=== PATIENT | male | born 1945 | race Caucasian/White ===

== ENCOUNTER → 2020-08-19 08:53 | Outpatient (BNVA) | payer MEDICARE, SELFPAY | PROVIDERS: PCP Internal Medicine; Referring Provider Internal Medicine; Visit Provider Orthopaedic Surgery | DX: M17.11 Unilateral primary osteoarthritis, right knee (principal) | CPT/HCPCS: 20610; 99212; J1100 ==

== ENCOUNTER → 2021-01-10 11:00 | Outpatient (BNVA) | payer MEDICARE, SELFPAY | PROVIDERS: Visit Provider Orthopaedic Surgery | DX: M17.11 Unilateral primary osteoarthritis, right knee (principal) | CPT/HCPCS: 20610; 99212; J1100 ==

== ENCOUNTER 2021-02-08 06:04 | Outpatient (REF) | payer MEDICARE, SELFPAY ==
--- NOTE | ~2021-02-08 | FL_ITS ---
EXAMINATION: XR FLUOROSCOPY WITH IMAGES CLINICAL INFORMATION: Pain, osteoarthritis right hip COMPARISON: Pelvic radiograph 10/10/2018 TECHNIQUE: Fluoroscopy performed by Judy Rahman NP. Fluoroscopy time: 0.1 minutes DAP: 1.67 Gycm2 Images: 1 FINDINGS: There is a spinal needle seen at the superolateral aspect right hip joint. There is intracapsular contrast demonstrated. Degenerative changes again noted right hip joint. FL/FL guidance in treatment room IMPRESSION: Fluoroscopy for pain management procedure.
== END 2021-02-08 06:05 | disposition home or self-care (01) ==
LOC: HO.RADIR 06:04
PROVIDERS: Visit Provider Anesthesiology
DX: M16.11 Unilateral primary osteoarthritis, right hip (principal)
CPT/HCPCS: 20610; J3300; Q9967

== ENCOUNTER → 2021-07-08 10:23 | Outpatient (BNVA) | payer MEDICARE, SELFPAY | PROVIDERS: PCP Internal Medicine; Visit Provider Orthopaedic Surgery | DX: M17.11 Unilateral primary osteoarthritis, right knee (principal) | CPT/HCPCS: 20610; 99212; J1100 ==

== ENCOUNTER → 2022-01-30 10:57 | Outpatient (BNVA) | payer MEDICARE, SELFPAY | PROVIDERS: PCP Internal Medicine; Visit Provider Orthopaedic Surgery | DX: M17.11 Unilateral primary osteoarthritis, right knee (principal) | CPT/HCPCS: 20610; 99212; J1100 ==

== ENCOUNTER → 2022-06-19 10:26 | Outpatient (BNVA) | payer MEDICARE, SELFPAY | PROVIDERS: PCP Internal Medicine; Visit Provider Orthopaedic Surgery | DX: M17.11 Unilateral primary osteoarthritis, right knee (principal) | CPT/HCPCS: 20610; 99212; J1100 ==

== ENCOUNTER → 2022-09-25 10:03 | Outpatient (BNVA) | payer MEDICARE, SELFPAY | PROVIDERS: PCP Internal Medicine; Visit Provider Orthopaedic Surgery | DX: M17.11 Unilateral primary osteoarthritis, right knee (principal) | CPT/HCPCS: 20610; 99212; J1100 ==

== ENCOUNTER → 2022-12-04 09:18 | Outpatient (BNVA) | payer MEDICARE, SELFPAY | PROVIDERS: PCP Internal Medicine; Visit Provider Orthopaedic Surgery | DX: M17.11 Unilateral primary osteoarthritis, right knee (principal) | CPT/HCPCS: 20610; 99212; J7318 ==

== ENCOUNTER → 2023-03-02 09:54 | Outpatient (BNVA) | payer MEDICARE, SELFPAY | PROVIDERS: PCP Internal Medicine; Visit Provider Orthopaedic Surgery | DX: M17.11 Unilateral primary osteoarthritis, right knee (principal) | CPT/HCPCS: 20610; 99212; J1100 ==

== ENCOUNTER 2023-03-28 02:02 | Inpatient (IN) | payer MEDICARE, SELFPAY ==
[2023-03-28] VITALS (10 sets, daily range): BP systolic 109–158; BP diastolic 54–84; PULSE 82–96; RESP 16–36; TEMP 36.4–38; O2SAT 74–97; BMI 26.3; BMI 26.9
--- NOTE | 2023-03-28 | ECG_ITS ---
Test Reason : SOB Blood Pressure : / mmHG Vent. Rate : 092 BPM Atrial Rate : 093 BPM P-R Int : 000 ms QRS Dur : 102 ms QT Int : 334 ms P-R-T Axes : 059 -24 046 degrees QTc Int : 413 ms Poor data quality Normal sinus rhythm Borderline ECG No previous ECGs available Referred By: Generic ED Physician Electronically Signed By:Korey Beckett
--- NOTE | ~2023-03-28 | CT_ITS ---
EXAMINATION: CT CHEST WITHOUT CONTRAST CLINICAL INFORMATION: Question pneumonia. COMPARISON: Chest x-ray of 03/28/2023. TECHNIQUE: Multidetector volumetric CT imaging of the chest was done. Axial MIP volume rendering provided. Sagittal and coronal reformatted images were obtained. This CT examination was performed using dose optimization techniques as appropriate, variously including the following: *Automated exposure control *Adjustment of mA and/or kV according to patient size (this includes techniques or standardized protocols for targeted exams where dose is matched to indication/reason for exam; i.e. extremities or head) *Use of iterative reconstruction technique DLP: 168 mGy-cm FINDINGS: LUNGS: Patient appears to be status post previous lingula surgery with suture line in place; however, I do not have history as to what the surgery was and why. Central airways are patent. There is diffuse bronchial wall thickening present most prominent within the lower lobes. There is mild bronchiectasis in the upper lobes bilaterally. There are moderate changes of centrilobular and paraseptal emphysema bilaterally. There is a mosaic ground-glass appearance present which may be related to varying vascularity or air trapping. There is prominent bilateral apical pleural parenchymal scarring with some calcification about the right apex. There is prominent interstitial and airspace disease seen within the left lower lobe, consistent with pneumonia with air bronchograms. There is some right lower lobe disease as well, which may be on a basis of atelectasis, scarring, or pneumonia. There are some small peripheral scattered regions of disease which may be infectious and bronchial disease or related to reactive airways disease and mucus plugging. Evaluation for lung nodules is very limited due to the bilateral disease which is present. Repeat CT scan after therapy could be performed to rule out underlying solid mass. MEDIASTINUM: There is a small amount of pericardial fluid present. Heart normal size. No thoracic aortic aneurysm. There is nonocclusive calcified plaque in the aortic arch. Visualized thyroid appears unremarkable. There is mediastinal lymphadenopathy present in the precarinal region with right-sided 1.3 cm short axis lymph node, central 1.4 cm short axis lymph node, and left 1.1 cm and 1.2 cm short axis lymph nodes. There is 2.3 x 2.2 cm subcarinal density consistent with lymphadenopathy. There are other prominent lymph nodes within the mediastinum and hilar regions that are difficult to evaluate due to lack of IV contrast and parenchymal disease. There does appear to be a 1.3 cm right superior hilar lymph node. CORONARY ARTERY CALCIFICATION: There is prominent coronary artery calcification present. PLEURA: There are small bilateral pleural effusions present. AXILLA: No lymphadenopathy. UPPER ABDOMEN: Unremarkable. OSSEOUS STRUCTURES: There appear to be nondisplaced fractures involving the posterior aspects of the left 10th and 11th ribs. There are multiple vertebral bodies with regions of osteopenia with the appearance of possible hemangiomas and less likely metastatic processes. CT/CT chest wo IV con IMPRESSION: 1. Moderate changes of centrilobular and paraseptal emphysema. 2. Bilateral regions of interstitial and airspace disease most prominent in the left lower lobe consistent with pneumonia. Underlying lung mass is not excluded. Follow-up study following treatment would be of help in further evaluation of possible underlying masses. 3. Status post previous left lung surgery. 4. Mediastinal and right hilar lymphadenopathy. 5. Small pericardial effusion and bilateral small pleural effusions. 6. Nondisplaced fractures involving the posterior aspects of the left 10th and 11th ribs. Fleischner guidelines were followed.
--- NOTE | ~2023-03-28 | XR_ITS ---
EXAMINATION: XR CHEST CLINICAL INFORMATION: Dyspnea COMPARISON: None available. TECHNIQUE: Frontal view of the chest was obtained. FINDINGS: Rotated study. Cardiac leads overlie the chest. The lungs are well expanded. Patchy opacity at the left base. No pleural effusion or pneumothorax. The cardiomediastinal silhouette is unremarkable given the limitations of the study. XR/XR chest 1V IMPRESSION: Patchy opacity at the left base could represent atelectasis or pneumonia. Aspiration possible.
[2023-03-28 02:28] LABS: Basophils Absolute Auto 0.1 X10*3/uL (0.0-0.2); Basophils Percent Auto 0.3 % (0-2); Eosinophils Percent Auto 0.1 % (0-4); Hematocrit 30.8 % (42.0-52.0); Hemoglobin 10.7 g/dl (14.0-18.0); Imm Gran Abs Auto 0.12 X10*3/uL (0.00-0.03); Imm Gran Pct Auto 0.6 % (0.0-0.4); Lymphocytes Percent Auto 5.2 % (20-40); Mean Corpuscular HGB Conc 34.7 g/dl (31.0-36.0); Mean Corpuscular Hemoglobin 30.2 pg (27.0-33.0); Monocytes Absolute Auto 1.8 X10*3/uL (0.1-1.2); Monocytes Percent Auto 9.5 % (2-11); Neutrophils Absolute Auto 15.8 x10*3/uL (2.0-8.3); Neutrophils Percent Auto 84.3 % (45-73); Platelet Count 262 X10*3/uL (160-400); Red Blood Count 3.54 X10*6/uL (4.60-5.80); Red Cell Distribution Width 13.4 % (11.0-16.0); SCAN SMEAR FLAG 1; White Blood Count 18.7 X10*3/uL (4.8-10.8)
[2023-03-28 02:32] LABS: MANUAL DIFF FLAG SCAN
[2023-03-28 02:43] LABS: SLIDE REVIEW VERIFIED
[2023-03-28 02:47] LABS: Troponin-I High Sensitivity 26.8 ng/L (<3.5-35.0)
[2023-03-28 03:05] LABS: Alanine Aminotransferase 32 U/L (0-40); Albumin Level 3.2 g/dL (3.5-5.0); Alkaline Phosphatase 134 U/L (39-117); Anion Gap 15 (12-20); Aspartate Amino Transferase 30 U/L (5-37); Bilirubin Direct 0.5 mg/dL (0.0-0.5); Bilirubin Total 1.2 mg/dL (0.0-1.0); Blood Urea Nitrogen 22 mg/dL (9-16); Calcium 8.1 mg/dL (8.4-10.2); Carbon Dioxide 18 mmol/L (22-29); Chloride 97 mmol/L (96-108); Creatinine Clr Calc Pharmacy 33.2; Estimated Glomerular Filt Rate 35; Glucose Random 144 mg/dL (60-115); Lipase 10 U/L (8-78); Potassium 4.7 mmol/L (3.3-5.1); Sodium 125 mmol/L (135-145); Total Protein 5.5 g/dL (6.5-8.0)
[2023-03-28 03:09] LABS: Lactic Acid 1.1 mmol/L (0.5-2.0)
[2023-03-28] MEDS: cefTRIAXone sodium 1 GM in 0.9 % Sodium Chloride 50 ML IV (03:17)
[2023-03-28 03:30] LABS: COVID-19 Test Negative (Negative); IDNOW Serial# 08D9AD1C; IDNOW Serial# BCCEAD1C; Influenza A Negative (Negative); Influenza B2 Negative (Negative)
--- NOTE | 2023-03-28 03:31 | PM.IMHP ---
History of Present Illness Date of Service: 03/28/23 Chief Complaint: Dyspnea This is a 77-year-old male with pertinent history of essential hypertension, mixed hyperlipidemia who presents to the emergency department for evaluation of dyspnea. Patient states that about 3-5 days prior to presentation he has been having upper respiratory symptoms. About 3 days prior to presentation, patient started having productive cough. Initially it was clear sputum which changed color to yellow. On the day of presentation, patient began to have dyspnea this was worse with exertion. No wheezing. Admits associated fevers and chills. Patient denies chest discomfort, palpitations, nausea, vomiting, abdominal pain, changes in urinary or bowel habits. In the emergency department, patient was found to be septic and requiring supplemental oxygen. Review of Systems Constitutional: Constitutional: Reports chills, Reports fever(s), Reports lethargy and Reports malaise Cardiovascular: Cardiovascular: Reports dyspnea on exertion Respiratory: Respiratory: Reports cough, Reports excessive phlegm production and Reports dyspnea on exertion Gastrointestinal: Gastrointestinal: Reports no additional gastrointestinal complaints Genitourinary: Genitourinary: Reports no additional male genitourinary complaints [facility] Medical History Hip osteoarthritis Hypertension Primary osteoarthritis of right hip Primary osteoarthritis of right knee Family History Father No problems noted. Mother No problems noted. Surgical History History of arthroscopy of left knee (~1965) Social History Advance Directives: No Advance Directives Information Provided: No Current occupational status: retired Current occupation: right handed Meds Allergies Allergy/AdvReac Type Severity Reaction Status Date / Time No Known Allergies Allergy Verified 12/04/22 09:31 Active Medications: Current Medications Acetaminophen (Acetaminophen 325 Mg Tablet) 650 mg PO Q6H PRN PRN Reason: Pain, Mild (Pain Scale 1-3) Enoxaparin Sodium (Enoxaparin Sodium 40 Mg/0.4 Ml Syringe) 40 mg SUBCUT Q24H KIMBERLY Sodium Chloride (Ns) 2,490.21 mls @ 2,490.21 mls/hr 30 ml/kg infuse over 1 hr (2490.21 ml) IV .Q1H STA Stop: 03/28/23 03:45 Last Admin: 03/28/23 03:16 Dose: 2,490.21 mls/hr Melatonin (Melatonin 3 Mg Tablet) 6 mg PO BEDTIME PRN PRN Reason: Insomnia Ondansetron HCl (Ondansetron Hcl 4 Mg/2 Ml Vial) 4 mg IVPUSH Q8H PRN PRN Reason: Nausea and Vomiting Pharmacy Consult (Consult Rx Perform Med Rec) 1 each MISCELLANE ONCE PRN PRN Reason: Consult order Sodium Chloride (0.9 % Sodium Chloride Flush 3 Ml Syringe) 3 ml IVFLUSH [facility] Home Medications Medication Instructions Recorded Confirmed Last Taken Type amlodipine 10 mg tablet 10 mg PO DAILY 08/18/20 08/19/20 Unknown History atenolol 50 mg tablet 50 mg PO DAILY 08/18/20 08/19/20 Unknown History atorvastatin 40 mg tablet 40 mg PO DAILY 08/18/20 08/19/20 Unknown History cilostazol 50 mg tablet 50 mg PO BID 08/18/20 08/19/20 Unknown History latanoprost 0.005 % eye drops 1 drp ophthalmic (eye) BEDTIME 09/25/22 Unknown History netarsudil 0.02 % eye drops 0 drp ophthalmic (eye) 09/25/22 Unknown History (Rhopressa) Physical Exam Vital Signs and Narrative: Vital Signs: Last Vital Signs Temp 98.2 F 03/28/23 02:43 Pulse 82 03/28/23 02:43 Resp 26 H 03/28/23 02:43 BP 123/58 L 03/28/23 02:43 Pulse Ox 97 03/28/23 02:43 O2 Del Method Non-Rebreather Ma sk 03/28/23 02:43 O2 Flow Rate 15 03/28/23 02:43 Oxygen Flow Rate 6 03/28/23 02:12 BMI result Body Mass Index 26.3 Elderly male lying in bed on supplemental oxygen Neck supple, no JVD Regular rate and rhythm, S1-S2 heard Decreased breath sounds at bases, left-sided crackles appreciated Abdomen soft nontender, no guarding, no rigidity Patient is awake, alert and oriented to self, place, time and person ; no focal motor deficit Psych: Normal mood No pedal edema Results Labs 03/28/23 02:23 03/28/23 02:23 Labs: Laboratory Results - last 24 hr 03/28/23 03/28/23 03/28/23 02:23 02:23 02:23 MCV 87.0 MCH 30.2 MCHC 34.7 RDW 13.4 Plt Count 262 MPV 9.0 L Immature Gran % (Auto) 0.6 H Neut % (Auto) 84.3 H Lymph % (Auto) 5.2 L [place] % (Auto) 9.5 Eos % (Auto) 0.1 Baso % (Auto) 0.3 Lymph # (Auto) 1.0 L [place] # (Auto) 1.8 H Eos # (Auto) 0.0 Baso # (Auto) 0.1 Abs Immat Gran (auto) 0.12 H Absolute Neuts (auto) 15.8 H Absolute Nucleated RBC 0.000 Nucleated RBC % (auto) 0.0 Smear Tech's Comments VERIFIED Anion Gap 15 Estim Creat Clear Calc 33.2 Estimated GFR 35 Random Glucose 144 H Lactic Acid Calcium 8.1 L Total Bilirubin 1.2 H Direct Bilirubin 0.5 AST 30 ALT 32 Alkaline Phosphatase 134 H Troponin I High Sens 26.8 Total Protein 5.5 L Albumin 3.2 L Lipase 10 COVID-19 (MAHESH) COVID-19 Clin Com Influenza Type A (LOREN) Influenza Type B (LOREN) Influenza A & B Note 03/28/23 03/28/23 03/28/23 02:50 02:50 02:54 MCV MCH MCHC RDW Plt Count MPV Immature Gran % (Auto) Neut % (Auto) Lymph % (Auto) [place] % (Auto) Eos % (Auto) Baso % (Auto) Lymph # (Auto) [place] # (Auto) Eos # (Auto) Baso # (Auto) Abs Immat Gran (auto) Absolute Neuts (auto) Absolute Nucleated RBC Nucleated RBC % (auto) Smear Tech's Comments Anion Gap Estim Creat Clear Calc Estimated GFR Random Glucose Lactic Acid 1.1 Calcium Total Bilirubin Direct Bilirubin AST ALT Alkaline Phosphatase Troponin I High Sens Total Protein Albumin Lipase COVID-19 (MAHESH) Negative COVID-19 Clin Com See Note Influenza Type A (LOREN) Negative Influenza Type B (LOREN) Negative Influenza A & B Note See Note Imaging Radiologist's Impressions: Impressions Chest X-Ray 03/28/23 02:12 IMPRESSION: Patchy opacity at the left base could represent atelectasis or pneumonia. Aspiration possible. Assessment and Plan (1) Sepsis due to pneumonia: Status: Acute Plan This is a 77-year-old male with pertinent history of essential hypertension, mixed hyperlipidemia who presents to the emergency department for evaluation of dyspnea. #. Acute hypoxemic respiratory failure and Sepsis due to community-acquired pneumonia. Will admit patient and initiate empiric IV antibiotics. Resuscitated with IV crystalloids. Lactic acid and blood culture obtained. Sputum culture, Legionella antigen and MRSA nasal screen pending. Monitor oxygen saturation and wean as tolerated. Maintain oxygen saturation greater than 90% #. Hyponatremia, likely hypovolemic. Monitor sodium with fluid resuscitation. Legionella antigen pending #. Normocytic anemia. Hemoglobin above transfusion threshold #. Elevated creatinine. BLAIRE versus CKD. Monitor creatinine with fluid resuscitation. Avoid nephrotoxins #. Essential hypertension. Hold antihypertensives in the setting of sepsis. Resume as appropriate #. Mixed hyperlipidemia: On statin Med rec pending DVT prophylaxis: Lovenox Full code Cardiac diet Admit as inpatient and will require two night minimum hospital stay for IV antibiotics and supplemental oxygen Time Spent With Patient Time: Total time managing care of this patient today ____ minutes. Quality Stroke Does the patient have a stroke diagnosis?: No VTE Prior VTE?: No VTE Risk Level:: Medical - moderate - high VTE Device Contraindication: Treatment Not Indicated VTE Drug Contraindication: N/A - Med Ordered
[2023-03-28] MEDS: Azithromycin 500 MG TABLET PO (03:36)
--- NOTE | 2023-03-28 03:37 | ED.SOB ---
HPI - SOB/Dyspnea General Chief Complaint: Dyspnea Stated Complaint: sob Time Seen by Provider: 03/28/23 02:15 History of Present Illness HPI Narrative: Patient is a 77-year-old male presenting today with having coughing congestion upper respiratory symptoms fever generalized malaise. Patient's from home. Vaccinated for COVID. Symptoms been ongoing for 4 days. Has a history of COPD, lung cancer. Not on home O2. Was found have a low O2 sat of 74% on room air on EMS arrival. Positive weakness. Related Data Home Medications Medication Instructions Recorded Confirmed amlodipine 10 mg tablet 10 mg PO DAILY 08/18/20 08/19/20 atenolol 50 mg tablet 50 mg PO DAILY 08/18/20 08/19/20 atorvastatin 40 mg tablet 40 mg PO DAILY 08/18/20 08/19/20 cilostazol 50 mg tablet 50 mg PO BID 08/18/20 08/19/20 latanoprost 0.005 % eye drops 1 drp ophthalmic (eye) BEDTIME 09/25/22 netarsudil 0.02 % eye drops 0 drp ophthalmic (eye) 09/25/22 (Rhopressa) Allergies Allergy/AdvReac Type Severity Reaction Status Date / Time No Known Allergies Allergy Verified 12/04/22 09:31 Review of Systems Review of Systems: Positive shortness of breath Positive coughing upper respiratory symptoms Yes all other systems are reviewed and are negative [facility] Past Medical History Attestation statement: The following information was validated with the patient. Medical History Hip osteoarthritis Hypertension Primary osteoarthritis of right hip Primary osteoarthritis of right knee Surgical History History of arthroscopy of left knee (~1965) Family History Family History Father No problems noted. Mother No problems noted. Social History Social History Advance Directives: No Advance Directives Information Provided: No Current occupational status: retired Current occupation: right handed Physical Exam Vital Signs: Vital Signs: Last Vital Signs Temp 98.2 F 03/28/23 02:43 Pulse 83 03/28/23 03:42 Resp 22 H 03/28/23 03:42 BP 155/62 H 03/28/23 03:42 Pulse Ox 91 L 03/28/23 03:42 O2 Del Method Nasal Cannula 03/28/23 03:42 O2 Flow Rate 6 03/28/23 03:42 Oxygen Flow Rate 6 03/28/23 02:12 BMI result Body Mass Index 26.3 Appearance: Alert. Oriented X3. Short of breath Eyes: Pupils equal, round and reactive to light. ENT: Pharynx normal. Neck: Normal inspection. Neck supple. No lymph nodes noted. No crepitus CVS: Normal heart rate and rhythm. Pulses normal. Normal S1 and S2 Respiratory: Diminished breath sounds bilaterally positive minimal wheezing noted. Abdomen: Soft and nontender. No rigidity. No distention. good BS x4 Skin: Skin warm and dry. Normal skin color. Normal skin turgor. Extremities: No lower extremity edema. Neurovascular intact to all extremities. No Lacerations. No Rash Neuro: Oriented X 3. No motor deficit. No sensory deficit. Moving all extermities. No slurred speech Medications Administered Discontinued Medications Generic Name Dose Route Start Last Admin Trade Name Freq PRN Reason Stop Dose Admin Azithromycin 500 mg 03/28/23 02:45 03/28/23 03:36 Azithromycin 500 Mg Tablet PO 03/28/23 02:46 500 mg ONCE ONE Administration Ceftriaxone Sodium 1 gm/ 50 mls @ 100 mls/hr 03/28/23 02:45 03/28/23 03:17 Sodium Chloride IV 03/28/23 03:14 100 mls/hr ONCE ONE Administration Sodium Chloride 2,490.21 mls @ 2,490.21 mls/hr 03/28/23 02:46 03/28/23 03:16 Ns 30 ml/kg infuse over 1 hr (2490.21 ml) 03/28/23 03:45 2,490.21 mls/hr IV Administration .Q1H STA Medical Decision Making Medical Decision Making MDM Narrative: Patient had positive coughing upper respiratory symptoms positive generalized malaise. Decreased O2 sats. My interpretation of patient's x-ray showed a left-sided pneumonia. Patient's O2 sat was in the 70s baseline not on oxygen. Was placed on O2 here in the emergency department. Cultures were obtained antibiotics started septic alert was called. 30 cc/kilos IV fluids ordered. Patient's lactate came back at 1.1. No signs of decreased tissue perfusion. Patient's BUN and creatinine was 22/1.86. No old ones to compare. Started on community-acquired pneumonia including Rocephin and azithromycin. Patient's case discussed with the hospitalist team. Will admit for further evaluation of his pneumonia. Patient's flu RSV COVID were negative. Differential Diagnosis Differential Diagnoses: The differential diagnosis associated with the presentation includes Pneumonia, COPD Consult Healthcare Provider Management of the patient was discussed with: Hospitalist Lab Data [facility] Lab Attestation statement: I reviewed the patient's lab results. 03/28/23 02:23 03/28/23 02:23 Labs: Lab Results 03/28/23 03/28/23 03/28/23 Range/Units 02:23 02:23 02:23 WBC 18.7 H (4.8-10.8) X10*3/uL RBC 3.54 L (4.60-5.80) X10*6/uL Hgb 10.7 L (14.0-18.0) g/dl Hct 30.8 L (42.0-52.0) % MCV 87.0 (80.0-98.0) fL MCH 30.2 (27.0-33.0) pg MCHC 34.7 (31.0-36.0) g/dl RDW 13.4 (11.0-16.0) % Plt Count 262 (160-400) X10*3/uL MPV 9.0 L (9.4-12.4) fL Immature Gran % (Auto) 0.6 H (0.0-0.4) % Neut % (Auto) 84.3 H (45-73) % Lymph % (Auto) 5.2 L (20-40) % [place] % (Auto) 9.5 (2-11) % Eos % (Auto) 0.1 (0-4) % Baso % (Auto) 0.3 (0-2) % Lymph # (Auto) 1.0 L (1.2-4.9) X10*3/uL [place] # (Auto) 1.8 H (0.1-1.2) X10*3/uL Eos # (Auto) 0.0 (0.0-0.4) X10*3/uL Baso # (Auto) 0.1 (0.0-0.2) X10*3/uL Abs Immat Gran (auto) 0.12 H (0.00-0.03) X10*3/uL Absolute Neuts (auto) 15.8 H (2.0-8.3) x10*3/uL Absolute Nucleated RBC 0.000 (0.0-0.012) X10*3/uL Nucleated RBC % (auto) 0.0 (0.0-0.2) /100WBC Smear Tech's Comments VERIFIED Sodium 125 L (135-145) mmol/L Potassium 4.7 (3.3-5.1) mmol/L Chloride 97 (96-108) mmol/L Carbon Dioxide 18 L (22-29) mmol/L Anion Gap 15 (12-20) BUN 22 H (9-16) mg/dL Creatinine 1.86 H (0.5-1.4) mg/dL Estim Creat Clear Calc 33.2 Estimated GFR 35 Random Glucose 144 H (60-115) mg/dL Lactic Acid (0.5-2.0) mmol/L Calcium 8.1 L (8.4-10.2) mg/dL Total Bilirubin 1.2 H (0.0-1.0) mg/dL Direct Bilirubin 0.5 (0.0-0.5) mg/dL AST 30 (5-37) U/L ALT 32 (0-40) U/L Alkaline Phosphatase 134 H (39-117) U/L Troponin I High Sens 26.8 (<3.5-35.0) ng/L Total Protein 5.5 L (6.5-8.0) g/dL Albumin 3.2 L (3.5-5.0) g/dL Lipase 10 (8-78) U/L COVID-19 (MAHESH) (Negative) COVID-19 Clin Com Influenza Type A (LOREN) (Negative) Influenza Type B (LOREN) (Negative) Influenza A & B Note 03/28/23 03/28/23 03/28/23 Range/Units 02:50 02:50 02:54 WBC (4.8-10.8) X10*3/uL RBC (4.60-5.80) X10*6/uL Hgb (14.0-18.0) g/dl Hct (42.0-52.0) % MCV (80.0-98.0) fL MCH (27.0-33.0) pg MCHC (31.0-36.0) g/dl RDW (11.0-16.0) % Plt Count (160-400) X10*3/uL MPV (9.4-12.4) fL Immature Gran % (Auto) (0.0-0.4) % Neut % (Auto) (45-73) % Lymph % (Auto) (20-40) % [place] % (Auto) (2-11) % Eos % (Auto) (0-4) % Baso % (Auto) (0-2) % Lymph # (Auto) (1.2-4.9) X10*3/uL [place] # (Auto) (0.1-1.2) X10*3/uL Eos # (Auto) (0.0-0.4) X10*3/uL Baso # (Auto) (0.0-0.2) X10*3/uL Abs Immat Gran (auto) (0.00-0.03) X10*3/uL Absolute Neuts (auto) (2.0-8.3) x10*3/uL Absolute Nucleated RBC (0.0-0.012) X10*3/uL Nucleated RBC % (auto) (0.0-0.2) /100WBC Smear Tech's Comments Sodium (135-145) mmol/L Potassium (3.3-5.1) mmol/L Chloride (96-108) mmol/L Carbon Dioxide (22-29) mmol/L Anion Gap (12-20) BUN (9-16) mg/dL Creatinine (0.5-1.4) mg/dL Estim Creat Clear Calc Estimated GFR Random Glucose (60-115) mg/dL Lactic Acid 1.1 (0.5-2.0) mmol/L Calcium (8.4-10.2) mg/dL Total Bilirubin (0.0-1.0) mg/dL Direct Bilirubin (0.0-0.5) mg/dL AST (5-37) U/L ALT (0-40) U/L Alkaline Phosphatase (39-117) U/L Troponin I High Sens (<3.5-35.0) ng/L Total Protein (6.5-8.0) g/dL Albumin (3.5-5.0) g/dL Lipase (8-78) U/L COVID-19 (MAHESH) Negative (Negative) COVID-19 Clin Com See Note Influenza Type A (LOREN) Negative (Negative) Influenza Type B (LOREN) Negative (Negative) Influenza A & B Note See Note Independent Interpretation I performed an independent interpretation of an: EKG Interpretation: My interpretation of patient's EKG showed a sinus rhythm heart rate is 90 [place] QRS QT within normal limits no acute ST segment elevation. Patient's chest x-ray showed a left-sided infiltrate Radiology Impression Discussion of test interpretation with radiology: I have reviewed the radiologist's reading. External Record Review External record reviewed: Office record Chronic Conditions COPD Critical Care Time Critical Care Time Critical Care Time: Yes Total Critical Care Time: 40 Attestation: I have personally provided 40 minutes of critical care time exclusive of time spent on separately billable procedures. Time includes review of lab data, radiology results, discussion with consultants, and monitoring for potential decompensation. Interventions were performed as documented above Discharge Plan Discharge Clinical Impression: Pneumonia Patient Disposition: Admitted As Inpatient Prescriptions: No Action cilostazol 50 mg tablet 50 mg PO BID atenolol 50 mg tablet 50 mg PO DAILY amlodipine 10 mg tablet 10 mg PO DAILY atorvastatin 40 mg tablet 40 mg PO DAILY Rhopressa 0.02 % drops 0 drp ophthalmic (eye) latanoprost 0.005 % drops 1 drp ophthalmic (eye) BEDTIME
--- OUTSIDE RECORDS SUMMARY | 2023-03-28 03:38 | XMS_ITS | Continuity of Care Document ---
Author Name Unknown Organization [facility] Branden С[address] lt Address [address] [place] [address]- Care Team Providers Care Electrical Tech/Project Manager Name Role Phone Bean Florence MD Primary Care Physician [phone] Encounter [facility] [place] Date(s): 11/14/22 - 03/14/23 [facility] Adult [address] [place] [address]- Attending Physician: Bean Florence MD Allergies, Adverse Reactions, Alerts No Known Allergies Immunizations Given and Recorded Vaccine Date Status Refusal Reason SARS-CoV-2 mRNA (dglhmof-olad-oeins) vax 1 08/09/22 Recorded SARS-CoV-2 mRNA (unhlnry-qnae-ogcdz) vax 01/25/22 Given influenza virus vaccine, inactivated 08/09/22 Dave rded influenza virus vaccine, inactivated 2 07/02/17 Re corded influenza virus vaccine, inactivated 3, 4 07/10/16 Recorded influenza virus vaccine, inactivated 5 07/19/15 Re corded influenza virus vaccine, inactivated 08/16/14 Give n influenza virus vaccine, inactivated 07/17/13 Give n influenza virus vaccine, inactivated 07/06/12 Give n influenza virus vaccine, inactivated 10/22/04 Give n SARS-CoV-2 (COVID-19) mRNA BNT-162b2 vac 08/18/21 Recorded SARS-CoV-2 (COVID-19) mRNA BNT-162b2 vac 12/16/20 Recorded SARS-CoV-2 (COVID-19) mRNA BNT-162b2 vac 12/16/20 Recorded SARS-CoV-2 (COVID-19) mRNA BNT-162b2 vac 11/25/20 Recorded SARS-CoV-2 (COVID-19) mRNA BNT-162b2 vac 11/25/20 Recorded Influenza Virus Vaccine (oldterm) 07/18/21 Recorde d Influenza Virus Vaccine (oldterm) 06/07/20 Recorde d Influenza Virus Vaccine (oldterm) 06/24/19 Recorde d Influenza Virus Vaccine (oldterm) 6 08/23/07 Given pneumococcal 13-valent vaccine 06/07/20 Recorded pneumococcal 13-valent vaccine 05/17/15 Given zoster vaccine, inactivated 03/25/19 Recorded zoster vaccine, inactivated 12/20/18 Recorded tetanus/diphtheria/pertussis, acel(Tdap) 7 05/28/17 Given Zostavax (oldterm) 8 06/03/12 Given FluLaval (oldterm) 9 10/20/11 Given Pneumococcal Vacc (oldterm) 09/28/09 Given tetanus-diphtheria toxoids (Td) 11/20/07 Given tetanus-diphtheria toxoids (Td) 10/22/97 Given Pneumococcal Vaccine (oldterm) 10/22/04 Given 1Result Comment: [facility] 2Result Comment: [07/06/2017] HIGH DOSE [facility] 3Location History: [facility] 4Result Comment: [07/12/2016] HIGH DOSE 5Result Comment: [07/21/2015] Given at [facility] ion [facility] in [facility] 6Admin Note: given in clinic 7Result Comment: [05/28/2017] ADMINISTERED SECONDARY TO ABRASIONS PER DR FLORENCE 8Admin Note: ch[facility] 9Admin Note: [employer] [facility] Medications Albuterol (Eqv-ProAir HFA) 90 mcg/inh inhalation aerosol 2 puffs, Inhalation, 4 times a day, PRN NEEDED FOR WHEEZING, # 8.5 each, 5 Refills, Maintenance,02/21/23 17:27:00 EDT, [facility]/pharmacy #[id number], 25, 2 puffs Inhalation 4 times a day,PRN: NEEDED FOR WHEEZING, 177.06, cm, 10/05/22 6:53:00 EST, Height Start Date: 02/21/23 Status: Ordered amLODIPine 10 mg oral tablet 1 tablet, By Mouth, Daily, # 90 tablet, 1 Refills, Maintenance, 11/23/22 14:45:00 EST, [facility] STORE [id number], 177.06, cm, 10/05/22 6:53:00 EST, Height Start Date: 11/23/22 Status: Ordered aspirin 81 mg oral tablet 81, mg, 1, tablet, By Mouth, Daily, 30, tablet, , , 07/06/06 15:03:18, Print REAL Number, [id number], Constant Indicator Start Date: 07/06/06 Stop Date: 07/01/07 Status: Ordered atorvastatin 40 mg oral tablet 1 tablet, By Mouth, Daily, # 90 tablet, 1 Refills, Maintenance, 03/07/23 21:18:00 EDT, [facility] [id number], 177.06, cm, 10/05/22 6:53:00 EST, Height Start Date: 03/07/23 Status: Ordered BP MONITOR WITH CUFF BP MONITOR WITH CUFF, See Instructions, # 1 each, Refills 0, Tot. Refills 0, Maintenance, USE DIRECTED DX HTN I10 RONAK LIFETIME, 09/24/19 12:21:11 EST, Compound Start Date: 09/24/19 Status: Ordered carvedilol 12.5 mg oral tablet 1, tablet, By Mouth, 2 times a day, # 180 tablet, Refills 1, Maintenance, 11/23/22 14:45:00 EST, Route to Pharmacy Electronically, [facility] [id number], 177.06, cm, 10/05/22 6:53:00 EST, Height Start Date: 11/23/22 Status: Ordered latanoprost 0.005% ophthalmic solution 1 drops, Eyes, Both, Daily at bedtime, # 3 mL, 0 Refills, Maintenance, 11/16/14 9:37:52, Ophth Solution Start Date: 11/16/14 Status: Ordered losartan 100 mg oral tablet 1 tablet, By Mouth, Daily, # 90 tablet, 1 Refills, Maintenance, 11/23/22 14:45:00 EST, [facility] [id number], 177.06, cm, 10/05/22 6:53:00 EST, Height Start Date: 11/23/22 Status: Ordered Rhopressa 0.02% ophthalmic solution See Instructions, INSTILL 1 DROP INTO BOTH EYES EVERY DAY AT NIGHT, # 7.5 mL, 1 Refills, Maintenance, 02/21/23 11:39:00 EDT, [facility] [id number], 90, INSTILL 1 DROP INTO BOTH EYES EVERY DAY AT NIGHT, 177.06, cm, 10/05/22 6:53:00 EST, Height Start Date: 02/21/23 Status: Ordered Trelegy Ellipta 200 mcg-62.5 mcg-25 mcg/inh inhalation powder 1 puffs, Inhalation, Daily, at the same time every day, # 1 each, 11 Refills, Maintenance, 238:55:00 EDT, Powder, [id number], Partial fill upon patient request if the prescription is for a schedule II opioid drug., 1 puffs Inhalation Da... Start Date: 01/10/23 Status: Ordered Problem List Condition Confirmation Course Effective Dates Status Health Status Informant Adenocarcinoma of lung, stage 2 Confirmed Active Adenomatous polyposis coli 1, 2 Confirmed Active Former heavy cigarette smoker (1 ppd x 40 yrs; quit 2009) Confirmed Active Hilar lymphadenopathy Confirmed Active Hypercholesterolemia Confirmed Active Hypertension Confirmed Active Hyponatremia Confirmed Active Impaired glucose tolerance Confirmed Active Stage 2 moderate COPD by GOLD classification Confirmed Active 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 3 Confirmed 10/19/21 Active Osteoarthritis of right knee Confirmed Active PVD (peripheral vascular disease) Confirmed Active Increased intraocular pressure Confirmed Active S/P TKR (total knee replacement) Confirmed Active 1colo 2013 polyps repeat 2018 2colo 2003 polyp, rpt 2008 needed 3ct chest 03 abnl repeat 05 no change Social History Social History Type Response Smoking Status Former smoker, quit more than 30 days ago; Type: Cigarettes; Other: quit 2009; 1 ppd x 40 yrs; Number of years: 40; Total pack years: 40; entered on: 11/04/21 Sex Patient Care team information Care Team Personnel Name: Tatyana BRAVO, Bean Richards Position: [facility] Physician - Primary Care Member Role: PCP Address: Address: [address] [place] [id number]- Care Team Related Persons Name: MARQUISE WALLS Address: home [address] [place] [address] Name: ROSCOE LEÓN Address: home [address] [place] [address]
--- OUTSIDE RECORDS SUMMARY | 2023-03-28 03:38 | XMS_ITS | Continuity of Care Document ---
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 Name Role Phone Bean Florence MD Primary Care Physician [phone] Encounter [facility] [place] Date(s): 02/20/23 - 03/22/23 [facility] Adult [address] [place] [address]- Allergies, Adverse Reactions, Alerts No Known Allergies Immunizations Given and Recorded Vaccine Date Status Refusal Reason SARS-CoV-2 mRNA (zugvvtu-agwk-drwah) vax 1 08/09/22 Recorded SARS-CoV-2 mRNA (ggtuhfl-azuh-zejrb) vax 01/25/22 Given influenza virus vaccine, inactivated [...] Pneumococcal Vaccine (oldterm) 10/22/04 Given 1Result Comment: [facility] 2Result Comment: [07/06/2017] HIGH DOSE [facility] 3Location History: [facility] 4Result Comment: [07/12/2016] HIGH DOSE 5Result Comment: [07/21/2015] Given at [facility] ion [address] in [facility] [facility] 6Admin Note: given in clinic 7Result Comment: [05/28/2017] ADMINISTERED SECONDARY TO ABRASIONS PER DR FLORENCE 8Admin Note: [facility] 9Admin Note: [facility] [facility] Medications Albuterol (Eqv-ProAir HFA) 90 mcg/inh inhalation aerosol 2 puffs, Inhalation, 4 times a day, PRN NEEDED FOR WHEEZING, # 8.5 each, 5 Refills, Maintenance,02/21/23 17:27:00 EDT, [facility]/pharmacy #[id number], 25, 2 puffs Inhalation 4 times a day,PRN: NEEDED FOR WHEEZING, 177.06, cm, 10/05/22 6:53:00 EST, Height Start Date: 02/21/23 Status: Ordered amLODIPine 10 mg oral tablet 1 tablet, By Mouth, Daily, # 90 tablet, 1 Refills, Maintenance, 11/23/22 14:45:00 EST, [id number], 177.06, cm, 10/05/22 6:53:00 EST, Height Start Date: 11/23/22 Status: Ordered aspirin 81 mg oral tablet 81, mg, 1, tablet, By Mouth, Daily, 30, tablet, 11, 11, 07/06/06 15:03:18, Print REAL Number, [id number], Constant Indicator Start Date: 07/06/06 Stop Date: 07/01/07 Status: Ordered atorvastatin 40 mg oral tablet 1 tablet, By Mouth, Daily, # 90 tablet, 1 Refills, Maintenance, 03/07/23 21:18:00 EDT, [id number], 177.06, cm, 10/05/22 6:53:00 EST, Height Start [...] 11/23/22 14:45:00 EST, Route to Pharmacy Electronically, [id number], 177.06, cm, 10/05/22 6:53:00 EST, Height Start Date: 11/23/22 Status: Ordered latanoprost 0.005% ophthalmic solution 1 drops, Eyes, Both, Daily at bedtime, # 3 mL, 0 Refills, Maintenance, 11/16/14 9:37:52, Ophth Solution Start Date: 11/16/14 Status: Ordered losartan 100 mg oral tablet 1 tablet, By Mouth, Daily, # 90 tablet, 1 Refills, Maintenance, 11/23/22 14:45:00 EST, [id number], 177.06, cm, 10/05/22 6:53:00 EST, Height Start Date: 11/23/22 Status: Ordered Rhopressa 0.02% ophthalmic solution See Instructions, INSTILL 1 DROP INTO BOTH EYES EVERY DAY AT NIGHT, # 7.5 mL, 1 Refills, Maintenance, 02/21/23 11:39:00 EDT, [id number], 90, INSTILL 1 DROP INTO BOTH EYES EVERY DAY AT NIGHT, 177.06, cm, 10/05/22 6:53:00 EST, Height Start Date: 02/21/23 Status: Ordered Trelegy Ellipta 200 mcg-62.5 mcg-25 mcg/inh inhalation powder 1 puffs, Inhalation, Daily, at the same time every day, # 1 each, 11 Refills, Maintenance, 238:55:00 EDT, Powder, [id number], Partial fill upon patient request if the [...] Care team information Care Team Personnel Name: Bean Florence MD Position: S Physician - Primary Care Member Role: PCP Address: Address: [address] [place] [id number]- Care Team Related Persons Name: MARQUISE WALLS Address: home [address] [place] [address] Name: ROSCOE LEÓN Address: home [address] [place] [address]
[2023-03-28 06:16] LABS: Basophils Absolute Auto 0.1 X10*3/uL (0.0-0.2); Basophils Percent Auto 0.4 % (0-2); Eosinophils Percent Auto 0.1 % (0-4); Hematocrit 30.2 % (42.0-52.0); Hemoglobin 10.3 g/dl (14.0-18.0); Imm Gran Pct Auto 1.1 % (0.0-0.4); Lymphocytes Absolute Auto 1.1 X10*3/uL (1.2-4.9); Lymphocytes Percent Auto 5.8 % (20-40); MANUAL DIFF FLAG SCAN; Mean Corpuscular HGB Conc 34.1 g/dl (31.0-36.0); Mean Corpuscular Hemoglobin 30.7 pg (27.0-33.0); Mean Corpuscular Volume 89.9 fL (80.0-98.0); Mean Platelet Volume 9.8 fL (9.4-12.4); Monocytes Absolute Auto 1.7 X10*3/uL (0.1-1.2); Monocytes Percent Auto 9.2 % (2-11); Neutrophils Absolute Auto 15.7 x10*3/uL (2.0-8.3); Neutrophils Percent Auto 83.4 % (45-73); Platelet Count 262 X10*3/uL (160-400); Red Blood Count 3.36 X10*6/uL (4.60-5.80); Red Cell Distribution Width 13.6 % (11.0-16.0); SCAN SMEAR FLAG 1; White Blood Count 18.8 X10*3/uL (4.8-10.8)
[2023-03-28 06:35] LABS: Anion Gap 12 (12-20); Blood Urea Nitrogen 20 mg/dL (9-16); Calcium 7.5 mg/dL (8.4-10.2); Carbon Dioxide 18 mmol/L (22-29); Chloride 100 mmol/L (96-108); Creatinine Clr Calc Pharmacy 38.1; Estimated Glomerular Filt Rate 41; Glucose Random 124 mg/dL (60-115); Potassium 4.4 mmol/L (3.3-5.1); Sodium 126 mmol/L (135-145)
[2023-03-28] MEDS: 0.9 % Sodium Chloride Flush 3 ML SYRINGE IVFLUSH ×2 (07:42→21:17)
--- NOTE | 2023-03-28 08:18 | PHA.MEDREC ---
Pharmacy Consult ? Medication Reconciliation Pharmacy has completed the medication reconciliation. Spoke with patient in the ED who knew all meds
[2023-03-28] MEDS: Albuterol/Iprat 2.5/0.5MG 3 ML AMPUL.NEB INHALE ×2 (10:50→19:47)
--- NOTE | 2023-03-28 11:09 | PC.NURSE ---
PT DESATS WITH AMBULATION TO 64 WITH ON 6L FIO2
--- NOTE | 2023-03-28 11:19 | PM.EVENT ---
Event Note Date of Service: 03/28/23 Event Note: Pt admitted this morning, personally assess, A/P per H and P of today, continue to monitor clinically Time Spent With Patient Time: Total time managing care of this patient today ____ minutes.
--- NOTE | 2023-03-28 12:16 | MHC.CM.PN ---
Addendum entered by Vianney Bueno 03/28/23 12:21: Patient received 5 Covid vaccines. Original Note: Met with patient in regards to discharge planning. Patient lives alone, ambulates independently and had no services prior to coming to the hospital. Patient is currently using oxygen but does not have oxygen at home. PCP verified. Copy of HCP obtained from [facility]. IMM explained and signed. Patient denies the need for any services at discharge. Patient's daughter will transport him home when medically stable. Continue to monitor for d/c needs.
[2023-03-28 14:58] LABS: MRSA Nasal PCR NEGATIVE (Negative); SA Nasal PCR NEGATIVE (Negative)
[2023-03-28] MEDS: Atorvastatin Calcium 40 MG TABLET PO (21:16)
[2023-03-28] MEDS: Benzonatate 100 MG CAPSULE 200 MG PO (21:16)
[2023-03-28] MEDS: Latanoprost 0.005 % Ophth Sol 2.5 ML DROPS 1 DROP EYE-BOTH (21:28)
[2023-03-29] VITALS (10 sets, daily range): BP systolic 121–163; BP diastolic 54–78; PULSE 78–106; RESP 18–20; TEMP 36.5–37.6; O2SAT 86–94
[2023-03-29] MEDS: cefTRIAXone sodium 1 GM in 0.9 % Sodium Chloride 50 ML IV (03:09)
[2023-03-29] MEDS: Enoxaparin Sodium 40 MG/0.4 ML SYRINGE SUBCUT (03:14)
[2023-03-29] MEDS: Benzonatate 100 MG CAPSULE 200 MG PO ×2 (03:14→20:05)
[2023-03-29] MEDS: Albuterol/Iprat 2.5/0.5MG 3 ML AMPUL.NEB INHALE ×5 (03:21→19:48)
[2023-03-29] MEDS: Azithromycin 500 MG in 0.9 % Sodium Chloride 250 ML 125 MG IV (03:50)
[2023-03-29] MEDS: amLODIPine Besylate 10 MG TABLET PO (07:42)
[2023-03-29] MEDS: 0.9 % Sodium Chloride Flush 3 ML SYRINGE IVFLUSH ×3 (07:42→20:05)
[2023-03-29] MEDS: carvediloL 12.5 MG TABLET PO ×2 (07:42→20:05)
[2023-03-29] MEDS: Losartan Potassium 50 MG TABLET 100 MG PO (07:42)
[2023-03-29] MEDS: Atorvastatin Calcium 40 MG TABLET PO (07:42)
--- NOTE | 2023-03-29 09:44 | HO.PM.IMPN ---
Subjective Subjective Date of Service: 03/30/23 Interval History: Follow-up on acute hypoxic respiratory failure, COPD and pneumonia. Interval history: Generally is doing much better today although remained very hypoxic and requiring a lot of oxygen. Physical Exam Vital Signs: Vital Signs: Last Vital Signs Temp 98.6 F 03/29/23 07:14 Pulse 99 03/29/23 07:46 Resp 18 03/29/23 07:46 BP 163/71 H 03/29/23 07:14 Pulse Ox 90 L 03/29/23 07:14 O2 Del Method Nasal Cannula 03/29/23 07:14 O2 Flow Rate 8.0 03/29/23 07:14 Oxygen Flow Rate 6 03/28/23 02:12 BMI result Body Mass Index 26.9 Const: Other: General: AO X 3, no acute distress Resp: Wheezing, rhonchi diffusely. no muscle use CVS: S1,S2,RRR GI: +BS, NT, no distention Skin: No rash Neuro: motor grossly intact Psych: appropriate affect Objective Data Active Medications Acetaminophen (Acetaminophen 325 Mg Tablet) 650 mg PO Q6H PRN PRN Reason: Pain, Mild (Pain Scale 1-3) Albuterol Sulfate (Albuterol Sulfate 90 Mcg 8 Gm Inhaler) 2 puff INHALE RQID PRN PRN Reason: Wheezing Albuterol/Ipratropium (Albuterol/Iprat 2.5/0.5mg 3 Ml Ampul.Neb) 3 ml INHALE RQ4H WHILE AWAKE [facility] Last Admin: 03/29/23 07:44 Dose: 3 ml Documented By: PUNEET Amlodipine Besylate (Amlodipine Besylate 10 Mg Tablet) 10 mg PO DAILY [facility]; Protocol Last Admin: 03/29/23 07:42 Dose: 10 mg Documented By: AROLDO Atorvastatin Calcium (Atorvastatin Calcium 40 Mg Tablet) 40 mg PO DAILY [facility] Last Admin: 03/29/23 07:42 Dose: 40 mg Documented By: AROLDO Benzonatate (Benzonatate 100 Mg Capsule) 200 mg PO TID PRN PRN Reason: Cough Last Admin: 03/29/23 03:14 Dose: 200 mg Documented By: STEVE Carvedilol (Carvedilol 12.5 Mg Tablet) 12.5 mg PO BID [facility]; Protocol Last Admin: 03/29/23 07:42 Dose: 12.5 mg Documented By: AROLDO Enoxaparin Sodium (Enoxaparin Sodium 40 Mg/0.4 Ml Syringe) 40 mg SUBCUT Q24H [facility] Last Admin: 03/29/23 03:14 Dose: 40 mg Documented By: STEVE Ceftriaxone Sodium 1 gm/ (Sodium Chloride) 50 mls @ 100 mls/hr IV Q24H [facility] Last Infusion: 03/29/23 03:52 Dose: 0 mls/hr Documented By: STEVE Azithromycin 500 mg/ Sodium (Chloride) 250 mls @ 125 mls/hr IV Q24H [facility] Last Infusion: 03/29/23 05:52 Dose: 0 mls/hr Documented By: STEVE Latanoprost (Latanoprost 0.005 % Ophth Annel 2.5 Ml Drops) 1 drop EYE-BOTH BEDTIME [facility] Last Admin: 03/28/23 21:28 Dose: 1 drop Documented By: STEVE Losartan Potassium (Losartan Potassium 50 Mg Tablet) 100 mg PO DAILY [facility]; Protocol Last Admin: 03/29/23 07:42 Dose: 100 mg Documented By: AROLDO Melatonin (Melatonin 3 Mg Tablet) 6 mg PO BEDTIME PRN PRN Reason: Insomnia Non-Formulary Medication (Ovgofvsihbl-Nqvjuwvlh-Bcvxneqw [Trelegy Ellipta]) 1 each INHALE DAILY [facility] Non-Formulary Medication (Netarsudil [Rhopressa]) 1 drop EYE-BOTH BEDTIME [facility] Ondansetron HCl (Ondansetron Hcl 4 Mg/2 Ml Vial) 4 mg IVPUSH Q8H PRN PRN Reason: Nausea and Vomiting Pharmacy Consult (Consult Rx Perform Med Rec) 1 each MISCELLANE ONCE PRN PRN Reason: Consult order Sodium Chloride (0.9 % Sodium Chloride Flush 3 Ml Syringe) 3 ml IVFLUSH QSHIFT [facility] Last Admin: 03/29/23 07:42 Dose: 3 ml Documented By: AROLDO Labs 03/28/23 05:53 03/28/23 05:53 Labs: Laboratory Results - last 24 hr 03/28/23 12:16 Nasal Screen MRSA (PCR) NEGATIVE Nasal S. aureus Screen NEGATIVE Nasal MRSA/S.aureus Interp SEE NOTE Microbiology Microbiology Results: Microbiology 03/28/23 03:03 Blood Culture - Preliminary Blood - Venous No growth after 24 hours. 03/28/23 02:54 Blood Culture - Preliminary Blood - Venous No growth after 24 hours. 03/28/23 12:12 Gram Stain - Final Sputum - Expectorated Assessment and Plan (1) Sepsis due to pneumonia: Status: Acute (2) Pneumonia: Status: Acute Plan 77-year-old male with pertinent history of essential hypertension, mixed hyperlipidemia who presents to the emergency department for evaluation of dyspnea. #. Acute hypoxemic respiratory failure due to community-acquired pneumonia (CAP) -continue supplemental O2 and wean as tolerated -bronchodialtors use, IV steroid for possible underlying reactive airway disease. # Sepsis d/t CAP--negative MRSA screen, BCx negative, Legionell ag pending -Ceftriaxone and Azithro since 03/28 -O2 as above. -CT of chest to further assess -check BNP to check for possible component of heart failure and add Lasix if BNP high #. Hyponatremia, likely hypovolemic--casuse unclear, repeat labs, if still low chek urine study, rule out heart failure as above #. Normocytic anemia. Hemoglobin above transfusion threshold #. Elevated creatinine. BLAIRE versus CKD, baseline unknown, treated with IVF, repeat level today and if not improving renal consult #. Essential hypertension. med on hold, but resume now #. Mixed hyperlipidemia: On statin Med rec pending DVT prophylaxis: Lovenox Full code Cardiac diet need for inpatient: sepsis and PNA, severe hypoxia treatment Time Spent With Patient Time: Total time managing care of this patient today ____ minutes. Quality Stroke Does the patient have a stroke diagnosis?: No VTE Prior VTE?: No VTE Risk Level:: Medical - moderate - high VTE Device Contraindication: Treatment Not Indicated VTE Drug Contraindication: N/A - Med Ordered
[2023-03-29] MEDS: methylPREDNISolone Sod Succ 125 MG/2 ML VIAL 60 MG IVPUSH ×2 (10:26→16:57)
[2023-03-29 10:43] LABS: Hematocrit 28.7 % (42.0-52.0); Hemoglobin 9.8 g/dl (14.0-18.0); Mean Corpuscular HGB Conc 34.1 g/dl (31.0-36.0); Mean Corpuscular Hemoglobin 30.2 pg (27.0-33.0); Mean Corpuscular Volume 88.3 fL (80.0-98.0); Mean Platelet Volume 9.3 fL (9.4-12.4); Platelet Count 265 X10*3/uL (160-400); Red Blood Count 3.25 X10*6/uL (4.60-5.80); Red Cell Distribution Width 13.8 % (11.0-16.0); White Blood Count 16.8 X10*3/uL (4.8-10.8)
[2023-03-29 10:53] LABS: Anion Gap 11 (12-20); Blood Urea Nitrogen 16 mg/dL (9-16); Carbon Dioxide 22 mmol/L (22-29); Chloride 101 mmol/L (96-108); Creatinine Clr Calc Pharmacy 53.3; Estimated Glomerular Filt Rate > 60; Glucose Random 115 mg/dL (60-115); Sodium 130 mmol/L (135-145)
[2023-03-29 10:58] LABS: B Type Natriuretic Peptide 209 pg/mL (<100)
[2023-03-29] MEDS: Furosemide 40 MG/4 ML VIAL IVPUSH (13:19)
[2023-03-29] MEDS: Latanoprost 0.005 % Ophth Sol 2.5 ML DROPS 1 DROP EYE-BOTH (20:05)
[2023-03-29] MEDS: NETARSUDIL 0.02% 1 EACH EYE-BOTH (21:54)
[2023-03-30] VITALS (7 sets, daily range): BP systolic 133–162; BP diastolic 60–72; PULSE 73–88; RESP 16–18; TEMP 36.6–37.2; O2SAT 91–98
[2023-03-30] MEDS: Enoxaparin Sodium 40 MG/0.4 ML SYRINGE SUBCUT (02:51)
[2023-03-30] MEDS: cefTRIAXone sodium 1 GM in 0.9 % Sodium Chloride 50 ML IV (02:51)
[2023-03-30] MEDS: methylPREDNISolone Sod Succ 125 MG/2 ML VIAL 60 MG IVPUSH ×3 (02:52→17:33)
[2023-03-30] MEDS: Azithromycin 500 MG in 0.9 % Sodium Chloride 250 ML 125 MG IV (03:23)
[2023-03-30] MEDS: Acetaminophen 325 MG TABLET 650 MG PO (03:58)
[2023-03-30] MEDS: Albuterol/Iprat 2.5/0.5MG 3 ML AMPUL.NEB INHALE ×4 (07:52→20:10)
--- NOTE | 2023-03-30 07:57 | CA_ITS ---
Transthoracic Echocardiogram Patient (Last, First, Middle): Ashish Hamilton A Gender: Male Date of : 1945 Age: 77 Procedure Date: 03/30/2023 Procedure Type: Transthoracic Echocardiogram Location: S3E Height: 177.8 cm Weight: 84.82 kg BSA: 2.03 m2 Heart Rate: bpm BP: 134 / 70 mmHg Director Of Estate: RUFINO Referring MD: Jose Rafael Cruz MD Symptoms: Heartfsilure Study Quality: Fair ECG Rhythm: Sinus Conclusions: - Normal left ventricular size, thickness, systolic function, and wall motion. The visually estimated ejection fraction is between 60-65%. - E/E prime ratio is >15, consistent with elevated filling pressures. - Mildly increased right ventricular cavity size. There is normal right ventricular systolic function. - The left atrium is moderately dilated. - There is mild aortic valve stenosis. Findings Left Ventricle Normal left ventricular size, thickness, systolic function, and wall motion. The visually estimated ejection fraction is between 60-65%. Abnormal diastolic function is noted. Spectral Doppler is indicative of an impaired relaxation filling pattern. E/E prime ratio is >15, consistent with elevated filling pressures. Right Ventricle Mildly increased right ventricular cavity size. There is normal right ventricular systolic function. Atria The left atrium is moderately dilated. Aortic Valve There is a normal trileaflet aortic valve. There is mild calcification of the aortic valve. There is mild aortic valve stenosis. There is no aortic valve regurgitation. Mitral Valve There is mild mitral annular calcification. There is no mitral valve regurgitation. There is no mitral valve stenosis. Pulmonic Valve The pulmonic valve is likely normal. Tricuspid Valve Normal tricuspid valve structure and function. There is trace tricuspid valve regurgitation. Normal right atrial pressure. There is no evidence of pulmonary hypertension. Great Vessels All visible segments of the aorta are normal in size. Venous The inferior vena cava is normal in size and collapses greater than 50% with inspiration. Pericardium/Pleural Prominent epicardial adipose tissue noted. There is no evidence of pericardial effusion. Measurements 2D Linear Measurements IVSd: 0.99 0.6-0.9/0.6-1.0 cm LVIDd: 4.71 3.9-5.3/4.2-5.9 cm LVIDd Index: 2.32 2.4-3.2/2.2-3.1 cm/m2 LVIDs: 2.99 2.0-3.6 cm LVPWd: 1.12 0.7-1.1 cm Ao Root: 3.50 2.1-3.5 cm LA Diam: 4.10 2.7-3.8/3.0-4.0 cm LAIDs Index: 2.02 1.5-2.3 cm/m2 LV Mass: 220.80 67-162/88-224 g LV Mass Index: 108.77 43-95/49-115 g/m2 LVOT Diam: 2.00 3.0+(-)1.3 cm Mitral Valve MV VTI: 0.47 MV Pk Manuel: 1.25 MV Mn Manuel: 0.82 MV Pk Grad: 6.00 MV Mn Grad: 3.00 MV Pk E: 1.16 MV PK A: 1.23 MV Decel Time: 194.00 E/A: 0.90 E'Lateral: 9.03 E'Medial: 5.66 E/E' Med: 20.50 E/E' Lat: 12.80 PHT: 57.00 MVA PHT: 3.86 MVA Continuity: 2.12 Decel Brooke: 5.98 Aortic Valve AoV Pk Manuel: 2.09 AoV Mn Manuel: 1.22 AoV VTI: 0.45 AoV Pk Grad: 17.00 Aov Mn Grad: 7.00 DAVI Cont.VTI: 2.21 LVOT LVOT Pk Manuel: 1.23 LVOT Mn Manuel: 0.84 LVOT VTI: 0.32 LVOT Pk Grad: 6.00 LVOT Mn Grad: 3.00 LVOT Diam: 2.00 LVOT Area: 3.14 Diastolic Function MV Pk E: 1.16 MV Pk A: 1.23 E/A: 0.90 E'Medial: 5.66 E/E' Med: 20.50 E' Laterial: 9.03 E/E' Lat: 12.80 Right Ventricle TAPSE (mm): 39.00 TVS' Maunel: 14.00 Tricuspid Valve TR Pk Manuel: 2.71 TR Pk Grad: 29.00 RA Press: 3.00 RVSP: 32.00 Great Vessels Aorta Ao Root-2D: 3.50 2.0-3.7 cm Ao Asc: 3.50 2.1-3.4 cm Pulmonary Valve PV Pk Manuel: 1.14 Peak PV Grad: 5.00 Updated in Other Vendor System with Status of Final Korey Beckett MD electronically signed on 03/30/2023 5:36:53 PM with status of Final
[2023-03-30] MEDS: Losartan Potassium 50 MG TABLET 100 MG PO (08:10)
[2023-03-30] MEDS: Atorvastatin Calcium 40 MG TABLET PO (08:10)
[2023-03-30] MEDS: 0.9 % Sodium Chloride Flush 3 ML SYRINGE IVFLUSH ×3 (08:10→20:48)
[2023-03-30] MEDS: amLODIPine Besylate 10 MG TABLET PO (08:10)
[2023-03-30] MEDS: carvediloL 12.5 MG TABLET PO ×2 (08:11→20:48)
[2023-03-30 08:52] LABS: Hematocrit 29.9 % (42.0-52.0); Hemoglobin 10.4 g/dl (14.0-18.0); Mean Corpuscular HGB Conc 34.8 g/dl (31.0-36.0); Mean Corpuscular Hemoglobin 30.6 pg (27.0-33.0); Mean Corpuscular Volume 87.9 fL (80.0-98.0); Mean Platelet Volume 9.2 fL (9.4-12.4); Platelet Count 311 X10*3/uL (160-400); Red Cell Distribution Width 13.5 % (11.0-16.0); White Blood Count 14.6 X10*3/uL (4.8-10.8)
--- NOTE | 2023-03-30 09:30 | P.PNIM_ITS ---
Subjective Subjective Date of Service: 03/30/23 Interval History: Follow-up on acute hypoxic respiratory failure, COPD and pneumonia. Interval history: He continues to make progress and overall feels much better this mornig, still on O2, WBC trending down Physical Exam Vital Signs: Vital Signs: Last Vital Signs Temp 97.8 F 03/30/23 07:21 Pulse 83 03/30/23 07:53 Resp 18 03/30/23 07:21 BP 134/70 03/30/23 07:21 Pulse Ox 92 03/30/23 07:21 O2 Del Method Nasal Cannula 03/30/23 07:21 O2 Flow Rate 5 03/30/23 07:21 Oxygen Flow Rate 6 03/28/23 02:12 BMI result Body Mass Index 26.9 Const: Other: General: AO X 3, no acute distress Resp: Wheezing, rhonchi diffusely. no accessory muscle use CVS: S1,S2,RRR GI: +BS, NT, no distention Skin: No rash Neuro: motor grossly intact Psych: appropriate affect Objective Data Active Medications Acetaminophen (Acetaminophen 325 Mg Tablet) 650 mg PO Q6H PRN PRN Reason: Pain, Mild (Pain Scale 1-3) Last Admin: 03/30/23 03:58 Dose: 650 mg Documented By: STEVE Albuterol Sulfate (Albuterol Sulfate 90 Mcg 8 Gm Inhaler) 2 puff INHALE RQID PRN PRN Reason: Wheezing Albuterol/Ipratropium (Albuterol/Iprat 2.5/0.5mg 3 Ml Ampul.Neb) 3 ml INHALE RQ4H WHILE AWAKE [facility] Last Admin: 03/30/23 07:52 Dose: 3 ml Documented By: PUNEET Amlodipine Besylate (Amlodipine Besylate 10 Mg Tablet) 10 mg PO DAILY [facility]; Protocol Last Admin: 03/30/23 08:10 Dose: 10 mg Documented By: NAEEM Atorvastatin Calcium (Atorvastatin Calcium 40 Mg Tablet) 40 mg PO DAILY [facility] Last Admin: 03/30/23 08:10 Dose: 40 mg Documented By: NAEEM Benzonatate (Benzonatate 100 Mg Capsule) 200 mg PO TID PRN PRN Reason: Cough Last Admin: 03/29/23 20:05 Dose: 200 mg Documented By: STEVE Carvedilol (Carvedilol 12.5 Mg Tablet) 12.5 mg PO BID [facility]; Protocol Last Admin: 03/30/23 08:11 Dose: 12.5 mg Documented By: NAEEM Enoxaparin Sodium (Enoxaparin Sodium 40 Mg/0.4 Ml Syringe) 40 mg SUBCUT Q24H [facility] Last Admin: 03/30/23 02:51 Dose: 40 mg Documented By: STEVE Ceftriaxone Sodium 1 gm/ (Sodium Chloride) 50 mls @ 100 mls/hr IV Q24H [facility] Last Infusion: 03/30/23 03:24 Dose: 0 mls/hr Documented By: STEVE Azithromycin 500 mg/ Sodium (Chloride) 250 mls @ 125 mls/hr IV Q24H [facility] Last Infusion: 03/30/23 05:39 Dose: 0 mls/hr Documented By: STEVE Latanoprost (Latanoprost 0.005 % Ophth Annel 2.5 Ml Drops) 1 drop EYE-BOTH BEDTIME [facility] Last Admin: 03/29/23 20:05 Dose: 1 drop Documented By: STEVE Losartan Potassium (Losartan Potassium 50 Mg Tablet) 100 mg PO DAILY [facility]; Protocol Last Admin: 03/30/23 08:10 Dose: 100 mg Documented By: NAEEM Melatonin (Melatonin 3 Mg Tablet) 6 mg PO BEDTIME PRN PRN Reason: Insomnia Methylprednisolone Sodium Succinate (Methylprednisolone Sod Succ 125 Mg/2 Ml Vial) 60 mg IVPUSH Q8H [facility] Last Admin: 03/30/23 02:52 Dose: 60 mg Documented By: STEVE Pt Own (Fluticasone- Umeclidin-Vilanter [ Trelegy Ellipta] 200 -62.5-25 Mcg 1 each INHALE DAILY [facility] Last Admin: 03/30/23 08:49 Dose: 1 each Documented By: BLASCL Pt Own (Netarsudil [ Rhopressa] 0.02 % Drops) 1 drop EYE-BOTH BEDTIME [facility] Last Admin: 03/29/23 21:54 Dose: 1 drop Documented By: STEVE Ondansetron HCl (Ondansetron Hcl 4 Mg/2 Ml Vial) 4 mg IVPUSH Q8H PRN PRN Reason: Nausea and Vomiting Pharmacy Consult (Consult Rx Perform Med Rec) 1 each MISCELLANE ONCE PRN PRN Reason: Consult order Sodium Chloride (0.9 % Sodium Chloride Flush 3 Ml Syringe) 3 ml IVFLUSH QSHIFT [facility] Last Admin: 03/30/23 08:10 Dose: 3 ml Documented By: NAEEM Labs 03/30/23 08:40 03/29/23 10:22 Labs: Laboratory Results - last 24 hr 03/29/23 03/29/23 03/29/23 10:22 10:22 10:22 MCV 88.3 MCH 30.2 MCHC 34.1 RDW 13.8 Plt Count 265 MPV 9.3 L Absolute Nucleated RBC 0.000 Nucleated RBC % (auto) 0.0 Anion Gap 11 L Estim Creat Clear Calc 53.3 Estimated GFR > 60 Random Glucose 115 Calcium 8.0 L D B-Natriuretic Peptide 209 H 03/30/23 08:40 MCV 87.9 MCH 30.6 MCHC 34.8 RDW 13.5 Plt Count 311 MPV 9.2 L Absolute Nucleated RBC 0.000 Nucleated RBC % (auto) 0.0 Anion Gap Estim Creat Clear Calc Estimated GFR Random Glucose Calcium B-Natriuretic Peptide Microbiology Microbiology Results: Microbiology 03/28/23 12:12 Gram Stain - Final Sputum - Expectorated Sputum Culture - Final 03/28/23 03:03 Blood Culture - Preliminary Blood - Venous No growth after 48 hours. 03/28/23 02:54 Blood Culture - Preliminary Blood - Venous No growth after 48 hours. Assessment and Plan (1) Sepsis due to pneumonia: Status: Acute (2) Pneumonia: Status: Acute Plan 77-year-old male with pertinent history of essential hypertension, mixed hyperlipidemia who presents to the emergency department for evaluation of dyspnea. #. Acute hypoxemic respiratory failure due to community-acquired pneumonia (CAP) -continue supplemental O2 and wean as tolerated -bronchodialtors use, IV steroid for probable underlying reactive airway disease. # Sepsis d/t CAP--negative MRSA screen, BCx negative, Legionell ag pending -Ceftriaxone and Azithro since 03/28 -CT chest confirmed PNA #. Hyponatremia, likely hypovolemic--improving, monitor #. Normocytic anemia. Hemoglobin above transfusion threshold #. Elevated creatinine. Likely BLAIRE, Cr now within baseline. #. Elevated BNP, response to diuretic and trace pericardial effusion, get echocardiogram to further assess #. Essential hypertension. med on hold, but resume now #. Mixed hyperlipidemia: On statin DVT prophylaxis: Lovenox Full code Cardiac diet need for inpatient: sepsis and PNA, severe hypoxia treatment Time Spent With Patient Time: Total time managing care of this patient today ____ minutes. Quality Stroke Does the patient have a stroke diagnosis?: No VTE Prior VTE?: No VTE Risk Level:: Medical - moderate - high VTE Device Contraindication: Treatment Not Indicated VTE Drug Contraindication: N/A - Med Ordered
--- NOTE | 2023-03-30 13:15 | MHC.CM.PN ---
PER MD ROUNDS, PT WILL NOT BE READY TO DC TODAY DCP REMAINS HOME WITH NO SERVICES VIA FAMILY TRANSPORT
[2023-03-30] MEDS: NETARSUDIL 0.02% 1 EACH EYE-BOTH (20:49)
[2023-03-30] MEDS: Latanoprost 0.005 % Ophth Sol 2.5 ML DROPS 1 DROP EYE-BOTH (20:49)
[2023-03-31] VITALS (9 sets, daily range): BP systolic 148–169; BP diastolic 64–75; PULSE 78–92; RESP 17–20; TEMP 36.3–36.4; O2SAT 86–94
[2023-03-31] MEDS: methylPREDNISolone Sod Succ 125 MG/2 ML VIAL 60 MG IVPUSH ×3 (01:45→17:40)
[2023-03-31] MEDS: Enoxaparin Sodium 40 MG/0.4 ML SYRINGE SUBCUT (03:30)
[2023-03-31] MEDS: cefTRIAXone sodium 1 GM in 0.9 % Sodium Chloride 50 ML IV (03:32)
[2023-03-31] MEDS: Azithromycin 500 MG in 0.9 % Sodium Chloride 250 ML 125 MG IV (04:10)
[2023-03-31] MEDS: Albuterol/Iprat 2.5/0.5MG 3 ML AMPUL.NEB INHALE ×4 (08:01→18:48)
--- NOTE | 2023-03-31 08:35 | HO.PM.IMPN ---
Subjective Subjective Date of Service: 03/31/23 Interval History: Follow-up on acute hypoxic respiratory failure, COPD and pneumonia. Interval history: He continues to make progress and overall feels much better, slept better, still on O2 and drops withot it, , WBC trending down Physical Exam Vital Signs: Vital Signs: Last Vital Signs Temp 97.6 F 03/31/23 07:36 Pulse 92 03/31/23 08:06 Resp 18 03/31/23 08:06 BP 159/75 H 03/31/23 07:36 Pulse Ox 94 03/31/23 07:36 O2 Del Method Nasal Cannula 03/31/23 07:36 O2 Flow Rate 2 03/31/23 07:36 Oxygen Flow Rate 6 03/28/23 02:12 BMI result Body Mass Index 26.9 Const: Other: General: AO X 3, no acute distress Resp: No wheezing, good air movment CVS: S1,S2,RRR GI: +BS, NT, no distention Skin: No rash Neuro: motor grossly intact Psych: appropriate affect Objective Data Active Medications Acetaminophen (Acetaminophen 325 Mg Tablet) 650 mg PO Q6H PRN PRN Reason: Pain, Mild (Pain Scale 1-3) Last Admin: 03/30/23 03:58 Dose: 650 mg Documented By: STEVE Albuterol Sulfate (Albuterol Sulfate 90 Mcg 8 Gm Inhaler) 2 puff INHALE RQID PRN PRN Reason: Wheezing Albuterol/Ipratropium (Albuterol/Iprat 2.5/0.5mg 3 Ml Ampul.Neb) 3 ml INHALE RQ4H WHILE AWAKE [facility] Last Admin: 03/31/23 08:01 Dose: 3 ml Documented By: DAMIR Amlodipine Besylate (Amlodipine Besylate 10 Mg Tablet) 10 mg PO DAILY [facility]; Protocol Last Admin: 03/30/23 08:10 Dose: 10 mg Documented By: NAEEM Atorvastatin Calcium (Atorvastatin Calcium 40 Mg Tablet) 40 mg PO DAILY [facility] Last Admin: 03/30/23 08:10 Dose: 40 mg Documented By: NAEEM Benzonatate (Benzonatate 100 Mg Capsule) 200 mg PO TID PRN PRN Reason: Cough Last Admin: 03/29/23 20:05 Dose: 200 mg Documented By: STEVE Carvedilol (Carvedilol 12.5 Mg Tablet) 12.5 mg PO BID [facility]; Protocol Last Admin: 03/30/23 20:48 Dose: 12.5 mg Documented By: REBECCA Enoxaparin Sodium (Enoxaparin Sodium 40 Mg/0.4 Ml Syringe) 40 mg SUBCUT Q24H [facility] Last Admin: 03/31/23 03:30 Dose: 40 mg Documented By: REBECCA Ceftriaxone Sodium 1 gm/ (Sodium Chloride) 50 mls @ 100 mls/hr IV Q24H [facility] Last Infusion: 03/31/23 04:10 Dose: 0 mls/hr Documented By: REBECCA Azithromycin 500 mg/ Sodium (Chloride) 250 mls @ 125 mls/hr IV Q24H [facility] Last Infusion: 03/31/23 06:22 Dose: 0 mls/hr Documented By: REBECCA Latanoprost (Latanoprost 0.005 % Ophth Annel 2.5 Ml Drops) 1 drop EYE-BOTH BEDTIME [facility] Last Admin: 03/30/23 20:49 Dose: 1 drop Documented By: REBECCA Losartan Potassium (Losartan Potassium 50 Mg Tablet) 100 mg PO DAILY [facility]; Protocol Last Admin: 03/30/23 08:10 Dose: 100 mg Documented By: NAEEM Melatonin (Melatonin 3 Mg Tablet) 6 mg PO BEDTIME PRN PRN Reason: Insomnia Methylprednisolone Sodium Succinate (Methylprednisolone Sod Succ 125 Mg/2 Ml Vial) 60 mg IVPUSH Q8H [facility] Last Admin: 03/31/23 01:45 Dose: 60 mg Documented By: REBECCA Pt Own (Fluticasone- Umeclidin-Vilanter [ Trelegy Ellipta] 200 -62.5-25 Mcg 1 each INHALE DAILY [facility] Last Admin: 03/30/23 08:49 Dose: 1 each Documented By: BLASCL Pt Own (Netarsudil [ Rhopressa] 0.02 % Drops) 1 drop EYE-BOTH BEDTIME [facility] Last Admin: 03/30/23 20:49 Dose: 1 drop Documented By: REBECCA Ondansetron HCl (Ondansetron Hcl 4 Mg/2 Ml Vial) 4 mg IVPUSH Q8H PRN PRN Reason: Nausea and Vomiting Pharmacy Consult (Consult Rx Perform Med Rec) 1 each MISCELLANE ONCE PRN PRN Reason: Consult order Sodium Chloride (0.9 % Sodium Chloride Flush 3 Ml Syringe) 3 ml IVFLUSH QSHIFT [facility] Last Admin: 03/30/23 20:48 Dose: 3 ml Documented By: REBECCA Labs 03/30/23 08:40 03/29/23 10:22 Labs: Laboratory Results - last 24 hr 03/30/23 08:40 MCV 87.9 MCH 30.6 MCHC 34.8 RDW 13.5 Plt Count 311 MPV 9.2 L Absolute Nucleated RBC 0.000 Nucleated RBC % (auto) 0.0 Microbiology Microbiology Results: Microbiology 03/28/23 12:12 Gram Stain - Final Sputum - Expectorated Sputum Culture - Final 03/28/23 03:03 Blood Culture - Preliminary Blood - Venous No growth after 48 hours. 03/28/23 02:54 Blood Culture - Preliminary Blood - Venous No growth after 48 hours. Assessment and Plan (1) Sepsis due to pneumonia: Status: Acute (2) Pneumonia: Status: Acute Plan 77-year-old male with pertinent history of essential hypertension, mixed hyperlipidemia who presents to the emergency department for evaluation of dyspnea. #. Acute hypoxemic respiratory failure due to community-acquired pneumonia (CAP) -continue supplemental O2 and wean as tolerated -bronchodialtors use, IV steroid for probable underlying reactive airway disease. # Sepsis d/t CAP--negative MRSA screen, BCx negative, Legionell ag pending -Ceftriaxone and Azithro since 03/28 -CT chest confirmed PNA #. Hyponatremia, likely hypovolemic--improving, monitor, repeat tomorrow #. Normocytic anemia. Hemoglobin above transfusion threshold #. Elevated creatinine. Likely BLAIRE, Cr now within baseline. #. Elevated BNP, response to diuretic and trace pericardial effusion, echo show Nl EF, no WMA #. Essential hypertension. med on hold, but resume now #. Mixed hyperlipidemia: On statin DVT prophylaxis: Lovenox Full code Cardiac diet need for inpatient: sepsis and PNA, severe hypoxia treatment not yet safe to be manage at home Time Spent With Patient Time: Total time managing care of this patient today ____ minutes. Quality Stroke Does the patient have a stroke diagnosis?: No VTE Prior VTE?: No VTE Risk Level:: Medical - moderate - high VTE Device Contraindication: Treatment Not Indicated VTE Drug Contraindication: N/A - Med Ordered
[2023-03-31] MEDS: Furosemide 40 MG/4 ML VIAL IVPUSH (09:47)
[2023-03-31] MEDS: 0.9 % Sodium Chloride Flush 3 ML SYRINGE IVFLUSH ×3 (09:48→22:41)
[2023-03-31] MEDS: carvediloL 12.5 MG TABLET PO ×2 (09:48→22:40)
[2023-03-31] MEDS: amLODIPine Besylate 10 MG TABLET PO (09:48)
[2023-03-31] MEDS: Atorvastatin Calcium 40 MG TABLET PO (09:48)
[2023-03-31] MEDS: Losartan Potassium 50 MG TABLET 100 MG PO (09:48)
[2023-03-31] MEDS: NETARSUDIL 0.02% 1 EACH EYE-BOTH (22:40)
[2023-03-31] MEDS: Latanoprost 0.005 % Ophth Sol 2.5 ML DROPS 1 DROP EYE-BOTH (22:41)
[2023-04-01] VITALS (9 sets, daily range): BP systolic 152–168; BP diastolic 68–80; PULSE 75–88; RESP 16–22; TEMP 36.1–36.7; O2SAT 90–95
[2023-04-01] MEDS: methylPREDNISolone Sod Succ 125 MG/2 ML VIAL 60 MG IVPUSH ×2 (01:33→08:34)
[2023-04-01] MEDS: cefTRIAXone sodium 1 GM in 0.9 % Sodium Chloride 50 ML IV (02:47)
[2023-04-01] MEDS: Enoxaparin Sodium 40 MG/0.4 ML SYRINGE SUBCUT (03:24)
[2023-04-01] MEDS: Azithromycin 500 MG in 0.9 % Sodium Chloride 250 ML 125 MG IV (03:25)
[2023-04-01] MEDS: Albuterol/Iprat 2.5/0.5MG 3 ML AMPUL.NEB INHALE ×4 (07:32→19:04)
[2023-04-01] MEDS: amLODIPine Besylate 10 MG TABLET PO (08:34)
[2023-04-01] MEDS: Atorvastatin Calcium 40 MG TABLET PO (08:34)
[2023-04-01] MEDS: Losartan Potassium 50 MG TABLET 100 MG PO (08:34)
[2023-04-01] MEDS: carvediloL 12.5 MG TABLET PO ×2 (08:34→20:09)
[2023-04-01] MEDS: 0.9 % Sodium Chloride Flush 3 ML SYRINGE IVFLUSH ×3 (08:35→20:10)
--- NOTE | 2023-04-01 08:36 | P.PNIM_ITS ---
Subjective Subjective Date of Service: 04/02/23 Interval History: Follow-up on acute hypoxic respiratory failure, COPD and pneumonia. Interval history:Making progress, less sob, O2 been weaned off Physical Exam Vital Signs: Vital Signs: Last Vital Signs Temp 97.4 F 04/01/23 07:39 Pulse 77 04/01/23 07:39 Resp 22 H 04/01/23 07:39 BP 152/68 H 04/01/23 07:39 Pulse Ox 94 04/01/23 07:39 O2 Del Method Nasal Cannula 04/01/23 07:39 O2 Flow Rate 1 04/01/23 07:39 Oxygen Flow Rate 6 03/28/23 02:12 BMI result Body Mass Index 26.9 Const: Other: General: AO X 3, no acute distress Resp: No wheezing, good air movment CVS: S1,S2,RRR GI: +BS, NT, no distention Skin: No rash Neuro: motor grossly intact Psych: appropriate affect Objective Data Active Medications Acetaminophen (Acetaminophen 325 Mg Tablet) 650 mg PO Q6H PRN PRN Reason: Pain, Mild (Pain Scale 1-3) Last Admin: 03/30/23 03:58 Dose: 650 mg Documented By: STEVE Albuterol Sulfate (Albuterol Sulfate 90 Mcg 8 Gm Inhaler) 2 puff INHALE RQID PRN PRN Reason: Wheezing Albuterol/Ipratropium (Albuterol/Iprat 2.5/0.5mg 3 Ml Ampul.Neb) 3 ml INHALE RQ4H WHILE AWAKE [facility] Last Admin: 04/01/23 07:32 Dose: 3 ml Documented By: DAMIR Amlodipine Besylate (Amlodipine Besylate 10 Mg Tablet) 10 mg PO DAILY [facility]; Protocol Last Admin: 03/31/23 09:48 Dose: 10 mg Documented By: LOKESH Atorvastatin Calcium (Atorvastatin Calcium 40 Mg Tablet) 40 mg PO DAILY [facility] Last Admin: 03/31/23 09:48 Dose: 40 mg Documented By: LOKESH Benzonatate (Benzonatate 100 Mg Capsule) 200 mg PO TID PRN PRN Reason: Cough Last Admin: 03/29/23 20:05 Dose: 200 mg Documented By: STEVE Carvedilol (Carvedilol 12.5 Mg Tablet) 12.5 mg PO BID [facility]; Protocol Last Admin: 03/31/23 22:40 Dose: 12.5 mg Documented By: LIBBY Enoxaparin Sodium (Enoxaparin Sodium 40 Mg/0.4 Ml Syringe) 40 mg SUBCUT Q24H [facility] Last Admin: 04/01/23 03:24 Dose: 40 mg Documented By: LIBBY Ceftriaxone Sodium 1 gm/ (Sodium Chloride) 50 mls @ 100 mls/hr IV Q24H [facility] Last Infusion: 04/01/23 03:21 Dose: 0 mls/hr Documented By: LIBBY Azithromycin 500 mg/ Sodium (Chloride) 250 mls @ 125 mls/hr IV Q24H [facility] Last Infusion: 04/01/23 05:29 Dose: 0 mls/hr Documented By: LIBBY Latanoprost (Latanoprost 0.005 % Ophth Annel 2.5 Ml Drops) 1 drop EYE-BOTH BEDTIME [facility] Last Admin: 03/31/23 22:41 Dose: 1 drop Documented By: LIBBY Losartan Potassium (Losartan Potassium 50 Mg Tablet) 100 mg PO DAILY [facility]; Protocol Last Admin: 03/31/23 09:48 Dose: 100 mg Documented By: LOKESH Melatonin (Melatonin 3 Mg Tablet) 6 mg PO BEDTIME PRN PRN Reason: Insomnia Methylprednisolone Sodium Succinate (Methylprednisolone Sod Succ 125 Mg/2 Ml Vi al) 60 mg IVPUSH Q8H [facility] Last Admin: 04/01/23 01:33 Dose: 60 mg Documented By: LIBBY Pt Own (Fluticasone- Umeclidin-Vilanter [ Trelegy Ellipta] 200 -62.5-25 Mcg 1 each INHALE DAILY [facility] Last Admin: 04/01/23 07:32 Dose: 1 each Documented By: DAMIR Pt Own (Netarsudil [ Rhopressa] 0.02 % Drops) 1 drop EYE-BOTH BEDTIME [facility] Last Admin: 03/31/23 22:40 Dose: 1 drop Documented By: LIBBY Ondansetron HCl (Ondansetron Hcl 4 Mg/2 Ml Vial) 4 mg IVPUSH Q8H PRN PRN Reason: Nausea and Vomiting Pharmacy Consult (Consult Rx Perform Med Rec) 1 each MISCELLANE ONCE PRN PRN Reason: Consult order Sodium Chloride (0.9 % Sodium Chloride Flush 3 Ml Syringe) 3 ml IVFLUSH QSHIFT [facility] Last Admin: 03/31/23 22:41 Dose: 3 ml Documented By: LIBBY Labs 03/30/23 08:40 03/29/23 10:22 Assessment and Plan (1) Sepsis due to pneumonia: Status: Acute (2) Pneumonia: Status: Acute Plan 77-year-old male with pertinent history of essential hypertension, mixed hyperlipidemia who presents to the emergency department for evaluation of dyspnea. #. Acute hypoxemic respiratory failure due to community-acquired pneumonia ( CAP) -continue supplemental O2 and wean as tolerated -bronchodialtors, change to oral Prednisone for probable underlying reactive airway disease. # Sepsis d/t CAP--negative MRSA screen, BCx negative, Legionell ag pending -Ceftriaxone and Azithro since 03/28, change to Oral Ceftin in AM -CT chest confirmed PNA #. Hyponatremia, likely hypovolemic--improving, monitor, repeat level #. Normocytic anemia. Hemoglobin above transfusion threshold #. Elevated creatinine. Likely BLAIRE, Cr now within baseline. #. Elevated BNP, response to diuretic and trace pericardial effusion, echo show Nl EF, no WMA #. Essential hypertension. med on hold, but resume now #. Mixed hyperlipidemia: On statin DVT prophylaxis: Lovenox Full code Cardiac diet need for inpatient: sepsis and PNA, severe hypoxia treatment not yet safe to be manage at home, anticipated dc in 1 to 2 days Time Spent With Patient Time: Total time managing care of this patient today ____ minutes. Quality Stroke Does the patient have a stroke diagnosis?: No VTE Prior VTE?: No VTE Risk Level:: Medical - moderate - high VTE Device Contraindication: Treatment Not Indicated VTE Drug Contraindication: N/A - Med Ordered
[2023-04-01 09:17] LABS: Hematocrit 31.9 % (42.0-52.0); Hemoglobin 10.9 g/dl (14.0-18.0); Mean Corpuscular HGB Conc 34.2 g/dl (31.0-36.0); Mean Corpuscular Hemoglobin 30.5 pg (27.0-33.0); Mean Corpuscular Volume 89.4 fL (80.0-98.0); Mean Platelet Volume 9.5 fL (9.4-12.4); Platelet Count 432 X10*3/uL (160-400); Red Blood Count 3.57 X10*6/uL (4.60-5.80); Red Cell Distribution Width 13.7 % (11.0-16.0); White Blood Count 14.2 X10*3/uL (4.8-10.8)
[2023-04-01 09:31] LABS: Anion Gap 15 (12-20); Blood Urea Nitrogen 34 mg/dL (9-16); Calcium 8.6 mg/dL (8.4-10.2); Carbon Dioxide 26 mmol/L (22-29); Chloride 100 mmol/L (96-108); Creatinine Clr Calc Pharmacy 58.3; Estimated Glomerular Filt Rate > 60; Glucose Random 205 mg/dL (60-115); Potassium 3.8 mmol/L (3.3-5.1); Sodium 137 mmol/L (135-145)
[2023-04-01] MEDS: NETARSUDIL 0.02% 1 EACH EYE-BOTH (20:09)
[2023-04-01] MEDS: Latanoprost 0.005 % Ophth Sol 2.5 ML DROPS 1 DROP EYE-BOTH (20:09)
[2023-04-02 03:13] VITALS: BP 148/68; PULSE 74; RESP 16; TEMP 36.7; O2SAT 93
[2023-04-02] MEDS: Enoxaparin Sodium 40 MG/0.4 ML SYRINGE SUBCUT (05:08)
[2023-04-02 07:06] VITALS: BP 143/73; PULSE 80; RESP 18; TEMP 36.1; O2SAT 92
[2023-04-02] MEDS: Albuterol/Iprat 2.5/0.5MG 3 ML AMPUL.NEB INHALE (07:56)
[2023-04-02 07:58] VITALS: PULSE 82; RESP 18
[2023-04-02] MEDS: 0.9 % Sodium Chloride Flush 3 ML SYRINGE IVFLUSH (08:58)
[2023-04-02] MEDS: carvediloL 12.5 MG TABLET PO (08:58)
[2023-04-02] MEDS: Losartan Potassium 50 MG TABLET 100 MG PO (08:58)
[2023-04-02] MEDS: amLODIPine Besylate 10 MG TABLET PO (08:58)
[2023-04-02] MEDS: Atorvastatin Calcium 40 MG TABLET PO (08:59)
[2023-04-02] MEDS: predniSONE 20 MG TABLET PO (08:59)
--- NOTE | 2023-04-02 09:40 | PM.DS ---
DS: Providers Provider Date of Service: 04/02/23 Date of admission: 03/28/23 03:36 Primary care physician: Bean Joe MD DS: Diagnosis Discharge Diagnosis (1) Sepsis due to pneumonia: Status: Resolved (2) Pneumonia: Status: Acute DS: Summary Hospital Course Hospital Course: Chief Complaint: Dyspnea This is a 77-year-old male with pertinent history of essential hypertension, mixed hyperlipidemia who presents to the emergency department for evaluation of dyspnea.? Patient states that about 3-5 days prior to presentation he has been having upper respiratory symptoms.? About 3 days prior to presentation, patient started having productive cough.? Initially it was clear sputum which changed color to yellow.? On the day of presentation, patient began to have dyspnea this was worse with exertion.? No wheezing.? Admits associated fevers and chills.? Patient denies chest discomfort, palpitations, nausea, vomiting, abdominal pain, changes in urinary or bowel habits. In the emergency department, patient was found to be septic and requiring supplemental oxygen. Hospital course: . The patient presented with sob of 3 to 5 days duration and was found to by hypoxic with initial O2 saturation of 88, labs work showed WBC of 18 K, tachycardia to 16 CXR showed pneumonia which was later confirmed by a CT of the chest 2 days later. He met sepsis criteria. He was initated on IV Ceftriaxone and Azithrmycin and admitted for further management. During the course of hospitalization, he continued to required supplemental oxygen was ultimately weaned off, WBC has trended down to 14, he s breathing easy, O2 sat of 96% on room air. He has completed 5 days of Azithromycin and ceftriaxone and will be transition to 5 more days of Ceftin. #Underlying COPD exacerbation, treated with IV steroid, and bronchodialtors by [facility], will give Prednisone for 2 more days and to continue usual home meds # Sepsis d/t CAP -negative MRSA screen, BCx negativ. Treated with antiboitics as above # Hyponatremia, He presented with sodium of 125 probably ralted to acute illness, hypervolumic state. Sodium has now reached 137,l #.? Normocytic anemia.? Hemoglobin above transfusion threshold, no indication for transfusion #.? BLAIRE, he presented with cratine of 1.86, and is now 1.06 following hydration #. Elevated BNP, echo show Nl EF, no WMA, he likely developped some fluid overload from IVF and was given pulse dose of Lasix and overall feels better #.? Essential hypertension. to resume usual home meds #.? Mixed hyperlipidemia: On statin Final diagnoses: Sepsis Pneumonia Acute hypoxic respiratory failure Acute exacerbation of copd Hyponatremia Acute kidney injury Time Spent with Patient Time attestation: Total time managing care of this patient today ____ minutes. Discharge coordination time: Greater than 30 minutes Quality: Safe Use of Opioids Does Pt have an Active Cancer Diagnosis on the Problem List?: No Quality: Stroke Does the patient have a stroke diagnosis?: No Physical Exam Vital Signs: Vital Signs: Last Vital Signs Temp 97 F 04/02/23 07:06 Pulse 82 04/02/23 07:58 Resp 18 04/02/23 07:58 BP 143/73 H 04/02/23 07:06 Pulse Ox 92 04/02/23 07:06 O2 Del Method Room Air 04/02/23 07:06 O2 Flow Rate 1 04/01/23 07:39 Oxygen Flow Rate 6 03/28/23 02:12 BMI result Body Mass Index 26.9 Discharge Plan Discharge Anticipated Discharge Date/Time: 04/02/23 09:40 Patient Disposition: Home, Self-Care Discharge Diagnosis: Acute hypoxic respiratory failure, sepsis, pneumonia Referrals: Bean Joe MD [Primary Care Provider] - 1 Week Discharge Medications: New cefuroxime axetil 500 mg tablet 500 mg PO BID 4 Days Qty: 8 0RF prednisone 20 mg tablet 20 mg PO DAILY Qty: 3 0RF Continued albuterol sulfate 90 mcg/actuation HFA aerosol inhaler 2 puff inhalation QID PRN (Reason: Wheezing) carvedilol 12.5 mg tablet 12.5 mg PO BID losartan 100 mg tablet 100 mg PO DAILY Trelegy Ellipta 200-62.5-25 mcg blister with device 1 ea inhalation DAILY amlodipine 10 mg tablet 10 mg PO DAILY atorvastatin 40 mg tablet 40 mg PO DAILY Rhopressa 0.02 % drops 1 drp ophthalmic (eye) BEDTIME latanoprost 0.005 % drops 1 drp ophthalmic (eye) BEDTIME Discharge Orders: Discharge Order (Routine); Ordered 04/02/23 Ordered By: Jose Rafael Cruz Diet: Advance to usual diet Activity on Discharge: As tolerated Stand Alone Forms: Patient Portal Discharge page Care Plan Goals: Full reocvery from pneumonia Health Concerns: pneumonia, respiatory failure Plan of Treatment: You were treated for pneumonia with IV antibitics, oxygen for low oxygen but your oxygen level is now within normal and you no longer needs oxygen. You are been prescirbed Cefuroxime (Ceftin) an antibitics to finish tratment of pneumonia, be sure to take all the pills as recommended. You need to follow up with your Doctori in 7 to 10 day, call for appointment, resume your usual home medications, call you doctor or 911 if any new issues arise Assessment: as above Discharge Date/Time: 04/02/23 11:04
[2023-04-02 10:13] VITALS: O2SAT 96
--- NOTE | 2023-04-02 10:27 | MHC.CM.PN ---
PT WILL DC HOME TODAY WITH NO SERVICES DAUGHTER TO TRANSPORT
--- NOTE | 2023-04-02 10:53 | PC.NURSE ---
Pt refusing bed alarm, states he will ring when he needs to get out of the bed. All other safety measures in place.
[2023-04-04 08:49] LABS: Legionella Ag Urine Not Detected (Not Detected)
== END 2023-04-02 11:04 | disposition home or self-care (01) | DRG 871 ==
LOC: HO.ED 04:01 → HO.EDOVER 04:30 → HO.S3 16:46
PROVIDERS: Admitting Provider Student in an Organized Health Care Education/Training Program; Emergency Provider Emergency Medicine Emergency Medical Services; PCP Internal Medicine; Visit Provider Internal Medicine
DX: A41.9 Sepsis, unspecified organism (principal); J18.9 Pneumonia, unspecified organism; J96.01 Acute respiratory failure with hypoxia; E87.1 Hypo-osmolality and hyponatremia; J44.0 Chronic obstructive pulmonary disease with (acute) lower respiratory infection; N17.9 Acute kidney failure, unspecified; D64.9 Anemia, unspecified; E78.2 Mixed hyperlipidemia; E86.1 Hypovolemia; Z20.822 Contact with and (suspected) exposure to COVID-19; Z87.891 Personal history of nicotine dependence; Z79.899 Other long term (current) drug therapy
CPT/HCPCS: 36415; 71045; 71250; 80048; 80076; 83605; 83690; 83880; 84484; 85025; 85027; 87040; 87070; 87205; 87449; 87502; 87635; 87640; 87641; 93005; 93306; 94640; 99285; J0456; J0696; J1650; J1940; J2930

== ENCOUNTER 2023-06-01 12:01 | Outpatient (AMB) | payer MEDICARE, SELFPAY ==
--- NOTE | 2023-06-01 12:03 | A.OFFVIS_ITS ---
Intake Vital Signs 06/01/23 12:07 Height 5 ft 10 in Weight 183 lb BMI 26.3 Intake Visit Reasons: OV-Right Knee OA - Last Injection 03/02/23 Intake Note: Ashish is a 77 year old male who presents today for a follow up of his right knee OA. Last Injection was done 03/02/23. Patient reports that this last injection was helpful and he would like to repeat injection today. Allergies No Known Allergies Allergy (Verified 12/04/22 09:31) HPI OV-Right Knee OA - Last Injection 03/02/23 HPI Details Ashish is a 77 year old man with right knee OA. He is S/P Durolane injection, which he says was not particularly helpful, and he would like to discuss a repeat steroid injection today. He was last seen, and injected, on 03/02/23 with good relief. He continues to have pain with daily activity, and has been trying to remain active with walking. He says he has been in treatment for cancer, S/P surgery and chemotherapy at this time.? [facility] Medical History Hip osteoarthritis Hypertension Primary osteoarthritis of right hip Primary osteoarthritis of right knee Surgical History History of arthroscopy of left knee (~1965) Family History Father No problems noted. Mother No problems noted. Social History Household Members: None Housing: Apartment Do you presently have visiting nurse or other home services: No Alcohol intake: never Patient Tobacco Use Status: Former Tobacco user Quit Date: 2012 Tobacco use type: Cigarette Second Hand Smoke Exposure: No Advance Directives Date on File: 03/28/23 service: No Current occupational status: retired Current occupation: right handed Review of Systems Const All systems reviewed & are unremarkable except as noted in HPI and below Physical Exam Vital Signs: BMI result Body Mass Index 26.3 Const General: no acute distress and alert Orientation/consciousness: patient oriented x3 Neuro General: patient oriented x3 Extrem Other: Right Knee: TTP medial joint line Skin C/D/I Psych Appearance: grossly normal Affect: normal affect Attitude: cooperative Office Procedures Joint Injection/Drain Joint Injection/Drain Details: Injected 1 mL of Decadron and 3 mL 1% lidocaine and 3 mL of 0.25% Marcaine. Site was prepped using aseptic technique. Patient tolerated the procedure well. Primary Site: right knee Approach Used: anterolateral Coding - Large joint Procedure code (CPT) selection complete Results Reviewed Results Reviewed: 06/01/23 12:06 BUPivacaine MPF 0.25 % [Sensorcaine-MPF 0.25% 10 ML] 10 ml .ROUTE .STK-MED ONE Lidocaine HCl 2 % MPF [Xylocaine 2 % MPF] 5 ml .ROUTE .STK-MED ONE dexAMETHasone sod phosphate [Decadron] 4 mg .ROUTE .STK-MED ONE Assessment & Plan Assessment & Plan (1) Primary osteoarthritis of right knee: Code(s): M17.11 - Unilateral primary osteoarthritis, right knee Plan: This is a 76 year old man with mild right knee OA. He is S/P Durolane injection on 12/04/22, with mild relief, and was last injected with steroid on 03/02/23, with good relief. He continues to be limited in his daily activity & exercise due to pain and other comorbidities, but he does try to ambulate up to ~25 minut es daily. He is in treatment for cancer at this time, and does not want to consider surgery until this has been dealt with. I recommend NSAIDs, and he continue to remain active as tolerated. I injected his right knee today, which he tolerated well. he can follow up prn Plan Scribed for Elian Ferrell MD by Julian Jordan lpn or medical assistant, on 06/01/23 at 12:25 PM, EST. Coding Level of Care Code Est Pt Level 3 (98179) Diagnoses Primary osteoarthritis of right knee M17.11 CPT Codes Coding - Large joint: 49580 - Large joint ([id number])
[2023-06-01 12:07] VITALS: BMI 26.3
== END 2023-06-01 12:47 | disposition home or self-care (01) ==
PROVIDERS: PCP Internal Medicine; Visit Provider Orthopaedic Surgery
DX: M17.11 Unilateral primary osteoarthritis, right knee (principal)
CPT/HCPCS: 20610

== ENCOUNTER → 2023-06-01 12:01 | Outpatient (BNVA) | payer MEDICARE, SELFPAY | PROVIDERS: PCP Internal Medicine; Visit Provider Orthopaedic Surgery | DX: M17.11 Unilateral primary osteoarthritis, right knee (principal) | CPT/HCPCS: 20610; J1100 ==

== ENCOUNTER 2023-08-27 09:49 | Outpatient (AMB) | payer MEDICARE, SELFPAY ==
--- NOTE | 2023-08-27 10:13 | A.OFFVIS_ITS ---
Intake Intake Visit Reasons: OV-Right Knee OA - Last Injection 06/01/23 Intake Note: Ashish is a 77 year old male who presents today for a follow up of his Right Knee OA - Last Injection 06/01/23. Patient rpeorts that this last injetion was helpful and he would like to repeat injection today Allergies No Known Allergies Allergy (Verified 12/04/22 09:31) HPI OV-Right Knee OA - Last Injection 06/01/23 HPI Details Ashish is a 77 year old man with right knee OA. He continues to have pain with daily activity, and has been trying to remain active with walking. He had a hx of relief from steroid injections, and would like a repeat injection today. [facility] Medical History Hip osteoarthritis Hypertension Primary osteoarthritis of right hip Primary osteoarthritis of right knee Surgical History History of arthroscopy of left knee (~1965) Family History Father No problems noted. Mother No problems noted. Social History Household Members: None Housing: Apartment Do you presently have visiting nurse or other home services: No Alcohol intake: never Patient Tobacco Use Status: Former Tobacco user Quit Date: 2012 Tobacco use type: Cigarette Second Hand Smoke Exposure: No Advance Directives Date on File: 03/28/23 service: No Current occupational status: retired Current occupation: right handed Review of Systems Const All systems reviewed & are unremarkable except as noted in HPI and below Physical Exam Const General: no acute distress and alert Orientation/consciousness: patient oriented x3 HEENT Head: Yes normocephalic and Yes atraumatic Eyes EOM: EOMs intact bilaterally Resp Effort & Inspection: normal respiratory effort and able to speak in complete sentences Cardio Jugular venous distension: no JVD Skin General skin exam: turgor normal Rashes: no rashes Neuro General: patient oriented x3 Extrem Other: Right Knee: TTP medial joint line Skin C/D/I Psych Appearance: grossly normal Affect: normal affect Attitude: cooperative Office Procedures Joint Injection/Drain Joint Injection/Drain Details: Injected 1 mL of Decadron and 3 mL 1% lidocaine and 3 mL of 0.25% Marcaine. Site was prepped using aseptic technique. Patient tolerated the procedure well. Primary Site: right knee Approach Used: anterolateral Coding - Large joint Procedure code (CPT) selection complete Results Reviewed Results Reviewed: 08/27/23 10:20 BUPivacaine MPF 0.25 % [Sensorcaine-MPF 0.25% 10 ML] 10 ml .ROUTE .STK-MED ONE Lidocaine HCl 2 % MPF [Xylocaine 2 % MPF] 5 ml .ROUTE .STK-MED ONE dexAMETHasone sod phosphate [Decadron] 4 mg .ROUTE .STK-MED ONE I personally reviewed relevant radiographs. Severe medial compartment OA of the right knee Assessment & Plan Assessment & Plan (1) Primary osteoarthritis of right knee: Code(s): M17.11 - Unilateral primary osteoarthritis, right knee Plan: This is a 77 year old man with right knee OA. He has obtained relief from injections in the past it and would like another 1 today. I think this is reasonable. I injected his right knee. He will follow-up as needed. Plan Scribed for Elian Ferrell MD by Julian Jordan, mobile paramedical examiner, on 08/27/23 at 10:35 AM, EST. Coding Level of Care Code Est Pt Level 3 (59719) Diagnoses Primary osteoarthritis of right knee M17.11 CPT Codes Coding - Large joint: 24671 - Large joint ([id number])
== END 2023-08-27 10:37 | disposition home or self-care (01) ==
PROVIDERS: PCP Internal Medicine; Visit Provider Orthopaedic Surgery
DX: M17.11 Unilateral primary osteoarthritis, right knee (principal)
CPT/HCPCS: 20610

== ENCOUNTER → 2023-08-27 09:49 | Outpatient (BNVA) | payer MEDICARE, SELFPAY | PROVIDERS: PCP Internal Medicine; Visit Provider Orthopaedic Surgery | DX: M17.11 Unilateral primary osteoarthritis, right knee (principal) | CPT/HCPCS: 20610; J0665; J1100 ==

== ENCOUNTER 2023-12-03 11:00 | Outpatient (AMB) | payer MEDICARE, SELFPAY ==
--- NOTE | 2023-12-03 11:05 | A.OFFVIS_ITS ---
Intake Intake Visit Reasons: Right Knee Injection - Last Inj 08/27/23 Intake Note: Ashish is a 78 year old male who presents today for a right knee injection, last injection was done 08/27/2023. He reports adequate relief and would like to repeat injection today Allergies No Known Allergies Allergy (Verified 12/03/23 11:06) HPI Right Knee Injection - Last Inj 08/27/23 HPI Details Ashish is an 78 year old man with right knee OA. He continues to have pain with daily activity, and has been trying to remain ac tive with walking. He had a hx of relief from steroid injections, and would like a repeat injection today. His most recent injection was on 08/29/23, with adequate relief. [facility] Medical History Hip osteoarthritis Primary osteoarthritis of right hip Primary osteoarthritis of right knee Hypertension Surgical History History of arthroscopy of left knee (~1966) Family History Father No problems noted. Mother No problems noted. Social History Household Members: None Housing: Apartment Do you presently have visiting nurse or other home services: No Alcohol intake: never Patient Tobacco Use Status: Former Tobacco user Quit Date: 2012 Tobacco use type: Cigarette Second Hand Smoke Exposure: No Advance Directives Date on File: 03/28/23 service: No Current occupational status: retired Current occupation: right handed Review of Systems Const All systems reviewed & are unremarkable except as noted in HPI and below Physical Exam Const General: no acute distress, alert and awake Orientation/consciousness: patient oriented x3 HEENT Head: Yes normocephalic and Yes atraumatic Eyes EOM: EOMs intact bilaterally Resp Effort & Inspection: normal respiratory effort and able to speak in complete sentences Cardio Jugular venous distension: no JVD Skin General skin exam: turgor normal Rashes: no rashes Neuro General: patient oriented x3 Extrem Other: medial compartment ttp no effusion skin c/d/i Psych Appearance: grossly normal Affect: normal affect Attitude: cooperative Office Procedures Joint Injection/Drain Joint Injection/Drain Details: Injected 1 mL of Decadron and 3 mL 1% lidocaine and 3 mL of 0.25% Marcaine. Site was prepped using aseptic technique. Patient tolerated the procedure well. Primary Site: right knee Approach Used: anterolateral Coding - Large joint Procedure code (CPT) selection complete Assessment & Plan Assessment & Plan (1) Primary osteoarthritis of right knee: Code(s): M17.11 - Unilateral primary osteoarthritis, right knee Plan: Injected right knee Also with hip OA F/u as needed Plan Prepared for Elian Ferrell MD by Julian Jordan, medical officer psychiatry, on 12/03/23 at 11:07 AM, EST. Coding Level of Care Code Est Pt Level 3 (36088) Diagnoses Primary osteoarthritis of right knee M17.11 CPT Codes Coding - Large joint: 26496 - Large joint ([id number])
== END 2023-12-03 12:11 | disposition home or self-care (01) ==
PROVIDERS: PCP Internal Medicine; Visit Provider Orthopaedic Surgery
DX: M17.11 Unilateral primary osteoarthritis, right knee (principal)
CPT/HCPCS: 20610

== ENCOUNTER → 2023-12-03 11:00 | Outpatient (BNVA) | payer MEDICARE, SELFPAY | PROVIDERS: PCP Internal Medicine; Visit Provider Orthopaedic Surgery | DX: M17.11 Unilateral primary osteoarthritis, right knee (principal) | CPT/HCPCS: 20610; J0665; J1100 ==

== ENCOUNTER 2024-03-10 10:59 | Outpatient (AMB) | payer MEDICARE, SELFPAY ==
--- NOTE | 2024-03-10 11:04 | MHC.OFFVIS ---
Intake Visit Reasons: OV - right knee cortisone injection Intake Note: Ashish is an 78 year old male who presents today for a right knee injection. Allergies No Known Allergies Allergy (Verified 03/10/24 11:10) HPI HPI OV - right knee cortisone injection: Details: Ashish is an 78 year old male who presents today for a right knee injection. [facility] Medical History Hip osteoarthritis Primary osteoarthritis of right hip Primary osteoarthritis of right knee Hypertension Surgical History History of arthroscopy of left knee (~1966) Family History Father No problems noted. Mother No problems noted. Social History Household Members: None Housing: Apartment Do you presently have visiting nurse or other home services: No Alcohol intake: never Patient Tobacco Use Status: Former Tobacco user Quit Date: 2012 Tobacco use type: Cigarette Second Hand Smoke Exposure: No Advance Directives Date on File: 03/28/23 service: No Current occupational status: retired Current occupation: right handed Physical Exam Const General: no acute distress, alert and awake Orientation/consciousness: patient oriented x3 HEENT Head: Yes normocephalic and Yes atraumatic Eyes EOM: EOMs intact bilaterally Resp Effort & Inspection: normal respiratory effort and able to speak in complete sentences Cardio Jugular venous distension: no JVD Skin General skin exam: turgor normal Rashes: no rashes Neuro General: patient oriented x3 Extrem Other: medial compartment ttp no effusion skin c/d/i Psych Appearance: grossly normal Affect: normal affect Attitude: cooperative Office Procedures Joint Injection/Drain Joint Injection/Drain Details: Injected 1 mL of Decadron and 3 mL 1% lidocaine and 3 mL of 0.25% Marcaine. Site was prepped using aseptic technique. Patient tolerated the procedure well. Primary Site: right knee Approach Used: anterolateral Coding 89697 - Large joint Procedure code (CPT) selection complete Assessment & Plan Assessment & Plan (1) Primary osteoarthritis of right knee: Code(s): M17.11 - Unilateral primary osteoarthritis, right knee Category: Medical Plan: Injected right knee Also with hip OA F/u as needed Plan \ Coding Level of Care Code Est Pt Level 3 (33217) Diagnoses Primary osteoarthritis of right knee M17.11 CPT Codes Coding - 14881 Large joint: 19282 - Large joint ([id number])
== END 2024-03-10 11:30 | disposition home or self-care (01) ==
PROVIDERS: PCP Internal Medicine; Visit Provider Orthopaedic Surgery
DX: M17.11 Unilateral primary osteoarthritis, right knee (principal)
CPT/HCPCS: 20610

== ENCOUNTER → 2024-03-10 10:59 | Outpatient (BNVA) | payer MEDICARE, SELFPAY | PROVIDERS: PCP Internal Medicine; Visit Provider Orthopaedic Surgery | DX: M17.11 Unilateral primary osteoarthritis, right knee (principal) | CPT/HCPCS: 20610 ==

== ENCOUNTER 2024-06-12 11:03 | Outpatient (AMB) | payer MEDICARE, SELFPAY ==
--- NOTE | 2024-06-12 11:05 | MHC.OFFVIS ---
Vital Signs 06/12/24 11:13 Height 5 ft 10 in Weight 188 lb BMI 27.0 Intake Visit Reasons: inj-RT knee cortisone injection-last inj 03/10/24 Intake Note: Ashish is a 78 year old male who presents today for a follow up of his right knee OA. His last right knee injection was on 03/10/24. Patient expresses he found relief with his last injection and would like to repeat today. Allergies No Known Allergies Allergy (Verified 06/12/24 11:06) HPI HPI inj-RT knee cortisone injection-last inj 03/10/24: Details: Right knee pain that is helped by injections. He has known OA. [facility] Medical History Hip osteoarthritis Primary osteoarthritis of right hip Primary osteoarthritis of right knee Hypertension Surgical History History of arthroscopy of left knee (~1965) Family History Father No problems noted. Mother No problems noted. Social History Household Members: None Housing: Apartment Do you presently have visiting nurse or other home services: No Alcohol intake: never Patient Tobacco Use Status: Former Tobacco user Tobacco use type: Cigarette Second Hand Smoke Exposure: No Advance Directives Date on File: 03/28/23 service: No Current occupational status: retired Current occupation: right handed Physical Exam Vital Signs: BMI result Body Mass Index 27.0 Const General: no acute distress, alert and awake Orientation/consciousness: patient oriented x3 HEENT Head: Yes normocephalic and Yes atraumatic Eyes EOM: EOMs intact bilaterally Resp Effort & Inspection: normal respiratory effort and able to speak in complete sentences Cardio Jugular venous distension: no JVD Skin General skin exam: turgor normal Rashes: no rashes Neuro General: patient oriented x3 Extrem Other: medial compartment ttp no effusion skin c/d/i Psych Appearance: grossly normal Affect: normal affect Attitude: cooperative Office Procedures Joint Injection/Aspiration Joint Injection/Aspiration Details: Injected 1 mL of Decadron and 3 mL 1% lidocaine and 3 mL of 0.25% Marcaine. Site was prepped using aseptic technique. Patient tolerated the procedure well. Primary Site: right knee Approach Used: anterolateral Coding - Large joint Procedure code (CPT) selection complete Assessment & Plan Assessment & Plan (1) Primary osteoarthritis of right knee: Code(s): M17.11 - Unilateral primary osteoarthritis, right knee Category: Medical Plan: Injected right knee. Discussed activity, gel and surgery. February f/u prn. Coding Level of Care Code Est Pt Level 3 (82867) Diagnoses Primary osteoarthritis of right knee M17.11 CPT Codes Coding - Large joint: 01896 - Large joint ([id number])
[2024-06-12 11:13] VITALS: BMI 27.0
== END 2024-06-12 11:21 | disposition home or self-care (01) ==
PROVIDERS: PCP Internal Medicine; Visit Provider Orthopaedic Surgery
DX: M17.11 Unilateral primary osteoarthritis, right knee (principal)
CPT/HCPCS: 20610

== ENCOUNTER → 2024-06-12 11:03 | Outpatient (BNVA) | payer MEDICARE, SELFPAY | PROVIDERS: PCP Internal Medicine; Visit Provider Orthopaedic Surgery | DX: M17.11 Unilateral primary osteoarthritis, right knee (principal) | CPT/HCPCS: 20610; J0665; J1100 ==

== ENCOUNTER 2024-07-20 11:17 | Inpatient (IN) | payer MEDICARE, SELFPAY ==
[2024-07-20] VITALS (8 sets, daily range): BP systolic 141–164; BP diastolic 57–79; PULSE 78–92; RESP 15–20; TEMP 30.9–37.2; O2SAT 64–97; BMI 27.0
--- NOTE | ~2024-07-20 | XR_ITS ---
EXAMINATION: XR CHEST CLINICAL INFORMATION: Cough, shortness of breath. COMPARISON: Chest radiograph 03/28/2023. TECHNIQUE: 2 views of the chest were obtained. FINDINGS: Chronic increased interstitial markings. New focal nodular-like left parahilar airspace densities. Unchanged right apical pleuroparenchymal nodular thickening. No pleural effusion. No pneumothorax. Stable appearance of the cardiomediastinal silhouette. Mediastinal and right hilar lymphadenopathy, best visualized on a prior CT chest from 03/29/2023. No acute osseous findings. XR/XR chest 2V IMPRESSION: 1. New focal nodular-like densities in the left perihilar region that could indicate infectious/inflammatory infiltrate. Recommend clinical correlation and a follow-up examination after treatment to ensure resolution. 2. Mediastinal and right hilar lymphadenopathy, best visualized on a prior CT chest from 03/29/2023. Electronically signed by: Elda Hightower MD 07/20/2024 11:45 AM EDT
--- NOTE | ~2024-07-20 | CT_ITS ---
EXAMINATION: CT CHEST WITHOUT CONTRAST CLINICAL INFORMATION: Nodular pneumonia. Adenopathy. History of lung cancer. COMPARISON: March 29, 2023. TECHNIQUE: Multidetector volumetric CT imaging of the chest was done. Axial MIP volume rendering provided. Sagittal and coronal reformatted images were obtained. This CT examination was performed using dose optimization techniques as appropriate, variously including the following: *Automated exposure control *Adjustment of mA and/or kV according to patient size (this includes techniques or standardized protocols for targeted exams where dose is matched to indication/reason for exam; i.e. extremities or head) *Use of iterative reconstruction technique DLP: 181 mGy-cm FINDINGS: LUNGS: Left upper lobe chain sutures, unchanged compared with most recent prior study dated March 29, 2023. Resolution of previously seen left upper lobe interstitial and alveolar infiltrates with associated bronchial wall thickening. Mild, subtle, somewhat geographic, patchy left upper lobe groundglass density, new. Biapical fibrotic changes and calcifications. No suspicious lung nodule identified. Moderate emphysema. MEDIASTINUM: 1.3 cm subcarinal node, decreased in size compared with March 29, 2023, at which time it measured approximately 2.3 cm. Additional, subcentimeter mediastinal nodes, also generally decreased in size. CORONARY ARTERY CALCIFICATION: Severe. PLEURA: There is no pleural effusion. No pleural mass or thickening. AXILLA: No lymphadenopathy by size criteria. VASCULAR STRUCTURES: Atherosclerotic aorta. UPPER ABDOMEN: Small hiatus hernia. At least 5 cm benign left upper pole simple renal cyst for which no further dedicated follow-up imaging as indicated. OSSEOUS STRUCTURES: Decreased bone mineral density. Mild degenerative changes of the spine. Benign hemangiomata at T2 T9, T10, and T11. No suspicious lytic or sclerotic bony lesion identified. CT/CT chest wo IV con IMPRESSION: Left upper lobe chain sutures, unchanged compared with most recent prior study dated March 29, 2023. Resolution of previously seen left upper lobe interstitial and alveolar infiltrates with associated bronchial wall thickening. Mild, subtle, somewhat geographic, patchy left upper lobe groundglass density, new, nonspecific. Moderate emphysema. 1.3 cm subcarinal node, decreased in size compared with March 29, 2023, at which time it measured approximately 2.3 cm. Additional, subcentimeter mediastinal nodes, also generally decreased in size. Severe coronary arterial calcification. Additional findings as above. Electronically signed by: Leo Raza MD 07/21/2024 03:48 PM EDT RP
--- NOTE | 2024-07-20 11:20 | ECG_ITS ---
Test Reason : CHEST PAIN Blood Pressure : / mmHG Vent. Rate : 079 BPM Atrial Rate : 079 BPM P-R Int : 160 ms QRS Dur : 092 ms QT Int : 362 ms P-R-T Axes : 049 -39 017 degrees QTc Int : 415 ms Normal sinus rhythm Left axis deviation Minimal voltage criteria for LVH, may be normal variant ( R in aVL ) Abnormal ECG When compared with ECG of 28-MAR-2023 02:06, No significant change was found Referred By: Generic ED Physician Electronically Signed By:AGNELA SAINZ
--- NOTE | 2024-07-20 11:24 | ED_ITS ---
HPI - Chest Pain General Chief Complaint: Chest Pain Stated Complaint: sob-cp Time Seen by Provider: 07/20/24 16:06 Source: patient Mode of arrival: ambulatory Limitations: no limitations History of Present Illness ED Provider: DR. Javier HPI narrative: 79 Year old male with history of lung cancer s/p left lobectomy and s/p immunotherapy with chemotherapy patient now in remission, known history of COPD not on any supplemental oxygen came in today for evaluation of shortness of breath and coughing, patient feels congested and chest tightness ?called it chest pain ?since last night, coughing with greenish phlegm, generalized body ache. Chest pain with no radiation. Related Data Home Medications ?Medication ?Instructions ?Recorded ?Confirmed amlodipine 10 mg tablet 10 mg PO DAILY 08/18/20 03/28/23 atorvastatin 40 mg tablet 40 mg PO DAILY 08/18/20 03/28/23 latanoprost 0.005 % eye drops 1 drp ophthalmic (eye) BEDTIME 09/25/22 03/28/23 netarsudil 0.02 % eye drops 1 drp ophthalmic (eye) BEDTIME 09/25/22 03/28/23 (Rhopressa) albuterol sulfate 90 mcg/actuation 2 puff inhalation QID PRN Wheezing 03/28/23 03/28/23 aerosol inhaler carvedilol 12.5 mg tablet 12.5 mg PO BID 03/28/23 03/28/23 fluticasone fur. 200 mcg-umeclid 1 ea inhalation DAILY 03/28/23 03/28/23 62.5 mcg-vilant 25 mcg inhalat.powder (Trelegy Ellipta) losartan 100 mg tablet 100 mg PO DAILY 03/28/23 03/28/23 Previous Rx's ?Medication ?Instructions ?Recorded cefuroxime axetil 500 mg tablet 500 mg PO BID 4 days #8 tabs 04/02/23 prednisone 20 mg tablet 20 mg PO DAILY #3 tabs 04/02/23 Allergies Allergy/AdvReac Type Severity Reaction Status Date / Time No Known Allergies Allergy Verified 07/20/24 11:29 Review of Systems 2 Review of Systems: All other systems are reviewed and are negative Constitutional: Reports as per HPI and Reports no additional constitutional complaints Eyes: Reports as per HPI and Reports no additional eye complaints Reports system reviewed and no additional complaints, except as documented Cardiovascular: Reports as per HPI and Reports no additional cardiovascular complaints Respiratory: Reports as per HPI and Reports no additional respiratory complaints Gastrointestinal: Reports as per HPI and Reports no additional gastrointestinal complaints Genitourinary: Reports no additional female genitourinary complaints Musculoskeletal: Reports no additional musculoskeletal complaints Skin/Breast: Reports system reviewed and no additional complaints, except as docu Psychiatric: Reports no additional psychiatric complaints Endocrine: Reports no additional endocrine complaints Hematologic/Lymphatic: Reports no additional hematologic/lymphatic complaints Allergic/Immunologic: Reports no additional allergic/immunologic complaints Reports system reviewed and no additional complaints, except as documented and Reports Abnormal speech present [facility] Past Medical History Medical History Hip osteoarthritis Primary osteoarthritis of right hip Primary osteoarthritis of right knee Hypertension Surgical History History of arthroscopy of left knee (~1965) Family History Family History Father No problems noted. Mother No problems noted. Social History Social History Household Members: None Housing: Apartment Do you presently have visiting nurse or other home services: No Alcohol intake: never Patient Tobacco Use Status: Former Tobacco user Tobacco use type: Cigarette Second Hand Smoke Exposure: No Advance Directives: Yes Advance Directives on File: Yes Advance Directives Date on File: 03/28/23 Do you have a plan to hurt others: No Plan service: No Current occupational status: retired Current occupation: right handed Physical Exam 2 Vital Signs: Vital Signs: Last Vital Signs Temp 98.6 F 07/20/24 15:57 Pulse 87 07/20/24 16:31 Resp 17 07/20/24 16:31 BP 148/69 H 07/20/24 15:57 Pulse Ox 94 07/20/24 15:57 O2 Del Method Room Air 07/20/24 15:57 BMI result Body Mass Index 27.0 Vital signs have been reviewed and appear to be correct. Blood pressure elevated. Heart rate normal. Respiratory rate normal. Temperature normal. Oxygen saturation normal. Appearance: Alert. Oriented X3. No acute distress. Head: Normal external exam. Normocephalic. Atraumatic. No Cisneros signs noted. No raccoon eyes noted Eyes: PERRLA. EOMI. Conjunctiva and sclera normal. Eyelids normal. ENT: TM's Normal. Pharynx normal. Uvula midline. Moist mucous membranes. No trismus noted. No drooling noted. No muffled voice noted. Neck: Normal inspection. Neck supple. FROM. No adenopathy. Thyroid Normal. No meningeal signs. No neck mass noted. CVS: Normal heart rate and rhythm. Heart sound normal. No murmurs noted. Pulses normal throughout. Respiratory: No respiratory distress. Painless inspiration. Breath sounds is diminished over all Diffuse expiratory wheezing with prolonged expiration, crackers in the left lower lobe. Chest nontender. No accessory muscle usage noted or decreased air movement noted. Abdomen: Soft and nontender. Bowel sounds normal in all 4 quadrants. No distention noted. No organomegaly noted. No visible injury noted. Back: No CVA tenderness. Full range of motion noted. Skin: Skin warm and dry. Normal skin color. Normal skin turgor. No rashes/lesions/lacerations noted. Extremities: No lower extremity edema. Extremities exhibit normal range of motion. Extremities nontender. Neuro: Oriented X 3. Cranial nerve exam: II-XII are grossly intact No motor deficit. No sensory deficit. Reflexes normal. Course Course Course Narrative: This is an RME performed by Davonte Goetz CNP: Additional HPI, ROS, PE not included below will be deferred to primary provider. Patient is an 78-year-old male past medical history hypertension, hyperlipidemia COPD, lung CA with ?lobe resection, in remission reportedly since 2022who presents emergency department for evaluation. Reports onset of symptoms last night including substernal chest pain, shortness of breath, cough, congestion, chills. Reports earlier this month he had COVID-19 infection but had full resolution of symptoms Exam: Mild increased work of breathing, no room air hypoxia, notably dyspneic on exertion, lung sounds without wheezing, or rales Plan: EKG, serum labs, viral serology, CXR Reevaluation(s) Reevaluation #1: 78-year-old male with symptoms chest tightness and upper respiratory symptoms patient is positive for COVID 19 and also x-ray is revealing left lower lobe pneumonia patient do not meet criteria for severe sepsis or septic shock will cover with ceftriaxone/doxycyclin, Solu-Medrol and bronchodilator will admit.. Time: 16:22 Medications Administered Discontinued Medications Generic Name Dose Route Start Last Admin Trade Name Steve PRN Reason Stop Dose Admin Albuterol Sulfate 2.5 mg/ 0 mg 07/20/24 16:31 07/20/24 16:37 Albuterol/Ipratropium 3 ml INHALE 07/20/24 16:32 5 dose ONCE ONE Administration Medical Decision Making Differential Diagnosis Differential Diagnoses: The differential diagnosis associated with the presentation includes (ACS, viral pneumonia, bacterial pneumonia, COPD exacerbation, electrolyte derangement, severe anemia, dehydration.) Admission/Observation Consideration of admission/observation: Escalation of care including admission/observation considered Consult Healthcare Provider Management of the patient was discussed with: Hospitalist (Dr. Ventura) Lab Data MDM Lab Attestation statement: I reviewed the patient's lab results. 07/20/24 12:04 07/20/24 12:04 Labs: Lab Results 07/20/24 07/20/24 Range/Units 12:04 13:05 WBC 22.7 H (4.8-10.8) X10*3/uL RBC 3.68 L (4.60-5.80) X10*6/uL Hgb 11.6 L (14.0-18.0) g/dl Hct 32.2 L (42.0-52.0) % MCV 87.5 (80.0-98.0) fL MCH 31.5 (27.0-33.0) pg MCHC 36.0 (31.0-36.0) g/dl RDW 13.3 (11.0-16.0) % Plt Count 236 D (160-400) X10*3/uL MPV 9.3 L (9.4-12.4) fL Immature Gran % (Auto) 0.6 H (0.0-0.4) % Neut % (Auto) 87.0 H (45-73) % Lymph % (Auto) 5.6 L (20-40) % Highland % (Auto) 6.4 (2-11) % Eos % (Auto) 0.3 (0-4) % Baso % (Auto) 0.1 (0-2) % Lymph # (Auto) 1.3 (1.2-4.9) X10*3/uL Highland # (Auto) 1.5 H (0.1-1.2) X10*3/uL Eos # (Auto) 0.1 (0.0-0.4) X10*3/uL Baso # (Auto) 0.0 (0.0-0.2) X10*3/uL Abs Immat Gran (auto) 0.14 H (0.00-0.03) X10*3/uL Absolute Neuts (auto) 19.8 H (2.0-8.3) x10*3/uL Absolute Nucleated RBC 0.000 (0.0-0.012) X10*3/uL Nucleated RBC % (auto) 0.0 (0.0-0.2) /100WBC PT 11.6 (10.9-12.4) SEC INR 1.0 (0.9-1.1) Sodium 131 L (135-145) mmol/L Potassium 4.7 (3.3-5.1) mmol/L Chloride 98 (96-108) mmol/L Carbon Dioxide 24 (22-29) mmol/L Anion Gap 14 (12-20) BUN 23 H (9-16) mg/dL Creatinine 1.61 H (0.5-1.4) mg/dL Estim Creat Clear Calc 37.7 Estimated GFR 41 Random Glucose 109 (60-115) mg/dL Lactic Acid 1.9 (0.5-2.0) mmol/L Calcium 9.2 D (8.4-10.2) mg/dL Magnesium 1.7 (1.6-2.6) mg/dL Total Bilirubin 0.7 (0.0-1.0) mg/dL AST 16 (5-37) U/L ALT 15 (0-40) U/L Alkaline Phosphatase 77 (39-117) U/L Troponin I High Sens 11.1 D (<3.5-35.0) ng/L B-Natriuretic Peptide 37 (<100) pg/mL Total Protein 6.2 L (6.5-8.0) g/dL Albumin 3.6 (3.5-5.0) g/dL Influenza Type A (PCR) NEGATIVE (Negative) Influenza Type B (PCR) NEGATIVE (Negative) RSV RNA Qual (PCR) NEGATIVE (Negative) SARS-CoV-2 RNA (RT-PCR) POSITIVE A (Negative) Independent Interpretation I performed an independent interpretation of an: EKG (Normal sinus rhythm at 79 beats per minutes, left axis deviation, no ST-T changes, no significant change from previous EKG.) and Plain X-Ray (Chest:. New focal nodular-like densities in the left perihilar region that could indicate infectious/inflammatory infiltrate. Recommend clinical correlation and a follow-up examination after treatment to ensure resolution. 2. Mediastinal and right hilar lymphadenopathy, best visualized on a pr) Radiology Impression Discussion of test interpretation with radiology: I have reviewed the radiologist's reading. Discharge Plan Discharge Clinical Impression: COVID-19 virus infection, Pneumonia Patient Disposition: Admitted As Inpatient Print Language: Guatemalan
[2024-07-20 12:12] LABS: Basophils Percent Auto 0.1 % (0-2); Eosinophils Absolute Auto 0.1 X10*3/uL (0.0-0.4); Eosinophils Percent Auto 0.3 % (0-4); Hematocrit 32.2 % (42.0-52.0); Hemoglobin 11.6 g/dl (14.0-18.0); Imm Gran Abs Auto 0.14 X10*3/uL (0.00-0.03); Imm Gran Pct Auto 0.6 % (0.0-0.4); Lymphocytes Absolute Auto 1.3 X10*3/uL (1.2-4.9); Lymphocytes Percent Auto 5.6 % (20-40); MANUAL DIFF FLAG NO; Mean Corpuscular Hemoglobin 31.5 pg (27.0-33.0); Mean Corpuscular Volume 87.5 fL (80.0-98.0); Mean Platelet Volume 9.3 fL (9.4-12.4); Monocytes Absolute Auto 1.5 X10*3/uL (0.1-1.2); Monocytes Percent Auto 6.4 % (2-11); Neutrophils Absolute Auto 19.8 x10*3/uL (2.0-8.3); Platelet Count 236 X10*3/uL (160-400); Red Blood Count 3.68 X10*6/uL (4.60-5.80); Red Cell Distribution Width 13.3 % (11.0-16.0); White Blood Count 22.7 X10*3/uL (4.8-10.8)
[2024-07-20 12:22] LABS: Prothrombin Time 11.6 SEC (10.9-12.4)
[2024-07-20 12:30] LABS: Alanine Aminotransferase 15 U/L (0-40); Albumin Level 3.6 g/dL (3.5-5.0); Alkaline Phosphatase 77 U/L (39-117); Anion Gap 14 (12-20); Aspartate Amino Transferase 16 U/L (5-37); Bilirubin Total 0.7 mg/dL (0.0-1.0); Blood Urea Nitrogen 23 mg/dL (9-16); Calcium 9.2 mg/dL (8.4-10.2); Carbon Dioxide 24 mmol/L (22-29); Chloride 98 mmol/L (96-108); Creatinine Clr Calc Pharmacy 37.7; Estimated Glomerular Filt Rate 41; Glucose Random 109 mg/dL (60-115); Magnesium 1.7 mg/dL (1.6-2.6); Potassium 4.7 mmol/L (3.3-5.1); Sodium 131 mmol/L (135-145); Total Protein 6.2 g/dL (6.5-8.0)
[2024-07-20 12:33] LABS: B Type Natriuretic Peptide 37 pg/mL (<100)
[2024-07-20 12:37] LABS: Troponin-I High Sensitivity 11.1 ng/L (<3.5-35.0)
[2024-07-20 12:52] LABS: Influenza A PCR NEGATIVE (Negative); Influenza B PCR NEGATIVE (Negative); Resp Syncy Virus RNA Qual PCR NEGATIVE (Negative); SARS COV2 PCR INHOUSE POSITIVE (Negative)
[2024-07-20 13:23] LABS: Lactic Acid 1.9 mmol/L (0.5-2.0)
--- OUTSIDE RECORDS SUMMARY | 2024-07-20 13:28 | XMS_ITS | Continuity of Care Document ---
Author Organization [facility] Branden Сергей lt Address [address] [place] [address]- Care Team Providers Care Clinical Study Manager Name Role Phone Bean Florence MD Primary Care Physician [phone] Encounter [facility] Date(s): 08/21/23 - 08/28/23 [facility] Adult [address] [place] [address]- Encounter Diagnosis Cerumen impaction(Discharge Diagnosis) - 08/21/23 Attending Physician: Not on Staff, Attending MD Referring Physician: Bean Florence MD Allergies, Adverse Reactions, Alerts No Known Allergies Immunizations Given and Recorded Vaccine Date Status Refusal Reason influenza virus vaccine, inactivated 08/07/23 Dave rded influenza virus vaccine, inactivated 08/09/22 Dave rded influenza virus vaccine, inactivated 08/05/18 Dave rded influenza virus vaccine, inactivated 1 07/02/17 Re corded influenza virus vaccine, inactivated 2, 3 07/10/16 Recorded influenza virus vaccine, inactivated 4 07/19/15 Re corded influenza virus vaccine, inactivated 08/16/14 Give n influenza virus vaccine, inactivated 07/17/13 Give n influenza virus vaccine, inactivated 07/06/12 Give n influenza virus vaccine, inactivated 10/22/04 Give n SARS-CoV-2(COVID-19)mRNA-LNP vac([id number]) 08/07/23 Recorded SARS-CoV-2 mRNA (gyzssxv-nvye-qkooy) vax 5 08/09/22 Recorded SARS-CoV-2 mRNA (qakondf-edqa-bmttl) vax 01/25/22 Given SARS-CoV-2 (COVID-19) mRNA BNT-162b2 vac 08/18/21 Recorded [...] vaccine, inactivated 03/25/19 Recorded zoster vaccine, inactivated 01/02/19 Recorded zoster vaccine, inactivated 12/20/18 Recorded tetanus/diphtheria/pertussis, acel(Tdap) 7 05/28/17 Given Zostavax (oldterm) 8 06/03/12 Given FluLaval (oldterm) 9 10/20/11 Given Pneumococcal Vacc (oldterm) 09/28/09 Given tetanus-diphtheria toxoids (Td) 11/20/07 Given tetanus-diphtheria toxoids (Td) 10/22/97 Given Pneumococcal Vaccine (oldterm) 10/22/04 Given 1Result Comment: [07/06/2017] [facility] 2Location History: [facility] 3Result Comment: [07/12/2016] HIGH DOSE 4Result Comment: [07/21/2015] Given at [address] in [facility] 5Result Comment: [facility] Pharmacy 6Admin Note: given in clinic 7Result Comment: [05/28/2017] ADMINISTERED SECONDARY TO ABRASIONS PER DR FLORENCE 8Admin Note: chuy [facility] 9Admin Note: [facility] Medications Albuterol (Eqv-ProAir HFA) 90 mcg/inh inhalation aerosol 2 puffs, Inhalation, 4 times a day, PRN NEEDED FOR WHEEZING, # 8.5 each, 5 Refills, Maintenance,02/21/23 17:27:00 EDT, [facility]/pharmacy #[id number], 25, 2 puffs Inhalation 4 times a day,PRN: NEEDED FOR WHEEZING, 177.06, cm, 10/05/22 6:53:00 EST, Height Start Date: 02/21/23 Status: Ordered amLODIPine 10 mg oral tablet 1 tablet, By Mouth, Daily, # 90 tablet, 1 Refills, Maintenance, 05/21/23 11:22:00 EDT, [facility]05, 177.06, cm, 04/04/23 13:50:00 EDT, Height Start Date: 05/21/23 Status: Ordered aspirin 81 mg oral tablet 81, mg, 1, tablet, By Mouth, Daily, 30, tablet, 11, 11, 07/06/06 15:03:18, Print REAL Number, [id number], Constant Indicator Start Date: 07/06/06 Stop Date: 07/01/07 Status: Ordered atorvastatin 40 mg oral tablet 1 tablet, By Mouth, Daily, # 90 tablet, 1 Refills, Maintenance, 03/07/23 21:18:00 EDT, [facility]64, 177.06, cm, 10/05/22 6:53:00 EST, Height Start [...] day, # 180 tablet, Refills 1, Maintenance, 06/30/23 20:38:00 EDT, Route to Pharmacy Electronically, [facility] [address]9999, 177.06, cm, 04/04/23 13:50:00 EDT, Height Start Date: 06/30/23 Status: Ordered latanoprost 0.005% ophthalmic solution 1 drops, Eyes, Both, Daily at bedtime, # 3 mL, 0 Refills, Maintenance, 11/16/14 9:37:52, Ophth Solution Start Date: 11/16/14 Status: Ordered losartan 100 mg oral tablet 1 tablet, By Mouth, Daily, # 90 tablet, 1 Refills, Maintenance, 07/13/23 9:33:00 EDT, [facility] 26838, 177.06, cm, 04/04/23 13:50:00 EDT, Height Start Date: 07/13/23 Status: Ordered Rhopressa 0.02% ophthalmic solution See Instructions, INSTILL 1 DROP INTO BOTH EYES EVERY DAY AT NIGHT, # 7.5 mL, 1 Refills, Maintenance, 08/21/23 9:43:00 EDT, [facility], 90, INSTILL 1 DROP INTO BOTH EYES EVERY DAY AT NIGHT, 177.06, cm, 08/21/23 8:51:00 EDT, Height Start Date: 08/21/23 Status: Ordered Trelegy Ellipta 200 mcg-62.5 mcg-25 mcg/inh inhalation powder 1 puffs, Inhalation, Daily, at the same time every day, # 1 each, 11 Refills, Maintenance, 238:55:00 EDT, Powder, [facility]/pharmacy #[id number], Partial fill upon patient request if the [...] Active Hypertension Confirmed Active Hyponatremia Confirmed Active Cerumen impaction Confirmed Active Impaired glucose tolerance Confirmed Active Stage 2 moderate COPD by GOLD classification Confirmed Active 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 3 Confirmed 10/19/21 Active Osteoarthritis of right knee Confirmed Active PVD (peripheral vascular disease) Confirmed Active Increased intraocular pressure Confirmed Active S/P TKR (total knee replacement) Confirmed Active 1colo 2012 polyps repeat 2017 2colo 2003 polyp, rpt 2008 needed 3ct chest 03 abnl repeat 05 no change Diagnosis Diagnosis Type Effective Dates Health Status Cl inical Service Informant Cerumen impaction Discharge Diagnosis 08/21/23 Vital Signs Most recent to oldest [Reference Range]: 1 Height 177.06 cm (08/21/23 8:51 AM) Weight 83.8 kg (08/21/23 8:51 AM) Oxygen Saturation [94-100 %] 97 % (08/21/23 8:51 AM) Pulse Rate [55-90 bpm] 62 bpm (08/21/23 8:51 AM) Body Mass Index [18.5-24.99 kg/m2] 26.73 kg/m2 *H* (08/21/23 8:51 AM) Blood Pressure [90-138/55-84 mm Hg] 116/ 58mm Hg (08/21/23 8:51 AM) Respiratory Rate [16-30 br/min] 16 br/mi n (08/21/23 8:51 AM) Temperature [96.8-100.4 DegF] 97.4 DegF (08/21/23 8:51 AM) Mode of Delivery (Oxygen) Room air (08/21/23 8:51 AM) Blood pressure sites Arm, right (08/21/23 8:51 AM) Temperature Route Oral (08/21/23 8:51 AM) Weight Obtained Via Standing scale (08/21/23 8:51 AM) Social History Social History Type Response Smoking Status Former smoker, quit more than 30 days ago; Type: Cigarettes; Other: quit 2009; 1 ppd x 40 yrs; Number of years: 40; Total pack years: 40; entered on: 11/04/21 Sex Patient Care team information Care Team Personnel Name: Tatyana BRAVO, Bean Richards Position: [facility] Physician - Primary Care Member Role: PCP Address: Address: [address] [place] [id number]- Care Team Related Persons Name: MARQUISE WALLS Address: home [address] [place] [address] Name: ROSCOE LEÓN Address: home [address] [place] [address]
--- OUTSIDE RECORDS SUMMARY | 2024-07-20 13:28 | XMS_ITS | Continuity of Care Document ---
Author Organization [facility] Branden Сергей lt Address [address] [place] [address]- Care Team Providers Care Bacteriologist Food Name Role Phone Bean Florence MD Primary Care Physician [phone] Encounter [facility] Date(s): 07/10/23 - 08/09/23 [facility] Adult [address] [place] [address]- Allergies, Adverse Reactions, Alerts No Known Allergies Immunizations Given and Recorded Vaccine Date Status Refusal Reason SARS-CoV-2 mRNA (ulgnhfq-ybax-mzojn) vax 1 08/09/22 Recorded SARS-CoV-2 mRNA (tjirwad-cgzm-bwpcp) vax 01/25/22 Given influenza virus vaccine, inactivated [...] vac 11/25/20 Recorded Influenza Virus Vaccine (oldterm) 9/27/21 Recorde d Influenza Virus Vaccine (oldterm) 06/07/20 [...] Pneumococcal Vaccine (oldterm) 10/22/04 Given 1Result Comment: [facility] Pharmacy 2Result Comment: [07/06/2017] HIGH DOSE [facility] 3Location History: [facility] 4Result Comment: [07/12/2016] HIGH DOSE 5Result Comment: [07/21/2015] Given at [facility] ion [address] in [facility] 6Admmi Note: given in clinic 7Result Comment: [05/28/2017] ADMINISTERED SECONDARY TO ABRASIONS PER DR FLORENCE 8Admin Note: [facility] 9Admin Note: [employer] [facility] Medications Albuterol (Eqv-ProAir HFA) 90 mcg/inh inhalation aerosol 2 puffs, Inhalation, 4 times a day, PRN NEEDED FOR WHEEZING, # 8.5 each, 5 Refills, Maintenance,02/21/23 17:27:00 EDT, [facility]/pharmacy #[id number], 25, 2 puffs Inhalation 4 times a day,PRN: NEEDED FOR WHEEZING, 177.06, cm, 10/05/22 6:53:00 EST, Height Start Date: 02/21/23 Status: Ordered amLODIPine 10 mg oral tablet 1 tablet, By Mouth, Daily, # 90 tablet, 1 Refills, Maintenance, 05/21/23 11:22:00 EDT, [facility] [address], 177.06, cm, 04/04/23 13:50:00 EDT, Height Start Date: 05/21/23 Status: Ordered aspirin 81 mg oral tablet 81, mg, 1, tablet, By Mouth, Daily, 30, tablet, 11, 11, 07/06/06 15:03:18, Print REAL Number, [id number], Constant Indicator Start Date: 07/06/06 Stop Date: 07/01/07 Status: Ordered atorvastatin 40 mg oral tablet 1 tablet, By Mouth, Daily, # 90 tablet, 1 Refills, Maintenance, 03/07/23 21:18:00 EDT, [facility]77, 177.06, cm, 10/05/22 6:53:00 EST, Height Start [...] 06/30/23 20:38:00 EDT, Route to Pharmacy Electronically, [facility] [address]691, 177.06, cm, 04/04/23 13:50:00 EDT, Height Start Date: 06/30/23 Status: Ordered latanoprost 0.005% ophthalmic solution 1 drops, Eyes, Both, Daily at bedtime, # 3 mL, 0 Refills, Maintenance, 11/16/14 9:37:52, Ophth Solution Start Date: 11/16/14 Status: Ordered losartan 100 mg oral tablet 1 tablet, By Mouth, Daily, # 90 tablet, 1 Refills, Maintenance, 07/13/23 9:33:00 EDT, [facility], 177.06, cm, 04/04/23 13:50:00 EDT, Height Start Date: 07/13/23 Status: Ordered Rhopressa 0.02% ophthalmic solution See Instructions, INSTILL 1 DROP INTO BOTH EYES EVERY DAY AT NIGHT, # 7.5 mL, 1 Refills, Maintenance, 02/21/23 11:39:00 EDT, [facility], 90, INSTILL 1 DROP INTO BOTH EYES EVERY DAY AT NIGHT, 177.06, cm, 10/05/22 6:53:00 EST, Height Start Date: 02/21/23 Status: Ordered Trelegy Ellipta 200 mcg-62.5 mcg-25 mcg/inh inhalation powder 1 puffs, Inhalation, Daily, at the same time every day, # 1 each, 11 Refills, Maintenance, 238:55:00 EDT, Powder, [id number], Partial fill upon patient request if [...] Personnel Name: Tatyana BRAVO, Bean Richards Position: [facility] Physician - Primary Care Member Role: PCP Address: Address: [address] [place] [id number]- Care Team Related Persons Name: MARQUISE WALLS Address: [address] [place] [address] Name: ROSCOE LEÓN Address: home [address] [place] [address]
--- OUTSIDE RECORDS SUMMARY | 2024-07-20 13:29 | XMS_ITS | Continuity of Care Document ---
Author Organization [facility] Ernesto Otero Сергей lt Address [address] [place] [address]- Care Team Providers Care Third Officer Name Role Phone Bean Florence MD Primary Care Physician [place] [facility] [place] 07[place]16/24 [facility] [address] [place] [address]- Encounter Diagnosis Adenocarcinoma of lung, stage 2(Discharge Diagnosis) - 07/09/24 Hypercholesterolemia(Discharge Diagnosis) - 07/09/24 Hypertension(Discharge Diagnosis) - 07/09/24 PVD (peripheral vascular disease)(Discharge Diagnosis) - 07/09/24 Stage 2 moderate COPD by GOLD classification(Discharge Diagnosis) - 07/09/24 Attending Physician: Bean Florence MD Allergies, Adverse Reactions, Alerts No Known Allergies Immunizations Given and Recorded Vaccine Date Status Refusal Reason RSV vaccine preF3, recombinant 10/18/23 Recorded influenza virus vaccine, inactivated 08/07/23 Dave rded [...] virus vaccine, inactivated 10/22/04 Give n SARS-CoV-2(COVID-19)mRNA-LNP vac([id number]) 08/07/23 Recorded SARS-CoV-2 mRNA (vvnkdzo-bjyy-ollbz) vax 5 08/09/22 Recorded SARS-CoV-2 mRNA (cwfjhgl-mafy-isfpk) vax 01/25/22 Given SARS-CoV-2 (COVID-19) mRNA BNT-162b2 [...] 10/22/04 Given 1Result Comment: [07/06/2017] HIGH DOSE [facility] 3Result Comment: [07/12/2016] HIGH DOSE 4Result Comment: [07/21/2015] Given at [facility] ion [address] in [facility] 5Result Comment: [facility] Pharmacy 6Admin Note: given in clinic 7Result Comment: [05/28/2017] ADMINISTERED SECONDARY TO ABRASIONS PER DR FLORENCE 8Admin Note: chuy [facility] 9Admin Note: [facility] Medications Albuterol (Eqv-Ventolin HFA) 90 mcg/inh inhalation aerosol See Instructions, 2 PUFFS INHALATION 4 TIMES A DAYAS NEEDED FOR WHEEZING, # 18 each, 11 Refills, Maintenance, 07/09/24 11:24:00 EDT, [facility]/pharmacy #[id number], 30, 2 PUFFS INHALATION 4 TIMES A DAYAS NEEDED FOR WHEEZING, 177.06, cm, 07/09/24 10:57:00 EDT, Height Start Date: 07/09/24 Status: Ordered amLODIPine 10 mg oral tablet 1 tablet, By Mouth, Daily, # 90 tablet, 3 Refills, Maintenance, 07/09/24 11:23:00 EDT, [facility], 177.06, cm, 07/09/24 10:57:00 EDT, Height Start Date: 07/09/24 Status: Ordered aspirin 81 mg oral tablet 81, mg, 1, tablet, By Mouth, Daily, 30, tablet, 11, 11, 07/06/06 15:03:18, Print REAL Number, [id number], Constant Indicator Start Date: 07/06/06 Stop Date: 07/01/07 Status: Ordered atorvastatin 40 mg oral tablet 1 tablet, By Mouth, Daily, # 90 tablet, 3 Refills, Maintenance, 07/09/24 11:23:00 EDT, [facility]/pharmacy#[id number], 177.06, cm, 07/09/24 10:57:00 EDT, Height Start Date: 07/09/24 Status: Ordered BP MONITOR WITH CUFF BP MONITOR WITH CUFF, See Instructions, # 1 each, Refills 0, Tot. Refills 0, Maintenance, USE DIRECTED DX HTN I10 RONAK LIFETIME, 09/24/19 12:21:11 EST, Compound Start Date: 09/24/19 Status: Ordered brimonidine 0.2% ophthalmic solution 0 Refills, Maintenance, 12/25/23 16:23:00 EST, Partial fill upon patient request if the prescription is for a schedule II opioid drug. Start Date: 12/25/23 Status: Ordered carvedilol 25 mg oral tablet 25 mg, 1, tablet, By Mouth, 2 times a day, # 180 tablet, Refills 3, Tot. Refills 3, Maintenance, 07/09/24 11:23:00 EDT, Route to Pharmacy Electronically, [facility]/pharmacy #[id number], Partial fill upon patientrequest if the prescription is for a schedule II op... Start Date: 07/09/24 Status: Ordered latanoprost 0.005% ophthalmic solution 1 drops, Eyes, Both, Daily at bedtime, # 3 mL, 0 Refills, Maintenance, 11/16/14 9:37:52, Ophth Solution Start Date: 11/16/14 Status: Ordered Trelegy Ellipta 200 mcg-62.5 mcg-25 mcg/inh inhalation powder 1 puffs, Inhalation, Daily, # 60 each, 11 Refills, Maintenance, 07/09/24 11:23:00 EDT, [id number], 30, 1 puffs Inhalation Daily, 177.06, cm, 07/09/24 10:57:00 EDT, Height Start Date: 07/09/24 Status: Ordered valsartan 320 mg oral tablet 1 tablet = 320 mg, By Mouth, Daily, # 90 tablet, 3 Refills, Maintenance, 07/09/24 11:23:00 EDT, Tablet, [id number], Partial fill upon patient request if the prescription is for a schedule II opioid drug., 177.06, cm, 07/09/24 10:57:00 EDT, Height Start Date: 07/09/24 Status: Ordered Problem List Condition Confirmation Course Effective Dates Status Health Status Informant Acute otitis media, right Confirmed Active Adenocarcinoma of lung, stage 2 Confirmed Active [...] replacement) Confirmed Active 1colo 2012 polyps repeat 2018 2colo 2003 polyp, rpt 2008 needed 3ct chest 03 abnl repeat 05 no change Diagnosis Diagnosis Type Effective Dates Health Status Clinical Service Informant Adenocarcinoma of lung, stage 2 Discharge Diagnosis 07/09/24 Hypercholesterolemia Discharge Diagnosis 07/09/24 Hypertension Discharge Diagnosis 07/09/24 PVD (peripheral vascular disease) Discharge Diagnosis 07/09/24 Stage 2 moderate COPD by GOLD classification Discharge Diagnosis 07/09/24 Vital Signs Most recent to oldest [Reference Range]: 1 Height 177.06 cm (07/09/24 10:57 AM) Weight 85.8 kg (07/09/24 10:57 AM) Oxygen Saturation [94-100 %] 98 % (07/09/24 10:57 AM) Pulse Rate [55-90 bpm] 60 bpm (07/09/24 10:57 AM) Body Mass Index [18.5-24.99 kg/m2] 27.37 kg/m2 *H* (07/09/24 10:57 AM) Blood Pressure [90-138/55-84 mm Hg] 132/ 60mm Hg (07/09/24 10:57 AM) Temperature [96.8-100.4 DegF] 97.5 DegF (07/09/24 10:57 AM) Blood pressure sites Arm, left (07/09/24 10:57 AM) Temperature Route Oral (07/09/24 10:57 AM) Weight Obtained Via Standing scale (07/09/24 10:57 AM) Social History Social History Type Response Smoking Status Former smoker, quit more than 30 days ago; Type: Cigarettes; Other: quit 2009; 1 ppd x 40 yrs; Number of years: 40; Total pack years: 40; entered on: 11/04/21 Sex Note * Renae Sales: PERFORM Event Display: Patient Education/Instruction Authored Date: Ambulatory Adult Visit Summary [facility] [address] [place] [address] Name: ADALID LEÓN : 1945?? Visit: 07/09/2024 10:53?? Ambulatory Visit Instructions ?? Your Care Team Primary Care Provider Bean Florence MD? This Visit Provider Bean Florence MD Your Diagnosis Neck pain Adenocarcinoma of lung, stage 2 Hypercholesterolemia Hypertension PVD (peripheral vascular disease) Stage 2 moderate COPD by GOLD classification Vitals Signs Temperature: 97.5 DegF Height: 177.06 cm Pulse Rate: 60 bpm Weight: 85.8 kg Systolic Blood Pressure: 132 mm Hg Body Mass Index:??27.37 kg/m2??High Diastolic Blood Pressure: 60 mm Hg Body surface area: 2.05 Oxygen Saturation: 98 % ?? What to do next Follow-Up Appointments Follow Up with??Tatyana BRAVO, Bean Richards When:??In 6 months Why: Physical examination Where: ?? Future Orders XR Cervical Spine 3 Views or Less, Routine, Reason for Exam: Pain, Once, *Est. 07/09/24 Comprehensive Metabolic Panel - Routine, Once, 07/09/24 11:28:00 EDT, Future Order, [facility], Blood?? Hemoglobin A1C (Monitoring) - Routine, Once, 07/09/24 11:28:00 EDT, Future Order, [facility], Blood?? CBC - Routine, Once, 07/09/24 11:28:00 EDT, Future Order, [facility], Blood?? Direct LDL - Routine, Once, 07/09/24 11:28:00 EDT, Future Order, [facility], Blood?? Thyroid Panel - Routine, Once, 07/09/24 11:28:00 EDT, Future Order, [facility], Blood?? Medications The list below reflects the information in our records and provided by you today along with any changes made during this visit. Please continue your medications until treatment is completed or stopped by your provider. If this is different from the information you have or there are other questions,please contact the prescribing provider. What How Much When Instructions Unchanged Albuterol (Albuterol (Eqv-Ventolin HFA) 90 mcg/ inh inhalation aerosol) See instructions 2 PUFFS INHALATION 4 TIMES A DAYAS NEEDED FOR WHEEZING ?? Pickup at [facility]/pharmacy #0373 Unchanged Amlodipine (amLODIPine 10 mg oral tablet) 1 tab(s) Oral Daily Pickup at [facility]/pharmacy #0373 Unchanged Aspirin (aspirin 81 mg oral tablet) 1 tab(s) Oral Daily Duration: 30 Days Unchanged Atorvastatin (atorvastatin 40 mg oral tablet) 1 tab(s) Oral Daily Pickup at [facility]/pharmacy #0373 Unchanged Brimonidine Ophthalmic (brimonidine 0.2% ophthalmic solution) Unchanged Carvedilol (carvedilol 25 mg oral tablet) 1 tab(s) Oral Twice a day Pickup at [facility]/pharmacy #0373 Unchanged Durable Medical Equipment (BP MONITOR WITH CUFF) See instructions USE DIRECTED DX HTN ??I10 RONAK LIFETIME ?? Unchanged fluticasone/ umeclidinium/ vilanterol (Trelegy Ellipta 200 mcg-62.5 mcg-25 mcg/ inh inhalation powder) 1 puff(s) Inhalation Daily Pickup at [facility]/pharmacy #0373 Unchanged Latanoprost Ophthalmic (latanoprost 0.005% ophthalmic solution) 1 Drops Both eyes Daily at Bedtime Unchanged Valsartan (valsartan 320 mg oral tablet) 1 tab(s) Oral Daily Pickup at [facility]/pharmacy #[address] [facility]/pharmacy #0373: [address], [place] [id number] [phone] ?? What How Much When Comments Stop Taking Azithromycin (Azithromycin 5 Day Dose Pack 250 mg oral tablet) 1 pack/packet Oral Once Test Performed Below is a partial list of the tests performed during your Visit. You may have had other tests and procedures not included in this list. Please discuss all test results with your provider. CBC?-- Results Pending -- Comprehensive Metabolic Panel?-- Results Pending -- Direct LDL?-- Results Pending -- Hemoglobin A1C (Monitoring)?-- Results Pending -- Thyroid Panel?-- Results Pending -- Medications and Immunizations Administered Medications Given During Visit No medications given during this visit.?? Allergies (NKA means No Known Allergies) NKA Common Emergency Awareness Tips IS IT A STROKE? Act FAST and Check for these signs: FACE Does the face look uneven? ARM Does one arm drift down? SPEECH Does their speech sound strange? TIME Call at any sign of stroke ?? Heart Attack Signs Chest discomfort: Most heart attacks involve discomfort in the center of the chest and lasts more than a few minutes, or goes away and comes back. It can feel like uncomfortable pressure, squeezing, fullness or pain. Discomfort in upper body: Symptoms can include pain or discomfort in one or both arms, back, neck, jaw or stomach. Shortness of breath: With or without discomfort. Other signs: Breaking out in a cold sweat, nausea, or lightheaded. Remember, MINUTES DO MATTER. If you experience any of these heart attack warning signs, call to get immediate medical attention! ?? Smoking can increase your chances of developing chronic health problems and can cause harmful effects to other family members in your house. If you smoke, you are strongly encouraged to quit. Please call [facility] at [phone] or [phone] ([phone]) or log in to [email or web address] for referrals to smoking cessation programs. ?? The National Suicide Prevention Hotline is available 14/05 if you or someone you know needs to find a reason to keep living. By calling 7-293-124-GreenerU (0486) you'll be connected to a skilled, trained counselor at a crisis center in your area. [facility] Portal You can view and manage your care through the patient portal or by using a health care kiera of your choosing. [employer] is a website that allows you to securely view your medical information including your hospital discharge summary, office visit summaries, medications and follow-up visits. You can also request appointments, renew medications, and request access to your medical information using a health care kiera of your choosing, or just ask a question. You can enroll at [email or web address] or register during your next office visit. [facility], in keeping with [facility] guidance, no longer requires face masks for staff, patientsor visitors in most situations. Similiar to time spent indoors at other locations, there is the chance that you were exposed to repiratory viruses during your time with us (such as flu or COVID-19). If you develop symptoms concerning for a viral respiratory infection, please seek testing (and treatment if indicated) from your medical provider or home test kit. ?? Disclaimer: The information provided is of a general nature and is intended to be used in conjunction with the recommendations and advice of your health care practitioner. Every effort has been made to ensure that the information provided is accurate and complete at the time it is provided to you however, as your needs change, or, as new information becomes available, different or additional instructions may be required. ?? If you have questions, please consult with your primary care provider or pharmacist, as appropriate. This information is not intended to serve as substitution for assessment and evaluation by a qualified health care provider. If you do not have a primary care provider, you may find a [facility] provider by calling [facility] at [phone]. Patient Care team information Care Team Personnel Name: Bean Florence MD Position: [facility] Physician - Primary Care Member Role: PCP Address: Address: [address] [facility] [place] [address]- [place] Care Team Related Persons Name: MARQUISE WALLS Address: home [address] [place] [address] Name: ROSCOE LEÓN Address: home [address] [place] [address]
--- OUTSIDE RECORDS SUMMARY | 2024-07-20 13:29 | XMS_ITS | Continuity of Care Document ---
Author Organization [facility] Branden Сергей lt Address [address] [place] [address]- Care Team Providers Care Refining Equipment Operator Name Role Phone Bean Florence MD Primary Care Physician [phone] Encounter [facility] Date(s): 08/21/23 - 09/20/23 [facility] [address] [place] [address]- Attending Physician: Admtr, Carlos Manuel Allergies, Adverse Reactions, Alerts No Known Allergies [...] virus vaccine, inactivated 10/22/04 Give n SARS-CoV-2(COVID-19)mRNA-LNP vac([id number]) 08/07/23 Recorded SARS-CoV-2 mRNA (lbikfyh-jbks-iwmot) vax 5 08/09/22 Recorded SARS-CoV-2 mRNA (wuyptzn-tiql-fkeyx) vax 01/25/22 Given SARS-CoV-2 (COVID-19) mRNA BNT-162b2 [...] 10/22/04 Given 1Result Comment: [07/06/2017] HIGH DOSE [facility] 2Location History: [facility] 3Result Comment: [07/12/2016] HIGH DOSE 4Result Comment: [07/21/2015] Given at [facility] ion [address] in [facility] 5Result Comment: [facility] Pharmacy 6Admin Note: given in clinic 7Result Comment: [05/28/2017] ADMINISTERED SECONDARY TO ABRASIONS PER DR FLORENCE 8Admin Note: chuy [facility] 9Admin Note: [employer] [facility] Medications Albuterol (Eqv-ProAir HFA) 90 mcg/inh inhalation aerosol 2 puffs, Inhalation, 4 times a day, PRN NEEDED FOR WHEEZING, # 8.5 each, 5 Refills, Maintenance,02/21/23 17:27:00 EDT, [facility]/pharmacy #0373, 25, 2 puffs Inhalation 4 times a day,PRN: NEEDED FOR WHEEZING, 177.06, cm, 10/05/22 6:53:00 EST, Height Start Date: 02/21/23 Status: Ordered amLODIPine 10 mg oral tablet 1 tablet, By Mouth, Daily, # 90 tablet, 1 Refills, Maintenance, 05/21/23 11:22:00 EDT[facility], 177.06, cm, 04/04/23 13:50:00 EDT, Height Start Date: 05/21/23 Status: Ordered aspirin 81 mg oral tablet 81, mg, 1, tablet, By Mouth, Daily, 30, tablet, , 11, 07/06/06 15:03:18, Print REAL Number, [id number], Constant Indicator Start Date: 07/06/06 Stop Date: 07/01/07 Status: Ordered atorvastatin 40 mg oral tablet 1 tablet, By Mouth, Daily, # 90 tablet, 1 Refills, Maintenance, 09/01/23 23:23:00 EST, [facility], 177.06, cm, 08/21/23 8:51:00 EDT, Height Start Date: 09/01/23 Status: Ordered BP MONITOR WITH CUFF BP MONITOR WITH CUFF, See Instructions, # 1 each, Refills 0, Tot. Refills 0, Maintenance, USE DIRECTED DX HTN I10 RONAK LIFETIME, 09/24/19 12:21:11 EST, Compound Start Date: 09/24/19 Status: Ordered carvedilol 12.5 mg oral tablet 1, tablet, By Mouth, 2 times a day, # 180 tablet, Refills 1, Maintenance, 06/30/23 20:38:00 EDT, Route to Pharmacy Electronically, [facility], 177.06, cm, 04/04/23 13:50:00 EDT, Height Start Date: 06/30/23 Status: Ordered latanoprost 0.005% ophthalmic solution 1 drops, Eyes, Both, Daily at bedtime, # 3 mL, 0 Refills, Maintenance, 11/16/14 9:37:52, Ophth Solution Start Date: 11/16/14 Status: Ordered losartan 100 mg oral tablet 1 tablet, By Mouth, Daily, # 90 tablet, 1 Refills, Maintenance, 07/13/23 9:33:00 EDT, [facility], 177.06, cm, 04/04/23 13:50:00 EDT, Height Start Date: 07/13/23 Status: Ordered Rhopressa 0.02% ophthalmic solution See Instructions, INSTILL 1 DROP INTO BOTH EYES EVERY DAY AT NIGHT, # 7.5 mL, 1 Refills, Maintenance, 08/21/23 9:43:00 EDT, [facility], 90, INSTILL 1 DROP INTO BOTH EYES EVERY DAY AT NIGHT, 177.06, cm, 08/21/23 8:51:00 EDT, Height Start Date: 08/21/23 Status: Ordered Trelegy Ellipta 200 mcg-62.5 mcg-25 mcg/inh inhalation powder 1 puffs, Inhalation, Daily, at the same time every day, # 1 each, 11 Refills, Maintenance, 238:55:00 EDT, Powder, [facility]/pharmacy #0373, Partial fill upon patient request if [...] pack years: 40; entered on: 11/04/21 Sex Laboratory * Event Display: Non [facility] Lab Results Authored Date: * Event Display: Non [facility] Lab Results Authored Date: * Event Display: Non BH Lab Results Authored Date: * Event Display: Non [facility] Lab Results Authored Date: Patient Care team information Care Team Personnel Name: Bean Florence MD Position: [facility] Physician - Primary Care Member Role: PCP Address: Address: [address] [place] [address]- [place] Care Team Related Persons Name: MARQUISE WALLS Address: home [address] [place] [address] Name: ROSCOE LEÓN Address: home [address] [place] [address]
--- OUTSIDE RECORDS SUMMARY | 2024-07-20 13:29 | XMS_ITS | Continuity of Care Document ---
Author Organization [facility] Ernesto Otero Сергей lt Address [address] [place] [address]- Care Team Providers Care Inspector Soldering Name Role Phone Tatyana BRAVO, Bean Richards Primary Care Physician [phone] Encounter [facility] Date(s): 12/27/23 - 01/26/24 [facility] Adult [address] [place] [address]- Allergies, Adverse Reactions, Alerts No Known Allergies [...] virus vaccine, inactivated 10/22/04 Give n SARS-CoV-2(COVID-19)mRNA-LNP vac([id number]) 08/07/23 Recorded SARS-CoV-2 mRNA (ucartws-rhby-czgfb) vax 5 08/09/22 Recorded SARS-CoV-2 mRNA (vyakqlo-cmsl-cfzpw) vax 01/25/22 Given SARS-CoV-2 (COVID-19) mRNA BNT-162b2 [...] 10/22/04 Given 1Result Comment: [07/06/2017] HIGH DOSE [facility] 2Location History: [facility] 3Result Comment: [07/12/2016] HIGH DOSE 4Result Comment: [07/21/2015] Given at [facility] ion [address] in [facility] 5Result Comment: [facility] Pharmacy 6Admin Note: given in clinic 7Result Comment: [05/28/2017] ADMINISTERED SECONDARY TO ABRASIONS PER DR FLORENCE 8Admin Note: chuy [facility] 9Admin Note: [employer] [facility] Medications Albuterol (Eqv-ProAir HFA) 90 mcg/inh inhalation aerosol 2 puffs, Inhalation, 4 times a day, PRN NEEDED FOR WHEEZING, # 8.5 each, 5 Refills, Maintenance,02/21/23 17:27:00 EDT, [facility]/pharmacy #0373, 25, 2 puffs Inhalation 4 times a day,PRN: NEEDED FOR WHEEZING, 177.06, cm, 10/05/22 6:53:00 EST, Height Start Date: 02/21/23 Status: Ordered amLODIPine 10 mg oral tablet 1 tablet, By Mouth, Daily, # 90 tablet, 0 Refills, Maintenance, 11/15/23 8:42:00 EST, [facility], 177.06, cm, 08/21/23 8:51:00 EDT, Height Start Date: 11/15/23 Status: Ordered aspirin 81 mg oral tablet 81, mg, 1, tablet, By Mouth, Daily, 30, tablet, , , 07/06/06 15:03:18, Print REAL Number, [id number], Constant Indicator Start Date: 07/06/06 Stop Date: 07/01/07 Status: Ordered atorvastatin 40 mg oral tablet 1 tablet, By Mouth, Daily, # 90 tablet, 1 Refills, Maintenance, 09/01/23 23:23:00 EST, [facility], 177.06, cm, 08/21/23 8:51:00 EDT, Height Start Date: 09/01/23 Status: Ordered Azithromycin 5 Day Dose Pack 250 mg oral tablet 1 pack/packet, By Mouth, Once, # 6 tablet, 0 Refills, Soft Stop, 01/08/24 10:16:00 EDT, Tablet, [facility]/pharmacy #0373, Partial fill upon patient request if the prescription is for a schedule II opioid drug., 177.06, cm, 01/08/24 10:03:00 EDT, Height Start Date: 01/08/24 Status: Ordered BP MONITOR WITH CUFF BP [...] tablet, Refills 3, Tot. Refills 3, Maintenance, 12/25/23 16:28:00 EST, Route to Pharmacy Electronically, [facility]/pharmacy #0373, Partial fill upon patientrequest if the prescription is for a schedule II op... Start Date: 12/25/23 Status: Ordered latanoprost 0.005% ophthalmic solution 1 drops, Eyes, Both, Daily at bedtime, # 3 mL, 0 Refills, Maintenance, 11/16/14 9:37:52, Ophth Solution Start Date: 11/16/14 Status: Ordered Trelegy Ellipta 200 mcg-62.5 mcg-25 mcg/inh inhalation powder 1 puffs, Inhalation, Daily, # 60 each, 2 Refills, Maintenance, 12/27/23 13:15:00 EST, [facility], 30, INHALE 1 PUFF DAILY AT THE SAME TIME EVERY DAY, 177.06, cm, 12/25/23 16:10:00 EST, Height Start Date: 12/27/23 Status: Ordered valsartan 320 mg oral tablet 1 tablet = 320 mg, By Mouth, Daily, # 90 tablet, 3 Refills, Maintenance, 12/25/23 16:28:00 EST, Tablet, [facility]/pharmacy #0373, Partial fill upon patient request if the prescription is for a schedule II opioid drug., 177.06, cm, 12/25/23 16:10:00 EST, Height Start Date: 12/25/23 Status: Ordered Problem List Condition Confirmation Course [...] polyps repeat 2018 2colo 2003 polyp, rpt 2007 needed 3ct chest 03 abnl repeat 05 no change Social History Social History Type Response Smoking Status Former smoker, quit more than 30 days ago; Type: Cigarettes; Other: quit 2009; 1 ppd x 40 yrs; Number of years: 40; Total pack years: 40; entered on: 11/04/21 Sex Patient Care team information Care Team Personnel Name: Tatyana BRAVO, Bean Richards Position: [facility] Physician - Primary Care Member Role: PCP Address: Address: [address] [place] [address]- Care Team Related Persons Name: MARQUISE WALLS Address: home [address] [place] [address] Name: ROSCOE LEÓN Address: home [address] [place] [address]
--- OUTSIDE RECORDS SUMMARY | 2024-07-20 13:29 | XMS_ITS | Continuity of Care Document ---
Author Organization [facility] Branden Сергей lt Address [address] [place] [address]- Care Team Providers Care Senior Web Architect Name Role Phone Tatyana BRAVO, Bean Richards Primary Care Physician [facility] 02[facility]13[facility]24 - 03/14/24 [facility] Adult [address] [place] [address]- Allergies, Adverse Reactions, Alerts No Known Allergies [...] virus vaccine, inactivated 10/22/04 Give n SARS-CoV-2(COVID-19)mRNA-LNP vac([id number]) 08/07/23 Recorded SARS-CoV-2 mRNA (srtgjjo-dqyq-wrgcl) vax 5 08/09/22 Recorded SARS-CoV-2 mRNA (jyqztqq-kzej-cwjhj) vax 01/25/22 Given SARS-CoV-2 (COVID-19) mRNA BNT-162b2 [...] 10/22/04 Given 1Result Comment: [07/06/2017] HIGH DOSE [facility] 2Location History: [facility] 3Result Comment: [07/12/2016] HIGH DOSE 4Result Comment: [07/21/2015] Given at [facility] ion [address] in [facility] 5Result Comment: [facility] Pharmacy 6Admin Note: given in clinic 7Result Comment: [05/28/2017] ADMINISTERED SECONDARY TO ABRASIONS PER DR FLORENCE 8Admin Note: [facility] 9Admin Note: [facility] Medications Albuterol (Eqv-Ventolin HFA) 90 mcg/inh inhalation aerosol See Instructions, 2 PUFFS INHALATION 4 TIMES A DAYAS NEEDED FOR WHEEZING, # 18 each, 5 Refills, Maintenance, 03/05/24 5:35:00 EDT, [facility] STORE 29142, 30, 2 PUFFS INHALATION 4 TIMES A DAYAS NEEDED FOR WHEEZING, 177.06, cm, 01/08/24 10:03:00 EDT, Height Start Date: 03/05/24 Status: Ordered amLODIPine 10 mg oral tablet 1 tablet, By Mouth, Daily, # 90 tablet, 1 Refills, Maintenance, 02/13/24 10:11:00 EDT, [facility], 177.06, cm, 01/08/24 10:03:00 EDT, Height Start Date: 02/13/24 Status: Ordered aspirin 81 mg oral tablet 81, mg, 1, tablet, By Mouth, Daily, 30, tablet, 11, 11, 07/06/06 15:03:18, Print REAL Number, [id number], Constant Indicator Start Date: 07/06/06 Stop Date: 07/01/07 Status: Ordered atorvastatin 40 mg oral tablet 1 tablet, By Mouth, Daily, # 90 tablet, 1 Refills, Maintenance, 02/25/24 4:18:00 EDT, [facility]/pharmacy #0373, 177.06, cm, 01/08/24 10:03:00 EDT, Height Start Date: 02/25/24 Status: Ordered Azithromycin 5 Day Dose Pack 250 mg oral tablet 1 pack/packet, By Mouth, Once, # 6 tablet, 0 Refills, Soft Stop, 01/08/24 10:16:00 EDT, Tablet, [facility]/pharmacy #0373, Partial fill upon patient request if [...] 12/25/23 16:28:00 EST, Route to Pharmacy Electronically, [facility]/pharmacy #0373, Partial fill upon patientrequest if the [...] Refills, Maintenance, 12/27/23 13:15:00 EST, [facility], 30, INHALE 1 PUFF DAILY AT THE SAME TIME EVERY DAY, 177.06, cm, 12/25/23 16:10:00 EST, Height Start Date: 12/27/23 Status: Ordered valsartan 320 mg oral tablet 1 tablet = 320 mg, By Mouth, Daily, # 90 tablet, 3 Refills, Maintenance, 12/25/23 16:28:00 EST, Tablet, [facility]/pharmacy #0373, Partial fill upon patient request if [...] Team Personnel Name: Bean Florence MD Position: [facility] Physician - Primary Care Member Role: PCP Address: Address: [address] [place] [address]- [place] Care Team Related Persons Name: MARQUISE WALLS Address: home [address] [place] [address] Name: ROSCOE LEÓN Address: home [address] [place] [address]
--- OUTSIDE RECORDS SUMMARY | 2024-07-20 13:29 | XMS_ITS | Continuity of Care Document ---
Author Organization [facility] Ernesto Otero Сергей lt Address [address] [place] [address]- Care Team Providers Care Microsoft Crm Developer Name Role Phone Tatyana BRAVO, Bean Richards Primary Care Physician [facility] Date[facility]s): 12/25/23 - 01/24/24 [facility] Adult [address] [place] [address]- Allergies, Adverse Reactions, Alerts No Known Allergies [...] virus vaccine, inactivated 10/22/04 Give n SARS-CoV-2(COVID-19)mRNA-LNP vac(col565) 08/07/23 Recorded SARS-CoV-2 mRNA (lndgfue-hcrw-iyjxd) vax 5 08/09/22 Recorded SARS-CoV-2 mRNA (wxxngju-kval-bmbqz) vax 01/25/22 Given SARS-CoV-2 (COVID-19) mRNA BNT-162b2 [...] 10/22/04 Given 1Result Comment: [07/06/2017] HIGH DOSE [facility] 2Location History: [facility] 3Result Comment: [07/12/2016] HIGH DOSE 4Result Comment: [07/21/2015] Given at [facility] ion [address] in [facility] 5Result Comment: [facility] Pharmacy 6Admin Note: given in clinic 7Result Comment: [05/28/2017] ADMINISTERED SECONDARY TO ABRASIONS PER DR FLORENCE 8Admin Note: [facility] 9Admin Note: [employer] [facility] Medications Albuterol (Eqv-ProAir HFA) 90 mcg/inh inhalation aerosol 2 puffs, Inhalation, 4 times a day, PRN NEEDED FOR WHEEZING, # 8.5 each, 5 Refills, Maintenance,02/21/23 17:27:00 EDT, [facility]/pharmacy #0373, 25, 2 puffs Inhalation 4 times a day,PRN: NEEDED FOR WHEEZING, 177.06, cm, 10/05/22 6:53:00 EST, Height Start Date: 02/21/23 Status: Ordered amLODIPine 10 mg oral tablet 1 tablet, By Mouth, Daily, # 90 tablet, 0 Refills, Maintenance, 11/15/23 8:42:00 EST, [facility] STORE 43123, 177.06, cm, 08/21/23 8:51:00 EDT, Height Start Date: 11/15/23 Status: Ordered aspirin 81 mg oral tablet 81, mg, 1, tablet, By Mouth, Daily, 30, tablet, , , 07/06/06 15:03:18, Print REAL Number, [id number], Constant Indicator Start Date: 07/06/06 Stop Date: 07/01/07 Status: Ordered atorvastatin 40 mg oral tablet 1 tablet, By Mouth, Daily, # 90 tablet, 1 Refills, Maintenance, 09/01/23 23:23:00 EST, [facility] STORE 69072, 177.06, cm, 08/21/23 8:51:00 EDT, Height Start Date: 09/01/23 Status: Ordered Azithromycin 5 Day Dose Pack 250 mg oral tablet 1 pack/packet, By Mouth, Once, # 6 tablet, 0 Refills, Soft Stop, 01/08/24 10:16:00 EDT, Tablet, [facility]/pharmacy #0373, Partial fill upon patient request if [...] 12/25/23 16:28:00 EST, Route to Pharmacy Electronically, [facility]/pharmacy #0373, Partial fill upon patientrequest if the [...] Refills, Maintenance, 12/27/23 13:15:00 EST, [facility], 30, INHALE 1 PUFF DAILY AT THE SAME TIME EVERY DAY, 177.06, cm, 12/25/23 16:10:00 EST, Height Start Date: 12/27/23 Status: Ordered valsartan 320 mg oral tablet 1 tablet = 320 mg, By Mouth, Daily, # 90 tablet, 3 Refills, Maintenance, 12/25/23 16:28:00 EST, Tablet, [facility]/pharmacy #0373, Partial fill upon patient request if [...] Personnel Name: Tatyana BRAVO, Bean Richards Position: [facility] Physician - Primary Care Member Role: PCP Address: Address: [address] [place] [address]- Care Team Related Persons Name: MARQUISE WALLS Address: home [address] [place] [address] Name: ROSCOE LEÓN Address: home [address] [place] [address]
--- OUTSIDE RECORDS SUMMARY | 2024-07-20 13:29 | XMS_ITS | Continuity of Care Document ---
Author Organization [facility] Branden Сергей lt Address [address] [place] [address]- Care Team Providers Care Gis Scientist Name Role Phone Bean Flroence MD Primary Care Physician [facility] 01/08/24 - 02/07/24 [facility] Adult [address] [place] [address]- Attending Physician: Admtr, Carlos Manuel Allergies, Adverse [...] virus vaccine, inactivated 10/22/04 Give n SARS-CoV-2(COVID-19)mRNA-LNP vac(vzi101) 08/07/23 Recorded SARS-CoV-2 mRNA (wlclawb-egkm-njhrp) vax 5 08/09/22 Recorded SARS-CoV-2 mRNA (zxtampd-easp-bfcpq) vax 01/25/22 Given SARS-CoV-2 (COVID-19) mRNA BNT-162b2 [...] 10/22/04 Given 1Result Comment: [07/06/2017] HIGH DOSE [facility] 2Location History: [facility] 3Result Comment: [07/12/2016] HIGH DOSE 4Result Comment: [07/21/2015] Given at [facility] ion [address] in [facility] 5Result Comment: [facility] Pharmacy 6Admin Note: given in clinic 7Result Comment: [05/28/2017] ADMINISTERED SECONDARY TO ABRASIONS PER DR FLORENCE 8Admin Note: [facility] 9Admin Note: [facility] Medications Albuterol (Eqv-ProAir HFA) 90 mcg/inh inhalation aerosol 2 puffs, Inhalation, 4 times a day, PRN NEEDED FOR WHEEZING, # 8.5 each, 5 Refills, Maintenance,02/21/23 17:27:00 EDT, [facility]/pharmacy #0373, 25, 2 puffs Inhalation 4 times a day,PRN: NEEDED FOR WHEEZING, 177.06, cm, 10/05/22 6:53:00 EST, Height Start Date: 02/21/23 Status: Ordered amLODIPine 10 mg oral tablet 1 tablet, By Mouth, Daily, # 90 tablet, 0 Refills, Maintenance, 11/15/23 8:42:00 EST, [facility] STORE 15366, 177.06, cm, 08/21/23 8:51:00 EDT, Height Start Date: 11/15/23 Status: Ordered aspirin 81 mg oral tablet 81, mg, 1, tablet, By Mouth, Daily, 30, tablet, , , 07/06/06 15:03:18, Print REAL Number, [id number], Constant Indicator Start Date: 07/06/06 Stop Date: 07/01/07 Status: Ordered atorvastatin 40 mg oral tablet 1 tablet, By Mouth, Daily, # 90 tablet, 1 Refills, Maintenance, 09/01/23 23:23:00 EST, [facility] STORE 64206, 177.06, cm, 08/21/23 8:51:00 EDT, Height Start Date: 09/01/23 Status: Ordered Azithromycin 5 Day Dose Pack 250 mg oral tablet 1 pack/packet, By Mouth, Once, # 6 tablet, 0 Refills, Soft Stop, 01/08/24 10:16:00 EDT, Tablet, [facility]/pharmacy #0373, Partial fill upon patient request [...] 12/25/23 16:28:00 EST, Route to Pharmacy Electronically, [facility]/pharmacy #0373, Partial fill upon patientrequest if [...] Refills, Maintenance, 12/27/23 13:15:00 EST, [facility], 30, INHALE 1 PUFF DAILY AT THE SAME TIME EVERY DAY, 177.06, cm, 12/25/23 16:10:00 EST, Height Start Date: 12/27/23 Status: Ordered valsartan 320 mg oral tablet 1 tablet = 320 mg, By Mouth, Daily, # 90 tablet, 3 Refills, Maintenance, 12/25/23 16:28:00 EST, Tablet, [facility]/pharmacy #0373, Partial fill upon patient request [...] Active 1colo 2012 polyps repeat 2017 2colo 2002 polyp, rpt 2007 needed 3ct chest 03 [...] Personnel Name: Tatyana BRAVO, Bean Richards Position: [facility] Physician - Primary Care Member Role: PCP Address: Address: [address] [place] [address] Care Team Related Persons Name: MARQUISE WALLS Address: home [address] [place] [address] Name: ROSCOE LEÓN Address: home [address] [place] [address]
--- OUTSIDE RECORDS SUMMARY | 2024-07-20 13:29 | XMS_ITS | Continuity of Care Document ---
Author Organization [facility] Branden Сергей lt Address [address] [place] [address]- Care Team Providers Care [facility] Social Worker Name Role Phone Bean Florence MD Primary Care Physician [facility] Date(s): 10/10/23 - 11/09/23 [facility] Adult [address] [place] [address]- Attending Physician: Admtr, Ar8 Allergies, Adverse Reactions, Alerts No Known Allergies [...] virus vaccine, inactivated 10/22/04 Give n SARS-CoV-2(COVID-19)mRNA-LNP vac(dtb615) 08/07/23 Recorded SARS-CoV-2 mRNA (nppfgmu-knwm-vbklo) vax 5 08/09/22 Recorded SARS-CoV-2 mRNA (dohqwmv-ljkq-dmdwy) vax 01/25/22 Given SARS-CoV-2 (COVID-19) mRNA BNT-162b2 [...] 10/22/04 Given 1Result Comment: [07/06/2017] HIGH DOSE [facility] 2Location History: [facility] 3Result Comment: [07/12/2016] HIGH DOSE 4Result Comment: [07/21/2015] Given at [facility] ion [facility] [address] in [facility] 5Result Comment: [facility] Pharmacy 6Admin Note: given in clinic 7Result Comment: [05/28/2017] ADMINISTERED SECONDARY TO ABRASIONS PER DR FLORENCE 8Admin Note: [facility] 9Admin Note: [employer] [facility] Medications Albuterol (Eqv-ProAir HFA) 90 mcg/inh inhalation aerosol 2 puffs, Inhalation, 4 times a day, PRN NEEDED FOR WHEEZING, # 8.5 each, 5 Refills, Maintenance,02/21/23 17:27:00 EDT, [facility]/pharmacy #0373, 25, 2 puffs Inhalation 4 times a day,PRN: NEEDED FOR WHEEZING, 177.06, cm, 10/05/22 6:53:00 EST, Height Start Date: 02/21/23 Status: Ordered amLODIPine 10 mg oral tablet 1 tablet, By Mouth, Daily, # 90 tablet, 1 Refills, Maintenance, 05/21/23 11:22:00 EDT, [facility], 177.06, cm, 04/04/23 13:50:00 EDT, Height Start Date: 05/21/23 Status: Ordered aspirin 81 mg oral tablet 81, mg, 1, tablet, By Mouth, Daily, 30, tablet, , , 07/06/06 15:03:18, Print REAL Number, [id number], Constant Indicator Start Date: 07/06/06 Stop Date: 07/01/07 Status: Ordered atorvastatin 40 mg oral tablet 1 tablet, By Mouth, Daily, # 90 tablet, 1 Refills, Maintenance, 09/01/23 23:23:00 EST, [facility] STORE 81289, 177.06, cm, 08/21/23 8:51:00 EDT, Height Start [...] 06/30/23 20:38:00 EDT, Route to Pharmacy Electronically, [facility] STORE 60125, 177.06, cm, 04/04/23 13:50:00 EDT, Height Start Date: 06/30/23 Status: Ordered latanoprost 0.005% ophthalmic solution 1 drops, Eyes, Both, Daily at bedtime, # 3 mL, 0 Refills, Maintenance, 11/16/14 9:37:52, Ophth Solution Start Date: 11/16/14 Status: Ordered losartan 100 mg oral tablet 1 tablet, By Mouth, Daily, # 90 tablet, 1 Refills, Maintenance, 07/13/23 9:33:00 EDT, [facility], 177.06, cm, 04/04/23 13:50:00 EDT, Height Start Date: 07/13/23 Status: Ordered Rhopressa 0.02% ophthalmic solution See Instructions, INSTILL 1 DROP INTO BOTH EYES EVERY DAY AT NIGHT, # 7.5 mL, 1 Refills, Maintenance, 08/21/23 9:43:00 EDT, [facility], 90, INSTILL 1 DROP INTO BOTH EYES EVERY DAY AT NIGHT, 177.06, cm, 08/21/23 8:51:00 EDT, Height Start Date: 08/21/23 Status: Ordered Trelegy Ellipta 200 mcg-62.5 mcg-25 mcg/inh inhalation powder 1 puffs, Inhalation, Daily, at the same time every day, # 1 each, 11 Refills, Maintenance, 238:55:00 EDT, Powder, [facility]/pharmacy #0373, Partial fill upon patient [...] Personnel Name: Tatyana BRAVO, Bean Richards Position: [facility] Physician - Primary Care Member Role: PCP Address: Address: [address] [address]- [place] Care Team Related Persons Name: MARQUISE WALLS Address: home [address] [place] [address] Name: ROSCOE LEÓN Address: home [address] [place] [address]
--- OUTSIDE RECORDS SUMMARY | 2024-07-20 13:29 | XMS_ITS | Continuity of Care Document ---
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 Name Role Phone Bean Florence MD Primary Care Physician Encounter [facility] Date(s): 04/04/23 - 04/11/23 [facility] Adult [address] [place] [address]- Encounter Diagnosis Adenocarcinoma of lung, stage 2(Discharge Diagnosis) - 04/04/23 Attending Physician: Baen Florence MD Allergies, Adverse Reactions, Alerts No Known Allergies Immunizations Given and Recorded Vaccine Date Status Refusal Reason SARS-CoV-2 mRNA (ydehbdv-mgsi-wgpgh) vax 1 08/09/22 Recorded SARS-CoV-2 mRNA (uwtctgg-cgqe-cqxag) vax 01/25/22 Given influenza virus vaccine, inactivated [...] Pneumococcal Vaccine (oldterm) 10/22/04 Given 1Result Comment: [facility] Pharmacy 2Result Comment: [07/06/2017] HIGH DOSE [facility] 3Location History: [facility] 4Result Comment: [07/12/2016] HIGH DOSE 5Result Comment: [07/21/2015] Given at [place] [address] [address] in [facility] 6Admid Note: given in clinic 7Result Comment: [05/28/2017] ADMINISTERED SECONDARY TO ABRASIONS PER DR FLORENCE 8Admin Note: [facility] 9Admin Note: [employer] [facility] Medications Albuterol (Eqv-ProAir HFA) 90 mcg/inh inhalation aerosol 2 puffs, Inhalation, 4 times a day, PRN NEEDED FOR WHEEZING, # 8.5 each, 5 Refills, Maintenance,02/21/23 17:27:00 EDT, [facility]/pharmacy #0373, 25, 2 puffs Inhalation 4 times a day,PRN: NEEDED FOR WHEEZING, 177.06, cm, 10/05/22 6:53:00 EST, Height Start Date: 02/21/23 Status: Ordered amLODIPine 10 mg oral tablet 1 tablet, By Mouth, Daily, # 90 tablet, 1 Refills, Maintenance, 11/23/22 14:45:00 EST, [facility] STORE 65374, 177.06, cm, 10/05/22 6:53:00 EST, Height Start Date: 11/23/22 Status: Ordered aspirin 81 mg oral tablet 81, mg, 1, tablet, By Mouth, Daily, 30, tablet, 11, 11, 07/06/06 15:03:18, Print REAL Number, [id number], Constant Indicator Start Date: 07/06/06 Stop Date: 07/01/07 Status: Ordered atorvastatin 40 mg oral tablet 1 tablet, By Mouth, Daily, # 90 tablet, 1 Refills, Maintenance, 03/07/23 21:18:00 EDT, [facility] STORE 26489, 177.06, cm, 10/05/22 6:53:00 EST, Height Start [...] 11/23/22 14:45:00 EST, Route to Pharmacy Electronically, [facility] STORE 28741, 177.06, cm, 10/05/22 6:53:00 EST, Height Start Date: 11/23/22 Status: Ordered latanoprost 0.005% ophthalmic solution 1 drops, Eyes, Both, Daily at bedtime, # 3 mL, 0 Refills, Maintenance, 11/16/14 9:37:52, Ophth Solution Start Date: 11/16/14 Status: Ordered losartan 100 mg oral tablet 1 tablet, By Mouth, Daily, # 90 tablet, 1 Refills, Maintenance, 11/23/22 14:45:00 EST, [facility] STORE 58212, 177.06, cm, 10/05/22 6:53:00 EST, Height Start Date: 11/23/22 Status: Ordered Rhopressa 0.02% ophthalmic solution See Instructions, INSTILL 1 DROP INTO BOTH EYES EVERY DAY AT NIGHT, # 7.5 mL, 1 Refills, Maintenance, 02/21/23 11:39:00 EDT, [facility] STORE 87441, 90, INSTILL 1 DROP INTO BOTH EYES EVERY DAY AT NIGHT, 177.06, cm, 10/05/22 6:53:00 EST, Height Start Date: 02/21/23 Status: Ordered Trelegy Ellipta 200 mcg-62.5 mcg-25 mcg/inh inhalation powder 1 puffs, Inhalation, Daily, at the same time every day, # 1 each, 11 Refills, Maintenance, :55:00 EDT, Powder, [facility], Partial fill upon patient request if the [...] Adenocarcinoma of lung, stage 2 Discharge Diagnosis 04/04/23 Vital Signs Most recent to oldest [Reference Range]: 1 Height 177.06 cm (04/04/23 1:50 PM) Weight 80.6 kg (04/04/23 1:50 PM) Oxygen Saturation [94-100 %] 95 % (04/04/23 1:50 PM) Pulse Rate [55-90 bpm] 74 bpm (04/04/23 1:50 PM) Body Mass Index [18.5-24.99 kg/m2] 25.71 kg/m2 *H* (04/04/23 1:50 PM) Blood Pressure [90-138/55-84 mm Hg] 110/ 68mm Hg (04/04/23 1:50 PM) Mode of Delivery (Oxygen) Room air (04/04/23 1:50 PM) Social History Social History Type Response Smoking Status Former smoker, quit more than 30 days ago; Type: Cigarettes; Other: quit 2009; 1 ppd x 40 yrs; Number of years: 40; Total pack years: 40; entered on: 11/04/21 Sex Note * Flower [place]: PERFORM, SIGN, VERIFY Event Display: Patient Education/Instruction Authored Date: [id number] [facility] *BMP So [place] Clinical Summary Name ADALID LEÓN Age 77 Years 1945 PCP Bean Florence MD PCP Visit Date 04/04/2023 13:47:00 Additional Instructions: Scheduled Appointments?? Future Appointments ?No Future Appointments Scheduled Follow-Up Instructions ?? With: Address: When: Bean Florence MD Comments: As scheduled Diagnosis Malignant neoplasm of unspecified part of unspecified bronchus or lung; Pneumonia, unspecified organism; Chronic obstructive pulmonary disease, unspecified Medications: Please continue your medications until treatment is completed or stopped by your provider. Discuss any questions related to medications with your provider. Medications to Continue with No Changes These medications were not printed or sent to your pharmacy Albuterol (Albuterol (Eqv-ProAir HFA) 90 mcg/inh inhalation aerosol) 2 puff(s) Inhalation 4 times aday as needed NEEDED FOR WHEEZING. Refills: 5. Next Dose: Amlodipine (amLODIPine 10 mg oral tablet) 1 tab(s) Oral Daily. Refills: 1. Next Dose: Aspirin (aspirin 81 mg oral tablet) 1 tab(s) Oral Daily for 30 Days. Next Dose: Atorvastatin (atorvastatin 40 mg oral tablet) 1 tab(s) Oral Daily. Refills: 1. Next Dose: Carvedilol (carvedilol 12.5 mg oral tablet) 1 tab(s) Oral twice a day. Refills: 1. Next Dose: Durable Medical Equipment (BP MONITOR WITH CUFF) USE DIRECTED DX HTN I10 RONAK LIFETIME. Refills: 0. Next Dose: fluticasone/umeclidinium/vilanterol (Trelegy Ellipta 200 mcg-62.5 mcg-25 mcg/inh inhalation powder)1 puff(s) Inhalation Daily. at the same time every day. Refills: 11. Next Dose: Latanoprost Ophthalmic (latanoprost 0.005% ophthalmic solution) 1 Drops Both eyes Daily at Bedtime. Next Dose: Losartan (losartan 100 mg oral tablet) 1 tab(s) Oral Daily. Refills: 1. Next Dose: netarsudil ophthalmic (Rhopressa 0.02% ophthalmic solution) INSTILL 1 DROP INTO BOTH EYES EVERY DAYAT NIGHT. Refills: 1. Next Dose: Allergy Info:?? NKA Medications Given This Visit Future Orders ?No future orders Vital Signs Height 177.06 cm Weight 80.6 kg BMI 25.71 kg/m2 Blood Pressure 110 mm Hg/68 mm Hg Temperature Pulse Rate 74 bpm Respiratory Rate 02 Sat Mode of Delivery 95 %/Room air You can now view a summary of your hospital visit from the comfort of your home through a free online portal called [employer]. [employer] is a website that allows you to securely view your medical information including discharge summary, medications and follow-up visits. ??You can alsosend a secure electronic message to your doctor???s office to request appointments, renew medications or just ask a question. You can enroll at [email or web address] or register during your next office visit. Disclaimer:?? The information provided is of a general nature and is intended to be used in conjunction with the recommendations and advice of your health care practitioner. ??Every effort has been made to ensure that the information provided is accurate and complete at the time it is provided to you however, as your needs change, or, as new ??information becomes available, different or additional instructions may be required. If you have questions, please consult with your primary care provider or pharmacist, as appropriate. ??This information is not intended to serve as substitution for assessment and evaluation by a qualified health care provider. If you do not have a primary care provider, you may find a [facility] provider by calling [facility] at [phone]. For information about the plan of care including goals and instructions for your diagnosis, please see the patient education orders section of this document. Patient Education Materials?? The content of this educational material or handout may have been modified, supplemented, or adapted from its original content and format to support your individualized medical care. Patient Care team information Care Team Personnel Name: Tatyana BRAVO, Bean Richards Position: [facility] Physician - Primary Care Member Role: PCP Address: Address: [address] [place] [address]- Care Team Related Persons Name: MARQUISE WALLS Address: home [address] [place] [address] Name: ROSCOE LEÓN Address: home [address] [place] [address]
--- OUTSIDE RECORDS SUMMARY | 2024-07-20 13:29 | XMS_ITS | Continuity of Care Document ---
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 Role Phone Bean Florence MD Primary Care Physician Encounter [facility] Date(s): 11/15/23 - 12/15/23 [facility] Adult [address] [place] [address]- Allergies, Adverse Reactions, Alerts No Known Allergies [...] virus vaccine, inactivated 10/22/04 Give n SARS-CoV-2(COVID-19)mRNA-LNP vac([id number]) 08/07/23 Recorded SARS-CoV-2 mRNA (omqfkui-iwmq-olqqr) vax 5 08/09/22 Recorded SARS-CoV-2 mRNA (inwqagq-pumn-sejjn) vax 01/25/22 Given SARS-CoV-2 (COVID-19) mRNA BNT-162b2 [...] 10/22/04 Given 1Result Comment: [07/06/2017] HIGH DOSE [facility] 2Location History: [facility] 3Result Comment: [07/12/2016] HIGH DOSE 4Result Comment: [07/21/2015] Given at [facility] ion [address] in [facility] 5Result Comment: [facility] Pharmacy 6Admin Note: given in clinic 7Result Comment: [05/28/2017] ADMINISTERED SECONDARY TO ABRASIONS PER DR FLORENCE 8[facility] Note: [facility] 9Admin Note: [employer] [facility] Medications Albuterol (Eqv-ProAir HFA) 90 mcg/inh inhalation aerosol 2 puffs, Inhalation, 4 times a day, PRN NEEDED FOR WHEEZING, # 8.5 each, 5 Refills, Maintenance,02/21/23 17:27:00 EDT, [facility]/pharmacy #[id number], 25, 2 puffs Inhalation 4 times a day,PRN: NEEDED FOR WHEEZING, 177.06, cm, 10/05/22 6:53:00 EST, Height Start Date: 02/21/23 Status: Ordered amLODIPine 10 mg oral tablet 1 tablet, By Mouth, Daily, # 90 tablet, 0 Refills, Maintenance, 11/15/23 8:42:00 EST, [facility] 51590, 177.06, cm, 08/21/23 8:51:00 EDT, Height Start Date: 11/15/23 Status: Ordered aspirin 81 mg oral tablet 81, mg, 1, tablet, By Mouth, Daily, 30, tablet, , , 07/06/06 15:03:18, Print REAL Number, [id number], Constant Indicator Start Date: 07/06/06 Stop Date: 07/01/07 Status: Ordered atorvastatin 40 mg oral tablet 1 tablet, By Mouth, Daily, # 90 tablet, 1 Refills, Maintenance, 09/01/23 23:23:00 EST, [facility] 21921, 177.06, cm, 08/21/23 8:51:00 EDT, Height Start [...] 06/30/23 20:38:00 EDT, Route to Pharmacy Electronically, [facility] 25663, 177.06, cm, 04/04/23 13:50:00 EDT, Height Start Date: 06/30/23 Status: Ordered latanoprost 0.005% ophthalmic solution 1 drops, Eyes, Both, Daily at bedtime, # 3 mL, 0 Refills, Maintenance, 11/16/14 9:37:52, Ophth Solution Start Date: 11/16/14 Status: Ordered losartan 100 mg oral tablet 1 tablet, By Mouth, Daily, # 90 tablet, 1 Refills, Maintenance, 07/13/23 9:33:00 EDT, [facility] 83488, 177.06, cm, 04/04/23 13:50:00 EDT, Height Start Date: 07/13/23 Status: Ordered Rhopressa 0.02% ophthalmic solution See Instructions, INSTILL 1 DROP INTO BOTH EYES EVERY DAY AT NIGHT, # 7.5 mL, 1 Refills, Maintenance, 08/21/23 9:43:00 EDT, [facility], 90, INSTILL 1 DROP INTO BOTH EYES [...] Primary Care Member Role: PCP Address: Address: [address] [place] [address]- [place] Care Team Related Persons Name: MARQUISE WALLS Address: home [address] [place] [address] Name: ROSCOE LEÓN Address: home [address] [place] [address]
--- OUTSIDE RECORDS SUMMARY | 2024-07-20 13:29 | XMS_ITS | Continuity of Care Document ---
Author Organization [facility] Branden Сергей lt Address [address] [place] [address]- Care Team Providers Care Attending Physician Name Role Phone Bean Florence MD Primary Care Physician [phone] Encounter [facility] Date(s): 12/25/23 - 02/07/24 [facility] [place] Adult [address] [place] [address]- Attending Physician: Not on Staff, Attending MD Allergies, Adverse Reactions, Alerts No Known [...] virus vaccine, inactivated 10/22/04 Give n SARS-CoV-2(COVID-19)mRNA-LNP vac([id number]) 08/07/23 Recorded SARS-CoV-2 mRNA (tvxtbke-wwzj-azvnu) vax 5 08/09/22 Recorded SARS-CoV-2 mRNA (rhtfcyx-efbk-urgnc) vax 01/25/22 Given SARS-CoV-2 (COVID-19) mRNA BNT-162b2 [...] 1Result Comment: [07/06/2017] HIGH DOSE [facility] 2Location History: [facility] 3Result Comment: [07/12/2016] HIGH DOSE 4Result Comment: [07/21/2015] Given at [facility] ion [address] in [facility] 5Result Comment: [facility] Pharmacy 6Admin Note: given in clinic 7Result Comment: [05/28/2017] ADMINISTERED SECONDARY TO ABRASIONS PER DR FLORENCE 8Admin Note: [facility] 9Admin Note: [employer] [facility] Medications Albuterol (Eqv-ProAir HFA) 90 mcg/inh inhalation aerosol 2 puffs, Inhalation, 4 times a day, PRN NEEDED FOR WHEEZING, # 8.5 each, 5 Refills, Maintenance,02/21/23 17:27:00 EDT, [facility]/pharmacy #0373, 25, 2 puffs Inhalation 4 times a day,PRN: NEEDED FOR WHEEZING, 177.06, cm, 10/05/22 6:53:00 EST, Height Start Date: 02/21/23 Status: Ordered amLODIPine 10 mg oral tablet 1 tablet, By Mouth, Daily, # 90 tablet, 0 Refills, Maintenance, 11/15/23 8:42:00 EST, [facility] 13844, 177.06, cm, 08/21/23 8:51:00 EDT, Height Start Date: 11/15/23 Status: Ordered aspirin 81 mg oral tablet 81, mg, 1, tablet, By Mouth, Daily, 30, tablet, , , 07/06/06 15:03:18, Print REAL Number, [id number], Constant Indicator Start Date: 07/06/06 Stop Date: 07/01/07 Status: Ordered atorvastatin 40 mg oral tablet 1 tablet, By Mouth, Daily, # 90 tablet, 1 Refills, Maintenance, 09/01/23 23:23:00 EST, [facility] 90800, 177.06, cm, 08/21/23 8:51:00 EDT, Height Start Date: 09/01/23 Status: Ordered Azithromycin 5 Day Dose Pack 250 mg oral tablet 1 pack/packet, By Mouth, Once, # 6 tablet, 0 Refills, Soft Stop, 01/08/24 10:16:00 EDT, Tablet, [facility]/pharmacy #0373, Partial fill upon patient request [...] 12/25/23 16:28:00 EST, Route to Pharmacy Electronically, [facility]/pharmacy #[id number], Partial fill upon patientrequest if the [...] Refills, Maintenance, 12/27/23 13:15:00 EST, [facility], 30, INHALE 1 PUFF DAILY AT THE SAME TIME EVERY DAY, 177.06, cm, 12/25/23 16:10:00 EST, Height Start Date: 12/27/23 Status: Ordered valsartan 320 mg oral tablet 1 tablet = 320 mg, By Mouth, Daily, # 90 tablet, 3 Refills, Maintenance, 12/25/23 16:28:00 EST, Tablet, [facility]/pharmacy #0373, Partial fill upon patient request [...] chest 03 abnl repeat 05 no change Vital Signs Most recent to oldest [Reference Range]: 1 Oxygen Saturation [94-100 %] 98 % (01/08/24 9:55 AM) Pulse Rate [55-90 bpm] 61 bpm (01/08/24 9:55 AM) Blood Pressure [90-138/55-84 mm Hg] 118/ 54mm Hg (01/08/24 9:55 AM) Mode of Delivery (Oxygen) Room air (01/08/24 9:55 AM) Blood pressure sites Arm, left (01/08/24 9:55 AM) Social History Social History Type Response Smoking Status Former smoker, quit more than 30 days ago; Type: Cigarettes; Other: quit 2009; 1 ppd x 40 yrs; Number of years: 40; Total pack years: 40; entered on: 11/04/21 Sex Patient Care team information Care Team Personnel Name: Tatyana BRAVO, Bean Richards Position: [facility] Physician - Primary Care Member Role: PCP Address: Address: [address] [place] [address]- Care Team Related Persons Name: MARQUISE WALLS Address: home [address] [place] [address] Name: ROSCOE LENÓ Address: home [address] [place] [address]
--- OUTSIDE RECORDS SUMMARY | 2024-07-20 13:29 | XMS_ITS | Continuity of Care Document ---
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 Relations Specialist Name Role Phone Tatyana BRAVO, Bean Richards Primary Care Physician Encounter [facility] Date(s): 03/22/24 - 04/21/24 [facility] Adult [address] [place] [address]- Allergies, Adverse Reactions, Alerts No Known Allergies [...] virus vaccine, inactivated 10/22/04 Give n SARS-CoV-2(COVID-19)mRNA-LNP vac([id number]) 08/07/23 Recorded SARS-CoV-2 mRNA (tipimqf-hkep-oekts) vax 5 08/09/22 Recorded SARS-CoV-2 mRNA (nzkzfjc-pkar-sljfm) vax 01/25/22 Given SARS-CoV-2 (COVID-19) mRNA BNT-162b2 [...] 10/22/04 Given 1Result Comment: [07/06/2017] HIGH DOSE [facility] 2Location History: [facility] 3Result Comment: [07/12/2016] HIGH DOSE 4Result Comment: [07/21/2015] Given at [facility] ion [address] in [facility] 5Result Comment: [facility] Pharmacy 6Admin Note: given in clinic 7Result Comment: [05/28/2017] ADMINISTERED SECONDARY TO ABRASIONS PER DR FLORENCE 8Admin Note: chuy [facility] 9Admin Note: [employer] [facility] Medications Albuterol (Eqv-Ventolin HFA) 90 mcg/inh inhalation aerosol See Instructions, 2 PUFFS INHALATION 4 TIMES A DAYAS NEEDED FOR WHEEZING, # 18 each, 5 Refills, Maintenance, 03/05/24 5:35:00 EDT, [facility] STORE 78417, 30, 2 PUFFS INHALATION 4 TIMES A DAYAS NEEDED FOR WHEEZING, 177.06, cm, 01/08/24 10:03:00 EDT, Height Start Date: 03/05/24 Status: Ordered amLODIPine 10 mg oral tablet 1 tablet, By Mouth, Daily, # 90 tablet, 1 Refills, Maintenance, 02/13/24 10:11:00 EDT, [facility], 177.06, cm, 01/08/24 10:03:00 EDT, Height Start Date: 02/13/24 Status: Ordered aspirin 81 mg oral tablet 81, mg, 1, tablet, By Mouth, Daily, 30, tablet, 11, 11, 07/06/06 15:03:18, Print REAL Number, [id number], Constant Indicator Start Date: 07/06/06 Stop Date: 07/01/07 Status: Ordered atorvastatin 40 mg oral tablet 1 tablet, By Mouth, Daily, # 90 tablet, 1 Refills, Maintenance, 02/25/24 4:18:00 EDT, [facility]/pharmacy #0373, 177.06, cm, 01/08/24 10:03:00 EDT, Height Start Date: 02/25/24 Status: Ordered Azithromycin 5 Day Dose Pack 250 mg oral tablet 1 pack/packet, By Mouth, Once, # 6 tablet, 0 Refills, Soft Stop, 01/08/24 10:16:00 EDT, Tablet, [facility]/pharmacy #0373, Partial fill upon [...] 12/25/23 16:28:00 EST, Route to Pharmacy Electronically, [facility]/pharmacy #[id number], Partial fill upon patientrequest if the prescription is for a schedule II op... Start Date: 12/25/23 Status: Ordered latanoprost 0.005% ophthalmic solution 1 drops, Eyes, Both, Daily at bedtime, # 3 mL, 0 Refills, Maintenance, 11/16/14 9:37:52, Ophth Solution Start Date: 11/16/14 Status: Ordered Trelegy Ellipta 200 mcg-62.5 mcg-25 mcg/inh inhalation powder 1 puffs, Inhalation, Daily, # 60 each, 5 Refills, Maintenance, 03/22/24 10:51:00 EDT, [facility], 30, INHALE 1 PUFF DAILY AT THE SAME TIME EVERY DAY, 177.06, cm, 01/08/24 10:03:00 EDT, Height Start Date: 03/22/24 Status: Ordered valsartan 320 mg oral tablet 1 tablet = 320 mg, By Mouth, Daily, # 90 tablet, 3 Refills, Maintenance, 12/25/23 16:28:00 EST, Tablet, [facility]/pharmacy #0373, Partial fill upon [...] Personnel Name: Tatyana BRAVO, Bean Richards Position: [facility] Physician - Primary Care Member Role: PCP Address: Address: [address] [place] [address]- Care Team Related Persons Name: MARQUISE WALLS Address: home [address] [place] [address] Name: ROSCOE LEÓN Address: home [address] [place] [address]"
--- OUTSIDE RECORDS SUMMARY | 2024-07-20 13:29 | XMS_ITS | Continuity of Care Document ---
Author Organization [facility] Сергей lt Address [address] [place] [address]- Care Team Providers Care Kier Drier Name Role Phone Bean Florence MD Primary Care Physician Encounter [facility] Date(s): 10/10/23 - 11/09/23 [facility] Adult [address] [place] [address]- Attending Physician: Melissa Taylor Allergies, Adverse Reactions, Alerts No Known Allergies [...] virus vaccine, inactivated 10/22/04 Give n SARS-CoV-2(COVID-19)mRNA-LNP vac([id number]) 08/07/23 Recorded SARS-CoV-2 mRNA (swcfqvl-gyde-hbosv) vax 5 08/09/22 Recorded SARS-CoV-2 mRNA (kqlgmha-hktz-rhktb) vax 01/25/22 Given SARS-CoV-2 (COVID-19) mRNA BNT-162b2 [...] 10/22/04 Given 1Result Comment: [07/06/2017] H[facility] DOSE [facility] 2Location History: [facility] 3Result Comment: [07/12/2016] HIGH DOSE 4Result Comment: [07/21/2015] Given at [address] in [facility] 5Result Comment: [facility] Pharmacy 6Admin Note: given in clinic 7Result Comment: [05/28/2017] ADMINISTERED SECONDARY TO ABRASIONS PER DR FLORENCE 8Admin Note: [employer] [facility] 9Admin Note: [facility] Medications Albuterol (Eqv-ProAir HFA) 90 mcg/inh inhalation aerosol 2 puffs, Inhalation, 4 times a day, PRN NEEDED FOR WHEEZING, # 8.5 each, 5 Refills, Maintenance,02/21/23 17:27:00 EDT, [facility]/pharmacy #0373, 25, 2 puffs Inhalation 4 times a day,PRN: NEEDED FOR WHEEZING, 177.06, cm, 10/05/22 6:53:00 EST, Height Start Date: 02/21/23 Status: Ordered amLODIPine 10 mg oral tablet 1 tablet, By Mouth, Daily, # 90 tablet, 1 Refills, Maintenance, 05/21/23 11:22:00 EDT, [facility] 01364, 177.06, cm, 04/04/23 13:50:00 EDT, Height Start Date: 05/21/23 Status: Ordered aspirin 81 mg oral tablet 81, mg, 1, tablet, By Mouth, Daily, 30, tablet, , , 07/06/06 15:03:18, Print REAL Number, [id number], Constant Indicator Start Date: 07/06/06 Stop Date: 07/01/07 Status: Ordered atorvastatin 40 mg oral tablet 1 tablet, By Mouth, Daily, # 90 tablet, 1 Refills, Maintenance, 09/01/23 23:23:00 EST, [facility] 05145, 177.06, cm, 08/21/23 8:51:00 EDT, Height Start [...] 06/30/23 20:38:00 EDT, Route to Pharmacy Electronically, [facility] 02050, 177.06, cm, 04/04/23 13:50:00 EDT, Height Start Date: 06/30/23 Status: Ordered latanoprost 0.005% ophthalmic solution 1 drops, Eyes, Both, Daily at bedtime, # 3 mL, 0 Refills, Maintenance, 11/16/14 9:37:52, Ophth Solution Start Date: 11/16/14 Status: Ordered losartan 100 mg oral tablet 1 tablet, By Mouth, Daily, # 90 tablet, 1 Refills, Maintenance, 07/13/23 9:33:00 EDT, [facility], 177.06, cm, 04/04/23 13:50:00 EDT, Height Start Date: 07/13/23 Status: Ordered Rhopressa 0.02% ophthalmic solution See Instructions, INSTILL 1 DROP INTO BOTH EYES EVERY DAY AT NIGHT, # 7.5 mL, 1 Refills, Maintenance, 08/21/23 9:43:00 EDT, [facility], 90, INSTILL 1 DROP INTO BOTH EYES EVERY DAY AT NIGHT, 177.06, cm, 08/21/23 8:51:00 EDT, Height Start Date: 08/21/23 Status: Ordered Trelegy Ellipta 200 mcg-62.5 mcg-25 mcg/inh inhalation powder 1 puffs, Inhalation, Daily, at the same time every day, # 1 each, 11 Refills, Maintenance, 238:55:00 EDT, Powder, [facility]/pharmacy #[id number], Partial fill upon patient [...] replacement) Confirmed Active 1colo 2013 polyps repeat 2017 2colo 2003 polyp, rpt [...] Primary Care Member Role: PCP Address: Address: [address] [place] [address]- Care Team Related Persons Name: MARQUISE WALLS Address: [address] [place] [address] Name: ROSCOE LEÓN Address: home [address] [place] [address]
--- OUTSIDE RECORDS SUMMARY | 2024-07-20 13:29 | XMS_ITS | Continuity of Care Document ---
Author Organization [facility] Branden Сергей lt Address [address] [place] [address]- Care Team Providers Care Tip Scourer Name Role Phone Bean Florence MD Primary Care Physician Encounter [facility] Date(s): 04/04/23 - 05/04/23 [facility] Adult [address] [place] [address]- Attending Physician: Admtr, Carlos Manuel Allergies, Adverse Reactions, Alerts No Known Allergies Immunizations Given and Recorded Vaccine Date Status Refusal Reason SARS-CoV-2 mRNA (vnnontg-qzxf-cbcjp) vax 1 08/09/22 Recorded SARS-CoV-2 mRNA (uwnpzyu-xzyi-gdfdd) vax 01/25/22 Given influenza virus vaccine, inactivated [...] CENTER Pharmacy 2Result Comment: [07/06/2017] HIGH DOSE [facility] 3Location History: [facility] 4Result Comment: [07/12/2016] HIGH DOSE 5Result Comment: [07/21/2015] Given at [facility] [address] in [facility] 6Admin Note: given in clinic 7Result Comment: [05/28/2017] ADMINISTERED SECONDARY TO ABRASIONS PER DR FLORENCE 8Admin Note: [facility] 9Admin Note: [employer] [facility] Medications Albuterol (Eqv-ProAir HFA) 90 mcg/inh [...] 11/23/22 14:45:00 EST, [facility] STORE 60893, 177.06, cm, 10/05/22 6:53:00 EST, Height Start Date: 11/23/22 Status: Ordered aspirin 81 mg oral tablet 81, mg, 1, tablet, By Mouth, Daily, 30, tablet, 11, 11, 07/06/06 15:03:18, Print REAL Number, [id number], Constant Indicator Start Date: 07/06/06 Stop Date: 07/01/07 Status: Ordered atorvastatin 40 mg oral tablet 1 tablet, By Mouth, Daily, # 90 tablet, 1 Refills, Maintenance, 03/07/23 21:18:00 EDT, [facility] 25160, 177.06, cm, 10/05/22 6:53:00 EST, Height Start [...] 11/23/22 14:45:00 EST, Route to Pharmacy Electronically, [facility] 48070, 177.06, cm, 10/05/22 6:53:00 EST, Height Start Date: 11/23/22 Status: Ordered latanoprost 0.005% ophthalmic solution 1 drops, Eyes, Both, Daily at bedtime, # 3 mL, 0 Refills, Maintenance, 11/16/14 9:37:52, Ophth Solution Start Date: 11/16/14 Status: Ordered losartan 100 mg oral tablet 1 tablet, By Mouth, Daily, # 90 tablet, 1 Refills, Maintenance, 11/23/22 14:45:00 EST, [facility], 177.06, cm, 10/05/22 6:53:00 EST, Height Start Date: 11/23/22 Status: Ordered Rhopressa 0.02% ophthalmic solution See Instructions, INSTILL 1 DROP INTO BOTH EYES EVERY DAY AT NIGHT, # 7.5 mL, 1 Refills, Maintenance, 02/21/23 11:39:00 EDT, [facility], 90, INSTILL 1 DROP INTO BOTH EYES EVERY DAY AT NIGHT, 177.06, cm, 10/05/22 6:53:00 EST, Height Start Date: 02/21/23 Status: Ordered Trelegy Ellipta 200 mcg-62.5 mcg-25 mcg/inh inhalation powder 1 puffs, Inhalation, Daily, at the same time every day, # 1 each, 11 Refills, Maintenance, 238:55:00 EDT, [facility], [facility], Partial fill upon patient request if the [...] Personnel Name: Tatyana BRAVO, Bean Richards Position: [facility] Physician - Primary Care Member Role: PCP Address: Address: [address] [place] [id number]- Care Team Related Persons Name: TITI MARQUISE Address: [address] [place] [address] Name: ROSCOE LEÓN Address: home [address] [place] [address]
--- OUTSIDE RECORDS SUMMARY | 2024-07-20 13:30 | XMS_ITS | Continuity of Care Document ---
Author Organization [facility] Branden Сергей lt Address [address] [place] [address]- Care Team Providers Care Operation Manager Name Role Phone Bean Florence MD Primary Care Physician Encounter [facility] Date(s): 11/15/23 - 12/15/23 [facility] Adult [address] [place] [address]- Allergies, Adverse Reactions, Alerts No Known Allergies [...] virus vaccine, inactivated 10/22/04 Give n SARS-CoV-2(COVID-19)mRNA-LNP vac([id number]) 08/07/23 Recorded SARS-CoV-2 mRNA (floftlj-uavh-psqie) vax 5 08/09/22 Recorded SARS-CoV-2 mRNA (tglqntu-qmki-ejfdp) vax 01/25/22 Given SARS-CoV-2 (COVID-19) mRNA BNT-162b2 [...] 10/22/04 Given 1Result Comment: [07/06/2017] H[facility] DOSE [facility] 2Location History: [facility] 3Result Comment: [07/12/2016] HIGH DOSE 4Result Comment: [07/21/2015] Given at [facility] [address] [facility] 5Result Comment: [facility] Pharmacy 6Admin Note: given in clinic 7Result Comment: [05/28/2017] ADMINISTERED SECONDARY TO ABRASIONS PER DR FLORENCE 8Admin Note: [facility] 9Admin Note: [facility] Medications Albuterol (Eqv-ProAir HFA) 90 mcg/inh inhalation aerosol 2 puffs, Inhalation, 4 times a day, PRN NEEDED FOR WHEEZING, # 8.5 each, 5 Refills, Maintenance,02/21/23 17:27:00 EDT, [facility]/pharmacy #0373, 25, 2 puffs Inhalation 4 times a day,PRN: NEEDED FOR WHEEZING, 177.06, cm, 10/05/22 6:53:00 EST, Height Start Date: 02/21/23 Status: Ordered amLODIPine 10 mg oral tablet 1 tablet, By Mouth, Daily, # 90 tablet, 0 Refills, Maintenance, 11/15/23 8:42:00 EST, [facility] 66473, 177.06, cm, 08/21/23 8:51:00 EDT, Height Start Date: 11/15/23 Status: Ordered aspirin 81 mg oral tablet 81, mg, 1, tablet, By Mouth, Daily, 30, tablet, , , 07/06/06 15:03:18, Print REAL Number, [id number], Constant Indicator Start Date: 07/06/06 Stop Date: 07/01/07 Status: Ordered atorvastatin 40 mg oral tablet 1 tablet, By Mouth, Daily, # 90 tablet, 1 Refills, Maintenance, 09/01/23 23:23:00 EST, [facility] 51930, 177.06, cm, 08/21/23 8:51:00 EDT, Height Start [...] 06/30/23 20:38:00 EDT, Route to Pharmacy Electronically, [facility] 71874, 177.06, cm, 04/04/23 13:50:00 EDT, Height Start Date: 06/30/23 Status: Ordered latanoprost 0.005% ophthalmic solution 1 drops, Eyes, Both, Daily at bedtime, # 3 mL, 0 Refills, Maintenance, 11/16/14 9:37:52, Ophth Solution Start Date: 11/16/14 Status: Ordered losartan 100 mg oral tablet 1 tablet, By Mouth, Daily, # 90 tablet, 1 Refills, Maintenance, 07/13/23 9:33:00 EDT, [facility] 98522, 177.06, cm, 04/04/23 13:50:00 EDT, Height Start Date: 07/13/23 Status: Ordered Rhopressa 0.02% ophthalmic solution See Instructions, INSTILL 1 DROP INTO BOTH EYES EVERY DAY AT NIGHT, # 7.5 mL, 1 Refills, Maintenance, 08/21/23 9:43:00 EDT, [facility], 90, INSTILL 1 DROP INTO BOTH EYES [...] Primary Care Member Role: PCP Address: Address: [address] [place] [id number] [place] Care Team Related Persons Name: MARQUISE WALLS Address: home [address] [place] [address] Name: ROSCOE LEÓN Address: home [address] [place] [phone]
--- OUTSIDE RECORDS SUMMARY | 2024-07-20 13:30 | XMS_ITS | Continuity of Care Document ---
Author Organization [facility] [place] [address] [place] [address]- Care Team Providers Care Flexible Babysitter Name Role Phone Tatyana BRAVO, Bean Richards Primary Care Physician [phone] Encounter 07/09/24 - 07/16/[address] [facility] [address], [address] [place] [address]- Attending Physician: Bean Florence MD Admitting Physician: Bean Florence MD Referring Physician: Bean Florence MD Allergies, [...] virus vaccine, inactivated 10/22/04 Give n SARS-CoV-2(COVID-19)mRNA-LNP vac([id number]) 08/07/23 Recorded SARS-CoV-2 mRNA (jngerek-txza-zqayt) vax 5 08/09/22 Recorded SARS-CoV-2 mRNA (chmulvw-ikfb-bycin) vax 01/25/22 Given SARS-CoV-2 (COVID-19) mRNA BNT-162b2 [...] 10/22/04 Given 1Result Comment: [07/06/2017] HIGH DOSE [facility] 2Location History: [facility] 3Result Comment: [07/12/2016] HIGH DOSE 4Result Comment: [07/21/2015] Given at [facility] ion [address] [place] [address] Rd in [facility] 5Result Comment: [facility] Pharmacy 6Admin Note: given in clinic 7Result Comment: [05/28/2017] ADMINISTERED SECONDARY TO ABRASIONS PER DR FLORENCE 8Admin Note: chuy [facility] 9Admin Note: [facility] [place]ations Albuterol (Eqv-Ventolin HFA) 90 mcg/inh inhalation aerosol See Instructions, 2 PUFFS INHALATION 4 TIMES A DAYAS NEEDED FOR WHEEZING, # 18 each, 11 Refills, Maintenance, 07/09/24 11:24:00 EDT, [facility]/pharmacy #0373, 30, 2 PUFFS INHALATION 4 TIMES A DAYAS NEEDED FOR WHEEZING, 177.06, cm, 07/09/24 10:57:00 EDT, Height Start Date: 07/09/24 Status: Ordered amLODIPine 10 mg oral tablet 1 tablet, By Mouth, Daily, # 90 tablet, 3 Refills, Maintenance, 07/09/24 11:23:00 EDT, [facility]/pharmacy#0373, 177.06, cm, 07/09/24 10:57:00 EDT, Height Start Date: 07/09/24 Status: Ordered aspirin 81 mg oral tablet 81, mg, 1, tablet, By Mouth, Daily, 30, tablet, 11, 11, 07/06/06 15:03:18, Print REAL Number, [id number], Constant Indicator Start Date: 07/06/06 Stop Date: 07/01/07 Status: Ordered atorvastatin 40 mg oral tablet 1 tablet, By Mouth, Daily, # 90 tablet, 3 Refills, Maintenance, 07/09/24 11:23:00 EDT, [facility]/pharmacy#0373, 177.06, cm, 07/09/24 10:57:00 EDT, Height Start [...] 07/09/24 11:23:00 EDT, Route to Pharmacy Electronically, [facility]/pharmacy #[id number], Partial fill upon patientrequest [...] each, 11 Refills, Maintenance, 07/09/24 11:23:00 EDT, [facility]/pharmacy#0373, 30, 1 puffs Inhalation Daily, 177.06, cm, 07/09/24 10:57:00 EDT, Height Start Date: 07/09/24 Status: Ordered valsartan 320 mg oral tablet 1 tablet = 320 mg, By Mouth, Daily, # 90 tablet, 3 Refills, Maintenance, 07/09/24 11:23:00 EDT, Tablet, [facility]/pharmacy #0373, Partial fill upon [...] chest 03 abnl repeat 05 no change Results Radiology Reports * Exam Date Time Procedure Performing Provider Status 07/09/24 11:54 AM Cervical Spine 3 Views or Less Charis Cabrera; Zofia (Verified) Notes: (Cervical Spine 3 Views or Less) Reason For Exam: Pain RESULT: Cervical Spine 3 Views or Less Cervical Spine 3 Views or Less Reason: Pain COMPARISON: None. FINDINGS: No bone lesions or fractures. Normal odontoid and C1/2 relationship. Normal alignment. Moderate multilevel chronic degenerative changes with moderate loss of intervertebral disc height and anterior and posterior osteophyte formation, noted from C3 to C6 vertebrae. Bilateral facet arthropathy noted in the mid to lower cervical spine. Atherosclerotic calcifications of the bilateral carotid bulbs. Clear lung apices. IMPRESSION: Moderate chronic degenerative changes in the cervical spine with no acute osseous abnormality. WSN: [id number] Ordering Physician: Bean Florence Dictated By: Chiquita Barros MD Dictated Date/Time: 07/10/24 8:58 am Reviewed By: Chiquita Barros MD Signed By: Chiquita Barros MD Signed Date/Time: 07/10/24 8:58 am Transcribed By: ARNULFO Transcribed Date/Time: 07/10/24 8:34 am Social History Social History Type Response Smoking Status Former smoker, quit more than 30 days ago; Type: Cigarettes; Other: quit 2009; 1 ppd x 40 yrs; Number of years: 40; Total pack years: 40; entered on: 11/04/21 Sex Patient Care team information Care Team Personnel Name: Bean Florence MD Position: S Physician - Primary Care Member Role: PCP Address: Address: [address] [place] [address]- Care Team Related Persons Name: MARQUISE WALLS Address: home [address] [place] [address] Name: ROSCOE LEÓN Address: home [address] [place] [address]
--- OUTSIDE RECORDS SUMMARY | 2024-07-20 13:30 | XMS_ITS | Continuity of Care Document ---
Author Organization [facility] Branden Сергей lt Address [address] [place] [address]- Care Team Providers Care Grinder Tender Name Role Phone Tatyana BRAVO, Bean Richards Primary Care Physician [facility] Date(s): 02/25/24 - 03/26/24 [facility] Adult [address] [place] [address]- Allergies, Adverse Reactions, Alerts No Known Allergies [...] virus vaccine, inactivated 10/22/04 Give n SARS-CoV-2(COVID-19)mRNA-LNP vac([id number]) 08/07/23 Recorded SARS-CoV-2 mRNA (uwebzhs-lwot-kneei) vax 5 08/09/22 Recorded SARS-CoV-2 mRNA (fjohxia-tpvd-yfvep) vax 01/25/22 Given SARS-CoV-2 (COVID-19) mRNA BNT-162b2 [...] Given 1Result Comment: [07/06/2017] HIGH DOSE [facility] 2Location History: [facility] 3Result Comment: [07/12/2016] HIGH DOSE 4Result Comment: [07/21/2015] Given at [facility] ion [address] in [facility] 5Result Comment: [facility] Pharmacy 6Admin Note: given in clinic 7Result Comment: [05/28/2017] ADMINISTERED SECONDARY TO ABRASIONS PER DR FLORENCE 8Admin Note: [facility]uy [facility] 9Admin Note: [facility] Medications Albuterol (Eqv-Ventolin HFA) 90 mcg/inh inhalation aerosol See Instructions, 2 PUFFS INHALATION 4 TIMES A DAYAS NEEDED FOR WHEEZING, # 18 each, 5 Refills, Maintenance, 03/05/24 5:35:00 EDT, [facility] STORE 45628, 30, 2 PUFFS INHALATION 4 TIMES A DAYAS NEEDED FOR WHEEZING, 177.06, cm, 01/08/24 10:03:00 EDT, Height Start Date: 03/05/24 Status: Ordered amLODIPine 10 mg oral tablet 1 tablet, By Mouth, Daily, # 90 tablet, 1 Refills, Maintenance, 02/13/24 10:11:00 EDT, [facility], 177.06, cm, 01/08/24 10:03:00 EDT, Height Start Date: 02/13/24 Status: Ordered aspirin 81 mg oral tablet 81, mg, 1, tablet, By Mouth, Daily, 30, tablet, 11, 11, 07/06/06 15:03:18, Print REAL Number, [id number], Constant Indicator Start Date: 07/06/06 Stop Date: 07/01/07 Status: Ordered atorvastatin 40 mg oral tablet 1 tablet, By Mouth, Daily, # 90 tablet, 1 Refills, Maintenance, 02/25/24 4:18:00 EDT, [facility]/pharmacy #0373, 177.06, cm, 01/08/24 10:03:00 EDT, Height Start Date: 02/25/24 Status: Ordered Azithromycin 5 Day Dose Pack 250 mg oral tablet 1 pack/packet, By Mouth, Once, # 6 tablet, 0 Refills, Soft Stop, 01/08/24 10:16:00 EDT, Tablet, [facility]/pharmacy #0373, Partial fill upon patient [...] 12/25/23 16:28:00 EST, Route to Pharmacy Electronically, [facility]/pharmacy #[id number], Partial fill upon patientrequest [...] Refills, Maintenance, 03/22/24 10:51:00 EDT, [facility], 30, INHALE 1 PUFF DAILY AT THE SAME TIME EVERY DAY, 177.06, cm, 01/08/24 10:03:00 EDT, Height Start Date: 03/22/24 Status: Ordered valsartan 320 mg oral tablet 1 tablet = 320 mg, By Mouth, Daily, # 90 tablet, 3 Refills, Maintenance, 12/25/23 16:28:00 EST, Tablet, [facility]/pharmacy #0373, Partial fill upon patient [...] Personnel Name: Tatyana BRAVO, Bean Richards Position: [facility] Physician - Primary Care Member Role: PCP Address: Address: [address] [place] [address]- Care Team Related Persons Name: MARQUISE WALLS Address: home [address] [place] [address] Name: ROSCOE LEÓN Address: home [address] [place] [address]
--- OUTSIDE RECORDS SUMMARY | 2024-07-20 13:30 | XMS_ITS | Continuity of Care Document ---
Author Organization [facility] Branden Сергей lt Address [address] [place] [address]- Care Team Providers Care Airworthiness Safety Inspector Name Role Phone Bean Florence MD Primary Care Physician Encounter [facility] Date(s): 12/25/23 - 01/01/24 [facility] Adult [address] [place] [address]- Encounter Diagnosis Adenocarcinoma of lung, stage 2(Discharge Diagnosis) - 12/25/23 PVD (peripheral vascular disease)(Discharge Diagnosis) - 12/25/23 Stage 2 moderate COPD by GOLD classification(Discharge Diagnosis) - 12/25/23 Hypercholesterolemia(Discharge Diagnosis) - 12/25/23 Hypertension(Discharge Diagnosis) - 12/25/23 Attending Physician: Bean Florence MD Allergies, Adverse [...] virus vaccine, inactivated 10/22/04 Give n SARS-CoV-2(COVID-19)mRNA-LNP vac([id number]) 08/07/23 Recorded SARS-CoV-2 mRNA (jvrjomr-amtd-elujy) vax 5 08/09/22 Recorded SARS-CoV-2 mRNA (rmkdzfl-dcvv-wgrmc) vax 01/25/22 Given SARS-CoV-2 (COVID-19) mRNA BNT-162b2 [...] Given 1Result Comment: [07/06/2017] HIGH DOSE [facility] 3Result Comment: [07/12/2016] HIGH DOSE 4Result Comment: [07/21/2015] Given at [facility] ion [address] in [facility] 5Result Comment: [facility] Pharmacy 6Admin Note: given in clinic 7Result Comment: [05/28/2017] ADMINISTERED SECONDARY TO ABRASIONS PER DR FLORENCE 8Admin Note: [facility]uy [facility] 9Admin Note: [employer] [facility] Medications Albuterol (Eqv-ProAir HFA) 90 mcg/inh inhalation aerosol 2 puffs, Inhalation, 4 times a day, PRN NEEDED FOR WHEEZING, # 8.5 each, 5 Refills, Maintenance,02/21/23 17:27:00 EDT, [facility]/pharmacy #0373, 25, 2 puffs Inhalation 4 times a day,PRN: NEEDED FOR WHEEZING, 177.06, cm, 10/05/22 6:53:00 EST, Height Start Date: 02/21/23 Status: Ordered amLODIPine 10 mg oral tablet 1 tablet, By Mouth, Daily, # 90 tablet, 0 Refills, Maintenance, 11/15/23 8:42:00 EST, [facility], 177.06, cm, 08/21/23 8:51:00 EDT, Height Start Date: 11/15/23 Status: Ordered aspirin 81 mg oral tablet 81, mg, 1, tablet, By Mouth, Daily, 30, tablet, , , 07/06/06 15:03:18, Print REAL Number, [id number], Constant Indicator Start Date: 07/06/06 Stop Date: 07/01/07 Status: Ordered atorvastatin 40 mg oral tablet 1 tablet, By Mouth, Daily, # 90 tablet, 1 Refills, Maintenance, 09/01/23 23:23:00 EST, [facility], 177.06, cm, 08/21/23 8:51:00 EDT, Height Start [...] 12/25/23 16:28:00 EST, Route to Pharmacy Electronically, [facility]/pharmacy #[id number], Partial fill upon patientrequest if [...] Refills, Maintenance, 12/27/23 13:15:00 EST, [facility], 30, INHALE 1 PUFF DAILY AT THE SAME TIME EVERY DAY, 177.06, cm, 12/25/23 16:10:00 EST, Height Start Date: 12/27/23 Status: Ordered valsartan 320 mg oral tablet 1 tablet = 320 mg, By Mouth, Daily, # 90 tablet, 3 Refills, Maintenance, 12/25/23 16:28:00 EST, Tablet, [facility]/pharmacy #0373, Partial fill upon patient request [...] Active 1colo 2012 polyps repeat 2018 2colo 2002 polyp, rpt 2008 needed 3ct chest 03 abnl repeat 05 no change Diagnosis Diagnosis Type Effective Dates Health Status Clinical Service Informant Adenocarcinoma of lung, stage 2 Discharge Diagnosis 12/25/23 PVD (peripheral vascular disease) Discharge Diagnosis 12/25/23 Stage 2 moderate COPD by GOLD classification Discharge Diagnosis 12/25/23 Hypercholesterolemia Discharge Diagnosis 12/25/23 Hypertension Discharge Diagnosis 12/25/23 Vital Signs Most recent to oldest [Reference Range]: 1 2 Height 177.06 cm (12/25/23 4:10 PM) 177.06 cm (12/25/23 4:02 PM) Weight 84.7 kg (12/25/23 4:02 PM) Oxygen Saturation [94-100 %] 97 % (12/25/23 4:02 PM) Pulse Rate [55-90 bpm] 80 bpm (12/25/23 4:02 PM) Body Mass Index [18.5-24.99 kg/m2] 27.02 kg/m2 *H* (12/25/23 4:02 PM) Blood Pressure [90-138/55-84 mm Hg] 173/ 72mm Hg *H* (12/25/23 4:10 PM) 164/82mm Hg *H* (12/25/23 4:02 PM) Blood pressure sites Arm, left (12/25/23 4:10 PM) Arm, left (12/25/23 4:02 PM) Weight Obtained Via Standing scale (12/25/23 4:02 PM) Social History Social History Type Response Smoking Status Former smoker, quit more than 30 days ago; Type: Cigarettes; Other: quit 2009; 1 ppd x 40 yrs; Number of years: 40; Total pack years: 40; entered on: 11/04/21 Sex Patient Care team information Care Team Personnel Name: Bean Florence MD Position: [facility] Physician - Primary Care Member Role: PCP Address: Address: [address] [place] [address]- Care Team Related Persons Name: MARQUISE WALLS Address: home [address] [place] [address] Name: ROSCOE LEÓN Address: home [address] [place] [address]
--- OUTSIDE RECORDS SUMMARY | 2024-07-20 13:30 | XMS_ITS | Continuity of Care Document ---
Author Organization [facility] Branden Сергей lt Address [address] [place] [address]- Care Team Providers Care Mesmerist Name Role Phone Bean Florence MD Primary Care Physician [facility]counter [facility] Date(s): 10/10/23 - 11/09/23 [facility] Adult [address] [place] [address]- Allergies, Adverse Reactions, Alerts No Known Allergies [...] virus vaccine, inactivated 10/22/04 Give n SARS-CoV-2(COVID-19)mRNA-LNP vac([id number]) 08/07/23 Recorded SARS-CoV-2 mRNA (agkqonw-etni-gwjoj) vax 5 08/09/22 Recorded SARS-CoV-2 mRNA (moyvczd-qiel-fahht) vax 01/25/22 Given SARS-CoV-2 (COVID-19) mRNA BNT-162b2 [...] 10/22/04 Given 1Result Comment: [07/06/2017] HIGH DOSE [facility] 2Location History: [facility] 3Result Comment: [07/12/2016] HIGH DOSE 4Result Comment: [07/21/2015] Given at [facility] ion [address] in [facility] 5Result Comment: [facility] Pharmacy 6Admin Note: given in clinic 7Result Comment: [05/28/2017] ADMINISTERED SECONDARY TO ABRASIONS PER DR FLORENCE 8Admin Note: [facility] 9Admin Note: [employer] [facility] Medications Albuterol (Eqv-ProAir HFA) 90 mcg/inh inhalation aerosol 2 puffs, Inhalation, 4 times a day, PRN NEEDED FOR WHEEZING, # 8.5 each, 5 Refills, Maintenance,02/21/23 17:27:00 EDT, [facility]/pharmacy #0373, 25, 2 puffs Inhalation 4 times a day,PRN: NEEDED FOR WHEEZING, 177.06, cm, 10/05/22 6:53:00 EST, Height Start Date: 02/21/23 Status: Ordered amLODIPine 10 mg oral tablet 1 tablet, By Mouth, Daily, # 90 tablet, 1 Refills, Maintenance, 05/21/23 11:22:00 EDT, [facility] 616[facility], 177.06, cm, 04/04/23 13:50:00 EDT, Height Start Date: 05/21/23 Status: Ordered aspirin 81 mg oral tablet 81, mg, 1, tablet, By Mouth, Daily, 30, tablet, , , 07/06/06 15:03:18, Print REAL Number, [id number], Constant Indicator Start Date: 07/06/06 Stop Date: 07/01/07 Status: Ordered atorvastatin 40 mg oral tablet 1 tablet, By Mouth, Daily, # 90 tablet, 1 Refills, Maintenance, 09/01/23 23:23:00 EST, [facility] 61320, 177.06, cm, 08/21/23 8:51:00 EDT, Height Start [...] 06/30/23 20:38:00 EDT, Route to Pharmacy Electronically, [facility] 28823, 177.06, cm, 04/04/23 13:50:00 EDT, Height Start Date: 06/30/23 Status: Ordered latanoprost 0.005% ophthalmic solution 1 drops, Eyes, Both, Daily at bedtime, # 3 mL, 0 Refills, Maintenance, 11/16/14 9:37:52, Ophth Solution Start Date: 11/16/14 Status: Ordered losartan 100 mg oral tablet 1 tablet, By Mouth, Daily, # 90 tablet, 1 Refills, Maintenance, 07/13/23 9:33:00 EDT, [facility] 33516, 177.06, cm, 04/04/23 13:50:00 EDT, Height Start Date: 07/13/23 Status: Ordered Rhopressa 0.02% ophthalmic solution See Instructions, INSTILL 1 DROP INTO BOTH EYES EVERY DAY AT NIGHT, # 7.5 mL, 1 Refills, Maintenance, 08/21/23 9:43:00 EDT, [facility], 90, INSTILL 1 DROP INTO BOTH EYES [...] Care Member Role: PCP Address: Address: [address] [place] [address]- Care Team Related Persons Name: MARQUISE WALLS Address: home [address] [place] [address] Name: ROSCOE LEÓN Address: home [address] [place] [id number]
--- OUTSIDE RECORDS SUMMARY | 2024-07-20 13:30 | XMS_ITS | Continuity of Care Document ---
Author Organization [facility] Ernesto Otero Сергей lt Address [address] [place] [address]- Care Team Providers Care Audit Clerks Supervisor Name Role Phone Bean Florence MD Primary Care Physician Encounter [facility] Date(s): 01/08/24 - 01/15/24 [facility] Adult [address] [place] [address]- Encounter Diagnosis Hypertension(Discharge Diagnosis) - 01/08/24 Attending Physician: Bean Florence MD Allergies, Adverse [...] virus vaccine, inactivated 10/22/04 Give n SARS-CoV-2(COVID-19)mRNA-LNP vac([id number]) 08/07/23 Recorded SARS-CoV-2 mRNA (cuvweaf-bciw-uujko) vax 5 08/09/22 Recorded SARS-CoV-2 mRNA (gjivipw-qfkd-gmkcl) vax 01/25/22 Given SARS-CoV-2 (COVID-19) mRNA BNT-162b2 [...] 10/22/04 Given 1Result Comment: [07/06/2017] H[facility] DOSE [facility] 2Location History: [facility] 3Result Comment: [07/12/2016] HIGH DOSE 4Result Comment: [07/21/2015] Given at [address] in [facility] 5Result Comment: [facility] Pharmacy 6Admin Note: given in clinic 7Result Comment: [05/28/2017] ADMINISTERED SECONDARY TO ABRASIONS PER DR FLORENCE 8Admin Note: chuy [facility] 9Admin Note: [employer] [facility] Medications Albuterol (Eqv-ProAir HFA) 90 mcg/inh inhalation [...] tablet, 0 Refills, Maintenance, 11/15/23 8:42:00 EST, [facility], 177.06, cm, 08/21/23 8:51:00 EDT, Height Start Date: 11/15/23 Status: Ordered aspirin 81 mg oral tablet 81, mg, 1, tablet, By Mouth, Daily, 30, tablet, , 07/06/06 15:03:18, Print REAL Number, [id number], Constant Indicator Start Date: 07/06/06 Stop Date: 07/01/07 Status: Ordered atorvastatin 40 mg oral tablet 1 tablet, By Mouth, Daily, # 90 tablet, 1 Refills, Maintenance, 09/01/23 23:23:00 EST, [facility] 81116, 177.06, cm, 08/21/23 8:51:00 EDT, Height Start [...] Refills, Maintenance, 12/27/23 13:15:00 EST, [facility], 30, INHALE 1 PUFF DAILY AT THE [...] Dates Health Status Cl inical Service Informant Hypertension Discharge Diagnosis 01/08/24 Vital Signs Most recent to oldest [Reference Range]: 1 Height 177.06 cm (01/08/24 10:03 AM) Weight 83.9 kg (01/08/24 10:03 AM) Oxygen Saturation [94-100 %] 98 % (01/08/24 10:03 AM) Pulse Rate [55-90 bpm] 66 bpm (01/08/24 10:03 AM) Body Mass Index [18.5-24.99 kg/m2] 26.76 kg/m2 *H* (01/08/24 10:03 AM) Blood Pressure [90-138/55-84 mm Hg] 118/ 52mm Hg (01/08/24 10:03 AM) Mode of Delivery (Oxygen) Room air (01/08/24 10:03 AM) Blood pressure sites Arm, left (01/08/24 10:03 AM) Weight Obtained Via Standing scale (01/08/24 10:03 AM) Social History Social History Type Response Smoking Status Former smoker, quit more than 30 days ago; Type: Cigarettes; Other: quit 2009; 1 ppd x 40 yrs; Number of years: 40; Total pack years: 40; entered on: 11/04/21 Sex Note * [place]: PERFORM, SIGN, VERIFY Event Display: Patient Education/Instruction Authored Date: [id number] [facility] *BMP So Branden [place] Clinical Summary Name ADALID LEÓN Age 78 Years 1945 PCP Bean Florence MD PCP Visit Date 01/08/2024 10:01:00 Additional Instructions: Scheduled Appointments?? Future Appointments ?No Future Appointments Scheduled Follow-Up Instructions ?? With: Address: When: Bean Florence MD Comments: As scheduled Diagnosis Otitis media, unspecified, right ear; Essential (primary) hypertension Medications: Please continue your medications until treatment is completed or stopped by your provider. Discuss any questions related to medications with your provider. New Medications [id number] [address] [place], [place] [id number], [phone] Azithromycin (Azithromycin 5 Day Dose Pack 250 mg oral tablet) 1 pack/packet Oral once. Refills: 0. Next Dose: Medications to Continue with No Changes These medications were not printed or sent to your pharmacy Albuterol (Albuterol (Eqv-ProAir HFA) 90 mcg/inh inhalation aerosol) 2 puff(s) Inhalation 4 times aday as needed NEEDED FOR WHEEZING. Refills: 5. Next Dose: Amlodipine (amLODIPine 10 mg oral tablet) 1 tab(s) Oral Daily. Refills: 0. Next Dose: Aspirin (aspirin 81 mg oral tablet) 1 tab(s) Oral Daily for 30 Days. Next Dose: Atorvastatin (atorvastatin 40 mg oral tablet) 1 tab(s) Oral Daily. Refills: 1. Next Dose: Brimonidine Ophthalmic (brimonidine 0.2% ophthalmic solution) Next Dose: Carvedilol (carvedilol 25 mg oral tablet) 1 tab(s) Oral twice a day. Refills: 3. Next Dose: Durable Medical Equipment (BP MONITOR WITH CUFF) USE DIRECTED DX HTN I10 RONAK LIFETIME. Refills: 0. Next Dose: fluticasone/umeclidinium/vilanterol (Trelegy Ellipta 200 mcg-62.5 mcg-25 mcg/inh inhalation powder)1 puff(s) Inhalation Daily. Refills: 2. Next Dose: Latanoprost Ophthalmic (latanoprost 0.005% ophthalmic solution) 1 Drops Both eyes Daily at Bedtime. Next Dose: Valsartan (valsartan 320 mg oral tablet) 1 tab(s) Oral Daily. Refills: 3. Next Dose: Allergy Info:?? NKA Medications Given This Visit Future Orders ?No future orders Future Orders ?No future orders Vital Signs Height 177.06 cm Weight 83.9 kg BMI 26.76 kg/m2 Blood Pressure 118 mm Hg/52 mm Hg Temperature Pulse Rate 66 bpm Respiratory Rate 02 Sat Mode of Delivery 98 %/Room air You can now view a summary of your hospital visit from the comfort of your home through a free online portal called [employer]. [employer] is a website that allows you to securely view your medical information including discharge summary, medications and follow-up visits. ??You can alsosend a secure electronic message to your doctor???s office to request appointments, renew medications or just ask a question. You can enroll at [email or web address] or register during your next office [...] primary care provider, you may find a [facility] provider by calling [facility] [employer] at [phone]. [facility], in keeping with [facility] guidance, no longer requires face masks for staff, patientsor visitors in most situations. Similar to time spent indoors at other locations, there is the chance that you were exposed to respiratory viruses during your time with us (such as flu or COVID-19).? If you develop symptoms concerning for a viral respiratory infection, please seek testing (and treatment if indicated) from your medical provider or home test kit. For information about the plan of care [...] Personnel Name: Tatyana BRAVO, Bean Richards Position: [facility] Physician - Primary Care Member Role: PCP Address: Address: [address] [place] [id number]- [place] Care Team Related Persons Name: MARQUISE WALLS Address: home [address] [place] [address] Name: ROSCOE LEÓN Address: home [address] [place] [address]
--- OUTSIDE RECORDS SUMMARY | 2024-07-20 13:30 | XMS_ITS | Continuity of Care Document ---
Author Organization [facility] Сергей lt Address [address] [place] [address]- Care Team Providers Care Manager Beauty Name Role Phone Bean Florence MD Primary Care Physician [phone] Encounter [facility] Date(s): 07/09/23 - 08/08/23 [facility] Adult [address] [place] [address]- Allergies, Adverse Reactions, Alerts No Known Allergies Immunizations Given and Recorded Vaccine Date Status Refusal Reason SARS-CoV-2 mRNA (bgttyvk-lqga-twclf) vax 1 08/09/22 Recorded SARS-CoV-2 mRNA (apbjian-toqs-sowru) vax 01/25/22 Given influenza virus vaccine, inactivated [...] Pneumococcal Vaccine (oldterm) 10/22/04 Given 1Result Comment: [facility] Pharm[facility] 2Result Comment: [07/06/2017] HIGH DOSE [facility] 3Location History: [facility] 4Result Comment: [07/12/2016] HIGH DOSE 5Result Comment: [07/21/2015] Given at [facility] [address] in [facility] 6Ain Note: given in clinic 7Result Comment: [05/28/2017] ADMINISTERED SECONDARY TO ABRASIONS PER DR FLORENCE 8Admin Note: [facility] 9Admin Note: [facility] Medications Albuterol (Eqv-ProAir HFA) 90 mcg/inh inhalation aerosol 2 puffs, Inhalation, 4 times a day, PRN NEEDED FOR WHEEZING, # 8.5 each, 5 Refills, Maintenance,02/21/23 17:27:00 EDT, [facility]/pharmacy #[id number], 25, 2 puffs Inhalation 4 times a day,PRN: NEEDED FOR WHEEZING, 177.06, cm, 10/05/22 6:53:00 EST, Height Start Date: 02/21/23 Status: Ordered amLODIPine 10 mg oral tablet 1 tablet, By Mouth, Daily, # 90 tablet, 1 Refills, Maintenance, 05/21/23 11:22:00 EDT, [facility] STORE 81137, 177.06, cm, 04/04/23 13:50:00 EDT, Height Start Date: 05/21/23 Status: Ordered aspirin 81 mg oral tablet 81, mg, 1, tablet, By Mouth, Daily, 30, tablet, 11, 11, 07/06/06 15:03:18, Print REAL Number, [id number], Constant Indicator Start Date: 07/06/06 Stop Date: 07/01/07 Status: Ordered atorvastatin 40 mg oral tablet 1 tablet, By Mouth, Daily, # 90 tablet, 1 Refills, Maintenance, 03/07/23 21:18:00 EDT, [facility]ORE 04077, 177.06, cm, 10/05/22 6:53:00 EST, Height Start [...] 06/30/23 20:38:00 EDT, Route to Pharmacy Electronically, [facility]ORE 23452, 177.06, cm, 04/04/23 13:50:00 EDT, Height Start Date: 06/30/23 Status: Ordered latanoprost 0.005% ophthalmic solution 1 drops, Eyes, Both, Daily at bedtime, # 3 mL, 0 Refills, Maintenance, 11/16/14 9:37:52, Ophth Solution Start Date: 11/16/14 Status: Ordered losartan 100 mg oral tablet 1 tablet, By Mouth, Daily, # 90 tablet, 1 Refills, Maintenance, 07/13/23 9:33:00 EDT, [facility], 177.06, cm, 04/04/23 13:50:00 EDT, Height Start Date: 07/13/23 Status: Ordered Rhopressa 0.02% ophthalmic solution See Instructions, INSTILL 1 DROP INTO BOTH EYES EVERY DAY AT NIGHT, # 7.5 mL, 1 Refills, Maintenance, 02/21/23 11:39:00 EDT, [facility] STORE 48682, 90, INSTILL 1 DROP INTO BOTH EYES EVERY DAY AT NIGHT, 177.06, cm, 10/05/22 6:53:00 EST, Height Start Date: 02/21/23 Status: Ordered Trelegy Ellipta 200 mcg-62.5 mcg-25 mcg/inh inhalation powder 1 puffs, Inhalation, Daily, at the same time every day, # 1 each, 11 Refills, Maintenance, 238:55:00 EDT, Powder, [id number], Partial fill upon patient request if the [...] Personnel Name: Tatyana BRAVO, Bean Richards Position: [facility] Physician - Primary Care Member Role: PCP Address: Address: [address] [place] [id number]- Care Team Related Persons Name: MARQUISE WALLS Address: home [address] [place] [address] Name: ROSCOE LEÓN Address: home [address] [place] [address]
--- OUTSIDE RECORDS SUMMARY | 2024-07-20 13:30 | XMS_ITS | Continuity of Care Document ---
Author Organization [facility] Branden Сергей lt Address [address] [place] [address]- Care Team Providers Care Food Inspector Name Role Phone Tatynaa BRAVO, Bean Richards Primary Care Physician [facility] Date(s): 03/05/24 - 04/04/24 [facility] Adult [address] [place] [address]- Allergies, Adverse Reactions, Alerts No Known Allergies [...] virus vaccine, inactivated 10/22/04 Give n SARS-CoV-2(COVID-19)mRNA-LNP vac([id number]) 08/07/23 Recorded SARS-CoV-2 mRNA (gkdwjnm-qkrb-hzigm) vax 5 08/09/22 Recorded SARS-CoV-2 mRNA (cfxyymj-fphe-jzvai) vax 01/25/22 Given SARS-CoV-2 (COVID-19) mRNA BNT-162b2 [...] 10/22/04 Given 1Result Comment: [07/06/2017] HIGH DOSE [facility] 2Location History: [facility] 3Result Comment: [07/12/2016] HIGH DOSE 4Result Comment: [07/21/2015] Given at [facility] ion [address] in [facility] 5Result Comment: [facility] Pharmacy 6Admin Note: given in clinic 7Result Comment: [05/28/2017] ADMINISTERED SECONDARY TO ABRASIONS PER DR FLORENCE 8Admin Note: [facility] 9Admin Note: [employer] [facility] Medications Albuterol (Eqv-Ventolin HFA) 90 mcg/inh inhalation aerosol See Instructions, 2 PUFFS INHALATION 4 TIMES A DAYAS NEEDED FOR WHEEZING, # 18 each, 5 Refills, Maintenance, 03/05/24 5:35:00 EDT, [facility] STORE 76771, 30, 2 PUFFS INHALATION 4 TIMES A DAYAS NEEDED FOR WHEEZING, 177.06, cm, 01/08/24 10:03:00 EDT, Height Start Date: 03/05/24 Status: Ordered amLODIPine 10 mg oral tablet 1 tablet, By Mouth, Daily, # 90 tablet, 1 Refills, Maintenance, 02/13/24 10:11:00 EDT, [facility], 177.06, cm, 01/08/24 10:03:00 EDT, Height Start Date: 02/13/24 Status: Ordered aspirin 81 mg oral tablet 81, mg, 1, tablet, By Mouth, Daily, 30, tablet, 11, 11, 07/06/06 15:03:18, Print REAL Number, [id number], Constant Indicator Start Date: 07/06/06 Stop Date: 07/01/07 Status: Ordered atorvastatin 40 mg oral tablet 1 tablet, By Mouth, Daily, # 90 tablet, 1 Refills, Maintenance, 02/25/24 4:18:00 EDT, [facility]/pharmacy #0373, 177.06, cm, 01/08/24 10:03:00 EDT, Height Start Date: 02/25/24 Status: Ordered Azithromycin 5 Day Dose Pack 250 mg oral tablet 1 pack/packet, By Mouth, Once, # 6 tablet, 0 Refills, Soft Stop, 01/08/24 10:16:00 EDT, Tablet, [facility]/pharmacy #0373, Partial fill upon patient [...] 12/25/23 16:28:00 EST, Route to Pharmacy Electronically, [facility]/pharmacy #[id number], Partial fill upon patientrequest [...] Refills, Maintenance, 03/22/24 10:51:00 EDT, [facility], 30, INHALE 1 PUFF DAILY AT THE SAME TIME EVERY DAY, 177.06, cm, 01/08/24 10:03:00 EDT, Height Start Date: 03/22/24 Status: Ordered valsartan 320 mg oral tablet 1 tablet = 320 mg, By Mouth, Daily, # 90 tablet, 3 Refills, Maintenance, 12/25/23 16:28:00 EST, Tablet, [facility]/pharmacy #0373, Partial fill upon patient [...] Tatyana BRAVO, Bean Richards Position: [facility] Physician - Primary Care Member Role: PCP Address: Address: [address] [place] [address]- Care Team Related Persons Name: MARQUISE WALLS Address: home [address] [place] [address] Name: ROSCOE LEÓN Address: home [address] [place] [address]
--- OUTSIDE RECORDS SUMMARY | 2024-07-20 13:31 | XMS_ITS | Continuity of Care Document ---
Author Organization [facility] Ernesto Otero Сергей lt Address [address] [place] [address]- Care Team Providers Care Business Performance Analyst Name Role Phone Tatyana BRAVO, Bean Richards Primary Care Physician [facility]counter [facility] Date(s): 08/20/23 - 09/19/23 [facility] Adult [address] [place] [address]- Allergies, Adverse Reactions, Alerts No Known Allergies [...] virus vaccine, inactivated 10/22/04 Give n SARS-CoV-2(COVID-19)mRNA-LNP vac([id number]) 08/07/23 Recorded SARS-CoV-2 mRNA (rlfjrlw-fjqx-emyme) vax 5 08/09/22 Recorded SARS-CoV-2 mRNA (lnrrttw-xmgz-oknnt) vax 01/25/22 Given SARS-CoV-2 (COVID-19) mRNA BNT-162b2 [...] Given 1Result Comment: [07/06/2017] HIGH DOSE [facility] 2Location History: [facility] 3Result Comment: [07/12/2016] HIGH DOSE 4Result Comment: [07/21/2015] Given at [facility] [address] in [facility] 5Result Comment: [facility] Pharmacy 6Admin Note: given in clinic 7Result Comment: [05/28/2017] ADMINISTERED SECONDARY TO ABRASIONS PER DR FLORENCE [facility] 9Admin Note: [facility] Medications Albuterol (Eqv-ProAir HFA) 90 mcg/inh inhalation aerosol 2 puffs, Inhalation, 4 times a day, PRN NEEDED FOR WHEEZING, # 8.5 each, 5 Refills, Maintenance,02/21/23 17:27:00 EDT, [facility]/pharmacy #0373, 25, 2 puffs Inhalation 4 times a day,PRN: NEEDED FOR WHEEZING, 177.06, cm, 10/05/22 6:53:00 EST, Height Start Date: 02/21/23 Status: Ordered amLODIPine 10 mg oral tablet 1 tablet, By Mouth, Daily, # 90 tablet, 1 Refills, Maintenance, 05/21/23 11:22:00 EDT, [facility], 177.06, cm, 04/04/23 13:50:00 EDT, Height Start Date: 05/21/23 Status: Ordered aspirin 81 mg oral tablet 81, mg, 1, tablet, By Mouth, Daily, 30, tablet, 11, 11, 07/06/06 15:03:18, Print REAL Number, [id number], Constant Indicator Start Date: 07/06/06 Stop Date: 07/01/07 Status: Ordered atorvastatin 40 mg oral tablet 1 tablet, By Mouth, Daily, # 90 tablet, 1 Refills, Maintenance, 09/01/23 23:23:00 EST, [facility] STORE 57395, 177.06, cm, 08/21/23 8:51:00 EDT, Height Start [...] 06/30/23 20:38:00 EDT, Route to Pharmacy Electronically, [facility] STORE 35231, 177.06, cm, 04/04/23 13:50:00 EDT, Height Start Date: 06/30/23 Status: Ordered latanoprost 0.005% ophthalmic solution 1 drops, Eyes, Both, Daily at bedtime, # 3 mL, 0 Refills, Maintenance, 11/16/14 9:37:52, Ophth Solution Start Date: 11/16/14 Status: Ordered losartan 100 mg oral tablet 1 tablet, By Mouth, Daily, # 90 tablet, 1 Refills, Maintenance, 07/13/23 9:33:00 EDT, [facility] STORE 36142, 177.06, cm, 04/04/23 13:50:00 EDT, Height Start Date: 07/13/23 Status: Ordered Rhopressa 0.02% ophthalmic solution See Instructions, INSTILL 1 DROP INTO BOTH EYES EVERY DAY AT NIGHT, # 7.5 mL, 1 Refills, Maintenance, 08/21/23 9:43:00 EDT, [facility], 90, INSTILL 1 DROP INTO BOTH EYES [...] Care Member Role: PCP Address: Address: [address] [place] [address]- Care Team Related Persons Name: MARQUISE WALLS Address: [address] [place] [address] Name: ROSCOE LEÓN Address: [address] [place] [address]
--- OUTSIDE RECORDS SUMMARY | 2024-07-20 13:31 | XMS_ITS | Continuity of Care Document ---
Author Organization [facility] Сергей lt Address [address] [place] [address]- Care Team Providers Care Ld Teacher Name Role Phone Bean Florence MD Primary Care Physician [phone] [facility] Date(s): 06/20/24 - 06/27/24 [facility] Adult [address] [place] [address]- Encounter Diagnosis COVID-19(Discharge Diagnosis) - 06/20/24 Attending Physician: Veronica Ricks Allergies, Adverse Reactions, Alerts No Known Allergies [...] virus vaccine, inactivated 10/22/04 Give n SARS-CoV-2(COVID-19)mRNA-LNP vac([id number]) 08/07/23 Recorded SARS-CoV-2 mRNA (bpilhmj-qpxl-tsnsd) vax 5 08/09/22 Recorded SARS-CoV-2 mRNA (csilvly-bcpk-wwlzq) vax 01/25/22 Given SARS-CoV-2 (COVID-19) mRNA BNT-162b2 [...] 10/22/04 Given 1Result Comment: [07/06/2017] HIGH DOSE [facility] 2Location History: [facility] 3Result Comment: [07/12/2016] HIGH DOSE 4Result Comment: [07/21/2015] Given at [address] in [facility] 5Result Comment: [facility] Pharmacy 6Admin Note: given in clinic 7Result Comment: [05/28/2017] ADMINISTERED SECONDARY TO ABRASIONS PER DR FLORENCE 8Admin Note: [facility] 9Admin Note: [employer] [facility] Medications Albuterol (Eqv-Ventolin HFA) 90 mcg/inh inhalation aerosol See Instructions, 2 PUFFS INHALATION 4 TIMES A DAYAS NEEDED FOR WHEEZING, # 18 each, 5 Refills, Maintenance, 03/05/24 5:35:00 EDT, [facility] STORE 92787, 30, 2 PUFFS INHALATION 4 TIMES A DAYAS NEEDED FOR WHEEZING, 177.06, cm, 01/08/24 10:03:00 EDT, Height Start Date: 03/05/24 Status: Ordered amLODIPine 10 mg oral tablet 1 tablet, By Mouth, Daily, # 90 tablet, 1 Refills, Maintenance, 02/13/24 10:11:00 EDT, [facility] STORE 20451, 177.06, cm, 01/08/24 10:03:00 EDT, Height Start Date: 02/13/24 Status: Ordered aspirin 81 mg oral tablet 81, mg, 1, tablet, By Mouth, Daily, 30, tablet, 11, 11, 07/06/06 15:03:18, Print REAL Number, [id number], Constant Indicator Start Date: 07/06/06 Stop Date: 07/01/07 Status: Ordered atorvastatin 40 mg oral tablet 1 tablet, By Mouth, Daily, # 90 tablet, 1 Refills, Maintenance, 02/25/24 4:18:00 EDT, [facility]/pharmacy #0373, 177.06, cm, 01/08/24 10:03:00 EDT, Height Start Date: 02/25/24 Status: Ordered Azithromycin 5 Day Dose Pack 250 mg oral tablet 1 pack/packet, By Mouth, Once, # 6 tablet, 0 Refills, Soft Stop, 01/08/24 10:16:00 EDT, Tablet, [facility]/pharmacy #0373, Partial fill upon patient request [...] 16:28:00 EST, Route to Pharmacy Electronically, [facility]/pharmacy #[id number], Partial fill upon patientrequest if [...] Refills, Maintenance, 03/22/24 10:51:00 EDT, [facility], 30, INHALE 1 PUFF DAILY AT THE SAME TIME EVERY DAY, 177.06, cm, 01/08/24 10:03:00 EDT, Height Start Date: 03/22/24 Status: Ordered valsartan 320 mg oral tablet 1 tablet = 320 mg, By Mouth, Daily, # 90 tablet, 3 Refills, Maintenance, 12/25/23 16:28:00 EST, Tablet, [facility]/pharmacy #0373, Partial fill upon patient request [...] Diagnosis Diagnosis Type Effective Dates Health Status Clini veronica Service Informant COVID-19 Discharge Diagnosis 06/20/24 Vital Signs Most recent to oldest [Reference Range]: 1 Height 177.06 cm (06/20/24 12:41 PM) Weight 85.45 kg (06/20/24 12:41 PM) Body Mass Index [18.5-24.99 kg/m2] 27.26 kg/m2 *H* (06/20/24 12:41 PM) Weight Obtained Via Patient/family state d (06/20/24 12:41 PM) Social History Social History Type Response Smoking Status Former smoker, quit more than 30 days ago; Type: Cigarettes; Other: quit 2009; 1 ppd x 40 yrs; Number of years: 40; Total pack years: 40; entered on: 11/04/21 Sex Patient Care team information Care Team Personnel Name: Tatyana BRAVO, Bean Richards Position: [facility] Physician - Primary Care Member Role: PCP Address: Address: [address] [place] [id number]- Care Team Related Persons Name: MARQUISE WALLS Address: home [address] [place] [address] Name: ROSCOE LEÓN Address: home [address] [place] [address]
--- OUTSIDE RECORDS SUMMARY | 2024-07-20 13:31 | XMS_ITS | Continuity of Care Document ---
Author Organization [facility] Branden Сергей lt Address [address] [place] [address]- Care Team Providers Care Electric Lift Truck Driver Name Role Phone Bean Florence MD Primary Care Physician Encounter [facility] Date(s): 11/15/23 - 12/15/23 [facility] Adult [address] [place] [address]- Allergies, Adverse Reactions, Alerts No Known Allergies [...] virus vaccine, inactivated 10/22/04 Give n SARS-CoV-2(COVID-19)mRNA-LNP vac([id number]) 08/07/23 Recorded SARS-CoV-2 mRNA (mkftysq-mhjw-yssha) vax 5 08/09/22 Recorded SARS-CoV-2 mRNA (suqbffq-ymjb-qzxdf) vax 01/25/22 Given SARS-CoV-2 (COVID-19) mRNA BNT-162b2 [...] 10/22/04 Given 1Result Comment: [07/06/2017] HIGH DOSE [facility] 2Location History: [facility] 3Result Comment: [07/12/2016] HIGH DOSE 4Result Comment: [07/21/2015] Given at [facility] ion [address] [employer] in [facility] 5Result Comment: [facility] Pharmacy 6Admin Note: given in clinic 7Result Comment: [05/28/2017] ADMINISTERED SECONDARY TO ABRASIONS PER DR FLORENCE 8Admin Note: [facility] 9Admin Note: [facility] [facility] Medications Albuterol (Eqv-ProAir HFA) 90 mcg/inh inhalation aerosol 2 puffs, Inhalation, 4 times a day, PRN NEEDED FOR WHEEZING, # 8.5 each, 5 Refills, Maintenance,02/21/23 17:27:00 EDT, [facility]/pharmacy #0373, 25, 2 puffs Inhalation 4 times a day,PRN: NEEDED FOR WHEEZING, 177.06, cm, 10/05/22 6:53:00 EST, Height Start Date: 02/21/23 Status: Ordered amLODIPine 10 mg oral tablet 1 tablet, By Mouth, Daily, # 90 tablet, 0 Refills, Maintenance, 11/15/23 8:42:00 EST, [facility] 97571, 177.06, cm, 08/21/23 8:51:00 EDT, Height Start Date: 11/15/23 Status: Ordered aspirin 81 mg oral tablet 81, mg, 1, tablet, By Mouth, Daily, 30, tablet, , , 07/06/06 15:03:18, Print REAL Number, [id number], Constant Indicator Start Date: 07/06/06 Stop Date: 07/01/07 Status: Ordered atorvastatin 40 mg oral tablet 1 tablet, By Mouth, Daily, # 90 tablet, 1 Refills, Maintenance, 09/01/23 23:23:00 EST, [facility] 10084, 177.06, cm, 08/21/23 8:51:00 EDT, Height Start [...] 06/30/23 20:38:00 EDT, Route to Pharmacy Electronically, [facility] 76181, 177.06, cm, 04/04/23 13:50:00 EDT, Height Start Date: 06/30/23 Status: Ordered latanoprost 0.005% ophthalmic solution 1 drops, Eyes, Both, Daily at bedtime, # 3 mL, 0 Refills, Maintenance, 11/16/14 9:37:52, Ophth Solution Start Date: 11/16/14 Status: Ordered losartan 100 mg oral tablet 1 tablet, By Mouth, Daily, # 90 tablet, 1 Refills, Maintenance, 07/13/23 9:33:00 EDT, [facility] 36896, 177.06, cm, 04/04/23 13:50:00 EDT, Height Start Date: 07/13/23 Status: Ordered Rhopressa 0.02% ophthalmic solution See Instructions, INSTILL 1 DROP INTO BOTH EYES EVERY DAY AT NIGHT, # 7.5 mL, 1 Refills, Maintenance, 08/21/23 9:43:00 EDT, [facility], 90, INSTILL 1 DROP INTO BOTH EYES [...] Primary Care Member Role: PCP Address: Address: [address] [place] [id number]- [place] Care Team Related Persons Name: MARQUISE WALLS Address: [address] [place] [address] Name: ROSCOE LEÓN Address: home [address] [place] [address]
--- OUTSIDE RECORDS SUMMARY | 2024-07-20 13:31 | XMS_ITS | Continuity of Care Document ---
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 Role Phone Tatyana BRAVO, Bean Richards Primary Care Physician [facility] Date(s): 04/03/23 - 05/03/23 [facility] Adult [address] [place] [address]- Allergies, Adverse Reactions, Alerts No Known Allergies Immunizations Given and Recorded Vaccine Date Status Refusal Reason SARS-CoV-2 mRNA (grjkusa-lgih-tcjec) vax 1 08/09/22 Recorded SARS-CoV-2 mRNA (lpgwgmo-molh-hodlm) vax 01/25/22 Given influenza virus vaccine, inactivated [...] Pneumococcal Vaccine (oldterm) 10/22/04 Given 1Result Comment: [facility] Pharmacy 2Result Comment: [07/06/2017] HIGH DOSE [facility] 3Location History: [facility] 4Result Comment: [07/12/2016] HIGH DOSE 5Result Comment: [07/21/2015] Given at [facility] ion [facility] [employer] in [facility] 6Admri Note: given in clinic 7Result Comment: [05/28/2017] ADMINISTERED SECONDARY TO ABRASIONS PER DR FLORENCE 8Admin Note: [facility] 9Admri Note: [employer] [facility] Medications Albuterol (Eqv-ProAir HFA) 90 mcg/inh inhalation aerosol 2 puffs, Inhalation, 4 times a day, PRN NEEDED FOR WHEEZING, # 8.5 each, 5 Refills, Maintenance,02/21/23 17:27:00 EDT, [facility]/pharmacy #0373, 25, 2 puffs Inhalation 4 times a day,PRN: NEEDED FOR WHEEZING, 177.06, cm, 10/05/22 6:53:00 EST, Height Start Date: 02/21/23 Status: Ordered amLODIPine 10 mg oral tablet 1 tablet, By Mouth, Daily, # 90 tablet, 1 Refills, Maintenance, 11/23/22 14:45:00 EST, [facility] STORE 32938, 177.06, cm, 10/05/22 6:53:00 EST, Height Start Date: 11/23/22 Status: Ordered aspirin 81 mg oral tablet 81, mg, 1, tablet, By Mouth, Daily, 30, tablet, 11, 11, 07/06/06 15:03:18, Print REAL Number, [id number], Constant Indicator Start Date: 07/06/06 Stop Date: 07/01/07 Status: Ordered atorvastatin 40 mg oral tablet 1 tablet, By Mouth, Daily, # 90 tablet, 1 Refills, Maintenance, 03/07/23 21:18:00 EDT, [facility] STORE 32721, 177.06, cm, 10/05/22 6:53:00 EST, Height Start [...] 11/23/22 14:45:00 EST, Route to Pharmacy Electronically, [facility] STORE 01922, 177.06, cm, 10/05/22 6:53:00 EST, Height Start Date: 11/23/22 Status: Ordered latanoprost 0.005% ophthalmic solution 1 drops, Eyes, Both, Daily at bedtime, # 3 mL, 0 Refills, Maintenance, 11/16/14 9:37:52, Ophth Solution Start Date: 11/16/14 Status: Ordered losartan 100 mg oral tablet 1 tablet, By Mouth, Daily, # 90 tablet, 1 Refills, Maintenance, 11/23/22 14:45:00 EST, [facility] STORE 04878, 177.06, cm, 10/05/22 6:53:00 EST, Height Start Date: 11/23/22 Status: Ordered Rhopressa 0.02% ophthalmic solution See Instructions, INSTILL 1 DROP INTO BOTH EYES EVERY DAY AT NIGHT, # 7.5 mL, 1 Refills, Maintenance, 02/21/23 11:39:00 EDT, [facility] STORE 76785, 90, INSTILL 1 DROP INTO BOTH EYES EVERY DAY AT NIGHT, 177.06, cm, 10/05/22 6:53:00 EST, Height Start Date: 02/21/23 Status: Ordered Trelegy Ellipta 200 mcg-62.5 mcg-25 mcg/inh inhalation powder 1 puffs, Inhalation, Daily, at the same time every day, # 1 each, 11 Refills, Maintenance, 238:55:00 EDT, Powder, [facility], Partial fill upon patient request if the [...] Personnel Name: Tatyana BRAVO, Bean Richards Position: S Physician - Primary Care Member Role: PCP Address: Address: [address] [place] [address]- Care Team Related Persons Name: MARQUISE WALLS Address: [address] [place] [address] Name: ROSCOE LEÓN Address: home [address] [place] [address]
--- OUTSIDE RECORDS SUMMARY | 2024-07-20 13:31 | XMS_ITS | Continuity of Care Document ---
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 Name Role Phone Tatyana BRAVO, Bean Richards Primary Care Physician [phone] Encounter [facility] Date(s): 12/28/23 - 01/27/24 [facility] Adult [address] [place] [address]- Allergies, Adverse Reactions, Alerts No Known Allergies [...] virus vaccine, inactivated 10/22/04 Give n SARS-CoV-2(COVID-19)mRNA-LNP vac([id number]) 08/07/23 Recorded SARS-CoV-2 mRNA (oskunpg-[id number]) vax 5 08/09/22 Recorded SARS-CoV-2 mRNA (ejkguna-jxhd-ansnx) vax 01/25/22 Given SARS-CoV-2 (COVID-19) mRNA BNT-162b2 [...] 10/22/04 Given 1Result Comment: [07/06/2017] HIGH DOSE [facility] 2Location History: [facility] 3Result Comment: [07/12/2016] HIGH DOSE 4Result Comment: [07/21/2015] Given at [facility] ion [address] in [facility] 5Result Comment: [facility] Pharmacy 6Admin Note: given in clinic 7Result Comment: [05/28/2017] ADMINISTERED SECONDARY TO ABRASIONS PER DR FLORENCE 8Admin Note: [facility] 9Admin Note: [facility] Medications Albuterol (Eqv-ProAir HFA) 90 mcg/inh inhalation aerosol 2 puffs, Inhalation, 4 times a day, PRN NEEDED FOR WHEEZING, # 8.5 each, 5 Refills, Maintenance,02/21/23 17:27:00 EDT, [facility]/pharmacy #[id number], 25, 2 puffs Inhalation 4 times a day,PRN: NEEDED FOR WHEEZING, 177.06, cm, 10/05/22 6:53:00 EST, Height Start Date: 02/21/23 Status: Ordered amLODIPine 10 mg oral tablet 1 tablet, By Mouth, Daily, # 90 tablet, 0 Refills, Maintenance, 11/15/23 8:42:00 EST, [id number], 177.06, cm, 08/21/23 8:51:00 EDT, Height Start Date: 11/15/23 Status: Ordered aspirin 81 mg oral tablet 81, mg, 1, tablet, By Mouth, Daily, 30, tablet, , , 07/06/06 15:03:18, Print REAL Number, [id number]+[id number], Constant Indicator Start Date: 07/06/06 Stop Date: 07/01/07 Status: Ordered atorvastatin 40 mg oral tablet 1 tablet, By Mouth, Daily, # 90 tablet, 1 Refills, Maintenance, 09/01/23 23:23:00 EST, [id number], 177.06, cm, 08/21/23 8:51:00 EDT, Height Start Date: 09/01/23 Status: Ordered Azithromycin 5 Day Dose Pack 250 mg oral tablet 1 pack/packet, By Mouth, Once, # 6 tablet, 0 Refills, Soft Stop, 01/08/24 10:16:00 EDT, Tablet, [facility]/pharmacy #[id number], Partial fill upon patient request if [...] 12/25/23 16:28:00 EST, Route to Pharmacy Electronically, [facility]/pharmacy #[id number], Partial fill upon patientrequest if the [...] Refills, Maintenance, 12/27/23 13:15:00 EST, [id number], 30, INHALE 1 PUFF DAILY AT THE SAME TIME EVERY DAY, 177.06, cm, 12/25/23 16:10:00 EST, Height Start Date: 12/27/23 Status: Ordered valsartan 320 mg oral tablet 1 tablet = 320 mg, By Mouth, Daily, # 90 tablet, 3 Refills, Maintenance, 12/25/23 16:28:00 EST, Tablet, [facility]/pharmacy #[id number], Partial fill upon patient request if [...] Richards Position: [facility] Physician - Primary Care Member Role: PCP Address: Address: [address] [place] [address]- Care Team Related Persons Name: MARQUISE WALLS Address: home [address] [place] [address] Name: ROSCOE LEÓN Address: home [address] [place] [address]
--- NOTE | 2024-07-20 13:53 | PC.NURSE ---
IV established, labs obtained and sent. patient resting quietly in room offering no complaints at this time. veronica sales within reach
[2024-07-20] MEDS: Albuterol Sulfate 2.5 MG, Albuterol/Iprat 2.5/0.5MG 3 ML 3 ML INHALE (16:37)
[2024-07-20] MEDS: methylPREDNISolone Sod Succ 125 MG/2 ML VIAL IVPUSH (16:51)
[2024-07-20] MEDS: cefTRIAXone sodium 1 GM in 0.9 % Sodium Chloride 50 ML IV (16:51)
--- NOTE | 2024-07-20 17:08 | PHA.MEDREC ---
Pharmacy Consult ? Medication Reconciliation Pharmacy has completed the medication reconciliation. Spoke with patient to confirm medications. He knew all of his meds. He took all of this morning medications today.
[2024-07-20 17:33] LABS: C Reactive Protein 6.02 mg/dL (< or = 0.50)
[2024-07-20 17:55] LABS: Procalcitonin 0.31 ng/mL
--- NOTE | 2024-07-20 18:17 | PM.IMHP ---
History of Present Illness Date of Service: 07/20/24 Chief Complaint: cough, wheeze, dyspnea 78yo M with hx lung CA in remission s/p resection/chemotherapy/immunotherapy, COPD not on home O2, and HTN presenting with 2 days of worsening cough, dyspnea, and wheeze. Cough is productive of yellow sputum. No sick contacts. No hemoptysis. No travel overseas or to areas of endemic mycoses. In the ED, he was not hypoxic but noted to have extensive bilateral wheezing. CXR showed focal nodular densities in the L perihilar region and mediastinal and R hilar adenopathy. WBCs elevated to 22.7 but no other SIRS criteria. Covid-19 PCR positive. He was given ceftriaxone, doxycycline, methylprednisolone, and albuterol. Review of Systems Review of Systems: Yes all other systems are reviewed and are negative [facility] Medical History Lung cancer Hip osteoarthritis Primary osteoarthritis of right hip Primary osteoarthritis of right knee Hypertension Family History Father No problems noted. Mother No problems noted. Surgical History History of arthroscopy of left knee (~1965) Social History Household Members: None Housing: Apartment Do you presently have visiting nurse or other home services: No Alcohol intake: never Patient Tobacco Use Status: Former Tobacco user Tobacco use type: Cigarette Second Hand Smoke Exposure: No Advance Directives: Yes Advance Directives on File: Yes Advance Directives Date on File: 03/28/23 Do you have a plan to hurt others: No Plan service: No Current occupational status: retired Current occupation: right handed Meds Allergies Allergy/AdvReac Type Severity Reaction Status Date / Time No Known Allergies Allergy Verified 07/20/24 11:29 Active Medications: Current Medications Acetaminophen (Acetaminophen 325 Mg Tablet) 650 mg PO Q6H PRN PRN Reason: Pain, Mild (Pain Scale 1-3), fever or headache Albuterol Sulfate (Albuterol Sulfate (0.083%) 2.5 Mg/3 Ml Vial.Neb) 2.5 mg INHALE Q2H PRN PRN Reason: Shortness of Breath/Wheezing Albuterol/Ipratropium (Albuterol/Iprat 2.5/0.5mg 3 Ml Ampul.Neb) 3 ml INHALE RQ4H WHILE AWAKE [facility] Amlodipine Besylate (Amlodipine Besylate 10 Mg Tablet) 10 mg PO DAILY [facility]; Protocol Atorvastatin Calcium (Atorvastatin Calcium 40 Mg Tablet) 40 mg PO DAILY [facility] Brimonidine Tartrate (Brimonidine Tartrate 0.2% Oph 5 Ml Bottle) 1 drop EYE-BOTH BID [facility] Calcium Carbonate (Calcium Carbonate 750 Mg Tab.Chew) 750 mg PO Q4H PRN PRN Reason: Heartburn Carvedilol (Carvedilol 25 Mg Tablet) 25 mg PO BID [facility]; Protocol Doxycycline Monohydrate (Doxycycline Monohydrate 100 Mg Capsule) 100 mg PO Q12H [facility] Enoxaparin Sodium (Enoxaparin Sodium 40 Mg/0.4 Ml Syringe) 40 mg SUBCUT Q24H [facility] Fluticasone/Umeclidinium/Vilanterol (Fluticasone/Umeclidinium/Vilanterol 200/62.5/25 Blst.W.Dev) 1 puff INHALE RDAILY [facility] Ceftriaxone Sodium 1 gm/ (Sodium Chloride) 50 mls @ 100 mls/hr IV Q24H [facility] Latanoprost (Latanoprost 0.005 % Ophth Annel 2.5 Ml Drops) 1 drop EYE-BOTH BEDTIME [facility] Magnesium Hydroxide (Milk Of Magnesia 30 Ml Oral.Susp) 30 ml PO DAILY PRN PRN Reason: Constipation Melatonin (Melatonin 3 Mg Tablet) 6 mg PO BEDTIME PRN PRN Reason: Insomnia Methylprednisolone Sodium Succinate (Methylprednisolone Sod Succ 40 Mg/Ml Vial) 40 mg IVPUSH Q24H [facility] Ondansetron HCl (Ondansetron Hcl 4 Mg/2 Ml Vial) 4 mg IVPUSH Q8H PRN PRN Reason: Nausea and Vomiting Sodium Chloride (0.9 % Sodium Chloride Flush 3 Ml Syringe) 3 ml IVFLUSH QSHIFT [facility] Valsartan (Valsartan 320 Mg Tablet) 320 mg PO DAILY [facility]; Protocol Home Medications ?Medication ?Instructions ?Recorded ?Confirmed ?Last Taken ?Type amlodipine 10 mg tablet 10 mg PO DAILY 08/18/20 07/20/24 07/20/24 History atorvastatin 40 mg tablet 40 mg PO DAILY 08/18/20 07/20/24 07/20/24 History latanoprost 0.005 % eye drops 1 drp ophthalmic (eye) BEDTIME 09/25/22 07/20/24 03/27/23 History albuterol sulfate 90 mcg/actuation 2 puff inhalation QID PRN Wheezing 03/28/23 07/20/24 03/27/23 History aerosol inhaler fluticasone fur. 200 mcg-umeclid 1 ea inhalation DAILY 03/28/23 07/20/24 07/20/24 History 62.5 mcg-vilant 25 mcg inhalat.powder (Trelegy Ellipta) brimonidine 0.2 % eye drops 1 drp ophthalmic (eye) BID 07/20/24 07/20/24 07/20/24 History carvedilol 25 mg tablet 25 mg PO BID 07/20/24 07/20/24 07/20/24 History valsartan 320 mg tablet 320 mg PO DAILY 07/20/24 07/20/24 07/20/24 History Physical Exam Vital Signs and Narrative: Vital Signs: Last Vital Signs Temp 98.8 F 07/20/24 17:33 Pulse 90 07/20/24 17:33 Resp 18 07/20/24 17:33 BP 164/79 H 07/20/24 17:33 Pulse Ox 94 07/20/24 17:33 O2 Del Method Room Air 07/20/24 17:33 BMI result Body Mass Index 27.0 Gen: pursed-lip breathing HEENT: sclera anicteric, moist mucus membranes Neck: supple Lungs: diminished, bilateral expiratory wheezes Heart: regular rate and rhythm, no murmurs Abd: soft, non-tender, non-distended Ext: no edema Skin: warm/well-perfused Neuro: alert and oriented x3, no focal findings Psych: appropriate affect Results Labs 07/20/24 12:04 07/20/24 12:04 Labs: Laboratory Results - last 24 hr 07/20/24 07/20/24 12:04 13:05 MCV 87.5 MCH 31.5 MCHC 36.0 RDW 13.3 Plt Count 236 D MPV 9.3 L Immature Gran % (Auto) 0.6 H Neut % (Auto) 87.0 H Lymph % (Auto) 5.6 L [place] % (Auto) 6.4 Eos % (Auto) 0.3 Baso % (Auto) 0.1 Lymph # (Auto) 1.3 [place] # (Auto) 1.5 H Eos # (Auto) 0.1 Baso # (Auto) 0.0 Abs Immat Gran (auto) 0.14 H Absolute Neuts (auto) 19.8 H Absolute Nucleated RBC 0.000 Nucleated RBC % (auto) 0.0 PT 11.6 INR 1.0 Anion Gap 14 Estim Creat Clear Calc 37.7 Estimated GFR 41 Random Glucose 109 Lactic Acid 1.9 Calcium 9.2 D Magnesium 1.7 Total Bilirubin 0.7 AST 16 ALT 15 Alkaline Phosphatase 77 Troponin I High Sens 11.1 D C-Reactive Protein 6.02 H B-Natriuretic Peptide 37 Total Protein 6.2 L Albumin 3.6 Procalcitonin 0.31 Influenza Type A (PCR) NEGATIVE Influenza Type B (PCR) NEGATIVE RSV RNA Qual (PCR) NEGATIVE SARS-CoV-2 RNA (RT-PCR) POSITIVE A Imaging Radiologist's Impressions: Impressions Chest X-Ray 07/20/24 11:26 IMPRESSION: 1. New focal nodular-like densities in the left perihilar region that could indicate infectious/inflammatory infiltrate. Recommend clinical correlation and a follow-up examination after treatment to ensure resolution. 2. Mediastinal and right hilar lymphadenopathy, best visualized on a prior CT chest from 03/29/2023. Electronically signed by: Elda Hightower MD 07/20/2024 11:45 AM EDT Assessment and Plan (1) COVID-19 virus infection: Status: Acute (2) Pneumonia: Status: Acute Plan 78yo M with COPD not on home O2, hx lung CA s/p resection/chemo/immunotherapy, HTN presenting with 2d of worsening productive cough, dyspnea, and wheeze; found to have Covid-19 and nodular pneumonia pneumonia - PSI 120/class IV, will admit to telemetry, give ceftriaxone + doxycycline, trend PCT, follow BCx, send urinary antigens for Legionella and pneumococcus. given CA hx and adenopathy plus nodular appearance of PNA, will obtain CT chest with and without IV contrast COPD exacerbation - IV methylprednisolone, standing/prn nebs, continue Trelegy Covid-19 - isolation, steroids as above ?CKD3 - SCr close to baseline of around 1.4-1.54 [per [facility] records]; recheck BMP in AM; if worsens, may have to hold valsartan HTN - continue amlodipine, carvedilol, and valsartan HLD - conitnue atorvastatin VTE prophylaxis - enoxaparin dispo - TBD code status - full code I anticipate that the patient will stay at least 2 midnights as an inpatient in the hospital due to the above reasons. It is neither reasonable nor safe to care for them in a less acute setting. Quality Stroke Does the patient have a stroke diagnosis?: No VTE Prior VTE?: No VTE Risk Level:: Medical - moderate - high VTE Device Contraindication: N/A - Device Ordered VTE Drug Contraindication: N/A - Med Ordered
[2024-07-20] MEDS: Doxycycline Hyclate 100 MG in 0.9 % Sodium Chloride 250 ML 166.67 MG IV (18:20)
[2024-07-20] MEDS: Enoxaparin Sodium 40 MG/0.4 ML SYRINGE SUBCUT (18:46)
--- NOTE | 2024-07-20 18:50 | PC.NURSE ---
oxygen was found to be 88% on room air, states that his oxygen at baseline is approx 92-93%. placed on 2L nasal cannula
[2024-07-20 19:26] LABS: Anion Gap 12 (12-20); Blood Urea Nitrogen 23 mg/dL (9-16); Calcium 8.8 mg/dL (8.4-10.2); Carbon Dioxide 22 mmol/L (22-29); Chloride 101 mmol/L (96-108); Estimated Glomerular Filt Rate 42; Glucose Random 172 mg/dL (60-115); Potassium 3.9 mmol/L (3.3-5.1); Sodium 131 mmol/L (135-145)
[2024-07-20 19:35] LABS: Troponin-I High Sensitivity 9.9 ng/L (<3.5-35.0)
[2024-07-20] MEDS: Albuterol/Iprat 2.5/0.5MG 3 ML AMPUL.NEB INHALE (19:42)
[2024-07-20] MEDS: Melatonin 3 MG TABLET 6 MG PO (20:54)
[2024-07-20] MEDS: Acetaminophen 325 MG TABLET 650 MG PO (20:54)
[2024-07-20] MEDS: carvediloL 25 MG TABLET PO (20:54)
--- NOTE | 2024-07-20 23:02 | PC.NURSE ---
handoff given to donaldo douglass
--- NOTE | 2024-07-20 23:29 | PC.NURSE ---
this rn assumed care of pt, pt resting in stretcher, no acute distress noted. normal sinus on tele 80-84bpm.
[2024-07-21] VITALS (11 sets, daily range): BP systolic 147–168; BP diastolic 57–75; PULSE 83–102; RESP 16–20; TEMP 36.1–37; O2SAT 94–98
[2024-07-21] MEDS: 0.9 % Sodium Chloride Flush 3 ML SYRINGE IVFLUSH ×3 (01:19→20:46)
[2024-07-21 05:25] LABS: Hematocrit 30.3 % (42.0-52.0); Hemoglobin 10.8 g/dl (14.0-18.0); Mean Corpuscular HGB Conc 35.6 g/dl (31.0-36.0); Mean Corpuscular Hemoglobin 31.5 pg (27.0-33.0); Mean Corpuscular Volume 88.3 fL (80.0-98.0); Mean Platelet Volume 10.1 fL (9.4-12.4); Platelet Count 216 X10*3/uL (160-400); Red Blood Count 3.43 X10*6/uL (4.60-5.80); Red Cell Distribution Width 13.3 % (11.0-16.0)
[2024-07-21 05:52] LABS: Anion Gap 13 (12-20); Blood Urea Nitrogen 29 mg/dL (9-16); Carbon Dioxide 22 mmol/L (22-29); Chloride 101 mmol/L (96-108); Creatinine Clr Calc Pharmacy 30.7; Estimated Glomerular Filt Rate 33; Glucose Random 175 mg/dL (60-115); Potassium 4.7 mmol/L (3.3-5.1); Sodium 131 mmol/L (135-145)
[2024-07-21] MEDS: methylPREDNISolone Sod Succ 40 MG/ML VIAL IVPUSH (07:42)
[2024-07-21] MEDS: amLODIPine Besylate 10 MG TABLET PO (07:43)
[2024-07-21] MEDS: Atorvastatin Calcium 40 MG TABLET PO (07:43)
[2024-07-21] MEDS: carvediloL 25 MG TABLET PO ×2 (07:43→20:45)
[2024-07-21] MEDS: Doxycycline Monohydrate 100 MG CAPSULE PO ×2 (07:43→20:45)
--- NOTE | 2024-07-21 07:45 | HO.PM.IMPN ---
Subjective Subjective Date of Service: 07/21/24 Interval History: Seen in follow-up for COPD exacerbation, pneumonia Interval history: New BLAIRE with creatinine 1.98. Reports improvement in shortness of breath and wheezing. No cough, chest pain, lightheadedness. No nausea, vomiting, making good urine. Vitals are stable. No hypoxia Review of Systems Review of Systems: Yes all other systems are reviewed and are negative Physical Exam Vital Signs: Vital Signs: Last Vital Signs Temp 98.3 F 07/21/24 07:40 Pulse 99 07/21/24 07:40 Resp 20 07/21/24 07:40 BP 158/75 H 07/21/24 07:40 Pulse Ox 94 07/21/24 07:40 O2 Del Method Room Air 07/21/24 07:40 O2 Flow Rate 2 07/21/24 06:53 BMI result Body Mass Index 27.0 Constitutional - Awake and Alert, No apparent distress Eyes - PERRLA, EOMI Cardiovascular - S1S2, RRR, No edema Respiratory - Normal lung expansion, Normal respiratory effort, No respiratory distress, CTA bilaterally Gastrointestinal - NT / ND; +BS; No rebound or guarding Extremities - no calf tenderness bilaterally, no swelling Skin - Warm/Dry Neurological - Alert & oriented x3 Psychological - Appropriate affect Objective Data Active Medications Acetaminophen (Acetaminophen 325 Mg Tablet) 650 mg PO Q6H PRN PRN Reason: Pain, Mild (Pain Scale 1-3), fever or headache Last Admin: 07/20/24 20:54 Dose: 650 mg Documented By: JUMANA Albuterol Sulfate (Albuterol Sulfate (0.083%) 2.5 Mg/3 Ml Vial.Neb) 2.5 mg INHALE Q2H PRN PRN Reason: Shortness of Breath/Wheezing Albuterol/Ipratropium (Albuterol/Iprat 2.5/0.5mg 3 Ml Ampul.Neb) 3 ml INHALE RQ4H WHILE AWAKE [facility] Last Admin: 07/20/24 19:42 Dose: 3 ml Documented By: JANE Amlodipine Besylate (Amlodipine Besylate 10 Mg Tablet) 10 mg PO DAILY [facility]; Protocol Last Admin: 07/21/24 07:43 Dose: 10 mg Documented By: SUHAS Atorvastatin Calcium (Atorvastatin Calcium 40 Mg Tablet) 40 mg PO DAILY [facility] Last Admin: 07/21/24 07:43 Dose: 40 mg Documented By: SUHAS Brimonidine Tartrate (Brimonidine Tartrate 0.2% Oph 5 Ml Bottle) 1 drop EYE-BOTH BID [facility] Last Admin: 07/20/24 21:54 Dose: Not Given Documented By: JUMANA Non-Admin Reason: Med Not Available Calcium Carbonate (Calcium Carbonate 750 Mg Tab.Chew) 750 mg PO Q4H PRN PRN Reason: Heartburn Carvedilol (Carvedilol 25 Mg Tablet) 25 mg PO BID [facility]; Protocol Last Admin: 07/21/24 07:43 Dose: 25 mg Documented By: SUHAS Doxycycline Monohydrate (Doxycycline Monohydrate 100 Mg Capsule) 100 mg PO Q12H [facility] Last Admin: 07/21/24 07:43 Dose: 100 mg Documented By: SUHAS Enoxaparin Sodium (Enoxaparin Sodium 40 Mg/0.4 Ml Syringe) 40 mg SUBCUT Q24H [facility] Last Admin: 07/20/24 18:46 Dose: 40 mg Documented By: CHERRY Fluticasone/Umeclidinium/Vilanterol (Fluticasone/Umeclidinium/Vilanterol 200/62.5/25 Blst.W.Dev) 1 puff INHALE RDAILY [facility] Ceftriaxone Sodium 1 gm/ (Sodium Chloride) 50 mls @ 100 mls/hr IV Q24H [facility] Lactated Ringer's (Lr) 1,000 mls @ 100 mls/hr IVCONT .Q10H [facility] Latanoprost (Latanoprost 0.005 % Ophth Annel 2.5 Ml Drops) 1 drop EYE-BOTH BEDTIME [facility] Last Admin: 07/20/24 21:54 Dose: Not Given Documented By: JUMANA Non-Admin Reason: Med Not Available Magnesium Hydroxide (Milk Of Magnesia 30 Ml Oral.Susp) 30 ml PO DAILY PRN PRN Reason: Constipation Melatonin (Melatonin 3 Mg Tablet) 6 mg PO BEDTIME PRN PRN Reason: Insomnia Last Admin: 07/20/24 20:54 Dose: 6 mg Documented By: JUMANA Methylprednisolone Sodium Succinate (Methylprednisolone Sod Succ 40 Mg/Ml Vial) 40 mg IVPUSH Q24H [facility] Last Admin: 07/21/24 07:42 Dose: 40 mg Documented By: SUHAS Ondansetron HCl (Ondansetron Hcl 4 Mg/2 Ml Vial) 4 mg IVPUSH Q8H PRN PRN Reason: Nausea and Vomiting Sodium Chloride (0.9 % Sodium Chloride Flush 3 Ml Syringe) 3 ml IVFLUSH QSHIFT [facility] Last Admin: 07/21/24 01:19 Dose: 3 ml Documented By: MAHOGANY Labs 07/21/24 04:19 07/21/24 04:19 Labs: Laboratory Results - last 24 hr 07/20/24 07/20/24 07/20/24 12:04 13:05 19:06 MCV 87.5 MCH 31.5 MCHC 36.0 RDW 13.3 Plt Count 236 D MPV 9.3 L Immature Gran % (Auto) 0.6 H Neut % (Auto) 87.0 H Lymph % (Auto) 5.6 L [place] % (Auto) 6.4 Eos % (Auto) 0.3 Baso % (Auto) 0.1 Lymph # (Auto) 1.3 [place] # (Auto) 1.5 H Eos # (Auto) 0.1 Baso # (Auto) 0.0 Abs Immat Gran (auto) 0.14 H Absolute Neuts (auto) 19.8 H Absolute Nucleated RBC 0.000 Nucleated RBC % (auto) 0.0 PT 11.6 INR 1.0 Anion Gap 14 12 Estim Creat Clear Calc 37.7 38.0 Estimated GFR 41 42 Random Glucose 109 172 H Lactic Acid 1.9 Calcium 9.2 D 8.8 Magnesium 1.7 Total Bilirubin 0.7 AST 16 ALT 15 Alkaline Phosphatase 77 Troponin I High Sens 11.1 D 9.9 C-Reactive Protein 6.02 H B-Natriuretic Peptide 37 Total Protein 6.2 L Albumin 3.6 Procalcitonin 0.31 Influenza Type A (PCR) NEGATIVE Influenza Type B (PCR) NEGATIVE RSV RNA Qual (PCR) NEGATIVE SARS-CoV-2 RNA (RT-PCR) POSITIVE A 07/21/24 04:19 MCV 88.3 MCH 31.5 MCHC 35.6 RDW 13.3 Plt Count 216 MPV 10.1 Immature Gran % (Auto) Neut % (Auto) Lymph % (Auto) [place] % (Auto) Eos % (Auto) Baso % (Auto) Lymph # (Auto) [place] # (Auto) Eos # (Auto) Baso # (Auto) Abs Immat Gran (auto) Absolute Neuts (auto) Absolute Nucleated RBC 0.000 Nucleated RBC % (auto) 0.0 PT INR Anion Gap 13 Estim Creat Clear Calc 30.7 Estimated GFR 33 Random Glucose 175 H Lactic Acid Calcium 9.0 Magnesium Total Bilirubin AST ALT Alkaline Phosphatase Troponin I High Sens C-Reactive Protein B-Natriuretic Peptide Total Protein Albumin Procalcitonin Influenza Type A (PCR) Influenza Type B (PCR) RSV RNA Qual (PCR) SARS-CoV-2 RNA (RT-PCR) Assessment and Plan (1) Pneumonia: Status: Acute (2) COVID-19 virus infection: Status: Acute (3) BLAIRE (acute kidney injury): Status: Acute Plan 78yo M with COPD not on home O2, hx lung CA s/p resection/chemo/immunotherapy, HTN presenting with 2d of worsening productive cough, dyspnea, and wheeze; found to have Covid-19 and nodular pneumonia #Acute pneumonia -PSI 120/class IV -IV ceftriaxone and doxycycline (initiated 07/20) -sputum culture, Legionella antigen, strep pneumo antigen pending -chest CT results pending given history of cancer with adenopathy +nodular appearance of pneumonia. Unfortunately unable to obtain CT with contrast due to BLAIRE -symptomatic management -no sepsis, WBC trending down # acute kidney injury on CKD stage 3 -baseline creat appears to be 1.4-1.6 per [facility] records. On admission 1.6 --> 1.98 -Initiate IVF -avoid nephrotoxins-hold valsartan -follow renal function/lytes #COPD exacerbation -IV methylprednisolone 40 mg daily -DuoNebs q.4h while awake and p.r.n. -continue home inhalers #Covid-19 -asymptomatic, no hypoxia. Decadron/antiviral therapy not indicated -airborne/contact precautions # hypertension -continue amlodipine, carvedilol. Hold valsartan in setting of BLAIRE # hyperlipidemia -statin VTE prophylaxis - enoxaparin dispo - TBD code status - full code Patient requires ongoing inpatient stay due to new onset BLAIRE requiring IV fluids, close monitoring of renal function electrolyte levels Quality Stroke Does the patient have a stroke diagnosis?: No VTE Prior VTE?: No VTE Risk Level:: Medical - moderate - high VTE Device Contraindication: N/A - Device Ordered VTE Drug Contraindication: N/A - Med Ordered
[2024-07-21] MEDS: Lactated Ringers 1,000 ML 100 ML IVCONT ×2 (08:23→18:29)
[2024-07-21] MEDS: Albuterol/Iprat 2.5/0.5MG 3 ML AMPUL.NEB INHALE ×4 (09:16→20:41)
[2024-07-21] MEDS: Fluticasone/Umeclidinium/Vilanterol 200/62.5/25 BLST.W.DEV 1 PUFF INHALE (11:39)
[2024-07-21] MEDS: Brimonidine Tartrate 0.2% Oph 5 ML BOTTLE 1 DROP EYE-BOTH ×2 (11:39→20:46)
--- NOTE | 2024-07-21 13:15 | MHC.CM.PN ---
IMM 07/21/24, Pt. lives alone, is independent, no home health services or DME. His car is in the lot. He is a , and [facility] PCP confirmed: Dr. Joe. HCP on file and confirmed: Joshua. DCP: home, self care. CM to follow for DC needs.
[2024-07-21] MEDS: cefTRIAXone sodium 1 GM in 0.9 % Sodium Chloride 50 ML IV (16:21)
[2024-07-21] MEDS: Enoxaparin Sodium 40 MG/0.4 ML SYRINGE SUBCUT (18:29)
[2024-07-21] MEDS: Latanoprost 0.005 % Ophth Sol 2.5 ML DROPS 1 DROP EYE-BOTH (22:19)
[2024-07-22 03:45] VITALS: BP 159/72; PULSE 83; RESP 18; TEMP 36.8; O2SAT 97
[2024-07-22] MEDS: Lactated Ringers 1,000 ML 100 ML IVCONT (05:02)
[2024-07-22 07:36] LABS: Anion Gap 12 (12-20); Blood Urea Nitrogen 33 mg/dL (9-16); Calcium 8.8 mg/dL (8.4-10.2); Carbon Dioxide 22 mmol/L (22-29); Chloride 106 mmol/L (96-108); Creatinine Clr Calc Pharmacy 41.3; Estimated Glomerular Filt Rate 46; Glucose Random 131 mg/dL (60-115); Potassium 4.2 mmol/L (3.3-5.1); Sodium 136 mmol/L (135-145)
[2024-07-22 07:50] VITALS: BP 160/74; PULSE 83; RESP 20; TEMP 36.6; O2SAT 96
[2024-07-22] MEDS: Doxycycline Monohydrate 100 MG CAPSULE PO (08:47)
[2024-07-22] MEDS: methylPREDNISolone Sod Succ 40 MG/ML VIAL IVPUSH (08:47)
[2024-07-22] MEDS: carvediloL 25 MG TABLET PO (08:47)
[2024-07-22] MEDS: Atorvastatin Calcium 40 MG TABLET PO (08:47)
[2024-07-22] MEDS: amLODIPine Besylate 10 MG TABLET PO (08:47)
[2024-07-22] MEDS: 0.9 % Sodium Chloride Flush 3 ML SYRINGE IVFLUSH (08:47)
[2024-07-22] MEDS: Acetaminophen 325 MG TABLET 650 MG PO (08:47)
[2024-07-22] MEDS: Brimonidine Tartrate 0.2% Oph 5 ML BOTTLE 1 DROP EYE-BOTH (08:55)
[2024-07-22 11:13] VITALS: BP 160/74; PULSE 83; O2SAT 96
[2024-07-22 11:21] VITALS: BP 135/63; PULSE 68; RESP 20; TEMP 36.5; O2SAT 98
[2024-07-22] MEDS: Albuterol/Iprat 2.5/0.5MG 3 ML AMPUL.NEB INHALE (12:14)
[2024-07-22] MEDS: Fluticasone/Umeclidinium/Vilanterol 200/62.5/25 BLST.W.DEV 1 PUFF INHALE (12:15)
--- NOTE | 2024-07-22 12:17 | P.DS_ITS ---
DS: Providers Provider Date of Service: 07/22/24 Date of admission: 07/20/24 17:46 Date of discharge: 07/22/24 Primary care physician: Bean Joe MD Attending physician on discharge: Jay Arguelles Discharging clinician: Jay Arguelles DS: Diagnosis Discharge Diagnosis (1) Pneumonia: Status: Acute (2) COVID-19 virus infection: Status: Acute (3) BLAIRE (acute kidney injury): Status: Acute DS: Summary Hospital Course Hospital Course: HPI: 78yo M with hx lung CA in remission s/p resection/chemotherapy/immunotherapy, COPD not on home O2, and HTN presenting with 2 days of worsening cough, dyspnea, and wheeze. Cough is productive of yellow sputum. No sick contacts. No hemoptysis. No travel overseas or to areas of endemic mycoses. In the ED, he was not hypoxic but noted to have extensive bilateral wheezing. CXR showed focal nodular densities in the L perihilar region and mediastinal and R hilar adenopathy. WBCs elevated to 22.7 but no other SIRS criteria. Covid-19 PCR positive. He was given ceftriaxone, doxycycline, methylprednisolone, and albuterol. Hospital course: Patient was admitted for worsening shortness of breath ,cough and wheezing: Found to have COPD exacerbation, BLAIRE on CKD, pneumonia(CT scan chest showed- patchy left upper lobe groundglass ,density, new), wbc : 22.7 k,cr 1.98 , blood cultures sent,patient was also found to have COVID positive( SARS CoV -2 Rna), strep and Legionella antigen pending.: Patient was started on IV antibiotics(ceftriaxone and doxycycline), hydration IV fluids, valsartan was placed on hold due to BLAIRE, also started on nebs and steroids due to COPD exacerbation: With above management patient seems to be improved significantly, not hypoxic sats are 98% on room air. Feels much better. WBC improving to 12k. No fevers.blood cultures neg@24hrs. BLAIRE also improving to the baseline creatinine is 1.47. Patient will be going home with p.o. antibiotics and steroids. Advised self isolation for 5 more days. plan: Please complete Ceftin 500 mg p.o. b.i.d. for 7 days and doxycycline 100 mg p.o. b.i.d. for 7 days. Prednisone 40 mg for 4 more days. Encouraged for p.o. intake and hydration, check BMP in 1 week. Resume valsartan outpatient since BLAIRE improved. Advised self isolation for 5 more days. please consider repeating chest imaging in 3-4 weeks to see resolution of pneumonia outpatient. patient will gp home with vna Above management discussed with the patient detail length he understand in agree ment with the above plan, time spent 40 minute. Time Attestation Total time managing care of this patient today: 40 mintues. Discharge Coordination Time (in mins): 40 min Quality: Safe Use of Opioids Does Pt have an Active Cancer Diagnosis on the Problem List?: No Quality: Stroke Does the patient have a stroke diagnosis?: No Physical Exam Vital Signs: Vital Signs: Last Vital Signs Temp 97.7 F 07/22/24 11:21 Pulse 68 07/22/24 11:21 Resp 20 07/22/24 11:21 BP 135/63 07/22/24 11:21 Pulse Ox 98 07/22/24 11:21 O2 Del Method Room Air 07/22/24 11:21 O2 Flow Rate 2 07/21/24 06:53 BMI result Body Mass Index 27.0 Appearance: Alert.? Oriented X3.? cvs: rrr, [id number] , no murmur res: clear to auscultation ,no rhonchii or wheezing abd: no rebound or guarding ,nt, bs present. ext pulses present , no cyanosis . neuro: axo3 , nonfocal. DS: Data Data Completed and Pending Labs on day of discharge: Laboratory Results - last 24 hr 07/22/24 06:43 Sodium 136 Potassium 4.2 Chloride 106 Carbon Dioxide 22 Anion Gap 12 BUN 33 H Creatinine 1.47 H Estim Creat Clear Calc 41.3 Estimated GFR 46 Random Glucose 131 H Calcium 8.8 Preliminary micro results at discharge 07/20/24 13:30 Blood Culture - Preliminary Blood - Venous No growth after 24 hours. 07/20/24 13:05 Blood Culture - Preliminary Blood - Venous No growth after 24 hours. Imaging Chest x-ray: Radiologist's impression: ITS Impressions Chest X-Ray 07/20/24 11:26 IMPRESSION: 1. New focal nodular-like densities in the left perihilar region that could indicate infectious/inflammatory infiltrate. Recommend clinical correlation and a follow-up examination after treatment to ensure resolution. 2. Mediastinal and right hilar lymphadenopathy, best visualized on a prior CT chest from 03/29/2023. Electronically signed by: Elda Hightower MD 07/20/2024 11:45 AM EDT RP Chest CT 07/21/24 14:45 IMPRESSION: Left upper lobe chain sutures, unchanged compared with most recent prior study dated March 29, 2023. Resolution of previously seen left upper lobe interstitial and alveolar infiltrates with associated bronchial wall thickening. Mild, subtle, somewhat geographic, patchy left upper lobe groundglass density, new, nonspecific. Moderate emphysema. 1.3 cm subcarinal node, decreased in size compared with March 29, 2023, at which time it measured approximately 2.3 cm. Additional, subcentimeter mediastinal nodes, also generally decreased in size. Severe coronary arterial calcification. Additional findings as above. Electronically signed by: Leo Raza MD 07/21/2024 03:48 PM EDT RP Discharge Plan Discharge Anticipated Discharge Date/Time: 07/22/24 12:01 Patient Disposition: Home Health Service Discharge Diagnosis: pneumonia ,covid, blaire on ckd. Referrals: Bean Joe MD [Primary Care Provider] - 1 Week Discharge Medications: New prednisone 20 mg Tablet 40 mg PO DAILY Qty: 8 0RF doxycycline monohydrate 100 mg Capsule 100 mg PO Q12H Qty: 13 0RF cefuroxime axetil 500 mg Tablet 500 mg PO BID Qty: 13 0RF Continued albuterol sulfate 90 mcg/actuation HFA aerosol inhaler 2 puff inhalation QID PRN (Reason: Wheezing) Trelegy Ellipta 200-62.5-25 mcg blister with device 1 ea inhalation DAILY carvedilol 25 mg tablet 25 mg PO BID valsartan 320 mg tablet 320 mg PO DAILY brimonidine 0.2 % drops 1 drp ophthalmic (eye) BID amlodipine 10 mg tablet 10 mg PO DAILY atorvastatin 40 mg tablet 40 mg PO DAILY latanoprost 0.005 % drops 1 drp ophthalmic (eye) BEDTIME Discharge Orders: Discharge Order (Routine); Ordered 07/22/24 Ordered By: Jay Arguelles Diet: Advance to usual diet Activity on Discharge: As tolerated Stand Alone Forms: Patient Portal Discharge page Print Language: [place] Other Ambulatory Orders: Basic Metabolic Panel (Routine) Timeframe: 1 Week Facility: [facility] - Location: Laboratory Ordered By: Jay Arguelles Care Plan Goals: Patient was admitted for worsening shortness of breath ,cough and wheezing: Found to have COPD exacerbation, BLAIRE on CKD, pneumonia(CT scan chest showed- patchy left upper lobe groundglass ,density, new), wbc : 22.7 k,cr 1.98 , blood cultures sent,patient was also found to have COVID positive( SARS CoV -2 Rna), strep and Legionella antigen pending.: Patient was started on IV antibiotics(ceftriaxone and doxycycline), hydration IV fluids, valsartan was placed on hold due to BLAIRE, also started on nebs and steroids due to COPD exacerbation: With above management patient seems to be improved significantly, not hypoxic sats are 98% on room air. Feels much better. WBC improving to 12k. No fevers.blood cultures neg@24hrs. BLAIRE also improving to the baseline creatinine is 1.47. Patient will be going home with p.o. antibiotics and steroids. Advised self isolation for 5 more days. Health Concerns: Please complete Ceftin 500 mg p.o. b.i.d. for 7 days and doxycycline 100 mg p.o. b.i.d. for 7 days. Prednisone 40 mg for 4 more days. Encouraged for p.o. intake and hydration, check BMP in 1 week. Resume valsartan outpatient since BLAIRE improved. Advised self isolation for 5 more days. please consider repeating chest imaging in 3-4 weeks to see resolution of pneumonia outpatient. Plan of Treatment: As above. Assessment: As above. Patient Instructions: Pneumonia (DC) Discharge Date/Time: 07/22/24 13:40
[2024-07-22] MEDS: cefuroxime axetiL 500 MG TABLET PO (12:51)
--- NOTE | 2024-07-22 12:52 | W.MHC.F2F ---
Service Date Service Date: 07/22/24 Encounter Date of encounter: 07/22/24 Encounter: copd ,pneumonia ,rafael,covid Reasons for Services Signs and symptoms assessed: Shortness of breath or fever Reason for group home: medication management, medication treatment and teach disease management MD Overseeing Care: Bean Joe Homebound: Leaving the home is medically contraindicated at this time without the asist of a device and/or another person due th the listed conditions above and below. Reason homebound: weakness related to hospital stay Homebound supporting statement: Patient had multiple comorbidities COPD exacerbation, pneumonia, COVID-need help for medication management, disease management and lab draws. Certification: Based on the above findings, I certify that this patient is confined to the home and needs intermittent group home care, physical therapy and/or speech therapy, or continues to need occupational therapy. The patient is under my care, and I have initiated the establishment of the plan of care. The patient will be followed by a physician who will periodically review the plan of care. Time Spent With Patient Time: Total time managing care of this patient today ____ minutes.
--- NOTE | 2024-07-22 13:52 | MHC.CM.PN ---
Pt has been medically cleared for DC, he will go home via private transport, and have home care services from [facility].
[2024-07-24 03:28] LABS: Strep Pneumo Ag urine Not Detected (Not Detected)
[2024-07-30 04:13] LABS: Legionella Ag Urine Not Detected (Not Detected)
== END 2024-07-22 13:40 | disposition home health service (06) | DRG 178 ==
LOC: HO.ED 16:26 → HO.EDOVER 17:56 → HO.IMC 07-21 07:47
PROVIDERS: Nurse Practitioner Family; Physician Assistant; Admitting Provider Family Medicine; Emergency Provider Emergency Medicine; PCP Internal Medicine; Visit Provider Internal Medicine
DX: U07.1 COVID-19 (principal); J44.0 Chronic obstructive pulmonary disease with (acute) lower respiratory infection; J44.1 Chronic obstructive pulmonary disease with (acute) exacerbation; N17.9 Acute kidney failure, unspecified; N18.30 Chronic kidney disease, stage 3 unspecified; I12.9 Hypertensive chronic kidney disease with stage 1 through stage 4 chronic kidney disease, or unspecified chronic kidney disease; E78.5 Hyperlipidemia, unspecified; Z90.2 Acquired absence of lung [part of]; Z87.891 Personal history of nicotine dependence; Z85.118 Personal history of other malignant neoplasm of bronchus and lung; Z79.899 Other long term (current) drug therapy
CPT/HCPCS: 0241U; 36415; 71046; 71250; 80048; 80053; 83605; 83735; 83880; 84145; 84484; 85025; 85027; 85610; 86140; 87040; 87449; 87899; 93005; 94640; 97162; 99285; J0696; J1650; J2919; J7120

== ENCOUNTER → 2024-07-20 17:46 | Outpatient (BNV) | payer MEDICARE, SELFPAY | PROVIDERS: Admitting Provider Family Medicine; Emergency Provider Emergency Medicine; PCP Internal Medicine; Visit Provider Family Medicine | DX: U07.1 COVID-19 (principal); J12.82 Pneumonia due to coronavirus disease 2019; N17.9 Acute kidney failure, unspecified | CPT/HCPCS: 99223; 99232; 99239; G0180 ==

== ENCOUNTER 2024-07-29 11:10 | Outpatient (REF) | payer MEDICARE, SELFPAY ==
[2024-07-29 12:56] LABS: Anion Gap 11 (12-20); Blood Urea Nitrogen 33 mg/dL (9-16); Calcium 8.7 mg/dL (8.4-10.2); Carbon Dioxide 25 mmol/L (22-29); Chloride 104 mmol/L (96-108); Estimated Glomerular Filt Rate 40; Glucose Random 98 mg/dL (60-115); Potassium 4.9 mmol/L (3.3-5.1); Sodium 135 mmol/L (135-145)
== END 2024-07-29 11:11 | disposition home or self-care (01) ==
LOC: HO.LAB 11:10
PROVIDERS: PCP Internal Medicine; Visit Provider Internal Medicine
DX: N17.9 Acute kidney failure, unspecified (principal); J18.9 Pneumonia, unspecified organism; U07.1 COVID-19
CPT/HCPCS: 36415; 80048

== ENCOUNTER 2024-10-06 09:41 | Outpatient (AMB) | payer MEDICARE, SELFPAY ==
--- NOTE | 2024-10-06 09:45 | A.OFFVIS_ITS ---
Intake Visit Reasons: INJ- right knee cortisone injection Intake Note: Ashish is an 78 year old male who presents today for a Right Knee Injection. Patient has Right Knee OA - Gel injections as well as surgical interventions have previously been discussed. Last injection administered 06/12/24, he reports that this injectoin gave about 3 months of relief and he would like to repeat injection today. Allergies No Known Allergies Allergy (Verified 07/20/24 11:29) HPI HPI INJ- right knee cortisone injection: Details: Ashish is an 78 year old male who presents today for a Right Knee Injection. Patient has Right Knee OA - Gel injections as well as surgical interventions have previously been discussed. Last injection administered 06/12/24, he reports that this injectoin gave about 3 months of relief and he would like to repeat injection today. [facility] Medical History Lung cancer Hip osteoarthritis Primary osteoarthritis of right hip Primary osteoarthritis of right knee Hypertension Surgical History History of arthroscopy of left knee (~1965) Family History Father No problems noted. Mother No problems noted. Social History Household Members: None Housing: Apartment Do you presently have visiting nurse or other home services: No Alcohol intake: never Patient Tobacco Use Status: Former Tobacco user Tobacco use type: Cigarette e-Cigarette/Vaping Use: Former Use Second Hand Smoke Exposure: No Advance Directives Date on File: 03/28/23 service: Yes Current occupational status: retired Current occupation: right handed Physical Exam Const General: no acute distress, alert and awake Orientation/consciousness: patient oriented x3 HEENT Head: Yes normocephalic and Yes atraumatic Eyes EOM: EOMs intact bilaterally Resp Effort & Inspection: normal respiratory effort and able to speak in complete sentences Cardio Jugular venous distension: no JVD Skin General skin exam: turgor normal Rashes: no rashes Neuro General: patient oriented x3 Extrem Other: medial compartment ttp no effusion skin c/d/i Psych Appearance: grossly normal Affect: normal affect Attitude: cooperative Office Procedures Joint Inj/Aspir; Non-Pain Clin Joint Injection/Drain Details: Injected 1 mL of Decadron and 3 mL 1% lidocaine and 3 mL of 0.25% Marcaine. Site was prepped using aseptic technique. Patient tolerated the procedure well. Approach Used: anterolateral Shoulders, Hips, Knees, Knee Large Joint Injection : Right Knee Coding Procedure code (CPT) selection complete Assessment & Plan Assessment & Plan (1) Primary osteoarthritis of right knee: Code(s): M17.11 - Unilateral primary osteoarthritis, right knee Category: Medical Plan: 78-year-old gentleman with right knee osteoarthritis. He is not interested in surgery and injections have benefitted him. I injected his right knee again today. Coding Level of Care Code Est Pt Level 3 (52825) Diagnoses Primary osteoarthritis of right knee M17.11 CPT Codes Shoulders, Hips, Knees, - Knee Large Joint Injection : Right Knee ([id number])
--- OUTSIDE RECORDS SUMMARY | 2024-10-06 09:46 | XMS_ITS | Data Portability ---
Author Organization [facility] [address] Address [address] [place] [address] Assessment No assessment recorded. Plan of Treatment Reminders Order Date Submit Date Provider Last Modified By Organization Details Last Modified Time Details Appointments None recorded. Lab None recorded. Referral None recorded. Procedures None recorded. Surgeries None recorded. Imaging None recorded. Medication Orders Allergy Relief (fluticaso ne) 50 mcg/actuat ion nasal spray,susp ension 2022 023 [id number], [address] [place], [address], 3 13:02:38 Claritin 10 mg tablet 2022 023 [id number], [address] [place], [address], 3 13:02:38 Patient TargetsNo targets recorded. Patient Instructions Encounter Date Encounter Id Patient Instructions Last Modified By Organization Details Last Modified Time 02/08/2023 [id number] Sinusitis is an infection of the lining of the sinus cavities in your head. Sinusitis often follows a cold. It causes pain and pressure in your head and face. In most cases, sinusitis gets better on its own in 1 to 2 weeks. But some mild symptoms may last for several weeks. Sometimes antibiotics are needed. if you are having problems. It's also a good idea to know your test results and keep a list of the medicines you take. How can you care for yourself at home? Take an zvnj-gla-aypfzzz pain medicine. Avoid Ibuprofen, Aleve and Aspirin if . If the doctor prescribed antibiotics, take them as directed. Do not stop taking them just because you feel better. You need to take the full course of antibiotics. Be careful when taking txte-ezc-fbmumbf cold or influenza (flu) medicines and Tylenol at the same time. Many of these medicines have acetaminophen, which is Tylenol. Read the labels to make sure that you are not taking more than the recommended dose. Too much acetaminophen (Tylenol) can be harmful. Breathe warm, moist air from a steamy shower, a hot bath, or a sink filled with hot water. Avoid cold, dry air. Using a humidifier in your home may help. Follow the directions for cleaning the machine. Use saline (saltwater) nasal washes. This can help keep your nasal passages open and wash out mucus and bacteria. You can buy saline nose drops at a grocery store or drugstore. Or you can make your own at home by adding 1 teaspoon (5 millilitres) of salt and 1 teaspoon (5 millilitres) of baking soda to 2 cups (500 mL) of distilled water. If you make your own, fill a bulb syringe with the solution, insert the tip into your nostril, and squeeze gently. Blow your nose. Put a hot, wet towel or a warm gel pack on your face 3 or 4 times a day for 5 to 10 minutes each time. Try a decongestant nasal spray like oxymetazoline (Drixoral). Do not use it for more than 3 days in a row. Using it for more than 3 days can make your congestion worse. [email or web address] Not available 02/08/2023 13:02:10 Reason for Referral None Reported. Problems Name Problem SNOMED Code Status Onset Date Resolution Date Notes Provider Name and Address Organization Details Recorded Time Hypertensive disorder 86974552 Active 2022 [facility] 3 12:43:49 Hyperlipidemia 87885274 Active 2022 [facility]cdon[facility] 12:43:55 Chronic obstructive pulmonary disease 86501900 Active 2022 HOLLIE Mcdonough [facility] 3 12:44:09 Malignant tumor of lung 230647216 Active 2022 HOLLIE Mcdonough [facility] 12:44:37 Problem Notes None recorded. Procedures Surgical History Date Name Laterality Status Provider Name and Address Organization Details Recorded Time procedure on lung completed BALJEET BROWNE - [facility] 02/08/2023 12:44:57 Imaging Results None recorded. Procedure Notes None recorded. Medical Equipment None Reported. Allergies No known drug allergies Medications Name Sig Start Date Stop Date Status Note LastModified by Organization Details LastModified Time latanoprost 0.005 % eye drops INSTILL 1 DROP INTO BOTH EYES EVERY DAY AT NIGHT active Not Available Not Available No t Available atorvastati n 40 mg tablet TAKE 1 TABLET BY MOUTH DAILY active Not Available Not Available No t Available carvedilol 12.5 mg tablet TAKE 1 TABLET BY MOUTH TWICE A DAY active Not Available Not Available No t Available ondansetron HCl 8 mg tablet TAKE 1 TABLET BY MOUTH EVERY 8 HOURS NEEDED FOR NAUSEA 02/08 completed Not Available Not Available Not Available olanzapine 5 mg tablet TAKE 1 TABLET BY MOUTH NIGHTLY AT BEDTIME. 02/08 completed Not Available Not Available Not Available prochlorper azine maleate 10 mg tablet TAKE 1 TABLET BY MOUTH EVERY 6 HOURS NEEDED FOR NAUSEA 02/08 completed Not Available Not Available Not Available amlodipine 10 mg tablet TAKE 1 TABLET BY MOUTH EVERY DAY active Not Available Not Available No t Available dexamethaso ne 4 mg tablet TAKE 1 TABLET (4MG) TWICE DAILY ON THE DAY BEFORE, THE DAY OF AND THE DAY AFTER CHEMOTHER APY. 02/08 completed Not Available Not Available Not Available folic acid 1 mg tablet TAKE 1 TABLET BY MOUTH EVERY DAY 02/08 completed Not Available Not Available Not Available albuterol sulfate HFA 90 mcg/actuati on aerosol inhaler 2 PUFFS INHALATIO N 4 TIMES A DAY, NEEDED FOR WHEEZING active Not Available Not Available No t Available losartan 100 mg tablet TAKE 1 TABLET BY MOUTH EVERY DAY active Not Available Not Available No t Available fluticasone propionate 50 mcg/actuati on nasal spray,suspe nsion SPRAY 1 SPRAY BY INTRANASA L ROUTE EVERY DAY DIRECTED active Not Available Not Available No t Available loratadine 10 mg tablet TAKE 1 TABLET BY MOUTH EVERY DAY IN THE MORNING active Not Available Not Available No t Available Rhopressa 0.02 % eye drops INSTILL 1 DROP INTO BOTH EYES EVERY DAY AT NIGHT active Not Available Not Available No t Available Kay Ellipta 200 mcg-62.5 mcg-25 mcg powder for inhalation INHALE 1 PUFF DAILY AT THE SAME TIME EVERY DAY active Not Available Not Available No t Available Vitals Date Recorded Body height Body mass index (BMI) Body weight Respiratory rate Oxygen saturation Oxygen saturation in Arterial blood by Pulse oximetry Heart rate Body temperature Systolic blood pressure Diastolic blood pressure Provider Name and Address Organization Details Last Updated DateTime 3 177.8 cm 26.3 kg/m2 56087.4 g 18 /min 97 % 97 % 66 /min 97.8 [degF] 123 mm[Hg] 80 mm[Hg] BALJEET LAI PA - [facility] 12:46:40 Social History Question Answer Notes LastModified by Organizat ion Details LastModified Time Tobacco Smoking Status Former Smoker BALJEET han PA - [facility] 02/08/2023 12:45:50 What Is Your Level Of Alcohol Consumption? Occasional Information not available 02/08/2023 When Did You Quit Smoking? 11-15yearssinc elastcigarette [email or web address] Information not available 02/08/2023 Do You Use Any Illicit Or Recreational Drugs? No Information not available 02/08/2023 Have You Recently Traveled Abroad? No [email or web address] Information not available 02/08/2023 Do You Or Have You Ever Used Any Other Forms Of Tobacco Or Nicotine? No [email or web address] Information not available 02/08/2023 Sex: Unknown Functional Status None recorded. Mental Status None recorded. Family History Relationship Description Onset Age of this Age Resolved Age Notes LastModified by Organization Details LastModified Time Father No current problems or disability Not available 02/08 12:45:30 Mother No current problems or disability [email or web address] Not available 02/08 12:45:30 Medical History No medical history recorded. Past Encounters Encounter ID Performer Location Encounter Start Date Encounter Closed Date Diagnosis/Indication Diagnosis SNOMED-CT Code Diagnosis ICD10 Code [id number] [address] [address] 08/10/2019 10:58:35 08/10/2019 11:38:55 [id number] [address] [place] [address] 12/28/2019 11:18:26 12/28/2019 12:03:42 [id number] Carlos Waters NP [address] [facility] [address] [place] [address] 02/08/2023 12:27:45 02/08/2023 13:04:37 Acute sinusitis 06507634 J01.90 Health Concerns Section Related Observation LastModified by Organization Detai ls LastModified Time None Recorded Concern Status LastModified by Organization Details LastModified Time None Recorded Advance Directives Directive None Recorded Payers Encounter Date Sequence Insurance Name Policy Number Policy Navarro Covered Member ID Navarro Member ID Guarantor Name 08/10/2019 1 MEDICARE B-[place]: [facility] Ashish A Alfonso [id number] Ashish Alfonso 12/28/2019 1 MEDICARE B-[place]: [facility] Ashish A Alfonso [id number] Ashish Alfonso 12/28/2019 2 [place] [id number] Ashish A Alfonso [id number] Ashish Alfonso 02/08/2023 1 [place] Ashish A Alfonso [id number] Ashish Alfonso 02/08/2023 2 [place] [id number] Ashish A Alfonso [id number] Ashish Alfonso Notes Date Note Type Note Provider Name and Address Organization Details Recorded Time 02/08/2023 text/html Sinus Complaints UCReported bypatient.Location: sinus pain;facial pain;sinus pressure Associated Symptoms:no fever; no nausea or vomiting; no sore throat; no ear fullness; no nasal itching; no eye itching; no dizziness;difficult y breathing;Post nasal drip;nasal passage blockage;cough Onset/Timing:worse in am; worse in pm Quality:minimal discomfort;worsenin g; clear Duration:frequent Severity:moderate Context:no recent upper respiratory infection; no recent sick contacts; not worse with seasonal allergen exposure;worse with environmental exposure Risk Factors:no current smoking or tobacco use; no history of nasal trauma Alleviating factors:oral steroids Aggravating factors:worse during an upper respiratory infection (a cold); worse with excess fatigue Prior Treatmentoral decongestant Carlos Waters NP [address] [place], [address], PA - [facility] 02/08/2023 13:03:07
== END 2024-10-06 10:22 | disposition home or self-care (01) ==
PROVIDERS: PCP Internal Medicine; Visit Provider Orthopaedic Surgery
DX: M17.11 Unilateral primary osteoarthritis, right knee (principal)
CPT/HCPCS: 20610; 99213

== ENCOUNTER → 2024-10-06 09:41 | Outpatient (BNVA) | payer MEDICARE, SELFPAY | PROVIDERS: PCP Internal Medicine; Visit Provider Orthopaedic Surgery | DX: M17.11 Unilateral primary osteoarthritis, right knee (principal) | CPT/HCPCS: 20610; 99212; J0665; J1100; J2003 ==

== ENCOUNTER 2025-01-08 10:02 | Outpatient (AMB) | payer MEDICARE, SELFPAY ==
--- NOTE | 2025-01-08 10:11 | MHC.OFFVIS ---
Intake Visit Reasons: INJ- Right knee cortisone last inj 10/06/24 Intake Note: Ashish is an 78 year old male who presents today for a Right Knee Injection. Patient has Right Knee OA - Gel injections as well as surgical interventions have previously been discussed. Last injection administered 10/06/2024 - he would sandhya to repeat injection today. Allergies No Known Allergies Allergy (Verified 07/20/24 11:29) HPI HPI INJ- Right knee cortisone last inj 10/06/24: Details: Ashish is an 78 year old male who presents today for a Right Knee Injection. Patient has Right Knee OA - Gel injections as well as surgical interventions have previously been discussed. Last injection administered 10/06/2024 - he would sandhya to repeat injection today. [facility]LY [facility] Medical History Lung cancer Hip osteoarthritis Primary osteoarthritis of right hip Primary osteoarthritis of right knee Hypertension Surgical History History of arthroscopy of left knee (~1965) Family History Father No problems noted. Mother No problems noted. Social History Household Members: None Housing: Apartment Do you presently have visiting nurse or other home services: No Alcohol intake: never Patient Tobacco Use Status: Former Tobacco user Tobacco use type: Cigarette e-Cigarette/Vaping Use: Former Use Second Hand Smoke Exposure: No Advance Directives Date on File: 03/28/23 service: Yes Current occupational status: retired Current occupation: right handed Physical Exam Const General: no acute distress, alert and awake Orientation/consciousness: patient oriented x3 HEENT Head: Yes normocephalic and Yes atraumatic Eyes EOM: EOMs intact bilaterally Resp Effort & Inspection: normal respiratory effort and able to speak in complete sentences Cardio Jugular venous distension: no JVD Skin General skin exam: turgor normal Rashes: no rashes Neuro General: patient oriented x3 Extrem Other: medial compartment ttp no effusion skin c/d/i Psych Appearance: grossly normal Affect: normal affect Attitude: cooperative Office Procedures Joint Inj/Aspir; Non-Pain Clin Joint Injection/Drain Details: Injected 1 mL of Decadron and 3 mL 1% lidocaine and 3 mL of 0.25% Marcaine. Site was prepped using aseptic technique. Patient tolerated the procedure well. Shoulders, Hips, Knees, Knee Large Joint Injection : Right Knee Coding Procedure code (CPT) selection complete Assessment & Plan Assessment & Plan (1) Primary osteoarthritis of right knee: Code(s): M17.11 - Unilateral primary osteoarthritis, right knee Category: Medical Plan: 79-year-old gentleman with right knee osteoarthritis. He is not interested in surgery and injections have benefitted him. I injected his right knee again today. Coding Level of Care Code Est Pt Level 3 (52779) Diagnoses Primary osteoarthritis of right knee M17.11 CPT Codes Shoulders, Hips, Knees, - Knee Large Joint Injection : Right Knee ([id number])
--- OUTSIDE RECORDS SUMMARY | 2025-01-08 11:14 | XMS_ITS | Data Portability ---
Author Organization [facility]aneda [facility] [address] Address [address] [place] [id number] Assessment No assessment recorded. Plan of Treatment Reminders Order Date Submit Date Provider Last Modified By Organization Details Last Modified Time Details Appointments None recorded. Lab None recorded. Referral None recorded. Procedures None recorded. Surgeries None recorded. Imaging None recorded. Medication Orders Allergy Relief (fluticaso ne) 50 mcg/actuat ion nasal spray,susp ension 2022 023 [id number], [address] [place], [address], 3 13:02:38 Claritin 10 mg tablet 2022 023 [id number], [address] [place], [address], 3 13:02:38 Patient TargetsNo targets recorded. Patient Instructions Encounter Date Encounter Id Patient Instructions Last Modified By Organization Details Last Modified Time 02/08/2023 [id number] Sinusitis is an infection of the lining [...] care for yourself at home? Take an ilpb-yoa-ribjbcb pain medicine. Avoid Ibuprofen, Aleve and Aspirin if . If the doctor prescribed antibiotics, take them as directed. Do not stop taking them just because you feel better. You need to take the full course of antibiotics. Be careful when taking faez-lpr-hghsqiy cold or influenza (flu) medicines and Tylenol [...] Address Organization Details Recorded Time Hypertensive disorder 63728548 Active 2022 [facility] 3 12:43:49 Hyperlipidemia 30383364 Active 2022 [facility] 3 12:43:55 Chronic obstructive pulmonary disease 17061388 Active 2022 [facility]cdon[facility] 3 12:44:09 Malignant tumor of lung 522594934 Active 2022 [facility] 12:44:37 [...] Not Available Not Available No t Available Kya Ellipta 200 mcg-62.5 mcg-25 mcg powder for inhalation INHALE 1 PUFF DAILY AT THE SAME TIME EVERY DAY active Not Available Not Available No t Available Vitals Date Recorded Body height Body mass index (BMI) Body weight Pain severity - 0-10 verbal numeric rating [Score] - Reported Respiratory rate Oxygen saturation Oxygen saturation in Arterial blood by Pulse oximetry Heart rate Body temperature Systolic blood pressure Diastolic blood pressure Provider Name and Address Organization Details Last Updated DateTime 3 177.8 cm 26.3 kg/m2 61966.4 g 5 18 /min 97 % 97 % 66 /min 97.8 [degF] 123 mm[Hg] 80 mm[Hg] BALJEET BROWNE - [employer] [facility] 12:46:40 Social History Question Answer Notes LastModified by Organizat ion Details LastModified Time Tobacco Smoking Status Former Smoker BALJEET han [place] - [facility] 02/08/2023 12:45:50 What Is Your Level Of Alcohol Consumption? Occasional [email or web address] Information not available 02/08/2023 When Did You Quit Smoking? 11-15yearssinc elastcigarette [email or web address] Information not available 02/08/2023 Do You Use Any Illicit Or Recreational Drugs? No [email or web address] Information not available 02/08/2023 Have You Recently Traveled Abroad? No [email or web address] Information not available 02/08/2023 Do You Or Have You Ever Used Any Other Forms Of Tobacco Or Nicotine? No [email or web address] Information not available 02/08/2023 Sex: Unknown Functional Status None recorded. Mental Status None recorded. Family History Relationship Description Onset Age of this Age Resolved Age Notes LastModified by Organization Details LastModified Time Father No current problems or disability Not available 02/08 12:45:30 Mother No current problems or disability Not available 02/08 12:45:30 Medical History No medical history recorded. Past Encounters Encounter ID Performer Location Encounter Start Date Encounter Closed Date Diagnosis/Indication Diagnosis SNOMED-CT Code Diagnosis ICD10 Code Diagnosis Note [id number] [address] [address] 08/10/2019 10:58:35 08/10/2019 11:38:55 [id number] [address] [place] [address] 12/28/2019 11:18:26 12/28/2019 12:03:42 [id number] Carlos Waters NP [address] [place] [address] 02/08/2023 12:27:45 02/08/2023 13:04:37 Acute sinusitis 66338927 J01.90 Health Concerns Section Related Observation LastModified by Organization Detai ls LastModified Time None Recorded Concern Status LastModified by Organization Details LastModified Time None Recorded Advance Directives Directive None Recorded Payers Encounter Date Sequence Insurance Name Policy Number Policy Navarro Covered Member ID Navarro Member ID Guarantor Name 08/10/2019 1 [place] [facility] Ashish Ricco Alfonso [id number] Ashish Alfonso 12/28/2019 1 [place] [facility] Ashish Ricco Alfonso [id number] Ashish Alfonso 12/28/2019 2 [place] [id number] Ashish A Alfonso [id number] Ashish Alfonso 02/08/2023 1 [place] [facility] Ashish Chacko Alfonso [id number] Ashish Alfonso 02/08/2023 2 [place] [id number] Ashish Chacko Alfonso [id number] Ashish Alfonso Notes Date Note Type [...] Prior Treatmentoral decongestant Carlos Waters [facility] [address] [facility] [place], [address], [place] - [facility] 02/08/2023 13:03:07
== END 2025-01-08 10:20 | disposition home or self-care (01) ==
LOC: HO.HOS 10:02
PROVIDERS: PCP Internal Medicine; Visit Provider Orthopaedic Surgery
DX: M17.11 Unilateral primary osteoarthritis, right knee (principal)
CPT/HCPCS: 20610; 99213

== ENCOUNTER → 2025-01-08 10:02 | Outpatient (BNVA) | payer MEDICARE, SELFPAY | PROVIDERS: PCP Internal Medicine; Visit Provider Orthopaedic Surgery | DX: M17.11 Unilateral primary osteoarthritis, right knee (principal) | CPT/HCPCS: 20610; 99212; J0665; J1100; J2003 ==

== ENCOUNTER 2025-03-30 09:21 | Emergency (ER) | payer MEDICARE, SELFPAY ==
--- NOTE | 2025-03-30 | ECG_ITS ---
Test Reason : sob Blood Pressure : */* mmHG Vent. Rate : 69 BPM Atrial Rate : 69 BPM P-R Int : 170 ms QRS Dur : 100 ms QT Int : 384 ms P-R-T Axes : 51 -30 24 degrees QTcB Int : 411 ms Normal sinus rhythm Left axis deviation Incomplete right bundle branch block Minimal voltage criteria for LVH, may be normal variant ( R in aVL ) Septal infarct , age undetermined Abnormal ECG When compared with ECG of 20-Jul-2024 11:16, Septal infarct is now Present Referred By: Generic ED Physician Electronically Signed By: RENNY TINEO MD
--- NOTE | ~2025-03-30 | XR_ITS ---
EXAMINATION: XR CHEST CLINICAL INFORMATION: SOB, chest pain COMPARISON: 07/20/2024. CT chest 07/21/2024. TECHNIQUE: 2 views of the chest were obtained. FINDINGS: The cardiac, hilar, and mediastinal contours are normal. Lungs are mildly hyperaerated. There is airspace opacity throughout the right upper lobe distribution, new from prior suggestive of pneumonia. Previously seen left lung opacities have resolved. Stable scarring in the apices of both lungs. There is no pneumothorax or pleural effusion. There is no focal osseous or soft tissue abnormality. XR/XR chest 2V IMPRESSION: Right upper lobe pneumonia. No effusion. COPD. Electronically signed by: Alex Rubalcava MD 03/30/2025 10:03 AM EDT
[2025-03-30 09:28] VITALS: BP 131/69; PULSE 72; RESP 20; TEMP 36.5; O2SAT 90; BMI 23.7
[2025-03-30 09:32] VITALS: RESP 24; O2SAT 95
[2025-03-30 09:47] LABS: MANUAL DIFF FLAG NO
--- NOTE | 2025-03-30 09:47 | PC.NURSE ---
Away for chest xray. 20g IV access established in left AC. Labs drawn and sent for analysis, awaiting results. Also awaiting ED provider initial evaluation. EKG completed.
[2025-03-30 09:49] LABS: Basophils Percent Auto 0.3 % (0-2); Eosinophils Absolute Auto 0.2 X10*3/uL (0.0-0.4); Hematocrit 33.5 % (42.0-52.0); Hemoglobin 11.5 g/dl (14.0-18.0); Imm Gran Abs Auto 0.06 X10*3/uL (0.00-0.03); Imm Gran Pct Auto 0.6 % (0.0-0.4); Lymphocytes Percent Auto 10.4 % (20-40); Mean Corpuscular HGB Conc 34.3 g/dl (31.0-36.0); Mean Corpuscular Hemoglobin 30.7 pg (27.0-33.0); Mean Corpuscular Volume 89.6 fL (80.0-98.0); Monocytes Percent Auto 10.8 % (2-11); Neutrophils Absolute Auto 7.2 x10*3/uL (2.0-8.3); Neutrophils Percent Auto 75.9 % (45-73); Platelet Count 248 X10*3/uL (160-400); Red Blood Count 3.74 X10*6/uL (4.60-5.80); Red Cell Distribution Width 13.3 % (11.0-16.0); White Blood Count 9.5 X10*3/uL (4.8-10.8)
--- NOTE | 2025-03-30 09:49 | ED_ITS ---
HPI - General Adult General Chief complaint: Dyspnea Stated complaint: Short Breath Time Seen by Provider: 03/30/25 09:48 Source: patient, RN notes reviewed and old records reviewed Mode of arrival: ambulatory Limitations: no limitations History of Present Illness ED Provider: Chuy ROMERO narrative: Patient is an 79-year-old male with history of COPD, lung CA with left lung resection performed at [facility], hypertension, osteoarthritis presenting in the emergency department with complaint of worsening dyspnea since Sunday. He is not on home O2. Was using his rescue inhaler with some relief. Denies palpitations, complains of a burning sensation to his chest with deep inspiration. Denies any pedal edema or weight gain. Denies fevers or known sick contacts. MD complaint: dyspnea Onset (ago): day(s) Related Data Home Medications ?Medication ?Instructions ?Recorded ?Confirmed amlodipine 10 mg tablet 10 mg PO DAILY 08/18/20 07/20/24 atorvastatin 40 mg tablet 40 mg PO DAILY 08/18/20 07/20/24 latanoprost 0.005 % eye drops 1 drp ophthalmic (eye) BEDTIME 09/25/22 07/20/24 albuterol sulfate 90 mcg/actuation 2 puff inhalation QID PRN Wheezing 03/28/23 07/20/24 aerosol inhaler fluticasone fur. 200 mcg-umeclid 1 ea inhalation DAILY 03/28/23 07/20/24 62.5 mcg-vilant 25 mcg inhalat.powder (Trelegy Ellipta) brimonidine 0.2 % eye drops 1 drp ophthalmic (eye) BID 07/20/24 07/20/24 carvedilol 25 mg tablet 25 mg PO BID 07/20/24 07/20/24 valsartan 320 mg tablet 320 mg PO DAILY 07/20/24 07/20/24 Previous Rx's ?Medication ?Instructions ?Recorded cefuroxime axetil 500 mg tablet 500 mg PO BID #13 tabs 07/22/24 doxycycline monohydrate 100 mg 100 mg PO Q12H #13 caps 07/22/24 capsule prednisone 20 mg tablet 40 mg (2 x 20 mg) PO DAILY #8 tabs 07/22/24 amoxicillin 875 mg-potassium 1 tab PO BID #14 tabs 03/30/25 clavulanate 125 mg tablet doxycycline hyclate 100 mg capsule 100 mg PO BID #9 caps 03/30/25 Allergies Allergy/AdvReac Type Severity Reaction Status Date / Time No Known Allergies Allergy Verified 03/30/25 09:30 Review of Systems 2 Review of Systems: As per HPI Yes all other systems are reviewed and are negative Constitutional: Constitutional: Reports as per HPI [facility] Past Medical History Medical History Lung cancer Hip osteoarthritis Primary osteoarthritis of right hip Primary osteoarthritis of right knee Hypertension Surgical History History of arthroscopy of left knee (~1965) Family History Family History Father No problems noted. Mother No problems noted. Social History Social History Household Members: None Housing: Apartment Do you presently have visiting nurse or other home services: No Alcohol intake: never Patient Tobacco Use Status: Former Tobacco user Tobacco use type: Cigarette e-Cigarette/Vaping Use: Former Use Second Hand Smoke Exposure: No Advance Directives: Yes Advance Directives on File: Yes Advance Directives Date on File: 03/28/23 service: Yes Current occupational status: retired Current occupation: right handed Physical Exam ED Vital Signs: Vital Signs - 24 hr 03/30/25 09:28 03/30/25 09:32 03/30/25 11:15 Temperature 97.7 F Pulse Rate 72 68 Respiratory Rate 20 24 H 16 Blood Pressure 131/69 Pulse Oximetry 90 L 95 Oxygen Delivery Method Room Air Room Air BMI result Body Mass Index 23.7 Vital signs have been reviewed and appear to be correct. Blood pressure normal. Heart rate normal. Respiratory rate normal. Temperature normal. Oxygen saturation normal. Const General: cooperative, healthy appearing and no acute distress Orientation/consciousness: oriented to person, oriented to place, oriented to time and patient oriented x3 Limitations: no limitations HENMT Head: Yes normocephalic and Yes atraumatic Ears: external ears normal General nose exam: Normal external nose present Face and sinus: Yes face symmetric Mouth: oropharynx normal and moist mucous membranes Throat: Yes uvula midline Eyes Pupils: Equal, round and reactive pupils present Neck Neck: Yes normal visual inspection and Yes supple Resp Effort & Inspection: normal respiratory effort and able to speak in complete sentences Auscultation: clear to auscultation bilaterally and wheezes inspiratory wheezes (left sided) Cardio Rate: regular rate Rhythm: regular rhythm Heart sounds: S1 normal heart sound present and S2 normal heart sound present GI Palpation (GI): Soft to palpation and nontender Auscultation: normoactive bowel sounds General: Yes no CVA tenderness Back/Spine/Pelvis Back: no CVA tenderness Skin General skin exam: elasticity normal and turgor normal Neuro General: oriented to person, oriented to place, oriented to time, patient oriented x3, moves all extremities, no focal motor deficits and CN's II-XI intact bilaterally Cranial nerves: Yes Equal, round and reactive pupils present Cognition (Neuro): normal cognition Extrem General: Yes full ROM, Yes no pedal edema and Yes no calf tenderness Psych Mental Status: mental status grossly normal Affect: normal affect Thought process: Normal thought process present Medications Administered Discontinued Medications Generic Name Dose Route Start Last Admin Trade Name Beniq PRN Reason Stop Dose Admin Amoxicillin/Clavulanate Potassium 875 mg 03/30/25 10:51 03/30/25 11:03 Amoxicillin/Potassium Clav 875 Mg Tablet PO 03/30/25 10:52 875 mg ONCE ONE Administration Albuterol Sulfate 2.5 mg/ 0 mg 03/30/25 11:07 03/30/25 11:14 Albuterol/Ipratropium 3 ml INHALE 03/30/25 11:08 1 dose ONCE ONE Administration Doxycycline Monohydrate 100 mg 03/30/25 10:51 03/30/25 11:03 Doxycycline Monohydrate 100 Mg Capsule PO 03/30/25 10:52 100 mg ONCE ONE Administration Medical Decision Making Medical Decision Making [facility] Narrative: Patient is an 79-year-old male with history of COPD, lung CA with left lung resection performed at [facility], hypertension, osteoarthritis presenting in the emergency department with complaint of worsening dyspnea since Sunday. On exam patient is awake, A+Ox3, VS WNL, afebrile, normal neurological exam without focal deficits, physical exam findings as above. Given reported symptoms and physical exam findings, initial differential includes but is not limited to COPD exacerbation, viral illness, bronchitis, pneumonia. Labs notable for left shift without leukocytosis, normal VBG, chronically elevated BUN/Cr similar to baseline, mildly elevated troponin. X-ray chest notable for RUL pneumonia. My interpretation is in agreement with the radiologist's interpretation. Antibiotics ordered. Repeat troponin flat. Patient is without hypoxia or increased work of breathing. He is comfortable with discharge home. Discussed with patient that he will need to follow up with PCP for repeat chest x-ray in 4-6 weeks. Return precautions discussed at bedside. Will treat with Augmentin and doxy. Patient verbalized understanding of and agreement with plan. Differential Diagnosis Differential Diagnoses: The differential diagnosis associated with the presentation includes As Per [facility] Admission/Observation Consideration of admission/observation: Escalation of care including admission/observation considered Patient would have been admitted to the hospital had their work up had any findings where hospital admission was appropriate and their clinical presentation warranted hospital admission. Lab Data [facility] Lab Attestation statement: I reviewed the patient's lab results. As per [facility] 03/30/25 09:43 03/30/25 09:43 Labs: Lab Results 03/30/25 03/30/25 03/30/25 Range/Units 09:43 09:47 10:03 WBC 9.5 (4.8-10.8) X10*3/uL RBC 3.74 L (4.60-5.80) X10*6/uL Hgb 11.5 L (14.0-18.0) g/dl Hct 33.5 L (42.0-52.0) % MCV 89.6 (80.0-98.0) fL MCH 30.7 (27.0-33.0) pg MCHC 34.3 (31.0-36.0) g/dl RDW 13.3 (11.0-16.0) % Plt Count 248 (160-400) X10*3/uL MPV 10.0 (9.4-12.4) fL Immature Gran % (Auto) 0.6 H (0.0-0.4) % Neut % (Auto) 75.9 H (45-73) % Lymph % (Auto) 10.4 L (20-40) % [place]mort[place] % (Auto) 10.8 (2-11) % Eos % (Auto) 2.0 (0-4) % Baso % (Auto) 0.3 (0-2) % Lymph # (Auto) 1.0 L (1.2-4.9) X10*3/uL [place]morton # (Auto) 1.0 (0.1-1.2) X10*3/uL Eos # (Auto) 0.2 (0.0-0.4) X10*3/uL Baso # (Auto) 0.0 (0.0-0.2) X10*3/uL Abs Immat Gran (auto) 0.06 H (0.00-0.03) X10*3/uL Absolute Neuts (auto) 7.2 (2.0-8.3) x10*3/uL Absolute Nucleated RBC 0.000 (0.0-0.012) X10*3/uL Nucleated RBC % (auto) 0.0 (0.0-0.2) /100WBC PT 11.8 (10.9-12.4) SEC INR 1.0 (0.9-1.1) VBG pH 7.41 (7.32-7.43) VBG pCO2 36 mmHg VBG pO2 49 mmHg VBG HCO3 23 (22-26) mmol/L VBG O2 Saturation 75.0 % VBG Base Excess -0.5 mmol/L Sodium 139 (135-145) mmol/L Potassium 4.3 (3.3-5.1) mmol/L Chloride 108 (96-108) mmol/L Carbon Dioxide 23 (22-29) mmol/L Anion Gap 12 (12-20) BUN 23 H (9-16) mg/dL Creatinine 1.72 H (0.5-1.4) mg/dL Estim Creat Clear Calc 34.7 Estimated GFR 38 Random Glucose 103 (60-115) mg/dL Calcium 8.7 (8.4-10.2) mg/dL Troponin I High Sens 6.8 (<3.5-35.0) ng/L Influenza Type A (PCR) NEGATIVE (Negative) Influenza Type B (PCR) NEGATIVE (Negative) RSV RNA Qual (PCR) NEGATIVE (Negative) SARS-CoV-2 RNA (RT-PCR) NEGATIVE (Negative) 03/30/25 Range/Units 11:10 WBC (4.8-10.8) X10*3/uL RBC (4.60-5.80) X10*6/uL Hgb (14.0-18.0) g/dl Hct (42.0-52.0) % MCV (80.0-98.0) fL MCH (27.0-33.0) pg MCHC (31.0-36.0) g/dl RDW (11.0-16.0) % Plt Count (160-400) X10*3/uL MPV (9.4-12.4) fL Immature Gran % (Auto) (0.0-0.4) % Neut % (Auto) (45-73) % Lymph % (Auto) (20-40) % Th[place]morton % (Auto) (2-11) % Eos % (Auto) (0-4) % Baso % (Auto) (0-2) % Lymph # (Auto) (1.2-4.9) X10*3/uL [place] # (Auto) (0.1-1.2) X10*3/uL Eos # (Auto) (0.0-0.4) X10*3/uL Baso # (Auto) (0.0-0.2) X10*3/uL Abs Immat Gran (auto) (0.00-0.03) X10*3/uL Absolute Neuts (auto) (2.0-8.3) x10*3/uL Absolute Nucleated RBC (0.0-0.012) X10*3/uL Nucleated RBC % (auto) (0.0-0.2) /100WBC PT (10.9-12.4) SEC INR (0.9-1.1) VBG pH (7.32-7.43) VBG pCO2 mmHg VBG pO2 mmHg VBG HCO3 (22-26) mmol/L VBG O2 Saturation % VBG Base Excess mmol/L Sodium (135-145) mmol/L Potassium (3.3-5.1) mmol/L Chloride (96-108) mmol/L Carbon Dioxide (22-29) mmol/L Anion Gap (12-20) BUN (9-16) mg/dL Creatinine (0.5-1.4) mg/dL Estim Creat Clear Calc Estimated GFR Random Glucose (60-115) mg/dL Calcium (8.4-10.2) mg/dL Troponin I High Sens 7.0 (<3.5-35.0) ng/L Influenza Type A (PCR) (Negative) Influenza Type B (PCR) (Negative) RSV RNA Qual (PCR) (Negative) SARS-CoV-2 RNA (RT-PCR) (Negative) Independent Interpretation I performed an independent interpretation of an: Plain X-Ray Interpretation: CXR shows RUL pneumonia Radiology Impression Discussion of test interpretation with radiology: I have reviewed the radiologist's reading. Radiologist Impression: CLINICAL INFORMATION: SOB, chest pain COMPARISON: 07/20/2024. CT chest 07/21/2024. TECHNIQUE: 2 views of the chest were obtained. FINDINGS: The cardiac, hilar, and mediastinal contours are normal. Lungs are mildly hyperaerated. There is airspace opacity throughout the right upper lobe distribution, new from prior suggestive of pneumonia. Previously seen left lung opacities have resolved. Stable scarring in the apices of both lungs. There is no pneumothorax or pleural effusion. There is no focal osseous or soft tissue abnormality. XR/XR chest 2V IMPRESSION: Right upper lobe pneumonia. No effusion. COPD. External Record Review External record reviewed: Inpatient record, Office record and Outpatient record Prescription Management I considered prescription management with: Antibiotic Chronic Conditions Patient?s care impacted by: Other Discharge Plan Discharge Clinical Impression: Right upper lobe pneumonia Patient Disposition: Home, Self-Care Instructions: Community Acquired Pneumonia (DC) Additional Instructions: You were evaluated in the emergency department today for cough and shortness of breath. Your chest x-ray shows evidence of pneumonia. You are being treated with antibiotics, please complete the full course as prescribed. You are also being prescribed an inhaler and cough medicine which you can use per instructions. Please call your primary care provider within the next 2-3 days to schedule a follow-up appointment. You will need a repeat chest x-ray to confirm resolution of your pneumonia. Return to the emergency department if you develop worsening shortness of breath, chest pain, palpitations, fever 100.4? F or greater, or any other concerning symptoms. Prescriptions: New amoxicillin-pot clavulanate 875-125 mg tablet 1 tab PO BID Qty: 14 0RF doxycycline hyclate 100 mg capsule 100 mg PO BID Qty: 9 0RF No Action albuterol sulfate 90 mcg/actuation HFA aerosol inhaler 2 puff inhalation QID PRN (Reason: Wheezing) Treleedgar Ellipta 200-62.5-25 mcg blister with device 1 ea inhalation DAILY carvedilol 25 mg tablet 25 mg PO BID valsartan 320 mg tablet 320 mg PO DAILY brimonidine 0.2 % drops 1 drp ophthalmic (eye) BID prednisone 20 mg Tablet 40 mg PO DAILY Qty: 8 0RF doxycycline monohydrate 100 mg Capsule 100 mg PO Q12H Qty: 13 0RF cefuroxime axetil 500 mg Tablet 500 mg PO BID Qty: 13 0RF amlodipine 10 mg tablet 10 mg PO DAILY atorvastatin 40 mg tablet 40 mg PO DAILY latanoprost 0.005 % drops 1 drp ophthalmic (eye) BEDTIME Print Language: Syriac
[2025-03-30 09:53] LABS: Prothrombin Time 11.8 SEC (10.9-12.4)
[2025-03-30 09:55] LABS: Venous Blood Gas Refer to POC result
[2025-03-30 09:56] LABS: VBG Base Excess -0.5 mmol/L; VBG HCO3 23 mmol/L (22-26); VBG pCO2 36 mmHg; VBG pH 7.41 (7.32-7.43); VBG pO2 49 mmHg
[2025-03-30 10:02] LABS: Anion Gap 12 (12-20); Blood Urea Nitrogen 23 mg/dL (9-16); Calcium 8.7 mg/dL (8.4-10.2); Carbon Dioxide 23 mmol/L (22-29); Chloride 108 mmol/L (96-108); Creatinine Clr Calc Pharmacy 34.7; Estimated Glomerular Filt Rate 38; Glucose Random 103 mg/dL (60-115); Potassium 4.3 mmol/L (3.3-5.1); Sodium 139 mmol/L (135-145)
[2025-03-30 10:12] LABS: Troponin-I High Sensitivity 6.8 ng/L (<3.5-35.0)
[2025-03-30 10:47] LABS: Influenza A PCR NEGATIVE (Negative); Influenza B PCR NEGATIVE (Negative); Resp Syncy Virus RNA Qual PCR NEGATIVE (Negative); SARS COV2 PCR INHOUSE NEGATIVE (Negative)
--- OUTSIDE RECORDS SUMMARY | 2025-03-30 10:55 | XMS_ITS | Data Portability ---
Author Organization HOLLIE Castaneda s [address] Address [address] [place] [address] Assessment No assessment recorded. Plan of Treatment Reminders Order Date Submit Date Provider Last Modified By Organization Details Last Modified Time Details Appointments None recorded. Lab None recorded. Referral None recorded. Procedures None recorded. Surgeries None recorded. Imaging None recorded. Medication Orders Allergy Relief (fluticaso ne) 50 mcg/actuat ion nasal spray,susp ension 2022 023 [facility]/Pharmacy #[id number], [address] [place], [address], 3 13:02:38 Claritin 10 mg tablet 2022 023 [facility] #[id number], [address] [place], [address], 3 13:02:38 Patient TargetsNo targets recorded. Patient Instructions Encounter Date Encounter Id Patient Instructions Last Modified By Organization Details Last Modified Time 02/08/2023 [id number] Sinusitis is an infection of the lining [...] care for yourself at home? Take an aqrg-zcv-bmvdpfo pain medicine. Avoid Ibuprofen, Aleve and Aspirin if . If the doctor prescribed antibiotics, take them as directed. Do not stop taking them just because you feel better. You need to take the full course of antibiotics. Be careful when taking sjad-pry-cigpojd cold or influenza (flu) medicines and Tylenol [...] Address Organization Details Recorded Time Hypertensive disorder 35902361 Active 2022 [facility] 3 12:43:49 Hyperlipidemia 23682300 Active 2022 [facility] 3 12:43:55 Chronic obstructive pulmonary disease 90658739 Active 2022 [facility] 3 12:44:09 Malignant neoplasm of lung 196284386 Active 2022 [facility]cdon[facility] 12:44:37 [...] Updated DateTime 3 177.8 cm 26.3 kg/m2 40376.4 g 18 /min 97 % 97 % 66 /min 97.8 [degF] 123 mm[Hg] 80 mm[Hg] BALJEET HOLLEYEY PA - [facility] 12:46:40 Social History Question Answer Notes LastModified by Source Audio Details LastModified Time Tobacco Smoking Status Former Smoker BALJEET han PA - [facility] 02/08/2023 12:45:50 When Did You Quit Smoking? 11-15yearssi rileyelacalli queen [email or web address] Information not available 02/08/2023 Have You Recently Traveled Abroad? No Information not available 02/08/2023 Sex: Unknown Functional Status Question Answer Note LastModified by [employer] Details LastModified Time Do you use any illicit or recreational drugs? No [email or web address] Information not available 02/08/2023 Do you or have you ever used any other forms of tobacco or nicotine? No [email or web address] Information not available 02/08/2023 What is your level of alcohol consumption? Occasional [email or web address] Information not available 02/08/2023 Mental Status None recorded. Family History Relationship Description Onset Age of this Age Resolved Age Notes LastModified by Organization Details LastModified Time Father No current problems or disability [email or web address] Not available 02/08 12:45:30 Mother No current problems or disability [email or web address] Not available 02/08 12:45:30 Medical History No medical history recorded. Past Encounters Encounter ID Performer Location Encounter Start Date Encounter Closed Date Diagnosis/Indication Diagnosis SNOMED-CT Code Diagnosis ICD10 Code Diagnosis Note [id number] [facility] [facility] [address] [address] 08/10/2019 10:58:35 08/10/2019 11:38:55 [id number] [address] [address] [place] [address] 12/28/2019 11:18:26 12/28/2019 12:03:42 [id number] Carlos Waters NP [address] [facility] [address] [place] [address] 02/08/2023 12:27:45 02/08/2023 13:04:37 Acute sinusitis 49336569 J01.90 Health Concerns Section Related Observation LastModified by Organization Detai ls LastModified Time None Recorded Concern Status LastModified by Organization Details LastModified Time None Recorded Advance Directives Directive None Recorded Payers Insurance Date Sequence Insurance Name Policy Number Policy Navarro Covered Member ID Navarro Member ID Guarantor Name 02/08/2023 1 [place] [employer] Ashish Hamilton [id number] Ashish Hamilton 02/08/2023 2 [place] [id number] Ashish Hamilton [id number] Ashish Hamilton Notes Date Note Type Note Provider Name [...] Prior Treatmentoral decongestant Carlos Waters NP [address] [place], [address], PA - [facility] 02/08/2023 13:03:07
[2025-03-30] MEDS: Doxycycline Monohydrate 100 MG CAPSULE PO (11:03)
[2025-03-30] MEDS: Amoxicillin/Potassium Clav 875 MG TABLET PO (11:03)
[2025-03-30] MEDS: Albuterol Sulfate 2.5 MG, Albuterol/Iprat 2.5/0.5MG 3 ML 3 ML INHALE (11:14)
[2025-03-30 11:15] VITALS: PULSE 68; RESP 16; O2SAT 94
[2025-03-30 13:13] VITALS: BP 142/78; PULSE 68; RESP 16; TEMP 37.2; O2SAT 95
== END 2025-03-30 13:13 | disposition home or self-care (01) ==
PROVIDERS: Registered Nurse Emergency; Emergency Provider Emergency Medicine; PCP Internal Medicine
DX: J18.1 Lobar pneumonia, unspecified organism (principal); R06.02 Shortness of breath; J44.9 Chronic obstructive pulmonary disease, unspecified; Z79.899 Other long term (current) drug therapy; Z03.818 Encounter for observation for suspected exposure to other biological agents ruled out
CPT/HCPCS: 0241U; 36415; 71046; 80048; 82803; 84484; 85025; 85610; 93005; 94640; 99284

== ENCOUNTER → 2025-03-30 09:34 | Outpatient (BNV) | payer MEDICARE, SELFPAY | PROVIDERS: Emergency Provider Emergency Medicine; PCP Internal Medicine; Visit Provider Internal Medicine Cardiovascular Disease | DX: I45.10 Unspecified right bundle-branch block (principal) | CPT/HCPCS: 93010 ==

== ENCOUNTER → 2025-03-30 09:44 | Outpatient (BNV) | payer MEDICARE, SELFPAY | PROVIDERS: Emergency Provider Emergency Medicine; PCP Internal Medicine; Visit Provider Radiology Diagnostic Radiology | DX: J18.1 Lobar pneumonia, unspecified organism (principal); J44.9 Chronic obstructive pulmonary disease, unspecified | CPT/HCPCS: 71046 ==

== ENCOUNTER 2025-05-11 10:14 | Outpatient (AMB) | payer MEDICARE, SELFPAY ==
[2025-05-11 10:17] VITALS: BMI 23.7
--- NOTE | 2025-05-11 10:17 | A.OFFVIS_ITS ---
Vital Signs 05/11/25 10:17 Height 5 ft 10 in Weight 165 lb BMI 23.7 Intake Visit Reasons: INJ- Right knee cortisone last inj 01/08/25 Intake Note: Ashish is an 79 year old male who presents today for a repeat right knee injection. Last injection administered 01/08/25. Patient reports that he would like to repeat injection today Allergies No Known Allergies Allergy (Verified 03/30/25 09:30) HPI HPI INJ- Right knee cortisone last inj 01/08/25: Details: Ashish is an 79 year old male who presents today for a repeat right knee injection. Last injection administered 01/08/25. Patient reports that he would like to repeat injection today. His knee is hurting him more today than usual as it took him 4 months to get into my office for repeat injection. [facility] Medical History Lung cancer Hip osteoarthritis Primary osteoarthritis of right hip Primary osteoarthritis of right knee Hypertension Surgical History History of arthroscopy of left knee (~1965) Family History Father No problems noted. Mother No problems noted. Social History Household Members: None Housing: Apartment Do you presently have visiting nurse or other home services: No Alcohol intake: never Patient Tobacco Use Status: Former Tobacco user Tobacco use type: Cigarette e-Cigarette/Vaping Use: Former Use Second Hand Smoke Exposure: No Advance Directives Date on File: 03/28/23 service: Yes Current occupational status: retired Current occupation: right handed Physical Exam Vital Signs: BMI result Body Mass Index 23.7 Const General: no acute distress, alert and awake Orientation/consciousness: patient oriented x3 HEENT Head: Yes normocephalic and Yes atraumatic Eyes EOM: EOMs intact bilaterally Resp Effort & Inspection: normal respiratory effort and able to speak in complete sentences Cardio Jugular venous distension: no JVD Skin General skin exam: turgor normal Rashes: no rashes Neuro General: patient oriented x3 Extrem Other: medial compartment ttp no effusion skin c/d/i Psych Appearance: grossly normal Affect: normal affect Attitude: cooperative Office Procedures Joint Inj/Aspir; Non-Pain Clin Joint Injection/Drain Details: Injected 1 mL of Decadron and 3 mL 1% lidocaine and 3 mL of 0.25% Marcaine. Site was prepped using aseptic technique. Patient tolerated the procedure well. Shoulders, Hips, Knees, Knee Large Joint Injection : Right Knee Coding Procedure code (CPT) selection complete Assessment & Plan Assessment & Plan (1) Primary osteoarthritis of right knee: Code(s): M17.11 - Unilateral primary osteoarthritis, right knee Category: Medical Plan: 79-year-old gentleman with right knee osteoarthritis. I injected his right knee again today. He can follow up in 3 months as needed. Coding Level of Care Code Est Pt Level 3 (09846) Diagnoses Primary osteoarthritis of right knee M17.11 CPT Codes Shoulders, Hips, Knees, - Knee Large Joint Injection : Right Knee ([id number])
--- OUTSIDE RECORDS SUMMARY | 2025-05-11 11:09 | XMS_ITS | Data Portability ---
Author Organization HOLLIE Castaneda janey [address] Address [address] [place] [address] Assessment No assessment recorded. Plan of Treatment Reminders Order Date Submit Date Provider Last Modified By Organization Details Last Modified Time Details Appointments None recorded. Lab None recorded. Referral None recorded. Procedures None recorded. Surgeries None recorded. Imaging None recorded. Medication Orders Allergy Relief (fluticaso ne) 50 mcg/actuat ion nasal spray,susp ension 2022 023 [facility]/Pharmacy #[id number], [address] [place], [address], 3 13:02:38 Claritin 10 mg tablet 2022 023 [facility]arm[facility] #0373, [address] [place], [address], 3 13:02:38 Patient TargetsNo targets recorded. Patient Instructions Encounter Date Encounter Id Patient Instructions Last Modified By Organization Details Last Modified Time 02/08/2023 [id number] Sinusitis is an infection of the lining [...] care for yourself at home? Take an lkfc-ocm-oklzgtn pain medicine. Avoid Ibuprofen, Aleve and Aspirin if . If the doctor prescribed antibiotics, take them as directed. Do not stop taking them just because you feel better. You need to take the full course of antibiotics. Be careful when taking icme-jmb-uxrnbax cold or influenza (flu) medicines and Tylenol [...] Address Organization Details Recorded Time Hypertensive disorder 28188499 Active 2022 [facility] 12:43:49 Hyperlipidemia 79320964 Active 2022 [facility] 3 12:43:55 Chronic obstructive pulmonary disease 51165015 Active 2022 HOLLIE Mcdonough [facility] 3 12:44:09 Malignant neoplasm of lung 540324788 Active 2022 [facility] 12:44:37 Problem Notes None recorded. Procedures Surgical History Date Name Laterality Status Provider Name and Address Organization Details Recorded Time procedure on lung completed BALJEET LAI [facility] - [facility] 02/08/2023 12:44:57 Imaging Results None recorded. Procedure [...] Not Available Not Available No t Available Trelegy Ellipta 200 mcg-62.5 mcg-25 mcg powder for inhalation INHALE 1 PUFF DAILY AT THE SAME TIME EVERY DAY active Not Available Not Available No t Available Vitals Date Recorded Body height Body mass index (BMI) Body weight Respiratory rate Oxygen saturation Oxygen saturation in Arterial blood by Pulse oximetry Heart rate Body temperature Systolic And Diastolic Provider Name and Address Organization Details Last Updated DateTime 3 177.8 cm 26.3 kg/m2 93460.4 g 18 /min 97 % 97 % 66 /min 97.8 [degF] 123/80 mm[Hg] BALJEET LAI PA - [facility] 3 12:46:40 Social History Question Answer Notes LastModified by [employer] Details LastModified Time Tobacco Smoking Status Former Smoker BALJEET han PA - [facility] 02/08/2023 12:45:50 When Did You Quit Smoking? 11-15yearssi rileyelastmarion queen [email or web address] Information not available 02/08/2023 Have You Recently Traveled Abroad? No [email or web address] Information not available 02/08/2023 Sex: Unknown Functional Status Question Answer Note LastModified by [employer] Details LastModified Time Do you use any illicit or recreational drugs? No [email or web address] Information not available 02/08/2023 Do you or have you ever used any other forms of tobacco or nicotine? No Information not available 02/08/2023 What is your level of alcohol consumption? Occasional [email or web address] Information not available 02/08/2023 Mental Status None recorded. Family History Relationship Description Onset Age of this Age Resolved Age Notes LastModified by Organization Details LastModified Time Father No current problems or disability [email or web address] Not available 02/08 12:45:30 Mother No current problems or disability Not available 02/08 12:45:30 Medical History No medical history recorded. Past Encounters Encounter ID Performer Location Encounter Start Date Encounter Closed Date Diagnosis/Indication Diagnosis SNOMED-CT Code Diagnosis ICD10 Code Diagnosis Note [id number] [facility] [facility] [address] [address] 08/10/2019 10:58:35 08/10/2019 11:38:55 [id number] [address] [address] [place] [address] 12/28/2019 11:18:26 12/28/2019 12:03:42 [id number] Carlos Waters NP [address] [facility] [address] [place] [address] 02/08/2023 12:27:45 02/08/2023 13:04:37 Acute sinusitis 53530577 J01.90 Health Concerns Section Related Observation LastModified by Organization Detai ls LastModified Time None Recorded Concern Status LastModified by Organization Details LastModified Time None Recorded Advance Directives Directive None Recorded Payers Insurance Date Sequence Insurance Name Policy Number Policy Navarro Covered Member ID Navarro Member ID Guarantor Name 02/08/2023 1 [place] [employer] Ashish Hamilton [id number] Ashish Hamilton 02/08/2023 2 [place]) [id number] Ashish Hamilton [id number] Ashish Hamilton Notes Date Note Type [...] Carlos Waters NP [address] [place], [address], [place] - [facility] 02/08/2023 13:03:07
--- OUTSIDE RECORDS SUMMARY | 2025-05-11 11:09 | XMS_ITS | Encounter Summary ---
Author Organization [facility] Address [address] [place] [address] Phone Care Team Providers Care Bridge Worker Apprentice Name Role Phone Bean Joe MD Primary Care Provider [phone] Luna Mckeon MD, PhD Unavailable [phone] Ever pSring MD Unavailable [phone] Bailey Vazquez RN Unavailable [phone] Hilary Gallardo RN Unavailable RHONDA [email or web address] Demetrio Love PA-C Unavailable [phone] Tamar Armando RN Unavailable [email or web address] Encounter Details Date Type Department Care Team (Late st Contact Info) Description 02/09/2022 Procedure Pass [facility] Imaging Department, [facility], [place] [address] [place] [address] Social History Tobacco Use Types Packs/Day Years Used Date Smoking Tobacco: Former Cigarettes 1 40 1 0 - 2009 Smokeless Tobacco: Never Alcohol Use Standard Drinks/Week Comments Yes 0 (1 standard drink = 0.6 oz pur e alcohol) 8-10 beers week Sex and Gender Information Value Date Recorded Sex Assigned at Male 11/11/2021 4:20 PM EST Legal Sex Male 4:17 PM EST Gender Identity Male 11/11/2021 4:20 PM EST Sexual Orientation Straight 11/11/2021 4: 20 PM EST documented as of this encounter Plan of Treatment Upcoming Encounters Date Type Department Care Team (Late st Contact Info) Description 02/10/2025 Procedure Pass [address] [address] 02/10/2025 Procedure Pass [address] [address] 06/30/2025 9:10 AM EDT Blood Draw Laboratory Services, [address] [address] Donald Zavala MD [address] [place] [phone] [email or web address] 06/30/2025 11:00 AM EDT Appointment [address] [address] Donald Zavala MD [address] [place] [id number] [email or web address] 06/30/2025 1:30 PM EDT Office Visit [facility], [address] [address] Donald Zavala MD [address] [place] [address] [email or web address] documented as of this encounter Visit Diagnoses Not on filedocumented in this encounter Additional Health Concerns Assessment Noted Time PHQ-2 Depression Total Score: 0 11/29/19 9:25 AM EST documented as of this encounter Care Teams Bridge Worker Apprentice Relationship Specialty Start Date End Date Bean Joe MD [address] [place] [address] [address] [place] [address] PCP - General Internal Medicine 11/11/21 Luna Mckeon MD, PhD [address] [place] [address] [address] [place] [address] [email or web address] [email or web address] Surgery 11/15/21 Ever Spring MD [address] [place] [address] Division [place] [address] [email or web address] Thoracic Surgery 11/28/21 Bailey Vazquez RN [address] [place] [address] [email or web address] Primary Infusion Nurse 02/21/22 Hilary Gallardo RN [address] [place] [address] [email or web address] Associate Infusion Nurse 07/28/22 Demetrio Love PA-C [address] [place] [address] [email or web address] Physician Nickel Plater 12/21/22 04/05/23 Tamar Armando RN [address] [place] [address] [email or web address] Associate Infusion Nurse 04/06/23 documented as of this encounter Additional Source Comments The information contained in this document represents components of the legal health record. It is not the complete legal health record.[facility]
== END 2025-05-11 10:40 | disposition home or self-care (01) ==
LOC: HO.HOS 10:15
PROVIDERS: PCP Internal Medicine; Visit Provider Orthopaedic Surgery
DX: M17.11 Unilateral primary osteoarthritis, right knee (principal)
CPT/HCPCS: 20610; 99213

== ENCOUNTER → 2025-05-11 10:14 | Outpatient (BNVA) | payer MEDICARE, SELFPAY | PROVIDERS: PCP Internal Medicine; Visit Provider Orthopaedic Surgery | DX: M17.11 Unilateral primary osteoarthritis, right knee (principal) | CPT/HCPCS: 20610; 99212; J0665; J1100; J2003 ==

== ENCOUNTER 2025-07-23 09:40 | Inpatient (IN) | payer MEDICARE, SELFPAY ==
--- NOTE | ~2025-07-23 | XR_ITS ---
CLINICAL HISTORY: s p fall, pain 3 view right elbow Comparison: None provided Findings: There is a questionable radial head fracture seen on the lateral view No dislocations. No significant arthritic change or erosions. Suggestion of joint effusion. No radiopaque foreign body. IMPRESSION: 1. Questionable radial head fracture with elbow joint effusion. Consider CT to further evaluate. This document has been electronically signed by: Donald Mann MD on 07/25/2025 13:18:06
--- NOTE | ~2025-07-23 | XR_ITS ---
EXAMINATION: XR CHEST CLINICAL INFORMATION: fall COMPARISON: 03/30/2025, 06/30/2024. TECHNIQUE: AP view of the chest was obtained. FINDINGS: The cardiac, hilar, and mediastinal contours are normal. The lungs are are diffusely hyperaerated, consistent with COPD. There are chain sutures noted in the left lung from prior surgery. There is similar subtle right apical scarring. There is subtle patchy opacity in the right basilar region. No pneumothorax or effusion. No focal osseous or soft tissue abnormality. XR/XR chest 1V IMPRESSION: 1. Emphysema. 2. Subtle patchy opacity in the right basilar region, could represent pneumonia in the appropriate clinical setting. Electronically signed by: Alex Rubalcava MD 07/23/2025 11:40 AM EDT
--- NOTE | ~2025-07-23 | XR_ITS ---
CLINICAL HISTORY: s p rt hip mikaela 1 view pelvis Comparison: CR/SR - XR HIP 1 VIEW RIGHT WITH PELVIS - 07/23/2025 11:26 AM EDT Findings: Components of the hip prosthesis are well aligned on the single view provided. There is overlying soft tissue changes and skin catarina consistent with recent surgery. No acute fracture or dislocation. No significant degenerative changes. Soft tissues are unremarkable. There is regional arterial calcification. IMPRESSION: 1. Right hip iatrogenic changes. This document has been electronically signed by: Donald Mann MD on 07/25/2025 13:01:57
--- NOTE | ~2025-07-23 | XR_ITS ---
EXAMINATION: XR HIP, RIGHT CLINICAL INFORMATION: pain, fall COMPARISON: None available. TECHNIQUE: Two views of the right hip and one view of the pelvis. FINDINGS: There is an impacted right femoral neck fracture. There may be a nondisplaced fracture of the right greater trochanter as well. No pelvic fracture. There is arthritis of the lower lumbar spine and at the hip joints. There is atherosclerotic disease. XR/XR hip RT w PEL1V IMPRESSION: Impacted subcapital right femoral neck fracture and question nondisplaced right greater trochanter fracture. Electronically signed by: Barbara Hankins MD 07/23/2025 11:43 AM EDT
--- NOTE | ~2025-07-23 | CT_ITS ---
CLINICAL HISTORY: Questionable radial head fracture with elbow joint CT right elbow without contrast Comparison: CR - XR ELBOW RT 2V - 07/25/25 12:20 EDT Findings: No evidence of acute fracture or dislocation. Moderate to severe degenerative disease with joint space narrowing, and osteophytosis. Moderate joint effusion. No acute fracture. IMPRESSION: No acute fracture or dislocation. Moderate to severe DJD with moderate joint effusion. This document has been electronically signed by: Amie Aldridge MD on 07/25/2025 19:36:22
--- NOTE | ~2025-07-23 | XR_ITS ---
EXAMINATION: XR ELBOW, LEFT CLINICAL INFORMATION: Left elbow pain COMPARISON: CT on July 25, 2025 TECHNIQUE: AP and lateral views of the left elbow. FINDINGS: There are moderate degenerative changes with osteophytes involving the ulnohumeral and radiohumeral joint space. There is an enthesophyte involving the lateral epicondyle of the humerus. The anterior and posterior fat pads are visible. XR/XR elbow LT 2V IMPRESSION: Anterior and posterior fat pads of elbow joint are visible raising concern for an underlying joint effusion and occult fracture. Moderate degenerative changes. Electronically signed by: Daniel Hendricks MD 07/27/2025 09:54 AM EDT
[2025-07-23 09:47] VITALS: BP 118/68; BP 145/63; PULSE 69; PULSE 73; RESP 16; TEMP 36.6; O2SAT 93; BMI 25.8
--- NOTE | 2025-07-23 10:12 | ECG_ITS ---
Test Reason : FALL Blood Pressure : */* mmHG Vent. Rate : 67 BPM Atrial Rate : 67 BPM P-R Int : 152 ms QRS Dur : 100 ms QT Int : 382 ms P-R-T Axes : * -39 16 degrees QTcB Int : 403 ms Normal sinus rhythm Left axis deviation Minimal voltage criteria for LVH, may be normal variant ( R in aVL ) Septal infarct (cited on or before 30-Mar-2025) Abnormal ECG When compared with ECG of 30-Mar-2025 09:34, No significant change was found Referred By: Jessica Sesay Electronically Signed By: JOSE R EDOUARD
--- NOTE | 2025-07-23 10:17 | ED_ITS ---
HPI - General Adult General Chief complaint: Fall Stated complaint: FALL FROM CHAIR,R HIP PAIN,-THIN,-HS PER EMS Time Seen by Provider: 07/23/25 10:17 Source: patient and EMS Mode of arrival: EMS Limitations: no limitations History of Present Illness ED Provider: Esthela Malhotra PA-C HPI narrative: This is an 79 year old male that presents for evaluation of right hip pain post fall. He was going down the stairs and missed the last step and fell. He denies hitting his back or head. He was unable to bear any weight on his right hip but shuffled over to a chair and was able to call an ambulance. He denies the use of any blood thinners. He has intense pain in his right groin. He is sitting with his right hip and knee flexed with external rotation. He denies significant bruising. He endorses a history of right knee osteoarthritis, lung cancer, and HTN. Related Data Home Medications ?Medication ?Instructions ?Recorded ?Confirmed amlodipine 10 mg tablet 10 mg PO DAILY 08/18/2012/16 atorvastatin 40 mg tablet 40 mg PO DAILY 08/18/2012/16 latanoprost 0.005 % eye drops 1 drp ophthalmic (eye) B EDTIME 09/25/22 07/23/25 albuterol sulfate 90 mcg/actuation 2 puff inhalation Q ID PRN Wheezing 03/28/23 07/23/25 aerosol inhaler fluticasone fur. 200 mcg-umeclid 1 ea inhalation DAILY 03/28/23 07/23/25 62.5 mcg-vilant 25 mcg inhalat.powder (Trelegy Ellipta) brimonidine 0.2 % eye drops 1 drp ophthalmic (eye) BID 07/20/24 07/23/25 carvedilol 25 mg tablet 25 mg PO BID 07/20/24 valsartan 320 mg tablet 320 mg PO DAILY 07/20/2412/16 omeprazole 20 mg capsule,delayed 20 mg PO DAILY@0630 1 07/23/25 release Allergies Allergy/AdvReac Type Severity Reaction Status Date / Time No Known Allergies Allergy Verified 07/23/25 09:55 Review of Systems 2 Constitutional: Constitutional: Reports as per HPI Eyes: Eyes: Reports as per HPI ENT: Reports as per HPI Cardiovascular: Cardiovascular: Reports as per HPI Respiratory: Respiratory: Reports as per HPI Gastrointestinal: Gastrointestinal: Reports as per HPI Genitourinary: Genitourinary: Reports as per HPI Musculoskeletal: Musculoskeletal: Reports as per HPI Integumentary/Breasts: Skin/Breast: Reports as per HPI Neurologic: Reports as per HPI Psychiatric: Psychiatric: Reports as per HPI Endocrine: Endocrine: Reports as per HPI Hematologic/Lymphatic: Hematologic/Lymphatic: Reports as per HPI Allergic/Immunologic: Allergic/Immunologic: Reports as per HPI [facility] Past Medical History Attestation statement: The following information was validated with the patient. Source: old records reviewed and nursing notes reviewed Medical History Lung cancer Hip osteoarthritis Primary osteoarthritis of right hip Primary osteoarthritis of right knee Hypertension Surgical History History of arthroscopy of left knee (~1965) Family History Family History Father No problems noted. Mother No problems noted. Social History Social History (Updated 07/23/25 @ 12:24 by HOLLIE Colby) Household Members: None Housing: Apartment Do you presently have visiting nurse or other home services: No Alcohol intake: current Alcohol intake frequency: holidays/special occasions only Patient Tobacco Use Status: Former Tobacco user Tobacco use type: Cigarette e-Cigarette/Vaping Use: Former Use Second Hand Smoke Exposure: No Advance Directives Date on File: 03/28/23 service: Yes Current occupational status: retired Current occupation: right handed Physical Exam ED Vital Signs: Vital Signs - 24 hr 07/23/25 09:47 07/23/25 10:26 Temperature 97.9 F Pulse Rate 69 63 Respiratory Rate 16 16 Blood Pressure 145/63 H 150/96 H Pulse Oximetry 93 93 Oxygen Delivery Method Room Air BMI result Body Mass Index 25.8 Const General: cooperative, alert and awake Orientation/consciousness: oriented to person, oriented to place, oriented to time and patient oriented x3 HENMT Head: Yes normal to inspection, Yes normocephalic and Yes atraumatic Face and sinus: Yes normal facial exam Eyes General: appearance normal, both eyes and all related structures Neck Neck: Yes normal visual inspection Resp Effort & Inspection: normal respiratory effort Auscultation: clear to auscultation bilaterally Cardio Rate: regular rate Rhythm: regular rhythm Skin General skin exam: no rashes or lesions noted and no ecchymosis Neuro General: oriented to person, oriented to place, oriented to time and patient oriented x3 Extrem Other: pain with right hip ROM General: Yes other (Right knee in flexion with right hip in external rotation.) Psych Appearance: grossly normal Speech and movement: Normal speech and movement present Affect: normal affect Medications Administered Generic Name Dose Route Start Last Admin Trade Name Freq PRN Reason Stop Dose Admin Morphine Sulfate 2 mg 07/23/25 12:14 07/23/25 12:45 Morphine Sulfate 4 Mg/Ml Cartridge IVPUSH 2 mg Q4H PRN Administration Pain, Severe (Pain Scale 7-10) Protocol Discontinued Medications Generic Name Dose Route Start Last Admin Trade Name Freq PRN Reason Stop Dose Admin Sodium Chloride 1,000 mls @ 999 mls/hr 07/23/25 11:45 07/23/25 14:15 Ns IV 07/23/25 12:45 Infused .Q1H1M KIMBERLY Infusion Medical Decision Making Medical Decision Making MDM Narrative: This is an 79 year old male that presents for evaluation of right hip pain post fall. He was going down the stairs and missed the last step and fell. Patient's physical exam was as noted in the physical exam portion of this note and concerning for a right hip fracture. Patient's blood work was showed a slightly elevated WBC of 12.9 which is likely a stress reaction given there is no evidence of an infectious process. Patient's CMP showed a CR of 1.92 and BUN of 33 which appears to be close to the patient's baseline but slightly worse - patient clinically dry, NS given. Patient's EKG was unremarkable. Patient's chest x-ray showed evidence of emphysema and a possible right sided PNA however the patient has no evidence or appearance of pneumonia. Patient's right hip / pelvis x-ray showed an impacted right subcapital femoral neck fracture with a possible nondisplaced right greater trochanter fracture. I spoke to the orthopedic team who recommended medical admission and NPO after midnight for probable surgery on 07/24/2025. I spoke to the hospitalist team who agreed to admission. I explained my physical exam findings as well as all test results to the patient. I answered all questions asked by the patient. Patient verbalized agreement and understanding with this treatment plan and admission. Differential Diagnosis Differential Diagnoses: The differential diagnosis associated with the presentation includes Right hip fracture Fall Admission/Observation Consideration of admission/observation: Escalation of care including admission/observation considered Patient admitted as noted in the MDM Rationale portion of this note. Consult Healthcare Provider Management of the patient was discussed with: Hospitalist (agreed to admission as noted in the MDM Rationale portion of this note. ) and Science Manager (spoke to the orthopedic team as noted in the MDM Rationale portion of this note. ) Lab Data [facility] Lab Attestation statement: I reviewed the patient's lab results. My interpretation of these results are in the MDM Rationale portion of this note. 07/23/25 10:23 07/23/25 10:23 Labs: Lab Results 07/23/25 07/23/25 Range/Units 10: 10:38 WBC 12.9 H (4.8-10.8) X10*3/uL RBC 3.82 L (4.60-5.80) X10*6/uL Hgb 11.7 L (14.0-18.0) g/dl Hct 34.7 L (42.0-52.0) % MCV 90.8 (80.0-98.0) fL MCH 30.6 (27.0-33.0) pg MCHC 33.7 (31.0-36.0) g/dl RDW 14.2 (11.0-16.0) % Plt Count 195 (160-400) X10*3/uL MPV 10.3 (9.4-12.4) fL Immature Gran % (Auto) 0.6 H (0.0-0.4) % Neut % (Auto) 81.8 H (45-73) % Lymph % (Auto) 7.2 L (20-40) % Ward % (Auto) 8.4 (2-11) % Eos % (Auto) 1.7 (0-4) % Baso % (Auto) 0.3 (0-2) % Lymph # (Auto) 0.9 L (1.2-4.9) X10*3/uL Ward # (Auto) 1.1 (0.1-1.2) X10*3/uL Eos # (Auto) 0.2 (0.0-0.4) X10*3/uL Baso # (Auto) 0.0 (0.0-0.2) X10*3/uL Abs Immat Gran (auto) 0.08 H (0.00-0.03) X10*3/uL Absolute Neuts (auto) 10.6 H (2.0-8.3) x10*3/uL Absolute Nucleated RBC 0.000 (0.0-0.012) X10*3/uL Nucleated RBC % (auto) 0.0 (0.0-0.2) /100WBC PT 11.0 (10.9-12.4) SEC INR 1.0 (0.9-1.1) Sodium 137 (135-145) mmol/L Potassium 3.9 (3.3-5.1) mmol/L Chloride 107 (96-108) mmol/L Carbon Dioxide 22 (22-29) mmol/L Anion Gap 12 (12-20) BUN 33 H (9-16) mg/dL Creatinine 1.92 H (0.5-1.4) mg/dL Estim Creat Clear Calc 31.1 Estimated GFR 34 Random Glucose 119 H (60-115) mg/dL Calcium 8.7 (8.4-10.2) mg/dL Magnesium 2.0 (1.6-2.6) mg/dL Total Bilirubin 0.6 (0.0-1.0) mg/dL Direct Bilirubin 0.3 (0.0-0.5) mg/dL AST 18 (5-37) U/L ALT 13 (0-40) U/L Alkaline Phosphatase 108 (39-117) U/L Total Creatine Kinase 45 (38-174) U/L Total Protein 6.5 (6.5-8.0) g/dL Albumin 3.7 (3.5-5.0) g/dL Blood Type O Positive Antibody Screen NEGATIVE Independent Interpretation I performed an independent interpretation of an: EKG and Plain X-Ray Interpretation: My interpretation is in agreement with the radiologist's impression of these imaging studies. L Reason for Exam: fall EXAMINATION: XR CHEST CLINICAL INFORMATION: fall COMPARISON: 03/30/2025, 06/30/2024. TECHNIQUE: AP view of the chest was obtained. FINDINGS: The cardiac, hilar, and mediastinal contours are normal. The lungs are are diffusely hyperaerated, consistent with COPD. There are chain sutures noted in the left lung from prior surgery. There is similar subtle right apical scarring. There is subtle patchy opacity in the right basilar region. No pneumothorax or effusion. No focal osseous or soft tissue abnormality. XR/XR chest 1V IMPRESSION: 1. Emphysema. 2. Subtle patchy opacity in the right basilar region, could represent pneumonia in the appropriate clinical setting. Electronically signed by: Alex Rubalcava MD 07/23/2025 11:40 AM EDT RP Dictated By: Alex Rubalcava MD Signed By: Electronically signed by Alex Rubalcava MD 07/23/25 1140 Reason for Exam: pain, fall EXAMINATION: XR HIP, RIGHT CLINICAL INFORMATION: pain, fall COMPARISON: None available. TECHNIQUE: Two views of the right hip and one view of the pelvis. FINDINGS: There is an impacted right femoral neck fracture. There may be a nondisplaced fracture of the right greater trochanter as well. No pelvic fracture. There is arthritis of the lower lumbar spine and at the hip joints. There is atherosclerotic disease. XR/XR hip RT w PEL1V IMPRESSION: Impacted subcapital right femoral neck fracture and question nondisplaced right greater trochanter fracture. Electronically signed by: Barbara Hankins MD 07/23/2025 11:43 AM EDT RP Dictated By: Barbara Hankins MD Signed By: Electronically signed by Barbara Hankins MD 07/23/25 1143 I independently interpreted this EKG and am in agreement with the below findings: Vent. Rate: 67 BPM Atrial Rate: 67 BPM P-R Int: 152 ms QRS Dur: 100 ms QT Int: 382 ms P-R-T Axes: * -39 16 degrees QTcB Int: 403 ms Normal sinus rhythm Left axis deviation Minimal voltage criteria for LVH, may be normal variant ( R in aVL ) Septal infarct (cited on or before 30-Mar-2025) When compared with ECG of 30-Mar-2025 09:34, No significant change was found DD/ 1050 Radiology Impression Discussion of test interpretation with radiology: I have reviewed the radiologist's reading. Independent Historian Clinical information obtained from an independent historian. History obtained from or confirmed by: EMS (EMS provided additional history and confirmed the history provided by the patient. ) Critical Care Time Critical Care Time Critical Care Time: Yes Total Critical Care Time: 42 Attestation: I spent 42 minutes of Critical Care Time with this patient. This does not include time spent on separately reported billable procedures. Discharge Plan Discharge Clinical Impression: Hip fracture, right Patient Disposition: Admitted As Inpatient Interventions: Admission Worksheet (ED) Last Done: 07/23/25 12:59 Discharge Date/Time: 07/23/25 13:37
[2025-07-23 10:26] VITALS: BP 150/96; PULSE 63; RESP 16; O2SAT 93
[2025-07-23 10:28] LABS: MANUAL DIFF FLAG NO
[2025-07-23 10:36] LABS: Hematocrit 34.7 % (42.0-52.0); Hemoglobin 11.7 g/dl (14.0-18.0); Imm Gran Abs Auto 0.08 X10*3/uL (0.00-0.03); Imm Gran Pct Auto 0.6 % (0.0-0.4); Lymphocytes Absolute Auto 0.9 X10*3/uL (1.2-4.9); Mean Corpuscular HGB Conc 33.7 g/dl (31.0-36.0); Mean Corpuscular Hemoglobin 30.6 pg (27.0-33.0); Mean Corpuscular Volume 90.8 fL (80.0-98.0); NRBC Abs Auto 0.000 X10*3/uL (0.0-0.012); NRBC Pct Auto 0.0 /100WBC (0.0-0.2); Platelet Count 195 X10*3/uL (160-400); Red Blood Count 3.82 X10*6/uL (4.60-5.80); White Blood Count 12.9 X10*3/uL (4.8-10.8)
[2025-07-23 10:40] LABS: INTERNATIONAL NORM RATIO 1.0 (0.9-1.1); Prothrombin Time 11.0 SEC (10.9-12.4)
[2025-07-23 10:44] LABS: Alanine Aminotransferase 13 U/L (0-40); Albumin Level 3.7 g/dL (3.5-5.0); Alkaline Phosphatase 108 U/L (39-117); Anion Gap 12 (12-20); Aspartate Amino Transferase 18 U/L (5-37); Blood Urea Nitrogen 33 mg/dL (9-16); Calcium 8.7 mg/dL (8.4-10.2); Carbon Dioxide 22 mmol/L (22-29); Chloride 107 mmol/L (96-108); Creatinine Clr Calc Pharmacy 31.1; Estimated Glomerular Filt Rate 34; Magnesium 2.0 mg/dL (1.6-2.6); Potassium 3.9 mmol/L (3.3-5.1); Sodium 137 mmol/L (135-145); Total Protein 6.5 g/dL (6.5-8.0)
--- OUTSIDE RECORDS SUMMARY | 2025-07-23 11:47 | XMS_ITS | Encounter Summary ---
Author Organization [facility] Address [address] [place] [address] Phone Care Team Providers Care Trim Machine Adjuster Name Role Phone Bean Joe MD Primary Care Provider [phone] Luna Mckeon MD, PhD Unavailable [phone] Ever Spring MD Unavailable [phone] Bailey Vazquez RN Unavailable [phone] Hilary Gallardo RN Unavailable [email or web address] Tamar Armando RN Unavailable [email or web address] Encounter Details Date Type Department Care Team (Late st Contact Info) Description 08/05/2024 Ancillary Orders Outside Imaging Donadl Zavala MD [address] [place] [phone] [email or web address] Social History Tobacco Use Types Packs/Day Years Used Date Smoking Tobacco: Former Cigarettes 1 40 1 970 - 2009 Smokeless Tobacco: Never Alcohol Use Standard Drinks/Week Comments Yes 0 (1 standard drink = 0.6 oz pur e alcohol) 8-10 beers week Education Answer Date Recorded Are you interested in more education? Not on tenisha e 02/17/2023 Are you concerned about learning? Not on file 02/17/2023 No 02/17/2023 No 02/17/2023 Digital Access Answer Date Recorded No 03/13/2023 No 03/13/2023 Reliable internet access at home? Not on file 03/13/2023 Device with a working camera? Not on file Sex and Gender Information Value Date Recorded Sex Assigned at Male 11/11/2021 4:20 PM EST Legal Sex Male 4:17 PM EST Gender Identity Male 11/11/2021 4:20 PM EST Sexual Orientation Straight 11/11/2021 4: 20 PM EST documented as of this encounter Plan of Treatment Upcoming Encounters Date Type Department Care Team (Late st Contact Info) Description 08/11/2025 9:15 AM EDT Appointment [facility] [place], PET/CT [address] [address] Donald Zavala MD [address] [place] [phone] [email or web address] 08/11/2025 1:30 PM EDT Office Visit [facility], [facility] at [address] [address] Donald Zavala MD [address] [place] [phone] [email or web address] documented as of this encounter Results * XR Chest Outside (No Interpretation) (07/20/2024 12:00 AM EDT) Other Narrative [facility] - 08/05/2024 9:09 AM EDT This study is for PACS storage only and not for interpretation. us Donald Zavala MD IMG OUTSIDE IMAGING W/OUT INT ERPRETATION Final Result [facility] documented in this encounter Visit Diagnoses Not on filedocumented in this encounter Additional Health Concerns Assessment Noted Time PHQ-2 Depression Total Score: 0 01/29/20 24 7:26 AM EDT documented as of this encounter Care Teams Trim Machine Adjuster Relationship Specialty Start Date End Date Bean Joe MD [address] [place] [address] [address] [place] [address] PCP - General Internal Medicine 11/11/21 Luna Mckeon MD, PhD [address] [place] [id number] [email or web address] Thoracic Surgery 11/15/21 Ever Spring MD [address] [place] [address] Division [place] [address] [email or web address] Surgery 11/28/21 Bailey Vazquez RN [address] [place] [address] [email or web address] Primary Infusion Nurse 02/21/22 Hilary Gallardo RN [address] [place] [phone] [email or web address] Associate Infusion Nurse 07/28/22 Tamar Armando RN [address] [place] [address] [email or web address] Associate Infusion Nurse 04/06/23 documented as of this encounter Additional Source Comments The information contained in this document represents components of the legal health record. It is not the complete legal health record.[facility]
--- OUTSIDE RECORDS SUMMARY | 2025-07-23 11:47 | XMS_ITS | Encounter Summary ---
Author Organization [facility] Address [address] [place] [address] Phone Care Team Providers Care Spot Facer Name Role Phone Bean Joe MD Primary Care Provider [phone] Luna Mckeon MD, PhD Unavailable [phone] Ever Spring MD Unavailable Bailey Vazquez RN Unavailable [phone] Hilary Gallardo RN Unavailable RHONDA [email or web address] Tamar Armando RN Unavailable [email or web address] Encounter Details Date Type Department Care Team (Late st Contact Info) Description 10/28/2024 Procedure [facility] [place] [facility] [place] [address] [address] Social History Tobacco Use Types Packs/Day Years Used Date Smoking Tobacco: Former Cigarettes 1 40 1 970 - 2010 Smokeless Tobacco: Never Alcohol Use Standard Drinks/Week [...] Info) Description 08/11/2025 9:15 AM EDT Appointment [facility] [place], PET/CT [address] [address] Donald Zavala MD [address] [place] [phone] [email or web address] 08/11/2025 1:30 PM EDT Office Visit [facility], [facility] [place] [address] [address] Donald Zavala MD [address] [place] [phone] [email or web address] documented as of this encounter Visit Diagnoses Not on filedocumented in this encounter Additional Health Concerns Assessment Noted Time PHQ-2 Depression Total Score: 0 11/04/19 25 7:36 AM EST documented as of this encounter Care Teams Spot Facer Relationship Specialty Start Date End Date Bean Joe MD [address] [place] [phone] PCP - General Internal Medicine 11/11/21 Luna Mckeon MD, PhD [address] [place] [phone] [email or web address] Thoracic Surgery 11/15/21 Ever Spring MD [address] [place] [address] Division [place] [address] [email or web address] Thoracic Surgery 11/28/21 Bailey Vazquez RN [address] [place] [phone] [email or web address] Primary Infusion Nurse 02/21/22 Hilary Gallardo RN [address] [place] [phone] [email or web address] Associate Infusion Nurse 07/28/22 Tamar Armando RN [address] [place] [phone] [email or web address] Associate Infusion Nurse 04/06/23 documented as of this encounter Additional Source Comments The information contained in this document represents components of the legal health record. It is not the complete legal health record.[facility]
--- OUTSIDE RECORDS SUMMARY | 2025-07-23 11:47 | XMS_ITS | Encounter Summary ---
Author Organization [facility] Address [address] [place] [address] Phone Care Team Providers Care Auto Clutch Rebuilder Name Role Phone Bean Joe MD Primary Care Provider [phone] Luna Mckeon MD, PhD Unavailable [phone] Ever Spring MD Unavailable [phone] Bailey Vazquez RN Unavailable [phone] Hilary Gallardo RN Unavailable [email or web address] Tamar Armando RN Unavailable [email or web address] Encounter Details Date Type Department Care Team (Late st Contact Info) Description 10/28/2024 Procedure Pass [facility] [place] [facility] [place] [address] [address] Social History Tobacco Use Types [...] Info) Description 08/11/2025 9:15 AM EDT Appointment [facility] [place], PET[facility] [address] [address] Donald Zavala MD [address] [place] [phone] [email or web address] include 234 beds at [facility] 08/11/2025 1:30 PM EDT Office Visit [facility], [facility] [place] [address] [address] Donald Zavala MD [address] [place] [phone] [email or web address] include 234 beds at [facility] documented as of this encounter Visit Diagnoses Not on filedocumented in this encounter Additional Health Concerns Assessment Noted Time PHQ-2 Depression Total Score: 0 11/04/19 25 7:36 AM EST documented as of this encounter Care Teams Auto Clutch Rebuilder Relationship Specialty Start Date End Date Bean Jeo MD [address] [place] [phone] PCP - General Internal Medicine 11/11/21 Luna Mckeon MD, PhD [address] [place] [phone] [email or web address] Thoracic Surgery 11/15/21 Ever Spring MD [address] [place] [address] Division [place] [address] [email or web address] [email or web address] Surgery 11/28/21 Bailey Vazquez RN [address] [place] [phone] [email or web address] Primary Infusion Nurse 02/21/22 Hilary Gallardo RN [address] [place] [address] [email or web address] Associate Infusion Nurse 07/28/22 Tamar Armando RN [address] [place] [address] [email or web address] Associate Infusion Nurse 04/06/23 documented as of this encounter Additional Source Comments The information contained in this document represents components of the legal health record. It is not the complete legal health record.[facility]
--- OUTSIDE RECORDS SUMMARY | 2025-07-23 11:47 | XMS_ITS | Encounter Summary ---
Author Organization [facility] Address [address] [place] [address] Phone Care Team Providers Care Manager Documentation Name Role Phone Bean Joe MD Primary Care Provider [phone] Luna Mckeon MD, PhD Unavailable [phone] Ever Spring MD Unavailable [phone] Bailey Vazquez RN Unavailable [phone] Hilary Gallardo RN Unavailable RHONDA [email or web address] Demetrio Love PA-C Unavailable [phone] Tamar Armando RN Unavailable [email or web address] Encounter Details Date Type Department Care Team (Late st Contact Info) Description 02/09/2022 Procedure Pass [facility], [facility] [place] [address] [facility] [place] [address] Social History Tobacco Use Types Packs/Day Years [...] Info) Description 08/11/2025 9:15 AM EDT Appointment [facility], PET/CT [address] [address] Donald Zavala MD [address] [place] [phone] [email or web address] 08/11/2025 1:30 PM EDT Office Visit [facility], [facility] [address] [address] Donald Zavala MD [address] [place] [address] [email or web address] documented as of this encounter Visit Diagnoses Not on filedocumented in this encounter Additional Health Concerns Assessment Noted Time PHQ-2 Depression Total Score: 0 11/29/19 9:25 AM EST documented as of this encounter Care Teams Manager Documentation Relationship Specialty Start Date End Date Bean Joe MD [address] [place] [address] PCP - General Internal Medicine 11/11/21 Luna Mckeon MD, PhD [address] [place] [address] [address] [place] [address] [email or web address] Thoracic Surgery 11/15/21 Ever Spring MD [address] [place] [address] Division [place] [address] [email or web address] Thoracic Surgery 11/28/21 Bailey Vazquez RN 300 [place] [address] [email or web address] Primary Infusion Nurse 02/21/22 Hilary Gallardo RN 300 [place] [address] [email or web address] Associate Infusion Nurse 07/28/22 Demetrio Love PA-C 300 [place] [address] [email or web address] Physician Brand Sales Manager 12/21/22 04/05/23 Tamar Armando RN 300 [place] [address] [email or web address] Associate Infusion Nurse 04/06/23 documented as of this encounter Additional Source Comments The information contained in this document represents components of the legal health record. It is not the complete legal health record.[facility]
--- OUTSIDE RECORDS SUMMARY | 2025-07-23 11:47 | XMS_ITS | Encounter Summary ---
Author Organization [facility] Address [address] [place] [address] Phone Care Team Providers Care Component Engineer Name Role Phone Bean Joe MD Primary Care Provider [phone] Luna Mckeon MD, PhD Unavailable [phone] Ever Spring MD Unavailable [phone] Bailey Vazquez RN Unavailable [phone] Hilary Gallardo RN Unavailable RHONDA [email or web address] Tamar Armando RN Unavailable [email or web address] Encounter Details Date Type Department Care Team (Late st Contact Info) Description 08/05/2024 Ancillary Orders Outside Imaging Donald Zavala MD [address] [place] [address] [email or web address] Social History Tobacco Use Types Packs/Day Years [...] Info) Description 08/11/2025 9:15 AM EDT Appointment [facility] [place], PET/CT [address] [address] Donald Zavala MD [address] [place] [address] [email or web address] 08/11/2025 1:30 PM EDT Office Visit [facility], [facility] at [address] [address] Donald Zavala MD [address] [place] [phone] [email or web address] documented as of this encounter Results * CT Chest Outside (No Interpretation) (07/21/2024 12:00 AM EDT) Other Narrative [facility] - 08/05/2024 8:52 AM EDT This study is for PACS storage only and not for interpretation. us Donald Zavala MD IMG OUTSIDE IMAGING W/OUT INT ERPRETATION Final Result [email or web address] documented in this encounter Visit Diagnoses Not on filedocumented in this encounter Additional Health Concerns Assessment Noted Time PHQ-2 Depression Total Score: 0 01/29/20 24 7:26 AM EDT documented as of this encounter Care Teams Component Engineer Relationship Specialty Start Date End Date Bean Joe MD [address] [place] [address] [address] [place] [address] PCP - General Internal Medicine 11/11/21 uLna Mckeon MD, PhD [address] [place] [address] [email or web address] Thoracic Surgery 11/15/21 Ever Spring MD [address] [place] [address] Division of Thoracic [place] [address] [email or web address] Thoracic Surgery 11/28/21 Bailey Vazquez RN 300 [place] [address] [email or web address]. [facility] Primary Infusion Nurse 02/21/22 Hilary Gallardo RN [address] [place] [address] [email or web address]. [facility] Associate Infusion Nurse 07/28/22 Tamar Armando RN 300 [place] [address] [email or web address] Associate Infusion Nurse 04/06/23 documented as of this encounter Additional Source Comments The information contained in this document represents components of the legal health record. It is not the complete legal health record.[facility]
--- OUTSIDE RECORDS SUMMARY | 2025-07-23 11:47 | XMS_ITS | Encounter Summary ---
Author Organization [facility] Address [address] [place] [address] Phone Care Team Providers Care Distribution A Class Lineman Name Role Phone Bean Joe MD Primary Care Provider [phone] Luna Mckeon MD, PhD Unavailable [phone] Ever Spring MD Unavailable [phone] Bailey Vazquez RN Unavailable [phone] Hilary Gallardo RN Unavailable RHONDA [email or web address] Demetrio Love PA-C Unavailable [phone] Tamar Armando RN Unavailable [email or web address] Encounter Details Date Type Department Care Team (Late st Contact Info) Description 10/24/2022 Procedure Pass [facility] [place] [facility] [place] 300 [place] [address] Social History Tobacco Use Types Packs/Day Years [...] Info) Description 08/11/2025 9:15 AM EDT Appointment [facility] [place], PET/CT 300 [facility] [address] [place] [address] Donald Zavala MD [address] [place] [phone] [email or web address] 08/11/2025 1:30 PM EDT Office Visit [facility], [facility] [place] [address] [facility] [address] [place] [address] Donald Zavala MD [address] [place] [phone] [email or web address] documented as of this encounter Visit Diagnoses Not on filedocumented in this encounter Additional Health Concerns Assessment Noted Time PHQ-2 Depression Total Score: 0 10/24/19 23 2:05 PM EST documented as of this encounter Care Teams Distribution A Class Lineman Relationship Specialty Start Date End Date Bean Joe MD [address] [place] [address] PCP - General Internal Medicine 11/11/21 Luna Mckeon MD, PhD [address] [place] [address] 1 [place] [address] [email or web address] Thoracic Surgery 11/15/21 Ever Spring MD [address] [place] [address] Division [place] [address] [email or web address] Thoracic Surgery 11/28/21 Bailey Vazquez RN 300 [place] [address] [email or web address] Primary Infusion Nurse 02/21/22 Hilary Gallardo RN 300 [place] [address] [email or web address] Associate Infusion Nurse 07/28/22 Demetrio Love PA-C 300 [place] [address] [email or web address] Physician Decorative Greens Cutter 12/21/22 04/05/23 Tamar Armando RN 300 [place] [address] [email or web address] Associate Infusion Nurse 04/06/23 documented as of this encounter Additional Source Comments The information contained in this document represents components of the legal health record. It is not the complete legal health record.[facility]
--- OUTSIDE RECORDS SUMMARY | 2025-07-23 11:48 | XMS_ITS | Encounter Summary ---
Author Organization [facility] Address [address] [place] [address] Phone Care Team Providers Care Clinical Lab Scientist Name Role Phone Bean Joe MD Primary Care Provider [phone] Luna Mckeon MD, PhD Unavailable [phone] Ever Spring MD Unavailable [phone] Bailey Vazquez RN Unavailable [phone] Hilary Gallardo RN Unavailable RHONDA [email or web address] Demetrio Love PA-C Unavailable [phone] Tamar Armando RN Unavailable [email or web address] Encounter Details Date Type Department Care Team (Late st Contact Info) Description 11/30/2021 Procedure Pass [facility] [place] [facility] [place] [facility] [address] [place] [address] Social History Tobacco Use Types Packs/Day Years [...] Info) Description 08/11/2025 9:15 AM EDT Appointment [facility] [place], PET/CT [address] [address] Donald Zavala MD [address] [place] [address] [email or web address] 08/11/2025 1:30 PM EDT Office Visit [facility], [facility] [address] [address] Donald Zavala MD [address] [place] [address] [email or web address] documented as of this encounter Visit Diagnoses Not on filedocumented in this encounter Additional Health Concerns Assessment Noted Time PHQ-2 Depression Total Score: 0 11/29/19 9:25 AM EST documented as of this encounter Care Teams Clinical Lab Scientist Relationship Specialty Start Date End Date Bean Joe MD [address] [place] [address] PCP - General Internal Medicine 11/11/21 Luna Mckeon MD, PhD [address] [place] [phone] [email or web address] Thoracic Surgery 11/15/21 Ever Spring MD [address] [place] [address] Division [place] [address] [email or web address] Thoracic Surgery 11/28/21 Bailey Vazquez RN 300 [place] [address] [email or web address] Primary Infusion Nurse 02/21/22 Hilary Gallardo RN 300 [place] [address] [email or web address] Associate Infusion Nurse 07/28/22 Demetrio Love PA-C [address] [place] [address] [email or web address] Physician Layout Technician 12/21/22 04/05/23 Tamar Armando RN 300 [place] [address] [email or web address] Associate Infusion Nurse 04/06/23 documented as of this encounter Additional Source Comments The information contained in this document represents components of the legal health record. It is not the complete legal health record.[facility]
--- OUTSIDE RECORDS SUMMARY | 2025-07-23 11:48 | XMS_ITS | Encounter Summary ---
Author Organization [facility] Address [address] [place] [address] Phone Care Team Providers Care Golf Ball Marker Name Role Phone Bean Joe MD Primary Care Provider [phone] Luna Mckeon MD, PhD Unavailable [phone] Ever Spring MD Unavailable [phone] Bailey Vazquez RN Unavailable [phone] Hilary Gallardo RN Unavailable RHONDA [email or web address] Demetrio Love PA-C Unavailable [phone] Tamar Armando RN Unavailable [email or web address] Encounter Details Date Type Department Care Team (Late st Contact Info) Description 01/02/2022 Procedure Pass [facility] Periop [address] [place] [address] Social History Tobacco Use Types Packs/Day Years [...] PM EST documented as of this encounter Functional Status * Calculated C-SSRS Risk Score (Lifetime/Recent) Answer Date of Assessment Author No Risk Indicated 01/02/2022 1:00 PM EDT Bibi Santos RN * [place] Suicide Severity Rating Scale (Screener/Recent Self-Report) Question Answer Date of Assessment Author 1. Wish to be (Past 1 Month) No 01/02/2022 1:00 PM EDT Bibi Santos RN 2. Non-Specific Active Suicidal Thoughts (Past 1 Month) No 01/02/2022 1:00 PM EDT Bibi Santos RN 6. Suicidal Behavior (Lifetime) No 01/02/2022 1:00 PM EDT Bibi Santos RN documented as of this encounter Plan of Treatment Upcoming Encounters Date Type Department Care Team (Late st Contact Info) Description 08/11/2025 9:15 AM EDT Appointment [facility] [place], PET/CT [address] [address] Donald Zavala MD [address] [place] [address] [email or web address] 08/11/2025 1:30 PM EDT Office Visit [facility], [facility] [place] [address] [address] Donald Zavala MD [address] [place] [address] [email or web address] documented as of this encounter Visit Diagnoses Not on filedocumented in this encounter Additional Health Concerns Assessment Noted Time PHQ-2 Depression Total Score: 0 11/29/19 9:25 AM EST documented as of this encounter Care Teams Golf Ball Marker Relationship Specialty Start Date End Date Bean Joe MD [address] [place] [address] PCP - General Internal Medicine 11/11/21 Luna Mckeon MD, PhD [address] [place] [address] [email or web address] Thoracic Surgery 11/15/21 Ever Spring MD [address] [place] [address] Division [place] [address] [email or web address] Thoracic Surgery 11/28/21 Bailey Vazquez RN [address] [place] [address] [email or web address] Primary Infusion Nurse 02/21/22 Hilary Gallardo RN [address] [place] [address] [email or web address] Associate Infusion Nurse 07/28/22 Demetrio Love PA-C [address] [place] [address] [email or web address] Physician Correspondence Coordinator 12/21/22 04/05/23 Tamar Armando RN [address] [place] [address] [email or web address] Associate Infusion Nurse 04/06/23 documented as of this encounter Additional Source Comments The information contained in this document represents components of the legal health record. It is not the complete legal health record.[facility]
--- OUTSIDE RECORDS SUMMARY | 2025-07-23 11:48 | XMS_ITS | Clinical Summary ---
Author Organization [facility] Address [address] [place] [address] Phone Care Team Providers Care Financial Counselor Name Role Phone Bean Joe MD Primary Care Provider [phone] Luna Mckeon MD, PhD Unavailable [phone] Ever Spring MD Unavailable [phone] Bailey Vazquez RN Unavailable [phone] Hilary Gallardo RN Unavailable [email or web address] Tamar Armando RN Unavailable [email or web address] No known active allergies Medications amLODIPine (NORVASC) 10 MG tablet Take 10 mg by mouth daily. 11/15/19 22 Active atorvastatin (LIPITOR) 40 MG tablet Take 40 mg by mouth daily. 02/24/20 21 Active LATANOPROST OPHT nightly at bedtime. Active albuterol 90 mcg/actuation inhaler Inhale 2 puffs into the lungs every 6 (six) hours as needed for wheezing. 8 g 1 11/26/19 22 Active TRELEGY ELLIPTA 200-62.5-25 mcg inhaler INHALE 1 PUFF DAILY AT THE SAME TIME EVERY DAY Active valsartan (DIOVAN) 320 MG tablet Take 320 mg by mouth daily. Active brimonidine (ALPHAGAN) 0.2 % ophthalmic solution 1 drop 2 (two) times a day. 12/06/19 Active albuterol sulfate (VENTOLIN HFA INHL) See Instructions, 2 PUFFS INHALATION 4 TIMES A DAYAS NEEDED FOR WHEEZING, # 18 each, 11 Refills, Maintenance, 07/09/24 11:24:00 EDT, [facility]/pharmacy #[id number], 30, 2 PUFFS INHALATION 4 TIMES A DAYAS NEEDED FOR WHEEZING, 177.06, cm, 07/09/24 10:57:00 EDT, Height 07/09/20 Active netarsudiL (RHOPRESSA) 0.02 % ophthalmic solution Place 1 drop into each eye every evening. Active carvedilol (COREG) 25 MG tablet Take 1 tablet by mouth 2 (two) times a day. 09/09/20 Active omeprazole (PRILOSEC) 20 MG capsule Take 1 capsule by mouth every morning. 03/05/20 Active carvedilol (COREG) 12.5 MG tablet Take 25 mg by mouth 2 (two) times a day with meals. 11/15/19 025 Discontinued Active Problems Problem Noted Date Diagnosed Date Non-small cell lung cancer, left 01/02/2022 Adenocarcinoma of left lung, stage 2 12/01/2021 PVD (peripheral vascular disease) Osteoarthritis of right knee Obesity Hypertension Overview (11/18/2021): med managed Hyperlipidemia Overview (11/18/2021): on statin Glaucoma Former smoker Overview (11/18/2021): quit x 12 yrs ago Encounters Date Type Department Care Team Description 06/30/2025 1:30 PM EDT Office Visit [facility], [facility] [place] [facility] [place] 300 [facility] 4th [place] [address] Donald Zavala MD Non-small cell lung cancer, left (Primary Dx) 06/30/2025 9:31 AM EDT - 06/30/2025 11:59 PM EDT Hospital Encounter [facility] [place] [address] [address] Donald Zavala MD Discharge Disposition: Home or Self Care 02/10/2025 Procedure [place] [address] [address] 02/10/2025 Procedure [place] [address] [address] from Last 3 Months Immunizations No known immunizations Family History Medical History Relation Comments Lung cancer Brother Smoker Bleeding/Clotting Disorder Neg Hx Heart attack Neg Hx Stroke Neg Hx Relation Status Comments Brother at 70 Father Mother Social History Tobacco Use Types Packs/Day Years Used Date Smoking Tobacco: Former Cigarettes 1 40 1 970 - 2009 Smokeless Tobacco: Never Tobacco Cessation:Counseling Given: Not Answered Alcohol Use Standard Drinks/Week Comments Yes 0 [...] Orientation Straight 11/11/2021 4: 20 PM EST Last Filed Vital Signs Vital Sign Reading Time Taken Comments Blood Pressure 142/70 06/30/2025 1:06 PM EDT Pulse 68 06/30/2025 1:06 PM EDT Temperature 36.4 C (97.5 F) 06/30/2025 1:06 PM EDT Respiratory Rate 14 06/30/2025 1:06 PM EDT Oxygen Saturation 98% 06/30/2025 1:06 PM EDT Inhaled Oxygen Concentration - - Weight 82.3 kg (181 lb 7 oz) 06/30/2025 1:06 PM EDT Height 177.8 cm (5' 10 ) 03/08/2025 10:07 AM EDT Body Mass Index 26.03 03/08/2025 10:07 AM EDT Plan of Treatment Upcoming Encounters Date Type Department Care Team (Late st Contact Info) Description 08/11/2025 9:15 AM EDT Appointment [facility] [place], [place] [address] [address] Donald Zavala MD [address] [place] [address] [email or web address] 08/11/2025 1:30 PM EDT Office Visit [facility], [facility] [place] [address] [address] Donald Zavala MD [address] [place] [phone] [email or web address] Health Maintenance Due Date Last Done Comments INFLUENZA VACCINE (#1) 2025 , 08/07/2023, 08/02/2023, Additional history exists COVID-19 VACCINE ( season) 2025 07/17/2024, 08/07/2023, 08/09/2022, Additional history exists DEPRESSION SCREENING 11/04/2025 11/04/2024 BLOOD PRESSURE 12/28/2025 06/30/2025 CREATININE LEVEL 06/30/2026 06/30/2025, , 10/28/2024, Additional history exists POTASSIUM LEVEL 06/30/2026 06/30/2025, 01/21, 10/28/2024, Additional history exists Adult Td,Tdap Booster 05/28/2027 05/28/2017 , 11/20/2007, 10/22/1997 ZOSTER VACCINES Completed 03/25/2019, 12/20, 12/20/2018, Additional history exists PNEUMOCOCCAL VACCINES (50+ years) Completed 06/07/2020, 05/17/2015, 09/28/2009, Additional history exists RSV VACCINE Completed 10/18/2023 HEPATITIS A VACCINES Aged Out No long er eligible based on patient's age to complete this topic HIB VACCINES Aged Out No longer eligi ble based on patient's age to complete this topic MENINGOCOCCAL VACCINES (ACWY) Aged Out No longer eligible based on patient's age to complete this topic MENINGOCOCCAL VACCINES (B) Aged Out N o longer eligible based on patient's age to complete this topic Medical Devices Implanted Type Area Steam Setter Device Identifier Shelf Expiration Date Model / Serial / Lot Left Total Knee Replacement Procedures Procedure Name Priority Date/Time Associated Diagnosis Comments CT ABDOMEN/PELVIS WITH CONTRAST Routine 06/30/2025 10:28 AM EDT Non-small cell lung cancer, left CT CHEST WITH CONTRAST Routine 10:28 AM EDT Non-small cell lung cancer, left COMPREHENSIVE METABOLIC PANEL Routine 06/30/2025 9:30 AM EDT Non-small cell lung cancer, left HC BLOOD COUNT COMPLETE AUTO&AUTO DIFRNTL WBC Routine 06/30/2025 9:30 AM EDT Non-small cell lung cancer, left from Last 3 Months Results * CT CHEST WITH CONTRAST (06/30/2025 10:28 AM EDT) Anatomical Region Laterality Modality Chest Computed Tomogra phy Other 06/30/2025 11:3 0 AM EDT Impressions 06/30/2025 2:13 PM EDT 1. Stable postsurgical changes in the left upper lobe. 2. Increased bilateral peribronchial nodularity with slight mid lung predominance, with largest new nodule measuring 7 mm, favored to be inflammatory/infectious given waxing and waning nodularity on multiple prior scans. Recommend attention on follow-up. 3. Mild increase in size of mediastinal and hilar lymphadenopathy, which may be reactive to the above. ATTESTATION: IEdwar, as teaching physician have reviewed the images, if any, for this patient's exam, and if necessary, have edited the report originally created by [employer]. Narrative 06/30/2025 2:[address] CHEST WITH CONTRAST Referring clinician's provided indication for this examination in [facility]: [MALIGNANCY] LUNG, NON-SMALL CELL (KNOWN ACT MALIG UNDER [place]; LUNG CANCER NSCLC) TECHNIQUE: Multidetector CT of the chest was performed with intravenous contrast using tailored dose modulation techniques. COMPARISON: CT CHEST WITH CONTRAST FINDINGS: Devices/Tubes/Lines: None. Lungs: Status post left upper lobe wedge resection with similar surgical margins. Similar severe emphysema. Biapical pleuroparenchymal scarring with calcifications. Increased peribronchial nodularity, right greater than left and most pronounced in the mid lungs, with multiple new lung nodules, largest in the right upper lobe nodules measuring 7 mm (4:176) and 6 mm (4:191). Unchanged bibasilar interstitial lung abnormalities. Diffuse bronchial wall thickening. Pleura: No pleural effusion or pneumothorax. Mediastinum: Heart size is normal. Trace pericardial effusion. Severe amount of coronary calcifications. Small sliding hiatal hernia. Lymph Nodes: Slightly increased mediastinal and hilar lymph nodes, including right lower paratracheal node 1.4 cm (2:45), previously 1.0 cm; subcarinal node 1.2 cm (2:54), previously 1.0 cm; and right hilar node 1.0 cm (2:48), previously 0.7 cm. Upper Abdomen: Please see concurrent abdominal CT for abdominal findings. Chest Wall: No chest wall mass. Bones: No suspicious lytic or blastic lesions. Degenerative changes of thoracic spine. Unchanged scattered vertebral body hemangiomas. Procedure Note Edwar Collins MD - 06/30/2025 CT CHEST WITH CONTRAST Referring clinician's provided indication for this examination in [facility]:[MALIGNANCY] LUNG, NON-SMALL CELL (KNOWN ACT MALIG UNDER [place]; LUNG CANCERNSCLC) TECHNIQUE: Multidetector CT of the chest was performed with intravenouscontrast using tailored dose modulation techniques. COMPARISON: CT CHEST WITH CONTRAST FINDINGS: Devices/Tubes/Lines: None. Lungs: Status post left upper lobe wedge resection with similar surgicalmargins. Similar severe emphysema. Biapical pleuroparenchymal scarringwith calcifications. Increased peribronchial nodularity, right greaterthan left and most pronounced in the mid lungs, with multiple new lungnodules, largest in the right upper lobe nodules measuring 7 mm (4:176)and 6 mm (4:191). Unchanged bibasilar interstitial lung abnormalities.Diffuse bronchial wall thickening. Pleura: No pleural effusion or pneumothorax. Mediastinum: Heart size is normal. Trace pericardial effusion. Severeamount of coronary calcifications. Small sliding hiatal hernia. Lymph Nodes: Slightly increased mediastinal and hilar lymph nodes,including right lower paratracheal node 1.4 cm (2:45), previously 1.0 cm;subcarinal node 1.2 cm (2:54), previously 1.0 cm; and right hilar node 1.0cm (2:48), previously 0.7 cm. Upper Abdomen: Please see concurrent abdominal CT for abdominalfindings. Chest Wall: No chest wall mass. Bones: No suspicious lytic or blastic lesions. Degenerative changes ofthoracic spine. Unchanged scattered vertebral body hemangiomas. IMPRESSION: 1. Stable postsurgical changes in the left upper lobe. 2. Increased bilateral peribronchial nodularity with slight mid lungpredominance, with largest new nodule measuring 7 mm, favored to beinflammatory/infectious given waxing and waning nodularity on multipleprior scans. Recommend attention on follow-up. 3. Mild increase in size of mediastinal and hilar lymphadenopathy, whichmay be reactive to the above. ATTESTATION: Edwar Rubio, as teaching physician have reviewed theimages, if any, for this patient's exam, and if necessary, have edited thereport originally created by [employer]. us Donald Zavala MD IMG CT CHEST Final Result * CT ABDOMEN/PELVIS WITH CONTRAST (06/30/2025 10:28 AM EDT) Anatomical Region Laterality Modality Abdomen, Pelvis Computed Tomogra phy Other 06/30/2025 10:5 8 AM EDT Impressions 06/30/2025 11:08 AM EDT 1. No metastatic lung cancer in the abdomen or pelvis. Narrative 06/30/2025 11:[address] ABDOMEN/PELVIS WITH CONTRAST Referring clinician's provided indication for this examination in Epic: * Non- small cell lung cancer, metastatic, assess treatment response TECHNIQUE: Multidetector-row CT of the abdomen and pelvis was performed after administration of intravenous contrast using tailored dose modulation techniques. Images were reconstructed in the axial, coronal, and sagittal planes. COMPARISON: CT abdomen pelvis 02/10/2025. FINDINGS: Lower Chest: CT chest from the same day is reported separately. Tiny patchy nodules in the right lower lobe and middle lobe. Liver: Few tiny scattered low-attenuation lesions, too small to characterize but most likely cysts. Biliary: Normal. No biliary ductal dilatation. Spleen: Normal. No splenomegaly or focal lesions. Pancreas: Normal. No masses or ductal dilatation. Adrenal Glands: 0.9 x 1.0 cm left adrenal nodule, unchanged (3:111), not previously FDG avid and therefore most likely an adenoma. Normal left adrenal gland. Kidneys/Ureters: Numerous bilateral renal low-attenuation lesions, many of which measure fluid attenuation and are simple cysts and others that are too small to definitively characterize but are most likely cysts. No hydronephrosis. Bowel: Colonic diverticula. Small sliding-type hiatal hernia. Small duodenal diverticulum. Peritoneum/Retroperitoneum: Mild groundglass attenuation small bowel mesentery, likely mild mesenteric panniculitis. No pneumoperitoneum or ascites. Lymph Nodes: Decreased size of gastrohepatic node, previously measuring 1 cm in short axis and now measuring 0.6 cm (1:19). No new lymphadenopathy. Pelvic Organs/Bladder: Prostate is enlarged. Vessels: Moderate to severe atherosclerosis. Bones/Soft Tissues: The L1 vertebral body measures 75 hypodense lesions in keeping with osteoporosis. Scattered vertebral body hemangiomas. Degenerative changes. Procedure Note Dank Ha MD - 06/30/2025 CT ABDOMEN/PELVIS WITH CONTRAST Referring clinician's provided indication for this examination in [facility]: *Non- small cell lung cancer, metastatic, assess treatment response TECHNIQUE: Multidetector-row CT of the abdomen and pelvis was performedafter administration of intravenous contrast using tailored dosemodulation techniques. Images were reconstructed in the axial, coronal,and sagittal planes. COMPARISON: CT abdomen pelvis 02/10/2025. FINDINGS: Lower Chest: CT chest from the same day is reported separately. Tinypatchy nodules in the right lower lobe and middle lobe. Liver: Few tiny scattered low-attenuation lesions, too small tocharacterize but most likely cysts. Biliary: Normal. No biliary ductal dilatation. Spleen: Normal. No splenomegaly or focal lesions. Pancreas: Normal. No masses or ductal dilatation. Adrenal Glands: 0.9 x 1.0 cm left adrenal nodule, unchanged (3:111), notpreviously FDG avid and therefore most likely an adenoma. Normal leftadrenal gland. Kidneys/Ureters: Numerous bilateral renal low-attenuation lesions, many ofwhich measure fluid attenuation and are simple cysts and others that aretoo small to definitively characterize but are most likely cysts. Nohydronephrosis. Bowel: Colonic diverticula. Small sliding-type hiatal hernia. Smallduodenal diverticulum. Peritoneum/Retroperitoneum: Mild groundglass attenuation small bowelmesentery, likely mild mesenteric panniculitis. No pneumoperitoneum orascites. Lymph Nodes: Decreased size of gastrohepatic node, previously measuring 1cm in short axis and now measuring 0.6 cm (1:19). No newlymphadenopathy. Pelvic Organs/Bladder: Prostate is enlarged. Vessels: Moderate to severe atherosclerosis. Bones/Soft Tissues: The L1 vertebral body measures 75 hypodense lesions inkeeping with osteoporosis. Scattered vertebral body hemangiomas.Degenerative changes. IMPRESSION: 1. No metastatic lung cancer in the abdomen or pelvis. us Donald Zavala MD IMG CT ABD/PELVIS Final Resul t * (ABNORMAL) Comprehensive metabolic panel (06/30/2025 9:30 AM EDT) SODIUM 134(L) 136 - 145 mmol/L [facility]# [id number] POTASSIUM 4.5 3.4 - 5.1 mmol/L [facility]# [id number] CHLORIDE 102 98 - 107 mmol/L [facility]# [id number] CO2 21(L) 22 - 31 mmol/L [facility]# [id number] BUN 25(H) 6 - 23 mg/dL [facility]# [id number] CREATININE 1.66(H) 0.50 - 1.20 mg/dL [facility]# [id number] GLUCOSE 124(H) 70 - 100 mg/dL [facility]# [id number] ALBUMIN 3.7 3.5 - 5.2 g/dL [facility]# [id number] TOTAL PROTEIN 6.3(L) 6.4 - 8.3 g/dL [facility]# [id number] CALCIUM 8.6(L) 8.8 - 10.7 mg/dL [facility]# [id number] ALKALINE PHOSPHATASE 126 40 - 129 U/L [facility]# [id number] TOTAL BILIRUBIN 0.3 0.2 - 1.2 mg/dL [facility]# [id number] AST 15 <41 U/L [facility]# [id number] ALT 11 <42 U/L [facility]# [id number] GLOBULIN 2.6 2.3 - 4.2 g/dL [facility]# [id number] EGFR 41(L) >59 mL/min/1.7 3m2 [facility]# [id number] Comment:Estimated glomerular filtration rate calculated using the CKD-EPI refit equation. ANION GAP 11 7 - 17 mmol/L [facility]# [id number] Blood 06/30/2025 9:30 AM EDT 06/30/2025 9:37 AM EDT us Donald Zavala MD LAB BLOOD ORDERABLES Final Re sult [facility]# [id number] [address] [place] [address], [facility] * (ABNORMAL) CBC and differential (06/30/2025 9:30 AM EDT) WBC 9.00 4.00 - 10.00 K/uL [facility] LIC# [id number] RBC 3.88(L) 4.50 - 6.40 M/uL [facility] LIC# [id number] HGB 11.7(L) 13.5 - 18.0 g/dL [facility] LIC# [id number] HCT 35.1(L) 40.0 - 54.0 % [facility] LIC# [id number] PLT 277 150 - 450 K/uL [facility] LIC# [id number] MCV 90.5 80.0 - 100.0 fL [facility] LIC# [id number] MCH 30.2 27.0 - 32.0 pg [facility] LIC# [id number] MCHC 33.3 32.0 - 36.0 g/dL [facility] LIC# [id number] RDW 14.4 11.5 - 14.5 % [facility] LIC# [id number] MPV 9.7 8.4 - 12.0 fL [facility] LIC# [id number] NRBC 0.00 0.00 /100 WBCs [facility] LIC# [id number] ABSOLUTE NRBC 0.00 0 K/uL [facility] LIC# [id number] DIFF METHOD Auto [facility] LIC# [id number] NEUTS 64.1 48.0 - 76.0 % [facility] LIC# [id number] LYMPHS 17.3(L) 18.0 - 41.0 % [facility] LIC# [id number] MONOS 12.4(H) 4.0 - 11.0 % [facility] LIC# [id number] EOS 4.2 0.0 - 5.0 % [facility] LIC# [id number] BASOS 0.7 0.00 - 1.50 % [facility] LIC# [id number] % IMMATURE GRANS 1.3(H) 0.00 - 1.00 % [facility] LIC# [id number] ABSOLUTE NEUTS 5.76 1.92 - 7.60 K/uL [facility] LIC# [id number] ABSOLUTE LYMPHS 1.56 0.72 - 4.10 K/uL [facility] LIC# [id number] ABSOLUTE MONOS 1.12(H) 0.16 - 1.10 K/uL [facility] LIC# [id number] ABSOLUTE EOS 0.38 0.00 - 0.50 K/uL [facility] LIC# [id number] ABSOLUTE BASOS 0.06 0.00 - 0.15 K/uL [facility] LIC# [id number] ABS IMMATURE GRANS 0.12(H) 0.00 - 0.10 K/uL [facility] LIC# [id number] Blood 06/30/2025 9:30 AM EDT 06/30/2025 9:37 AM EDT Donald Zavala MD LAB BLOOD ORDERABLES Final Re sult [facility] LIC# [id number] [address] [place] [address], [facility] from Last 3 Months Insurance [employer] SUPPLEMENT MEDICARE PART A & B [employer] MEDEX SUPPLEMENT MEDICARE PART A & B [employer] MEDEX SUPPLEMENT MEDICARE PART A & B [employer] MEDEX SUPPLEMENT MEDICARE PART A & B [employer] MEDEX SUPPLEMENT MEDICARE PART A & B [place] MEDEX SUPPLEMENT MEDICARE PART A & B [employer] MEDEX SUPPLEMENT MEDICARE PART A & B [employer] MEDEX SUPPLEMENT MEDICARE PART A & B [employer] SUPPLEMENT MEDICARE PART A & B Advance Directives For more information, please contact: [phone] (9AM - 5PM [facility], Sunday-Sunday) Documents on File Type Date Recorded Patient Director Of Science Expl anation Healthcare Proxy 01/05/2022 4:00 PM * Full Code (Latest Code Status on File) Date Activated Date Inactivated Comments 01/02/2022 1:07 PM Question Answer Comments Code Status Confirmed With: Patient Healthcare Agents on File Name Relationship Healthcare Agent Relationship Communication Burton Saenz Other (no pr oxy form on file) [email or web address] Financial Counselor Relationship Specialty Start Date End Date Bean Joe MD [address] [place] [address] [phone] PCP - General Internal Medicine 11/11/21 Luna Mckeon MD, PhD [address] [place] [phone] [email or web address] Thoracic Surgery 11/15/21 Ever Spring MD [address] [place] [address] Division [place] [address] [email or web address] [email or web address] Surgery 11/28/21 Bailey Vazquez RN [address] [place] [phone] [email or web address] Primary Infusion Nurse 02/21/22 Hilary Gallardo RN [address] [place] [phone] [email or web address] Associate Infusion Nurse 07/28/22 Tamar Armando RN [address] [place] [address] [email or web address] Associate Infusion Nurse 04/06/23 Additional Source Comments The information contained in this document represents components of the legal health record. It is not the complete legal health record.[facility]
--- OUTSIDE RECORDS SUMMARY | 2025-07-23 11:48 | XMS_ITS | Encounter Summary ---
Author Organization [facility] Address [address] [place] [address] Phone Care Team Providers Care Steel Layout Worker Name Role Phone Bean Joe MD Primary Care Provider [phone] Luna Mckeon MD, PhD Unavailable [phone] Ever Spring MD Unavailable [phone] Bailey Vazquez RN Unavailable [phone] Hilary Gallardo RN Unavailable [email or web address] Tamar Armando RN Unavailable [email or web address] Encounter Details Date Type Department Care Team (Late st Contact Info) Description 07/03/2023 Procedure Pass [place] [facility] [place] [facility] [place] [address] [address] Social History Tobacco Use Types [...] Info) Description 08/11/2025 9:15 AM EDT Appointment [facility] [place], [place] [address] [address] Donald Zavala MD [address] [place] [phone] [email or web address] 08/11/2025 1:30 PM EDT Office Visit [facility], [facility] [place] [address] [address] Donald Zavala MD [address] [place] [phone] [email or web address] documented as of this encounter Visit Diagnoses Not on filedocumented in this encounter Additional Health Concerns Assessment Noted Time PHQ-2 Depression Total Score: 0 07/10/20 23 12:21 PM EDT documented as of this encounter Care Teams Steel Layout Worker Relationship Specialty Start Date End Date Bean Joe MD [address] [place] [address] [phone] PCP - General Internal Medicine 11/11/21 Luna Mckeon MD, PhD [address] [place] [phone] [email or web address] [email or web address] Surgery 11/15/21 Ever Spring MD [address] [place] [address] Division [place] [address] [email or web address] [email or web address] Surgery 11/28/21 Bailey Vazquez RN [address] [place] [email or web address] Primary Infusion Nurse 02/21/22 Hilary Gallardo RN [address] [place] [phone] [email or web address] Associate Infusion Nurse 07/28/22 Tamar Armando RN [address] [place] [phone] [email or web address] Associate Infusion Nurse 04/06/23 documented as of this encounter Additional Source Comments The information contained in this document represents components of the legal health record. It is not the complete legal health record.[facility]
--- OUTSIDE RECORDS SUMMARY | 2025-07-23 11:48 | XMS_ITS | Encounter Summary ---
Author Organization [facility] Address [address] [place] [address] Phone Care Team Providers Care Manager Critical Care Unit Name Role Phone Bean Joe MD Primary Care Provider [phone] Luna Mckeon MD, PhD Unavailable [phone] Ever Spring MD Unavailable [phone] Bailey Vazquez RN Unavailable [phone] Hilary Gallardo RN Unavailable RHONDA [email or web address].[facility] Demetrio Love PA-C Unavailable [phone] Tamar Armando RN Unavailable [email or web address] Reason for Referral * - Closed Specialty Diagnoses / Procedures Referred By Cindi t Referred To Contact Radiology Diagnoses Pre-op exam Procedures NM SPECT/CT Single Area Single Day Ever Spring MD Phone: tel: fax: mailto:[email or web address] Referral ID Status Reason Start Date Expiration Date Visits Re quested Visits Authorized [id number] Closed 12/06/2021 12/06/2022 1 1 Encounter Details Date Type Department Care Team (Late st Contact Info) Description 12/06/2021 Ancillary Orders [facility], [facility] Cancer [address] [place] [address] Ever Spring MD [address] [place] [address] Division [place] [address] [email or web address] Pre-op exam Social History Tobacco Use Types Packs/Day Years [...] Info) Description 08/11/2025 9:15 AM EDT Appointment [facility], PET/CT [address] [address] Donald Zvaala MD [address] [place] [phone] [email or web address] 08/11/2025 1:30 PM EDT Office Visit [facility], [facility] [place] [facility] [place] [address] [address] Donald Zavala MD [address] [place] [address] [email or web address] documented as of this encounter Results * NM SPECT/CT Single Area Single Day (12/06/2021 8:57 AM EST) Anatomical Region Laterality Modality Nuclear Medicine 12/06/2021 9:22 AM EST Impressions 12/06/2021 9:54 AM EST 1. Decreased perfusion in the bilateral upper lobes, right greater than left, which correlates with emphysema on CT. 2. Relative differential lung perfusion: left 45%, right 55%. ATTESTATION: Dilcia Rubio, as teaching physician have reviewed the images, if any, for this patient's exam, and if necessary, have edited the report originally created by Yunior Sweeney. Narrative 12/06/2021 9:54 AM EST Reason for exam (per EHR order): Pre-Op Additional clinical information obtained from the EHR: 76-year-old male. History of COPD. 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 Pre-operative assessment of lung ventilation and perfusion. TECHNIQUE: Radiopharmaceuticals: 4.3 mCi of Tc-99m MAA injected intravenously. Image acquisition: Planar perfusion images of the lungs were obtained in in the anterior, posterior, left anterior oblique, right anterior oblique, left posterior oblique, and right posterior oblique projections. Perfusion SPECT/CT was also performed to further evaluate abnormal findings on the planar images. COMPARISON: FDG-PET/CT scan on 11/07/2021. Outside CT chest 10/19/2021. FINDINGS: Perfusion: Decreased perfusion in the bilateral lung apices, right greater than left. Homogeneous perfusion throughout the remaining lung prakash. SPECT/CT was performed for further characterization and localization of the decreased perfusion in the lung apices. Decreased perfusion in the bilateral upper lobes, right greater than left, which correlates with emphysema on CT. Incidental findings on the SPECT/CT: Unchanged spiculated 0.9 x 0.9 cm left lingular nodule and 1.1 x 0.9 cm left hilar lymph node, better evaluated on prior PET/CT dated 11/07/2021. Unchanged 1.1 cm left adrenal nodule. Partially visualized bilateral upper pole renal cysts, unchanged. Coronary artery calcifications. Atherosclerotic calcifications of the aorta. Quantitation of the regional perfusion function (using the geometric mean of the anterior and posterior images) is as shown in the following table: % OF THE TOTAL PULMONARY ACTIVITY IN EACH LUNG ZONE: LEFT LUNG RIGHT LUNG PERFUSION PERFUSION Q(L) Q(R) LUNG ZONE UPPER 1: 6.5% 6.4% MIDDLE 1/3: 28.2% 34.8% LOWER 1/3: 10.6% 13.4% ------ ------ ------ ------ WHOLE LUN.3% 54.7% Procedure Note Dilcia Soto MD - 12/06/2021 Reason for exam (per EHR order): Pre-Op Additional clinical information obtained from the EHR: 76-year-old male.History of COPD. Recent diagnosis of NSCLC in the left lingula .Pre-operative assessment of lung ventilation and perfusion. TECHNIQUE: Radiopharmaceuticals: 4.3 mCi of Tc-99m MAA injected intravenously. Image acquisition: Planar perfusion images of the lungs were obtained inin the anterior, posterior, left anterior oblique, right anterior oblique,left posterior oblique, and right posterior oblique projections. PerfusionSPECT/CT was also performed to further evaluate abnormal findings on theplanar images. COMPARISON: FDG-PET/CT scan on 11/07/2021. Outside CT chest 10/19/2021. FINDINGS: Perfusion: Decreased perfusion in the bilateral lung apices, right greater than left.Homogeneous perfusion throughout the remaining lung prakash. SPECT/CT was performed for further characterization and localization ofthe decreased perfusion in the lung apices. Decreased perfusion in thebilateral upper lobes, right greater than left, which correlates withemphysema on CT. Incidental findings on the SPECT/CT: Unchanged spiculated 0.9 x 0.9 cmleft lingular nodule and 1.1 x 0.9 cm left hilar lymph node, betterevaluated on prior PET/CT dated 11/07/2021. Unchanged 1.1 cm left adrenalnodule. Partially visualized bilateral upper pole renal cysts, unchanged.Coronary artery calcifications. Atherosclerotic calcifications of theaorta. Quantitation of the regional perfusion function (using the geometric meanof the anterior and posterior images) is as shown in the followingtable: % OF THE TOTAL PULMONARY ACTIVITY IN EACH LUNG ZONE: LEFT LUNG RIGHT LUNG PERFUSION PERFUSION Q(L) Q(R) LUNG ZONE UPPER 1/3: 6.5% 6.4% MIDDLE 1/3: 28.2% 34.8% LOWER 1/3: 10.6% 13.4% ------ ------ ------ ------ WHOLE LUN.3% 54.7% IMPRESSION: 1. Decreased perfusion in the bilateral upper lobes, right greater thanleft, which correlates with emphysema on CT. 2. Relative differential lung perfusion: left 45%, right 55%. ATTESTATION: Dilcia Rubio, as teaching physician have reviewed theimages, if any, for this patient's exam, and if necessary, have edited thereport originally created by Yunior Sweeney. us Ever Spring MD IMG NM TUMOR LOC Final Re sult documented in this encounter Visit Diagnoses Diagnosis Pre-op exam documented in this encounter Additional Health Concerns Assessment Noted Time PHQ-2 Depression Total Score: 0 11/29/19 22 9:25 AM EST documented as of this encounter Care Teams Manager Critical Care Unit Relationship Specialty Start Date End Date Bean Joe MD [address] [place] [address] PCP - General Internal Medicine 11/11/21 Luna Mckeon MD, PhD [address] [place] [address] [email or web address] Thoracic Surgery 11/15/21 Ever Spring MD [address] [place] [address] Division [place] [address] [email or web address] Thoracic Surgery 11/28/21 Bailey Vazquez RN [address] [place] [id number] [email or web address] .[email or web address] Primary Infusion Nurse 02/21/22 Hilary Gallardo RN [address] [place] [address] [email or web address] Associate Infusion Nurse 07/28/22 Demetrio Love PA-C 300 [place] [address] [email or web address] Physician Practicing Md Anesthesiologist 12/21/22 04/05/23 Tamar Armando RN 300 [place] [address] [email or web address] Associate Infusion Nurse 04/06/23 documented as of this encounter Additional Source Comments The information contained in this document represents components of the legal health record. It is not the complete legal health record.[facility]
--- OUTSIDE RECORDS SUMMARY | 2025-07-23 11:48 | XMS_ITS | Encounter Summary ---
Author Organization [facility] Address [address] [place] [address] Phone Care Team Providers Care Applications Support Lead Name Role Phone Bean Joe MD Primary Care Provider Luna Mckeon MD, PhD Unavailable [phone] Ever Spring MD Unavailable [phone] Bailey Vazquez RN Unavailable [phone] Hilary Gallardo RN Unavailable RHONDA [email or web address] Demetrio Love PA-C Unavailable [phone] Tamar Armando RN Unavailable [email or web address]@ [email or web address] Encounter Details Date Type Department Care Team (Late st Contact Info) Description 05/17/2022 Procedure Pass [facility] [place] 300 [place] [address] Social History Tobacco Use Types Packs/Day Years [...] Info) Description 08/11/2025 9:15 AM EDT Appointment [facility] [place], PET/CT 300 [facility] [address] [place] [address] Donald Zavala MD [address] [place] [address] [email or web address] 08/11/2025 1:30 PM EDT Office Visit [facility], [facility] [place] 300 [facility] [address] [place] [address] Donald Zavala MD [address] [place] [address] [email or web address]@[email or web address] documented as of this encounter Visit Diagnoses Not on filedocumented in this encounter Additional Health Concerns Assessment Noted Time PHQ-2 Depression Total Score: 0 11/29/19 9:25 AM EST documented as of this encounter Care Teams Applications Support Lead Relationship Specialty Start Date End Date Bean Joe MD [address] [place] [address] PCP - General Internal Medicine 11/11/21 Luna Mckeon MD, PhD [address] [place] [address] 1 [place] [address] [email or web address] Thoracic Surgery 11/15/21 Ever Spring MD [address] [place] [address] Division [place] [address] [email or web address] Thoracic Surgery 11/28/21 Bailey Vazquez RN 300 [place] [address] [email or web address] Primary Infusion Nurse 02/21/22 Hilary Gallardo RN 300 [place] [address] [email or web address] Associate Infusion Nurse 07/28/22 Demetrio Love PA-C 300 [place] [address] [email or web address] Physician Upper Doubler 12/21/22 04/05/23 Tamar Armando RN 300 [place] [address] [email or web address] Associate Infusion Nurse 04/06/23 documented as of this encounter Additional Source Comments The information contained in this document represents components of the legal health record. It is not the complete legal health record.[facility]
--- OUTSIDE RECORDS SUMMARY | 2025-07-23 11:48 | XMS_ITS | Encounter Summary ---
Author Organization [facility] Address [address] [place] [address] Phone Care Team Providers Care Furniture Detailer Name Role Phone Bean Joe MD Primary Care Provider [phone] Luna Mckeon MD, PhD Unavailable [phone] Ever Spring MD Unavailable [phone] Bailey Vazquez RN Unavailable [phone] Hilary Gallardo RN Unavailable RHONDA [email or web address] Tamar Armando RN Unavailable [email or web address] Encounter Details Date Type Department Care Team (Late st Contact Info) Description 01/22/2024 Procedure Pass [facility] [place] [address] [address] Social History Tobacco Use Types [...] Info) Description 08/11/2025 9:15 AM EDT Appointment [facility], PET/CT [address] [address] Donald Zavala MD [address] [place] [phone] [email or web address] 08/11/2025 1:30 PM EDT Office Visit [facility], [facility] [address] [address] Donald Zavala MD [address] [place] [phone] [email or web address] documented as of this encounter Visit Diagnoses Not on filedocumented in this encounter Additional Health Concerns Assessment Noted Time PHQ-2 Depression Total Score: 0 01/29/20 24 7:26 AM EDT documented as of this encounter Care Teams Furniture Detailer Relationship Specialty Start Date End Date Bean Joe MD [address] [place] [address] [id number] PCP - General Internal Medicine 11/11/21 Luna Mckeon MD, PhD [address] [place] [address] [email or web address] Thoracic Surgery 11/15/21 Ever Spring MD [address] [place] [address] Division [place] [address] [email or web address] Thoracic Surgery 11/28/21 Bailey Vazquez RN [address] [place] [id number] [email or web address]@[email or web address] Primary Infusion Nurse 02/21/22 Hilary Gallardo RN [address] [place] [address] SARA@[facility] Associate Infusion Nurse 07/28/22 Tamar Armando RN [address] [place] [address] [email or web address] Associate Infusion Nurse 04/06/23 documented as of this encounter Additional Source Comments The information contained in this document represents components of the legal health record. It is not the complete legal health record.[facility]
--- OUTSIDE RECORDS SUMMARY | 2025-07-23 11:48 | XMS_ITS | Encounter Summary ---
Author Organization [facility] Address [address] [place] [address] Phone Care Team Providers Care Switchboard Mechanic Name Role Phone Bean Joe MD Primary Care Provider [phone] Luna Mckeon MD, PhD Unavailable [phone] Ever Spring MD Unavailable [phone] Bailey Vazquez RN Unavailable [phone] Hilary Gallardo RN Unavailable RHONDA [email or web address] Demetrio Love PA-C Unavailable Tamar Armando RN Unavailable [email or web address]@ [email or web address].[facility] Encounter Details Date Type Department Care Team (Late st Contact Info) Description 12/06/2021 Ancillary Orders [facility]PART[facility] [address] [place] [address] Dilcia Soto MD [address] [place] [address] [email or web address] Social History Tobacco Use Types Packs/Day Years [...] Info) Description 08/11/2025 9:15 AM EDT Appointment [facility], PET/CT [address] [address] Donald Zavala MD [address] [place] [phone] [email or web address] 08/11/2025 1:30 PM EDT Office Visit [facility], [facility] [place] [address] [address] Donald Zavala MD [address] [place] [phone] [email or web address] documented as of this encounter Visit Diagnoses Not on filedocumented in this encounter Additional Health Concerns Assessment Noted Time PHQ-2 Depression Total Score: 0 11/29/19 9:25 AM EST documented as of this encounter Care Teams Switchboard Mechanic Relationship Specialty Start Date End Date Bean Joe MD [address] [place] [address] PCP - General Internal Medicine 11/11/21 Luna Mckeon MD, PhD [address] [place] [phone] [email or web address] Thoracic Surgery 11/15/21 Ever Spring MD [address] [place] [address] Division [place] [address] [email or web address] Thoracic Surgery 11/28/21 Bailey Vazquez RN [address] [place] [id number] [email or web address] Primary Infusion Nurse 02/21/22 Hilary Gallardo RN 300 [place] [address] [email or web address] Associate Infusion Nurse 07/28/22 Demetrio Love PA-C [address] [place] [address] [email or web address] Physician Accountant Certified Public 12/21/22 04/05/23 Tamar Armando RN 300 [place] [address] [email or web address] Associate Infusion Nurse 04/06/23 documented as of this encounter Additional Source Comments The information contained in this document represents components of the legal health record. It is not the complete legal health record.[facility]
--- OUTSIDE RECORDS SUMMARY | 2025-07-23 11:48 | XMS_ITS | Encounter Summary ---
Author Organization [facility] Address [address] [place] [address] Phone Care Team Providers Care Fuel Cell Engineer Name Role Phone Bean Joe MD Primary Care Provider [phone] Luna Mckeon MD, PhD Unavailable [phone] Ever Spring MD Unavailable [phone] Bailey Vazquez RN Unavailable [phone] Hilary Gallardo RN Unavailable RHONDA [email or web address] Tamar Armando RN Unavailable [email or web address]@ [email or web address].[place].[facility] Encounter Details Date Type Department Care Team (Late st Contact Info) Description 03/18/2024 Procedure Pass [facility] [place] [address] [address] Social History Tobacco Use Types [...] Info) Description 08/11/2025 9:15 AM EDT Appointment [facility] [place], PET/CT [address] [address] Donald Zavala MD [address] [place] [phone] [email or web address] 08/11/2025 1:30 PM EDT Office Visit [facility], [facility] [place] [address] [address] Donald Zavala MD [address] [place] [phone] [email or web address] documented as of this encounter Visit Diagnoses Not on filedocumented in this encounter Additional Health Concerns Assessment Noted Time PHQ-2 Depression Total Score: 0 01/29/20 24 7:26 AM EDT documented as of this encounter Care Teams Fuel Cell Engineer Relationship Specialty Start Date End Date Bean Joe MD [address] [place] [address] [phone] PCP - General Internal Medicine 11/11/21 Luna Mckeon MD, PhD [address] [place] [address] [email or web address] Thoracic Surgery 11/15/21 Ever Spring MD [address] [place] [address] Division [place] [address] [email or web address] Thoracic Surgery 11/28/21 Bailey Vazquez RN [address] [place] [phone] [email or web address] Primary Infusion Nurse 02/21/22 Hilary Gallardo RN [address] [place] [address] [email or web address]@[email or web address] Associate Infusion Nurse 07/28/22 Tamar Armando RN [address] [place] [phone] [email or web address] Associate Infusion Nurse 04/06/23 documented as of this encounter Additional Source Comments The information contained in this document represents components of the legal health record. It is not the complete legal health record.[facility]
--- OUTSIDE RECORDS SUMMARY | 2025-07-23 11:48 | XMS_ITS | Encounter Summary ---
Author Organization [facility] Address [address] [place] [address] Phone Care Team Providers Care Die Cutting Machine Operator Name Role Phone Bean Joe MD Primary Care Provider [phone] Luna Mckeon MD, PhD Unavailable [phone] Ever Spring MD Unavailable [phone] Bailey Vazquez RN Unavailable [phone] Hilary Gallardo RN Unavailable RHONDA [email or web address].[email or web address] Tamar Armando RN Unavailable [email or web address] Encounter Details Date Type Department Care Team (Late st Contact Info) Description 10/09/2023 Procedure Pass [facility] [place] [address] [address] Social History Tobacco Use Types [...] Info) Description 08/11/2025 9:15 AM EDT Appointment [facility] [place], PET/[place] [address] [address] Donald Zavala MD [address] [place] [phone] [email or web address]@[email or web address] 08/11/2025 1:30 PM EDT Office Visit [facility] for Thoracic Oncology, [facility] [place] [address] [address] Donald Zavala MD [address] [place] [phone] [email or web address]@[email or web address] documented as of this encounter Visit Diagnoses Not on filedocumented in this encounter Additional Health Concerns Assessment Noted Time PHQ-2 Depression Total Score: 0 07/10/20 23 12:21 PM EDT documented as of this encounter Care Teams Die Cutting Machine Operator Relationship Specialty Start Date End Date Bean Joe MD [address] [place] [address] [phone] PCP - General Internal Medicine 11/11/21 Luna Mckeon MD, PhD [address] [place] [address] [email or web address] Thoracic Surgery 11/15/21 Ever Spring MD [address] [place] [address] Division [place] [address] [email or web address] Thoracic Surgery 11/28/21 Bailey Vazquez RN [address] [place] [phone] [email or web address] Primary Infusion Nurse 02/21/22 Hilary Gallardo RN [address] [place] [address] [email or web address] Associate Infusion Nurse 07/28/22 Tamar Armando RN [address] [place] [address] [email or web address] Associate Infusion Nurse 04/06/23 documented as of this encounter Additional Source Comments The information contained in this document represents components of the legal health record. It is not the complete legal health record.[facility]
--- OUTSIDE RECORDS SUMMARY | 2025-07-23 11:48 | XMS_ITS | Encounter Summary ---
Author Organization [facility] Address [address] [place] [address] Phone Care Team Providers Care Marking Room Supervisor Name Role Phone Bean Joe MD Primary Care Provider [phone] Luna Mckeon MD, PhD Unavailable [phone] Ever Spring MD Unavailable [phone] Bailey Vazquez RN Unavailable [phone] Hilary Gallardo RN Unavailable RHONDA [email or web address].[facility] Demetrio Love PA-C Unavailable +-[phone] Tamar Armando RN Unavailable [email or web address].[email or web address] Encounter Details Date Type Department Care Team (Late st Contact Info) Description 07/04/2022 Procedure Pass [facility] [place] [facility] [place] 300 [place] [address] Social History Tobacco Use Types Packs/Day Years [...] 9:15 AM EDT Appointment [facility] [place], PET/CT 300 [facility] 3rd [place] [address] Donald Zavala MD [address] [place] [address] [email or web address] 08/11/2025 1:30 PM EDT Office Visit [facility], [facility] [place] 300 [facility] [address] [place] [address] Donald Zavala MD [address] [place] [address] [email or web address] documented as of this encounter Visit Diagnoses Not on filedocumented in this encounter Additional Health Concerns Assessment Noted Time PHQ-2 Depression Total Score: 0 10/24/19 23 2:05 PM EST documented as of this encounter Care Teams Marking Room Supervisor Relationship Specialty Start Date End Date Bean Joe MD [address] [place] [address] PCP - General Internal Medicine 11/11/21 Luna Mckeon MD, PhD [address] [place] [address] 1 [place] [address] [email or web address] Thoracic Surgery 11/15/21 Ever Spring MD [address] [place] [address] Division [place] [address] [email or web address] Thoracic Surgery 11/28/21 Bailey Vazquez RN 300 [place] [address] [email or web address] Primary Infusion Nurse 02/21/22 Hilary Gallardo RN 300 [place] [address] [email or web address] Associate Infusion Nurse 07/28/22 Demetrio Love PA-C 300 [place] [address] [email or web address] Physician Real Estate Legal Assistant 12/21/22 04/05/23 Tamar Armando RN 300 [place] [address] [email or web address] Associate Infusion Nurse 04/06/23 documented as of this encounter Additional Source Comments The information contained in this document represents components of the legal health record. It is not the complete legal health record.[facility]
--- OUTSIDE RECORDS SUMMARY | 2025-07-23 11:48 | XMS_ITS | Encounter Summary ---
Author Organization [facility] Address [address] [place] [address] Phone Care Team Providers Care Air Hole Driller Name Role Phone Bean Joe MD Primary Care Provider Luna Mckeon MD, PhD Unavailable [phone] Ever Spring MD Unavailable [phone] Bailey Vazquez RN Unavailable [phone] Hilary Gallardo RN Unavailable RHONDA [email or web address].[place].[facility] Demetrio Love-C Unavailable +-[phone] Tamar Armando RN Unavailable [email or web address]@ [facility] Reason for Referral * - Closed Specialty Diagnoses / Procedures Referred By Contac t Referred To Contact Radiology Diagnoses Preoperative cardiovascular examination Solitary pulmonary nodule Procedures NM Lung Perfusion Differential Quantification NM Lung Perfusion and Ventilation Differential Quantification Ever Spring MD Phone: tel: fax: mailto:[email or web address] Referral ID Status Reason Start Date Expiration Date Visits Re quested Visits Authorized [id number] Closed 11/30/2021 11/30/2022 1 1 Encounter Details Date Type Department Care Team (Latest Contact Info) Description 12/06/2021 Ancillary Orders [facility] Thoracic Surgery [address] [place] [address] Ever Spring MD 75 [facility] Division [place] [address] [email or web address] Preoperative cardiovascular examination; Solitary pulmonary nodule Social History Tobacco Use Types Packs/Day Years Used Date Smoking Tobacco: Former Cigarettes 1 40 1 970 2009 Smokeless Tobacco: Never Alcohol Use Standard [...] Info) Description 08/11/2025 9:15 AM EDT Appointment [facility] [place], PET/CT [address] [address] Donald Zavala MD [address] [place] [phone] [email or web address] 08/11/2025 1:30 PM EDT Office Visit [facility] for [facility] On[facility], [facility] [address] [address] Donald Zavala MD [address] [place] [address] [email or web address] documented as of this encounter Results * NM Lung Perfusion Differential Quantification (12/06/2021 8:33 AM EST) Anatomical Region Laterality Modality Chest, Lung Nuclear Medicine 12/06/2021 9:22 AM EST Impressions [...] [place]. us Ever Spring MD IMG NM LUNG SCAN Final Re sult documented in this encounter Visit Diagnoses Diagnosis Preoperative cardiovascular examination Pre-operative cardiovascular examination Solitary pulmonary nodule documented in this encounter Additional Health Concerns Assessment Noted Time PHQ-2 Depression Total Score: 0 11/29/19 22 9:25 AM EST documented as of this encounter Care Teams Air Hole Driller Relationship Specialty Start Date End Date Bean Joe MD [address] [place] [address] PCP - General Internal Medicine 11/11/21 Luna Mckeon MD, PhD [address] [place] [address] [email or web address] Thoracic Surgery 11/15/21 Ever Spring MD [address] [place] [address] Division [place] [address] [email or web address] Thoracic Surgery 11/28/21 Bailey Vazquez RN [address] [place] [address] [email or web address] Primary Infusion Nurse 02/21/22 Hilary Gallardo RN [address] [place] [address] [email or web address] Associate Infusion Nurse 07/28/22 Demetrio Love PA-C 300 [place] [address] [email or web address] Physician Stock Digger 12/21/22 04/05/23 Tamar Armando RN 300 [place] [address] [email or web address] Associate Infusion Nurse 04/06/23 documented as of this encounter Additional Source Comments The information contained in this document represents components of the legal health record. It is not the complete legal health record.[facility]
--- OUTSIDE RECORDS SUMMARY | 2025-07-23 11:48 | XMS_ITS | Encounter Summary ---
Author Organization [facility] Address [address] [place] [address] Phone Care Team Providers Care Philosophy Lecturer Name Role Phone Bean Joe MD Primary Care Provider [phone] Luna Mckeon MD, PhD Unavailable [phone] Ever Spring MD Unavailable [phone] Bailey Vazquez RN Unavailable [phone] Hilary Gallardo RN Unavailable RHONDA [email or web address].[facility] Tamar Armando RN Unavailable [email or web address]@ [email or web address] Encounter Details Date Type Department Care Team (Late st Contact Info) Description 02/10/2025 Procedure Pass [facility] [place] [address] [address] Social History Tobacco Use Types [...] Info) Description 08/11/2025 9:15 AM EDT Appointment [facility] [place], [place] [address] [address] Donald Zavala MD [address] [place] [address] [email or web address] 08/11/2025 1:30 PM EDT Office Visit [facility], [facility] [place] [address] [address] Donald Zavala MD [address] [place] [phone] [email or web address] documented as of this encounter Visit Diagnoses Not on filedocumented in this encounter Additional Health Concerns Assessment Noted Time PHQ-2 Depression Total Score: 0 11/04/19 25 7:36 AM EST documented as of this encounter Care Teams Philosophy Lecturer Relationship Specialty Start Date End Date Bean Joe MD [address] [place] [address] PCP - General Internal Medicine 11/11/21 Luna Mckeon MD, PhD [address] [place] [address] [email or web address] Thoracic Surgery 11/15/21 Ever Spring MD [address] [place] [address] Division [place] [address] [email or web address] Thoracic Surgery 11/28/21 Bailey Vazquez RN [address] [place] [address] [email or web address] Primary Infusion Nurse 02/21/22 Hilary Gallardo RN [address] [place] [address] SARA@[email or web address] Associate Infusion Nurse 07/28/22 Tamar Armando RN [address] [place] [address] [email or web address] Associate Infusion Nurse 04/06/23 documented as of this encounter Additional Source Comments The information contained in this document represents components of the legal health record. It is not the complete legal health record.[facility]
--- OUTSIDE RECORDS SUMMARY | 2025-07-23 11:48 | XMS_ITS ---
Author Organization [facility] Address [address] [place] [address] Phone Care Team Providers Care Louver Door Assembler Name Role Phone Bean Joe MD Primary Care Provider [phone] Luna Mckeon MD, PhD Unavailable [phone] Ever Spring MD Unavailable [phone] Bailey Vazquez RN Unavailable [phone] Hilary Gallardo RN Unavailable RHONDA [email or web address]@[email or web address] Tamar Armando RN Unavailable [email or web address]@ [facility] Active Problems Problem Noted Date Diagnosed Date Non-small cell lung cancer, left 01/02/2022 Adenocarcinoma of left lung, stage 2 12/01/2021 PVD (peripheral vascular disease) Osteoarthritis of right knee Obesity Hypertension Overview (11/18/2021): med managed Hyperlipidemia Overview (11/18/2021): on statin Glaucoma Former smoker Overview (11/18/2021): quit x 12 yrs ago Current Treatment and Therapy Plans No current plan information found. Past Treatment and Therapy Plans Oncology Therapy Plan Plan Name Start Date Discontinue Date Treatment Medications Discontinue Reason Plan Provider VITAMIN B-12 (CYANOCOBALAM IN) 02/09/2022 03/01/2023 No medications scheduled. a. Therapy Complete Mitchel Pleitez MD, [place] TREATMENT PLAN Plan Name Start Date Discontinue Date Treatment Medications Discontinue Reason Plan Provider Cycles PEMETREX ED/CARBO PLATIN-T HORACIC 02/21/2022 08/01/2022 CARBOplatin (PARAPLATIN) IVPB (by AUC) 270 mLPEMEtrexed (ALIMTA) in NS IVPB a. Therapy Complete Cristi Harper MD 4 of 4 cycles completed PEMETREX ED/CISPL ATIN 02/16/2022 02/09/2022 CISplatin (PLATINOL)PEMEtr exed (ALIMTA) in NS IVPB m. Entered in error Cristi Harper MD Treatment not started TREATMENT PLAN-SUPPLEMENTAL Plan Name Start Date Discontinue Date Treatment Medications Discontinue Reason Plan Provider Cycles ATEZOLIZUMAB 1680 MG EVERY 4 WEEKS 2 04/07/2025 atezolizumab (TECENTRIQ) IVPB in 150 mL Bag a. Therapy Complete Cristi Harper MD 12 of 12 cycles started
--- OUTSIDE RECORDS SUMMARY | 2025-07-23 11:48 | XMS_ITS | Encounter Summary ---
Author Organization [facility] Address [address] [place] [address] Phone Care Team Providers Care Lime Kiln Worker Helper Name Role Phone Bean Joe MD Primary Care Provider [phone] Luna Mckeon MD, PhD Unavailable [phone] Ever Spring MD Unavailable [phone] Bailey Vazquez RN Unavailable [phone] Hilary Gallardo RN Unavailable RHONDA [email or web address].[facility] Demetrio Love PA-C Unavailable [phone] Tamar Armando RN Unavailable [email or web address]@ [email or web address].[facility] Encounter Details Date Type Department Care Team (Late st Contact Info) Description 12/08/2021 Prep for Surgery [facility] Thoracic Surgery [address] [place] [address] Marina [email or web address] Social History Tobacco Use Types Packs/Day [...] Info) Description 08/11/2025 9:15 AM EDT Appointment [facility] [place], PET/CT [address] [address] Donald Zavala MD [address] [place] [address] [email or web address] 08/11/2025 1:30 PM EDT Office Visit [facility], [facility] [place] [address] [address] Donald Zavala MD [address] [place] [address] [email or web address]@[facility] documented as of this encounter Visit Diagnoses Not on filedocumented in this encounter Additional Health Concerns Assessment Noted Time PHQ-2 Depression Total Score: 0 11/29/19 9:25 AM EST documented as of this encounter Care Teams Lime Kiln Worker Helper Relationship Specialty Start Date End Date Bean Joe MD [address] [place] [address] PCP - General Internal Medicine 11/11/21 Luna Mckeon MD, PhD [address] [place] [address] 1 [place] [address] [email or web address] Thoracic Surgery 11/15/21 Ever Spring MD [address] [place] [address] Division [place] [address] [email or web address] Thoracic Surgery 11/28/21 Bailey Vazquez RN 300 [place] [address] [email or web address] Primary Infusion Nurse 02/21/22 Hilary Gallardo RN 300 [place] [address] [email or web address] Associate Infusion Nurse 07/28/22 Demetrio Love PA-C [address] [place] [address] [email or web address] Physician [employer] 12/21/22 04/05/23 Tamar Armando RN 300 [place] [address] [email or web address] Associate Infusion Nurse 04/06/23 documented as of this encounter Additional Source Comments The information contained in this document represents components of the legal health record. It is not the complete legal health record.[facility]
--- OUTSIDE RECORDS SUMMARY | 2025-07-23 11:49 | XMS_ITS | Encounter Summary ---
Author Organization [facility] Address [address] [place] [address] Phone Care Team Providers Care Internet Assessor Name Role Phone Bean Joe MD Primary Care Provider [phone] Luna Mckeon MD, PhD Unavailable [phone] Ever Spring MD Unavailable [phone] Bailey Vazquez RN Unavailable [phone] Hilary Gallardo RN Unavailable RHONDA BOTELLO@[facility].[place].[facility] Demetrio Love PA-C Unavailable [phone] Tamar Armando RN Unavailable [email or web address]@ [email or web address].[place].[facility] Encounter Details Date Type Department Care Team (Late st Contact Info) Description 11/25/2021 Procedure Pass [facility] Periop 75 [place] [address] Social History Tobacco Use Types Packs/Day Years [...] Info) Description 08/11/2025 9:15 AM EDT Appointment [facility] [place], PET/CT [address] [address] Donald Zavala MD [address] [place] [address] [email or web address] 08/11/2025 1:30 PM EDT Office Visit [facility], [facility] [address] [address] Donald Zavala MD [address] [place] [address] [email or web address] documented as of this encounter Visit Diagnoses Not on filedocumented in this encounter Additional Health Concerns Assessment Noted Time PHQ-2 Depression Total Score: 0 11/16/19 9:15 AM EST documented as of this encounter Care Teams Internet Assessor Relationship Specialty Start Date End Date Bean Joe MD [address] [place] [address] PCP - General Internal Medicine 11/11/21 Luna Mckeon MD, PhD [address] [place] [address] [email or web address] Thoracic Surgery 11/15/21 Ever Spring MD [address] [place] [address] Division [place] [address] [email or web address] Thoracic Surgery 11/28/21 Bailey Vazquez RN 300 [place] [address] [email or web address] .[facility] Primary Infusion Nurse 02/21/22 Hilary Gallardo RN 300 [place] [address] [email or web address] Associate Infusion Nurse 07/28/22 Demetrio Love PA-C [address] [place] [address] [email or web address] Physician Investment Accounting Clerk 12/21/22 04/05/23 Tamar Armando RN 300 [place] [address] [email or web address] Associate Infusion Nurse 04/06/23 documented as of this encounter Additional Source Comments The information contained in this document represents components of the legal health record. It is not the complete legal health record.[facility]
--- OUTSIDE RECORDS SUMMARY | 2025-07-23 11:49 | XMS_ITS | Encounter Summary ---
Author Organization [facility] Address [address] [place] [address] Phone Care Team Providers Care Veterinary Radiologist Name Role Phone Bean Joe MD Primary Care Provider Luna Mckeon MD, PhD Unavailable [phone] Ever Spring MD Unavailable [phone] Bailey Vazquez RN Unavailable [phone] Hilary Gallardo RN Unavailable RHONDA [email or web address].[email or web address].[email or web address] Tamar Armando RN Unavailable [email or web address]@ [facility].[place] Encounter Details Date Type Department Care Team (Late st Contact Info) Description 02/10/2025 Procedure Pass [facility] [place] [facility] [place] [address] [address] Social History Tobacco Use Types [...] Info) Description 08/11/2025 9:15 AM EDT Appointment [facility] [place], PET/CT [address] [address] Donald Zavala MD [address] [place] [address] [email or web address] 08/11/2025 1:30 PM EDT Office Visit [facility] for [facility]acic Oncology, [facility] [place] [address] [address] Donald Zavala MD [address] [place] [address] [email or web address] documented as of this encounter Visit Diagnoses Not on filedocumented in this encounter Additional Health Concerns Assessment Noted Time PHQ-2 Depression Total Score: 0 11/04/19 25 7:36 AM EST documented as of this encounter Care Teams Veterinary Radiologist Relationship Specialty Start Date End Date Bean Joe MD [address] [place] [address] PCP - General Internal Medicine 11/11/21 Luna Mckeon MD, PhD [address] [place] [address] [email or web address] Thoracic Surgery 11/15/21 Ever Spring MD [address] [place] [address] Division [place] [address] [email or web address] Thoracic Surgery 11/28/21 Bailey Vazquez RN [address] [place] [address] [email or web address] Primary Infusion Nurse 02/21/22 Hilary Gallardo RN [address] [place] [address] [email or web address]@[email or web address] Associate Infusion Nurse 07/28/22 Tamar Armando RN [address] [place] [address] [email or web address] Associate Infusion Nurse 04/06/23 documented as of this encounter Additional Source Comments The information contained in this document represents components of the legal health record. It is not the complete legal health record.[facility]
--- OUTSIDE RECORDS SUMMARY | 2025-07-23 11:49 | XMS_ITS | Encounter Summary ---
Author Organization [facility] Address [address] [place] [address] Phone Care Team Providers Care Production Assistant Name Role Phone Bean Joe MD Primary Care Provider [phone] Luna Mckeon MD, PhD Unavailable [phone] Ever Spring MD Unavailable [phone] Bailey Vazquez RN Unavailable [phone] Hilary Gallardo RN Unavailable RHONDA BOTELLO@[facility].[place].[facility] Demetrio Love PA-C Unavailable [phone] Tamar Armando RN Unavailable [email or web address]@ [email or web address] Encounter Details Date Type Department Care Team (Late st Contact Info) Description 11/25/2021 Procedure Pass [facility] 75 [place] [address] Social History Tobacco Use Types Packs/Day Years [...] Info) Description 08/11/2025 9:15 AM EDT Appointment [facility] [place], PET/CT 300 [facility] 3rd [place] [address] Donald Zavala MD [address] [place] [address] [email or web address] 08/11/2025 1:30 PM EDT Office Visit [facility], [facility] [place] [address] [address] Donald Zavala MD [address] [place] [address] Garry@[facility] documented as of this encounter Visit Diagnoses Not on filedocumented in this encounter Additional Health Concerns Assessment Noted Time PHQ-2 Depression Total Score: 0 11/16/19 9:15 AM EST documented as of this encounter Care Teams Production Assistant Relationship Specialty Start Date End Date Bean Joe MD [address] [place] [address] PCP - General Internal Medicine 11/11/21 Luna Mckeon MD, PhD [address] [place] [address] [email or web address] Thoracic Surgery 11/15/21 Ever Spring MD [address] [place] [address] Division [place] [address] [email or web address] Thoracic Surgery 11/28/21 Bailey Vazquez RN 300 [place] [address] [email or web address] Primary Infusion Nurse 02/21/22 Hilary Gallardo RN 300 [place] [address] [email or web address]@[facility] Associate Infusion Nurse 07/28/22 Demetrio Love PA-C [address] [place] [address] [email or web address] Physician Storage Brine Worker 12/21/22 04/05/23 Tamar Armando RN 300 [place] [address] [email or web address] Associate Infusion Nurse 04/06/23 documented as of this encounter Additional Source Comments The information contained in this document represents components of the legal health record. It is not the complete legal health record.[facility]
--- OUTSIDE RECORDS SUMMARY | 2025-07-23 11:49 | XMS_ITS | Encounter Summary ---
Author Organization [facility] Address [address] [place] [address] Phone Care Team Providers Care Sand Conditioner Machine Name Role Phone Bean Joe MD Primary Care Provider [phone] Luna Mckeon MD, PhD Unavailable [phone] Ever Spring MD Unavailable [phone] Bailey Vazquez RN Unavailable [phone] Hilary Gallardo RN Unavailable RHONDA [email or web address] Demetrio Love PA-C Unavailable [phone] Tamar Armando RN Unavailable [email or web address] Encounter Details Date Type Department Care Team (Late st Contact Info) Description 02/09/2022 Procedure Pass [facility], [facility] [place] [place] 450 [facility], Floor L1 [place] [address] Social History Tobacco Use Types Packs/Day Years [...] Info) Description 08/11/2025 9:15 AM EDT Appointment [facility], PET/CT [address] [address] Donald Zavala MD [address] [place] [phone] [email or web address] 08/11/2025 1:30 PM EDT [facility], [facility] [address] [address] Donald Zavala MD [address] [place] [address] [email or web address] documented as of this encounter Visit Diagnoses Not on filedocumented in this encounter Additional Health Concerns Assessment Noted Time PHQ-2 Depression Total Score: 0 11/29/19 9:25 AM EST documented as of this encounter Care Teams Sand Conditioner Machine Relationship Specialty Start Date End Date Bean Joe MD [address] [place] [address] PCP - General Internal Medicine 11/11/21 Luna Mckeon MD, PhD [address] [place] [address] 1 [place] [address] [email or web address] Thoracic Surgery 11/15/21 Ever Spring MD [address] [place] [address] Division [place] [address] [email or web address] Thoracic Surgery 11/28/21 Bailey Vazquez RN 300 [place] [address] [email or web address] Primary Infusion Nurse 02/21/22 Hilary Gallardo RN 300 [place] [address] [email or web address] Associate Infusion Nurse 07/28/22 Demetrio Love PA-C 300 [place] [address] [email or web address] Physician Scale Clerk 12/21/22 04/05/23 Tamar Armando RN 300 [place] [address] [email or web address] Associate Infusion Nurse 04/06/23 documented as of this encounter Additional Source Comments The information contained in this document represents components of the legal health record. It is not the complete legal health record.[facility]
--- OUTSIDE RECORDS SUMMARY | 2025-07-23 11:49 | XMS_ITS | Encounter Summary ---
Author Organization [facility] Address [address] [place] [address] Phone Care Team Providers Care Photo Editor Name Role Phone Bean Joe MD Primary Care Provider [phone] Luna Mckeon MD, PhD Unavailable [phone] Ever Spring MD Unavailable [phone] Bailey Vazquez RN Unavailable [phone] Hilary Gallardo RN Unavailable RHONDA [email or web address].[email or web address] Demetrio Love PA-C Unavailable [phone] Tamar Armando RN Unavailable [email or web address] Encounter Details Date Type Department Care Team (Late st Contact Info) Description 01/16/2023 Procedure Pass [facility] [place] [facility] [place], [place] 300 [place] [address] Social History Tobacco Use Types Packs/Day Years [...] Info) Description 08/11/2025 9:15 AM EDT Appointment [facility], PET/CT 300 [facility] 3rd [place] [address] Donald Zavala MD [address] [place] [address] [email or web address] 08/11/2025 1:30 PM EDT Office Visit [facility], [facility] 300 [facility] [address] [place] [address] Donald Zavala MD [address] [place] [address] [email or web address] documented as of this encounter Visit Diagnoses Not on filedocumented in this encounter Additional Health Concerns Assessment Noted Time PHQ-2 Depression Total Score: 0 10/24/19 23 2:05 PM EST documented as of this encounter Care Teams Photo Editor Relationship Specialty Start Date End Date Bean Joe MD [address] [place] [address] PCP - General Internal Medicine 11/11/21 Luna Mckeon MD, PhD [address] [place] [address] 1 [place] [address] [email or web address] Thoracic Surgery 11/15/21 Ever Spring MD [address] [place] [address] Division [place] [address] [email or web address] Thoracic Surgery 11/28/21 Bailey Vazquez RN 300 [place] [address] [email or web address] Primary Infusion Nurse 02/21/22 Hilary Gallardo RN 300 [place] [address] [email or web address] Associate Infusion Nurse 07/28/22 Demetrio Love PA-C 300 [place] [address] [email or web address] Physician Upsetter Setter Up 12/21/22 04/05/23 Tamar Armando RN 300 [place] [address] [email or web address] Associate Infusion Nurse 04/06/23 documented as of this encounter Additional Source Comments The information contained in this document represents components of the legal health record. It is not the complete legal health record.[facility]
--- OUTSIDE RECORDS SUMMARY | 2025-07-23 11:49 | XMS_ITS | Encounter Summary ---
Author Organization [facility] [place] [facility] Address [address] [place] [address] Phone Care Team Providers Care Business Management Specialist Name Role Phone Bean Joe MD Primary Care Provider [phone] Luna Mckeon MD, PhD Unavailable [phone] Ever Spring MD Unavailable [phone] Bailey Vazquez RN Unavailable [phone] Hilary Gallrado RN Unavailable RHONDA [email or web address] Tamar Armando RN Unavailable [email or web address] Encounter Details Date Type Department Care Team (Late st Contact Info) Description 04/10/2023 Procedure Pass [facility] [place] [facility] [place] [place] [address] [address] Social History Tobacco Use Types [...] Info) Description 08/11/2025 9:15 AM EDT Appointment [facility], PET/CT [address] [address] Donald Zavala MD [address] [place] [address] [email or web address] 08/11/2025 1:30 PM EDT Office Visit [facility] Center for Thoracic Oncology, [facility] [address] [address] Donald Zavala MD [address] [place] [address] [email or web address] documented as of this encounter Visit Diagnoses Not on filedocumented in this encounter Additional Health Concerns Assessment Noted Time PHQ-2 Depression Total Score: 0 04/17/20 7:08 AM EDT documented as of this encounter Care Teams Business Management Specialist Relationship Specialty Start Date End Date Bean Joe MD [address] [place] [address] [id number] PCP - General Internal Medicine 11/11/21 Luna Mckeon MD, PhD [address] [place] [address] [email or web address] Thoracic Surgery 11/15/21 Ever Spring MD [address] [place] [address] Division [place] [address] [email or web address] Thoracic Surgery 11/28/21 Bailey Vazquez RN [address] [place] [address] [email or web address] Primary Infusion Nurse 02/21/22 Hilary Gallardo RN [address] [place] [address] [email or web address] Associate Infusion Nurse 07/28/22 Tamar Armando RN [address] [place] [address] [email or web address] Associate Infusion Nurse 04/06/23 documented as of this encounter Additional Source Comments The information contained in this document represents components of the legal health record. It is not the complete legal health record.[facility]
--- OUTSIDE RECORDS SUMMARY | 2025-07-23 11:49 | XMS_ITS | Encounter Summary ---
Author Organization [facility] Address [address] [place] [address] Phone Care Team Providers Care Catheter Builder Name Role Phone Bean Joe MD Primary Care Provider [phone] Luna Mckeon MD, PhD Unavailable [phone] Ever Spring MD Unavailable [phone] Bailey Vazquez RN Unavailable [phone] Hilary Gallardo RN Unavailable RHONDA [email or web address] Demetrio Love PA-C Unavailable [phone] Tamar Armando RN Unavailable [email or web address].[facility] Encounter Details Date Type Department Care Team (Late st Contact Info) Description 01/16/2023 Procedure Pass [facility] [place] [facility] [place] [place] 300 [place] [address] Social History Tobacco Use Types Packs/Day Years [...] Info) Description 08/11/2025 9:15 AM EDT Appointment [facility], PET/CT 300 [facility] [address] [place] [address] Donald Zavala MD [address] [place] [address] [email or web address] 08/11/2025 1:30 PM EDT Office Visit [facility], [facility] 300 [facility] [address] [place] [address] Donald Zavala MD [address] [place] [phone] [email or web address] documented as of this encounter Visit Diagnoses Not on filedocumented in this encounter Additional Health Concerns Assessment Noted Time PHQ-2 Depression Total Score: 0 10/24/19 23 2:05 PM EST documented as of this encounter Care Teams Catheter Builder Relationship Specialty Start Date End Date Bean Joe MD [address] [place] [address] PCP - General Internal Medicine 11/11/21 Luna Mckeon MD, PhD [address] [place] [address] 1 [place] [address] [email or web address] Thoracic Surgery 11/15/21 Ever Spring MD [address] [place] [address] Division [place] [address] [email or web address] Thoracic Surgery 11/28/21 Bailey Vazquez RN 300 [place] [address] [email or web address] Primary Infusion Nurse 02/21/22 Hilary Gallardo RN 300 [place] [address] [email or web address] Associate Infusion Nurse 07/28/22 Demetrio Love PA-C 300 [place] [address] [email or web address] Physician Webbing Weaver 12/21/22 04/05/23 Tamar Armando RN 300 [place] [address] [email or web address] Associate Infusion Nurse 04/06/23 documented as of this encounter Additional Source Comments The information contained in this document represents components of the legal health record. It is not the complete legal health record.[facility]
[2025-07-23 12:09] VITALS: BP 165/70; PULSE 74; RESP 20; O2SAT 91
--- NOTE | 2025-07-23 12:19 | PM.IMHP ---
History of Present Illness Date of Service: 07/23/25 Attending physician on admission: Lorenzo Payan Chief Complaint: right hip pain, fall This is an 79-year-old male with history of lung cancer status post treatment who presents to the emergency department after a fall. Patient was in his usual state of health when he was walking, stairs, he missed the last step and lost his balance falling onto his right side. He had sudden onset right hip pain and was able to stand up. He denies any dizziness, chest pain, shortness of breath prior to the fall. He was able to crawl over to a chair and get into his chair and then call 911. In the emergency department imaging was consistent with right femoral neck fracture. Lab work showing leukocytosis of 12.9, creatinine somewhat elevated from baseline at 1.92. Chest x-ray obtained shows subtle patchy opacity in the right basilar region which could represent pneumonia in the appropriate clinical setting. Patient denies any cough, fever, reports chronic shortness of breath at baseline. Does state that 2 weeks ago he did have a ?cold? but that has now resolved. Patient will be admitted for further management of right hip fracture Review of Systems Review of Systems: Yes all other systems are reviewed and are negative Constitutional: Constitutional: Denies chills and Denies fever(s) Cardiovascular: Cardiovascular: Denies chest pain and Denies palpitations Respiratory: Respiratory: Denies cough Gastrointestinal: Gastrointestinal: Denies abdominal pain, Denies nausea and Denies vomiting Endocrine: Endocrine: Denies palpitations [facility] Medical History Lung cancer Hip osteoarthritis Primary osteoarthritis of right hip Primary osteoarthritis of right knee Hypertension Family History Father No problems noted. Mother No problems noted. Surgical History History of arthroscopy of left knee (~1965) Social History (Updated 07/23/25 @ 12:24 by HOLLIE Colby) Household Members: None Housing: Apartment Do you presently have visiting nurse or other home services: No Alcohol intake: current Alcohol intake frequency: holidays/special occasions only Patient Tobacco Use Status: Former Tobacco user Tobacco use type: Cigarette e-Cigarette/Vaping Use: Former Use Second Hand Smoke Exposure: No Advance Directives Date on File: 03/28/23 service: Yes Current occupational status: retired Current occupation: right handed Meds Allergies Allergy/AdvReac Type Severity Reaction Status Date / Time No Known Allergies Allergy Verified 07/23/25 09:55 Active Medications: Current Medications Sodium Chloride (Ns) 1,000 mls @ 999 mls/hr IV .Q1H1M KIMBERLY Stop: 07/23/25 12:45 Last Admin: 07/23/25 12:07 Dose: 999 mls/hr Cefazolin Sodium/Dextrose (Ancef) 2 gm in 50 mls @ 100 mls/hr IV PREOP ONE Stop: 07/24/25 07:19 Home Medications ?Medication ?Instructions ?Recorded ?Confirmed ?Last Taken ?Type amlodipine 10 mg tablet 10 mg PO DAILY 08/18/20 07/23/25 07/23/25 History atorvastatin 40 mg tablet 40 mg PO DAILY 08/18/20 07/23/25 07/23/25 History latanoprost 0.005 % eye drops 1 drp ophthalmic (eye) BEDTIME 09/25/22 07/23/25 07/22/25 History albuterol sulfate 90 mcg/actuation 2 puff inhalation QID PRN Wheezing 03/28/23 07/23/25 03/27/23 History aerosol inhaler fluticasone fur. 200 mcg-umeclid 1 ea inhalation DAILY 03/28/23 07/23/25 07/23/25 History 62.5 mcg-vilant 25 mcg inhalat.powder (Trelegy Ellipta) brimonidine 0.2 % eye drops 1 drp ophthalmic (eye) BID 07/20/24 07/23/25 07/23/25 History carvedilol 25 mg tablet 25 mg PO BID 07/20/24 07/23/25 07/23/25 History valsartan 320 mg tablet 320 mg PO DAILY 07/20/24 07/23/25 07/23/25 History omeprazole 20 mg capsule,delayed 20 mg PO DAILY@0630 07/23/25 07/23/25 07/23/25 History release Physical Exam Vital Signs and Narrative: Vital Signs: Last Vital Signs Temp 97.9 F 07/23/25 09:47 Pulse 74 07/23/25 12:09 Resp 20 07/23/25 12:09 BP 165/70 H 07/23/25 12:09 Pulse Ox 91 L 07/23/25 12:09 O2 Del Method Room Air 07/23/25 12:09 BMI result Body Mass Index 25.8 Const: General: cooperative, alert and awake Nutritional Appearance: average body habitus Orientation/consciousness: patient oriented x3 Resp: Effort & Inspection: normal respiratory effort, able to speak in complete sentences, no respiratory distress and no use of accessory muscles Cardio: Rate: regular rate GI: Palpation (GI): Soft to palpation Neuro: General: patient oriented x3, moves all extremities and CN's II-XI intact bilaterally Extrem: Other: right leg ER and shortened Results Labs 07/23/25 10:23 07/23/25 10:23 Labs: Laboratory Results - last 24 hr 07/23/25 07/23/25 10:23 10:38 MCV 90.8 MCH 30.6 MCHC 33.7 RDW 14.2 Plt Count 195 MPV 10.3 Immature Gran % (Auto) 0.6 H Neut % (Auto) 81.8 H Lymph % (Auto) 7.2 L Ballard % (Auto) 8.4 Eos % (Auto) 1.7 Baso % (Auto) 0.3 Lymph # (Auto) 0.9 L [place] # (Auto) 1.1 Eos # (Auto) 0.2 Baso # (Auto) 0.0 Abs Immat Gran (auto) 0.08 H Absolute Neuts (auto) 10.6 H Absolute Nucleated RBC 0.000 Nucleated RBC % (auto) 0.0 PT 11.0 INR 1.0 Anion Gap 12 Estim Creat Clear Calc 31.1 Estimated GFR 34 Random Glucose 119 H Calcium 8.7 Magnesium 2.0 Total Bilirubin 0.6 Direct Bilirubin 0.3 AST 18 ALT 13 Alkaline Phosphatase 108 Total Creatine Kinase 45 Total Protein 6.5 Albumin 3.7 Blood Type O Positive Antibody Screen NEGATIVE Imaging Radiologist's Impressions: Impressions Chest X-Ray 07/23/25 11:20 IMPRESSION: 1. Emphysema. 2. Subtle patchy opacity in the right basilar region, could represent pneumonia in the appropriate clinical setting. Electronically signed by: Alex Rubalcava MD 07/23/2025 11:40 AM EDT Hip/Pelvis X-Ray 07/23/25 11:26 IMPRESSION: Impacted subcapital right femoral neck fracture and question nondisplaced right greater trochanter fracture. Electronically signed by: Barbara Hankins MD 07/23/2025 11:43 AM EDT RP Assessment and Plan (1) Femoral neck fracture: Status: Acute Plan This is an 79-year-old male with history of lung cancer status post resection/chemotherapy/immunotherapy, COPD not on home O2, hypertension, hyperlipidemia who presents to the emergency department after mechanical fall found to have right femoral neck fracture Right femoral neck fracture Consult to Orthopedic surgery for surgical fixation NPO at midnight for planned procedure tomorrow Pain management Leukocytosis Possibly reactive in the setting of acute fracture. No acute infection identified trend CBC Possible pneumonia seen on chest x-ray No respiratory symptoms No indication for antibiotic Hypertension Continue baseline medication, coreg, norvasc if renal function remains stable, resume valsartan in am CKD3 Renal function slightly above baseline, but no true rafael at this time follow BMP resume valsartan if renal function remains stable gerd continue omeprazole HLD continue statin dvt ppx - mechanical devices due to planned procedure Code status-full code Patient will likely require 2 midnight stay in the hospital for management of right femoral neck fracture requiring specialist evaluation and surgical intervention Quality Stroke Does the patient have a stroke diagnosis?: No VTE Prior VTE?: No VTE Risk Level:: Medical - moderate - high VTE Device Contraindication: N/A - Device Ordered VTE Drug Contraindication: Treatment Not Indicated
--- NOTE | 2025-07-23 12:30 | PHA.MEDREC ---
Addendum entered by Naseem Pickett PharmD 07/23/25 12:50: reviewed Original Note: Pharmacy Consult ? Medication Reconciliation Pharmacy has completed the medication reconciliation. Spoke with pt and he confirmed his medications with a list he had on his phone.
--- NOTE | 2025-07-23 12:47 | PC.NURSE ---
Pt placed on 2LNC d/t dec SpO2 on RA
--- NOTE | 2025-07-23 13:19 | PM.CNOR ---
History of Present Illness HPI Consult date: 07/23/25 Chief complaint: fall, hip fracture Narrative: Patient is an 79-year-old male with past medical history of lung cancer and hypertension who is brought to the hospital after a fall down 1 step today No current anticoagulation Last oral intake at approximately 08:00 X-rays taken in the emergency department revealed right displaced femoral neck fracture Patient reports that his pain is well managed at this time, but has been slightly increasing over time Patient has been unable to ambulate since the fall Reports no other complaints or concerns at this time Review of Systems Review of Systems: Yes all other systems are reviewed and are negative [facility] Past Medical History Medical History Lung cancer Hip osteoarthritis Primary osteoarthritis of right hip Primary osteoarthritis of right knee Hypertension Family History Family History Father No problems noted. Mother No problems noted. Surgical History Surgical History History of arthroscopy of left knee (~1965) Social History Social History (Updated 07/23/25 @ 12:24 by HOLLIE Colby) Household Members: None Housing: Apartment Do you presently have visiting nurse or other home services: No Alcohol intake: current Alcohol intake frequency: holidays/special occasions only Patient Tobacco Use Status: Former Tobacco user Tobacco use type: Cigarette e-Cigarette/Vaping Use: Former Use Second Hand Smoke Exposure: No Use of substances other than those prescribed or required for medical reasons: No Advance Directives: Yes Advance Directives on File: Yes Advance Directives Date on File: 03/28/23 Do you have a plan to hurt others: No Plan service: Yes Current occupational status: retired Current occupation: right handed Meds Allergies Allergy/AdvReac Type Severity Reaction Status Date / Time No Known Allergies Allergy Verified 07/23/25 09:55 Active Medications: Current Medications Acetaminophen (Acetaminophen 325 Mg Tablet) 650 mg PO Q6H PRN PRN Reason: Pain, Mild 1-3,fever,headache Calcium Carbonate (Calcium Carbonate 750 Mg Tab.Chew) 750 mg PO Q4H PRN PRN Reason: Heartburn Cefazolin Sodium/Dextrose (Ancef) 2 gm in 50 mls @ 100 mls/hr IV PREOP ONE Stop: 07/24/25 07:19 Magnesium Hydroxide (Milk Of Magnesia 30 Ml Oral.Susp) 30 ml PO DAILY PRN PRN Reason: Constipation Melatonin (Melatonin 3 Mg Tablet) 6 mg PO BEDTIME PRN PRN Reason: Insomnia Morphine Sulfate (Morphine Sulfate 4 Mg/Ml Cartridge) 2 mg IVPUSH Q4H PRN; Protocol PRN Reason: Pain, Severe (Pain Scale 7-10) Last Admin: 07/23/25 12:45 Dose: 2 mg Ondansetron HCl (Ondansetron Hcl 4 Mg/2 Ml Vial) 4 mg IVPUSH Q8H PRN PRN Reason: Nausea and Vomiting Oxycodone HCl (Oxycodone Hcl Immed Release 5 Mg Tablet) 5 mg PO Q6H PRN PRN Reason: Pain, Moderate(Pain Scale 4-6) Sodium Chloride (0.9 % Sodium Chloride Flush 3 Ml Syringe) [facility]ations ?Medication ?Instructions ?Recorded ?Confirmed ?Last Taken ?Type amlodipine 10 mg tablet 10 mg PO DAILY 08/18/20 07/23/25 07/23/25 History atorvastatin 40 mg tablet 40 mg PO DAILY 08/18/20 07/23/25 07/23/25 History latanoprost 0.005 % eye drops 1 drp ophthalmic (eye) BEDTIME 09/25/22 07/23/25 07/22/25 History albuterol sulfate 90 mcg/actuation 2 puff inhalation QID PRN Wheezing 03/28/23 07/23/25 03/27/23 History aerosol inhaler fluticasone fur. 200 mcg-umeclid 1 ea inhalation DAILY 03/28/23 07/23/25 07/23/25 History 62.5 mcg-vilant 25 mcg inhalat.powder (Trelegy Ellipta) brimonidine 0.2 % eye drops 1 drp ophthalmic (eye) BID 07/20/24 07/23/25 07/23/25 History carvedilol 25 mg tablet 25 mg PO BID 07/20/24 07/23/25 07/23/25 History valsartan 320 mg tablet 320 mg PO DAILY 07/20/24 07/23/25 07/23/25 History omeprazole 20 mg capsule,delayed 20 mg PO DAILY@0630 07/23/25 07/23/25 07/23/25 History release Physical Exam Vital Signs: Vital Signs: Last Vital Signs Temp 97.9 F 07/23/25 09:47 Pulse 74 07/23/25 12:09 Resp 20 07/23/25 12:09 BP 165/70 H 07/23/25 12:09 Pulse Ox 91 L 07/23/25 12:09 O2 Del Method Room Air 07/23/25 12:09 BMI result Body Mass Index 25.8 Extrem: Other: Right lower extremity shortened and externally rotated on inspection No evidence of surrounding erythema, ecchymosis No evidence of infection Patient is able to flex and extend the digits of the right foot without difficulty Compartments soft, nontender Distal sensation intact Capillary refill brisk Results Labs 07/23/25 10:23 07/23/25 10:23 Labs: Abnormal lab results 07/23/25 Range/Units 10: WBC 12.9 H (4.8-10.8) X10*3/uL RBC 3.82 L (4.60-5.80) X10*6/uL Hgb 11.7 L (14.0-18.0) g/dl Hct 34.7 L (42.0-52.0) % Immature Gran % (Auto) 0.6 H (0.0-0.4) % Neut % (Auto) 81.8 H (45-73) % Lymph % (Auto) 7.2 L (20-40) % Lymph # (Auto) 0.9 L (1.2-4.9) X10*3/uL Abs Immat Gran (auto) 0.08 H (0.00-0.03) X10*3/uL Absolute Neuts (auto) 10.6 H (2.0-8.3) x10*3/uL BUN 33 H (9-16) mg/dL Creatinine 1.92 H (0.5-1.4) mg/dL Random Glucose 119 H (60-115) mg/dL H & H 07/23/25 Range/Units 10:23 Hgb 11.7 L (14.0-18.0) g/dl Hct 34.7 L (42.0-52.0) % Coagulation 07/23/25 Range/Units 10:23 INR 1.0 (0.9-1.1) All other labs normal. Diagnostic results Hip x-ray: report reviewed and image reviewed Assessment and Plan (1) Displaced fracture of right femoral neck: Status: Acute Plan 1. Femoral neck fracture right hip Date of injury 07/23/2025 Based off of clinical exam findings and imaging the patient does likely have a right femoral neck fracture, displaced which would benefit from surgical intervention. The patient does understand nonsurgical intervention would result in hemiarthroplasty of the right hip. Given the patient's activity level and desire to continue remaining active, it would be recommended to pursue surgical intervention. We discussed the procedure in detail along with the risks, benefits, and alternatives. Risks including but not limited to infection, injury to surrounding nerves, soft tissue structures, and bone, small and large vessels, stiffness, fracture, DVT/PE, and the need for further surgery, along with intraoperative complications including but not limited to . We discussed postoperative recovery which includes physical therapy, weight-bearing as tolerated on the right lower extremity, 6 weeks of anticoagulation after surgery, and likely rehab placement after discharge from the hospital. The patient expresses understanding of this and would like to proceed with hemiarthroplasty of the right hip pending discussion with patient's healthcare proxy. The patient will be booked accordingly. NPO at midnight for surgery tomorrow with Dr. Hui Patient will be admitted to the medicine service for clearance and pre and postoperative care of other medical conditions Procedures Date of Service Date of Service: 07/23/25
[2025-07-23 13:51] VITALS: BMI 25.3
[2025-07-23 13:58] VITALS: BP 165/67; PULSE 76; RESP 14; TEMP 36.4; O2SAT 93
[2025-07-23 15:28] VITALS: BP 168/72; PULSE 79; RESP 18; TEMP 36.1; O2SAT 93
[2025-07-23] MEDS: oxyCODONE HCl Immed Release 5 MG TABLET PO (15:41)
[2025-07-23] MEDS: 0.9 % Sodium Chloride Flush 3 ML SYRINGE IVFLUSH ×2 (17:19→20:20)
[2025-07-23 19:47] VITALS: BP 151/77; PULSE 83; RESP 18; TEMP 36.4; O2SAT 93
[2025-07-23] MEDS: Latanoprost 0.005 % Ophth Sol 2.5 ML DROPS 1 DROP EYE-BOTH (20:19)
[2025-07-23] MEDS: Brimonidine Tartrate 0.2% Oph 5 ML BOTTLE 1 DROP EYE-BOTH (20:20)
[2025-07-24] VITALS (14 sets, daily range): BP systolic 124–153; BP diastolic 47–69; PULSE 66–85; RESP 12–22; TEMP 36.2–37.5; O2SAT 90–96
[2025-07-24 06:20] LABS: Hematocrit 30.7 % (42.0-52.0); Hemoglobin 10.4 g/dl (14.0-18.0); Mean Corpuscular HGB Conc 33.9 g/dl (31.0-36.0); Mean Corpuscular Hemoglobin 30.3 pg (27.0-33.0); Mean Corpuscular Volume 89.5 fL (80.0-98.0); NRBC Abs Auto 0.000 X10*3/uL (0.0-0.012); NRBC Pct Auto 0.0 /100WBC (0.0-0.2); Platelet Count 194 X10*3/uL (160-400); Red Blood Count 3.43 X10*6/uL (4.60-5.80); White Blood Count 9.2 X10*3/uL (4.8-10.8)
[2025-07-24 06:35] LABS: Anion Gap 12 (12-20); Blood Urea Nitrogen 29 mg/dL (9-16); Calcium 8.7 mg/dL (8.4-10.2); Carbon Dioxide 23 mmol/L (22-29); Chloride 106 mmol/L (96-108); Creatinine Clr Calc Pharmacy 35.3; Estimated Glomerular Filt Rate 39; Potassium 4.3 mmol/L (3.3-5.1); Sodium 137 mmol/L (135-145)
--- NOTE | 2025-07-24 07:17 | P.PNIM_ITS ---
Subjective Subjective Date of Service: 07/24/25 Interval History: Patient underwent surgery today Apparently post anesthesia, had a prolonged difficult extubation necessitating longer stay in PACU, thankfully resolved we will likely treat with steroids We appreciate the ICU attending Dr. Anaya for seeing the patient in PACU We will place the patient on clear liquids for now Review of Systems Review of Systems: Yes all other systems are reviewed and are negative Physical Exam 2 Exam: Exam: General: AOx3, no acute distress, pain adequately controlled with pain meds Resp: CTA bilaterally CVS: S1, S2, RRR GI: +BS, NT, no distention Skin: Warm, dry Neuro: Motor grossly intact bilaterally Extremities: Exam limited secondary to fracture Psych: Appropriate affect Vital Signs: Vital Signs: Last Vital Signs Temp 97.2 F 07/24/25 03:42 Pulse 66 07/24/25 03:42 Resp 18 07/24/25 03:42 BP 141/64 H 07/24/25 03:42 Pulse Ox 95 07/24/25 03:42 O2 Del Method Nasal Cannula 07/24/25 03:42 O2 Flow Rate 2 07/24/25 03:42 BMI result Body Mass Index 25.3 Objective Data Active Medications Acetaminophen (Acetaminophen 325 Mg Tablet) 650 mg PO Q6H PRN PRN Reason: Pain, Mild 1-3,fever,headache Albuterol Sulfate (Albuterol Sulfate 90 Mcg 8 Gm Inhaler) 2 puff INHALE QID PRN PRN Reason: Wheezing Atorvastatin Calcium (Atorvastatin Calcium 40 Mg Tablet) 40 mg PO DAILY [facility] Brimonidine Tartrate (Brimonidine Tartrate 0.2% Oph 5 Ml Bottle) 1 drop EYE- BOTH BID [facility] Last Admin: 07/23/25 20:20 Dose: 1 drop Documented By: SRINATH Calcium Carbonate (Calcium Carbonate 750 Mg Tab.Chew) 750 mg PO Q4H PRN PRN Reason: Heartburn Last Admin: 07/23/25 17:15 Dose: 750 mg Documented By: AROLDO Carvedilol (Carvedilol 25 Mg Tablet) 25 mg PO BID [facility]; Protocol Last Admin: 07/23/25 20:20 Dose: 25 mg Documented By: SRINATH Fluticasone/Umeclidinium/Vilanterol (Fluticasone/Umeclidinium/Vilanterol 200/62.5/25 Blst.W.Dev) 1 puff INHALE RDAILY [facility] Cefazolin Sodium/Dextrose (Ancef) 2 gm in 50 mls @ 100 mls/hr IV PREOP ONE Stop: 07/24/25 07:19 Influenza Virus Vaccine (Flu Vacc [id number](6mo Up)/Pf 0.5 Ml Syringe) 0.5 ml IM .ONCE ONE Stop: 07/25/25 14:01 Latanoprost (Latanoprost 0.005 % Ophth Annel 2.5 Ml Drops) 1 drop EYE-BOTH BEDTIME [facility] Last Admin: 07/23/25 20:19 Dose: 1 drop Documented By: SRINATH Magnesium Hydroxide (Milk Of Magnesia 30 Ml Oral.Susp) 30 ml PO DAILY PRN PRN Reason: Constipation Melatonin (Melatonin 3 Mg Tablet) 6 mg PO BEDTIME PRN PRN Reason: Insomnia Morphine Sulfate (Morphine Sulfate 4 Mg/Ml Cartridge) 2 mg IVPUSH Q4H PRN; Protocol PRN Reason: Pain, Severe (Pain Scale 7-10) Last Admin: 07/24/25 03:49 Dose: 2 mg Documented By: SRINATH Omeprazole (Omeprazole 20 Mg Capsule.Dr) 20 mg PO DAILY@0630 [facility] Last Admin: 07/24/25 06:06 Dose: Not Given Documented By: SRINATH Non-Admin Reason: Patient Asleep Comments: pt asleep after pain med, pt preop for hip fx Ondansetron HCl (Ondansetron Hcl 4 Mg/2 Ml Vial) 4 mg IVPUSH Q8H PRN PRN Reason: Nausea and Vomiting Last Admin: 07/23/25 20:20 Dose: 4 mg Documented By: SRINATH Oxycodone HCl (Oxycodone Hcl Immed Release 5 Mg Tablet) 5 mg PO Q6H PRN PRN Reason: Pain, Moderate(Pain Scale 4-6) Last Admin: 07/23/25 15:41 Dose: 5 mg Documented By: LOKESH Sodium Chloride (0.9 % Sodium Chloride Flush 3 Ml Syringe) 3 ml IVFLUSH [facility] Last Admin: 07/23/25 20:20 Dose: 3 ml Documented By: SRINATH Labs 07/24/25 05:26 07/24/25 05:26 Labs: Laboratory Results - last 24 hr 07/23/25 07/23/25 07/24/25 10:23 10:38 05:26 MCV 90.8 89.5 MCH 30.6 30.3 MCHC 33.7 33.9 RDW 14.2 14.3 Plt Count 195 194 MPV 10.3 10.5 Immature Gran % (Auto) 0.6 H Neut % (Auto) 81.8 H Lymph % (Auto) 7.2 L [place] % (Auto) 8.4 Eos % (Auto) 1.7 Baso % (Auto) 0.3 Lymph # (Auto) 0.9 L [place] # (Auto) 1.1 Eos # (Auto) 0.2 Baso # (Auto) 0.0 Abs Immat Gran (auto) 0.08 H Absolute Neuts (auto) 10.6 H Absolute Nucleated RBC 0.000 0.000 Nucleated RBC % (auto) 0.0 0.0 PT 11.0 INR 1.0 Anion Gap 12 12 Estim Creat Clear Calc 31.1 35.3 Estimated GFR 34 39 Random Glucose 119 H 98 Calcium 8.7 8.7 Magnesium 2.0 Total Bilirubin 0.6 Direct Bilirubin 0.3 AST 18 ALT 13 Alkaline Phosphatase 108 Total Creatine Kinase 45 Total Protein 6.5 Albumin 3.7 Blood Type O Positive Antibody Screen NEGATIVE Assessment and Plan (1) Displaced fracture of right femoral neck: Status: Acute Plan 79-year-old male with history of lung cancer status post treatment who presents to the emergency department after a fall on 07/23/2025 likely deemed mechanical. Sustaining right femoral neck fracture and underwent or if on 07/24/2025 Mechanical fall causing fracture of the right hip with varus deformity Pain control with Tylenol, oxycodone, Dilaudid, Robaxin, lidocaine patch Given prolonged and difficult extubation, we will place him on clear liquid diet for tonight and resume diet if hemodynamically stable and safe to eat tomorrow Tele PT OT, STR Orthopedic consulted by ED DVT prophylaxis with the SCD boots for now, we will initiate based on orthopedic recommendation. HTN Continue home meds in the a.m. For now given risk of hypotension postanesthesia we will continue to hold CKD 3-at his baseline GERD-continue omeprazole HLD continue statin DVT prophylaxis will be initiated tomorrow likely with Lovenox versus aspirin per orthopedic preference PTOT and SDR we will likely happen on Sunday hence disposition likely to be done Sunday Quality Stroke Does the patient have a stroke diagnosis?: No VTE Prior VTE?: No VTE Risk Level:: Medical - moderate - high VTE Device Contraindication: N/A - Device Ordered VTE Drug Contraindication: Treatment Not Indicated
[2025-07-24] MEDS: Fluticasone/Umeclidinium/Vilanterol 200/62.5/25 BLST.W.DEV 1 PUFF INHALE (07:53)
[2025-07-24] MEDS: 0.9 % Sodium Chloride Flush 3 ML SYRINGE IVFLUSH ×2 (08:29→22:15)
[2025-07-24] MEDS: Brimonidine Tartrate 0.2% Oph 5 ML BOTTLE 1 DROP EYE-BOTH ×2 (08:33→22:20)
--- NOTE | 2025-07-24 08:54 | HO.ANESPROP2 ---
Documented by User: Abigail Franz NP 07/24/25 09:26 HPI - Anesthesia Eval Consult details Narrative: 79 yr old male for right hip hemiarthroplasty Active prior to recent fall; fall due to missing step, denies dizziness, lightheadedness; No CP/SOB H/O lung cancer: status post resection/chemotherapy/immunotherapy at [facility] COPD not on home O2, uses Trelegy Right basilar opacity on chest xray 07/23: not being treated for pneumonia as clinically feeling well, sat 96% on 2 liters; did have right upper lobe PNA treated with antibx 03/[facility] Active Problems Active Problems: All Active Problems Hip fracture, right (Acute) Displaced fracture of right femoral neck (Acute) Femoral neck fracture (Acute) BLAIRE (acute kidney injury) (Acute) Pneumonia (Acute) COVID-19 virus infection (Acute) Pneumonia (Acute) Hip osteoarthritis (Acute) Primary osteoarthritis of right knee (Acute) Past Medical History Medical History Lung cancer Hip osteoarthritis Primary osteoarthritis of right hip Primary osteoarthritis of right knee Hypertension Family History Family History Father No problems noted. Mother No problems noted. Family history of problems with anesthesia: No Surgical History Surgical History History of arthroscopy of left knee (~1965) History of Problems with Anesthesia: No Social History Social History Household Members: None Housing: Apartment Are you a primary nurse wound care to a significant other at home: No Do you presently have visiting nurse or other home services: No Alcohol intake: current Alcohol intake frequency: holidays/special occasions only Patient Tobacco Use Status: Former Tobacco user Tobacco use type: Cigarette e-Cigarette/Vaping Use: Former Use Second Hand Smoke Exposure: No Advance Directives Date on File: 03/28/23 service: Yes Current occupational status: retired Current occupation: right handed Meds Allergies Allergy/AdvReac Type Severity Reaction Status Date / Time No Known Allergies Allergy Verified 07/23/25 09:55 Active Medications: Current Medications Acetaminophen (Acetaminophen 325 Mg Tablet) 650 mg PO Q6H PRN PRN Reason: Pain, Mild 1-3,fever,headache Albuterol Sulfate (Albuterol Sulfate 90 Mcg 8 Gm Inhaler) 2 puff INHALE QID PRN PRN Reason: Wheezing Atorvastatin Calcium (Atorvastatin Calcium 40 Mg Tablet) 40 mg PO DAILY [facility] Brimonidine Tartrate (Brimonidine Tartrate 0.2% Oph 5 Ml Bottle) 1 drop EYE-BOTH BID [facility] Last Admin: 07/24/25 08:33 Dose: 1 drop Calcium Carbonate (Calcium Carbonate 750 Mg Tab.Chew) 750 mg PO Q4H PRN PRN Reason: Heartburn Last Admin: 07/23/25 17:15 Dose: 750 mg Carvedilol (Carvedilol 25 Mg Tablet) 25 mg PO BID [facility]; Protocol Last Admin: 07/24/25 08:28 Dose: 25 mg Fluticasone/Umeclidinium/Vilanterol (Fluticasone/Umeclidinium/Vilanterol 200/62.5/25 Blst.W.Dev) 1 puff INHALE RDAILY [facility] Last Admin: 07/24/25 07:53 Dose: 1 puff Influenza Virus Vaccine (Flu Vacc [id number](6mo Up)/Pf 0.5 Ml Syringe) 0.5 ml IM .ONCE ONE Stop: 07/25/25 14:01 Latanoprost (Latanoprost 0.005 % Ophth Annel 2.5 Ml Drops) 1 drop EYE-BOTH BEDTIME [facility] Last Admin: 07/23/25 20:19 Dose: 1 drop Magnesium Hydroxide (Milk Of Magnesia 30 Ml Oral.Susp) 30 ml PO DAILY PRN PRN Reason: Constipation Melatonin (Melatonin 3 Mg Tablet) 6 mg PO BEDTIME PRN PRN Reason: Insomnia Morphine Sulfate (Morphine Sulfate 4 Mg/Ml Cartridge) 2 mg IVPUSH Q4H PRN; Protocol PRN Reason: Pain, Severe (Pain Scale 7-10) Last Admin: 07/24/25 08:28 Dose: 2 mg Omeprazole (Omeprazole 20 Mg Capsule.Dr) 20 mg PO DAILY@0630 [facility] Last Admin: 07/24/25 06:06 Dose: Not Given Ondansetron HCl (Ondansetron Hcl 4 Mg/2 Ml Vial) 4 mg IVPUSH Q8H PRN PRN Reason: Nausea and Vomiting Last Admin: 07/23/25 20:20 Dose: 4 mg Oxycodone HCl (Oxycodone Hcl Immed Release 5 Mg Tablet) 5 mg PO Q6H PRN PRN Reason: Pain, Moderate(Pain Scale 4-6) Last Admin: 07/23/25 15:41 Dose: 5 mg Sodium Chloride (0.9 % Sodium Chloride Flush 3 Ml Syringe) 3 ml IVFLUSH [facility] Last Admin: 07/24/25 08:29 Dose: 3 ml Home Medications ?Medication ?Instructions ?Recorded ?Confirmed ?Last Taken ?Type amlodipine 10 mg tablet 10 mg PO DAILY 08/18/20 07/23/25 07/23/25 History atorvastatin 40 mg tablet 40 mg PO DAILY 08/18/20 07/23/25 07/23/25 History latanoprost 0.005 % eye drops 1 drp ophthalmic (eye) BEDTIME 09/25/22 07/23/25 07/22/25 History albuterol sulfate 90 mcg/actuation 2 puff inhalation QID PRN Wheezing 03/28/23 07/23/25 03/27/23 History aerosol inhaler fluticasone fur. 200 mcg-umeclid 1 ea inhalation DAILY 03/28/23 07/23/25 07/23/25 History 62.5 mcg-vilant 25 mcg inhalat.powder (Trelegy Ellipta) brimonidine 0.2 % eye drops 1 drp ophthalmic (eye) BID 07/20/24 07/23/25 07/23/25 History carvedilol 25 mg tablet 25 mg PO BID 07/20/24 07/23/25 07/23/25 History valsartan 320 mg tablet 320 mg PO DAILY 07/20/24 07/23/25 07/23/25 History omeprazole 20 mg capsule,delayed 20 mg PO DAILY@0630 07/23/25 07/23/25 07/23/25 History release Exam Height,Weight and Vital Signs: Height 5 ft 10 in Weight 80 kg Last Vital Signs Temp 98.9 F 07/24/25 08:00 Pulse 74 07/24/25 08:28 Resp 16 07/24/25 08:00 BP 153/69 H 07/24/25 08:28 Pulse Ox 96 07/24/25 08:00 O2 Del Method Nasal Cannula 07/24/25 08:00 O2 Flow Rate 2 07/24/25 08:00 Pertinent Lab Results Pertinent Lab Results: Laboratory Tests 07/23/25 07/23/25 07/24/25 10:23 10:38 05:26 WBC 12.9 H 9.2 RBC 3.82 L 3.43 L Hgb 11.7 L 10.4 L Hct 34.7 L 30.7 L MCV 90.8 89.5 MCH 30.6 30.3 MCHC 33.7 33.9 RDW 14.2 14.3 Plt Count 195 194 MPV 10.3 10.5 Immature Gran % (Auto) 0.6 H Neut % (Auto) 81.8 H Lymph % (Auto) 7.2 L [place] % (Auto) 8.4 Eos % (Auto) 1.7 Baso % (Auto) 0.3 Lymph # (Auto) 0.9 L [place] # (Auto) 1.1 Eos # (Auto) 0.2 Baso # (Auto) 0.0 Abs Immat Gran (auto) 0.08 H Absolute Neuts (auto) 10.6 H Absolute Nucleated RBC 0.000 0.000 Nucleated RBC % (auto) 0.0 0.0 PT 11.0 INR 1.0 Sodium 137 137 Potassium 3.9 4.3 Chloride 107 106 Carbon Dioxide 22 23 Anion Gap 12 12 BUN 33 H 29 H Creatinine 1.92 H 1.69 H Estim Creat Clear Calc 31.1 35.3 Estimated GFR 34 39 Random Glucose 119 H 98 Calcium 8.7 8.7 Magnesium 2.0 Total Bilirubin 0.6 Direct Bilirubin 0.3 AST 18 ALT 13 Alkaline Phosphatase 108 Total Creatine Kinase 45 Total Protein 6.5 Albumin 3.7 Blood Type O Positive Antibody Screen NEGATIVE Narrative Narrative: EKG 07/23/25 Vent. Rate : 67 BPM Atrial Rate : 67 BPM P-R Int : 152 ms QRS Dur : 100 ms QT Int : 382 ms P-R-T Axes : * -39 16 degrees QTcB Int : 403 ms Normal sinus rhythm Left axis deviation Minimal voltage criteria for LVH, may be normal variant ( R in aVL ) Septal infarct (cited on or before 30-Mar-2025) Abnormal ECG When compared with ECG of 30-Mar-2025 09:34, No significant change was found Airway Mallampati Class: III TM Dist: >3cm Neck ROM: Full Denture: Upper and Lower Heart: RRR Lungs: scant right lower lobe crackles, otherwise clear Assessment and Plan Final Anesthetic Review Family History of Problems with Anesthesia: No History of Problems with Anesthesia: No Documented by User: Karyn Guy MD 07/24/25 14:08 PMF Past Medical History Medical History Lung cancer Hip osteoarthritis Primary osteoarthritis of right hip Primary osteoarthritis of right knee Hypertension Family History Family History Father No problems noted. Mother No problems noted. Surgical History Surgical History History of arthroscopy of left knee (~1965) Social History Social History Household Members: None Housing: Apartment Are you a primary nurse wound care to a significant other at home: No Do you presently have visiting nurse or other home services: No Alcohol intake: current Alcohol intake frequency: holidays/special occasions only Patient Tobacco Use Status: Former Tobacco user Tobacco use type: Cigarette e-Cigarette/Vaping Use: Former Use Second Hand Smoke Exposure: No Advance Directives Date on File: 03/28/23 service: Yes Current occupational status: retired Current occupation: right handed Meds Allergies Allergy/AdvReac Type Severity Reaction Status Date / Time No Known Allergies Allergy Verified 07/23/25 09:55 Home Medications ?Medication ?Instructions ?Recorded ?Confirmed ?Last Taken ?Type amlodipine 10 mg tablet 10 mg PO DAILY 08/18/20 07/23/25 07/23/25 History atorvastatin 40 mg tablet 40 mg PO DAILY 08/18/20 07/23/25 07/23/25 History latanoprost 0.005 % eye drops 1 drp ophthalmic (eye) BEDTIME 09/25/22 07/23/25 07/22/25 History albuterol sulfate 90 mcg/actuation 2 puff inhalation QID PRN Wheezing 03/28/23 07/23/25 03/27/23 History aerosol inhaler fluticasone fur. 200 mcg-umeclid 1 ea inhalation DAILY 03/28/23 07/23/25 07/23/25 History 62.5 mcg-vilant 25 mcg inhalat.powder (Trelegy Ellipta) brimonidine 0.2 % eye drops 1 drp ophthalmic (eye) BID 07/20/24 07/23/25 07/23/25 History carvedilol 25 mg tablet 25 mg PO BID 07/20/24 07/23/25 07/23/25 History valsartan 320 mg tablet 320 mg PO DAILY 07/20/24 07/23/25 07/23/25 History omeprazole 20 mg capsule,delayed 20 mg PO DAILY@0630 07/23/25 07/23/25 07/23/25 History release Assessment and Plan Assessment Anesthesia Assessment: Anesthesia Plan Discussed and Chart Reviewed Final Anesthetic Review NPO: Yes ASA Class: III Final Preanesthetic Review: No Changes in Pt Med Stat, Meds/Allgs Chart Reviewed, Consent Obtained/Reviewed and Anes Risks/Benef Reviewed Patient Risk: Intermediate Procedure Risk: Intermediate Anesthetic Plan Anesthetic Plan: GA Disposition: Standard PACU
--- NOTE | 2025-07-24 12:34 | HO.WOUND ---
Wound Consult: Initial 79 yr old male admitted to [facility] on 07/23/25 - See progress notes and H&P for detailed history. Wound consult placed for right elbow. Patient agreeable to assessment and photo documentation. Patient s/p fall with hip fracture, pending surgical intervention. right elbow Etiology: skin tear Measurements: 0.4cm x 0.4cm x 0.1cm Wound Bed: moist pink with partial skin flap remaining, dusky Drainage / Odor: scant sanguineous Edges: ? open Alondra wound: ? No Induration, Fluctuance or Warmth noted- bruising noted Pain: none Goals of Treatment: ? moist healing and protection with xeroform/foam Recommendations: 1. Turn and Reposition every 2 hours and as needed for patient comfort. Use pillows or wedges to support off loading positions. 2. Off Load all bony prominences with use of pillows and heel boots if needed. Apply Preventative foams where needed. 3. Monitor for incontinence and moisture control, use barrier creams when needed for prevention and treatment. 4. Provide adequate and supplemental nutrition. 5. Order or Continue low air loss mattress. 6. When applicable maintain blood glucose levels per Providers order. Right elbow: cleanse with saline, apply skin prep alondra wound, apply xeroform to wound bed, cover with foam, change daily and PRN Re-consult wound care Nurse for wound deterioration or wound changes.
[2025-07-24] MEDS: Lactated Ringers 1,000 ML 80 ML IVCONT (13:28)
--- NOTE | 2025-07-24 14:59 | MHC.SHP ---
Pre-Procedural Eval Section A - 24 Hr Update-Section A only Date of Service: 07/24/25 The patient is an INPATIENT: Yes Changes since office visit: No Cold of Flu in the past 2 weeks, No New Medical Problems, No Changes in Medication and No Patient answered all questions The patient has been examined within 24 hours of the surgical procedure. The History & Physical has been completed within 30 days and I have reviewed it.: Yes Section B - Complete if H&P > 30 days Chief Complaint: fall, hip fracture Allergies: Allergies Allergy/AdvReac Type Severity Reaction Status Date / Time No Known Allergies Allergy Verified 07/23/25 09:55 Plan I have reviewed the history and physical and performed a pertinent physical examination on my patient. No changes have occurred unless specified. Time Spent With Patient Time: Total time managing care of this patient today ____ minutes.
--- NOTE | 2025-07-24 15:09 | MHC.CM.PN ---
Addendum entered by Connie Issa 07/25/25 14:00: PT REPORTS HE LIVES ALONE AND IS INDEPENDENT WITH CARE HE HAS NO SERVICES OR DME AT BASELINE HCP ON FILE PCP: EFREN FLORENCE IMM DELIVERED DCP: WINDY CACERES PREFERRED BLS TRANSPORT Original Note: Attempted to complete CM assessment. Patient off unit for procedure.
--- NOTE | 2025-07-24 17:19 | PM.OP ---
Brief Operative Note Date of Service: 07/24/25 Pre-op diagnosis: Rgght femoral neck fracture Post-op diagnosis: same Procedure: Right hemiarthroplasty Implants: [place] Accolade2 #6 [phone] with + 4 bipolar Surgeon: Elian Ferrell MD Anesthesia: GETA and local Was an Energy Efficiency Specialist used for this Procedure?: No Estimated blood loss (mL): 150 IV fluids (mL): 1,000 Pathology: other Condition: stable Disposition: PACU
[2025-07-24] MEDS: Albuterol/Iprat 2.5/0.5MG 3 ML AMPUL.NEB INHALE (20:12)
[2025-07-24] MEDS: Latanoprost 0.005 % Ophth Sol 2.5 ML DROPS 1 DROP EYE-BOTH (22:20)
[2025-07-25] VITALS (13 sets, daily range): BP systolic 141–150; BP diastolic 63–68; PULSE 78–88; RESP 16–18; TEMP 36.4–37.2; O2SAT 88–99
--- NOTE | 2025-07-25 07:17 | P.PNIM_ITS ---
Subjective Subjective Date of Service: 07/25/25 Interval History: Patient is A&O x3, able to tolerate clear liquid diet, we will expand his diet today No bleeding diathesis noted Surgical site CDI PTOT awaiting We will start short-term rehab placement soon Review of Systems Review of Systems: Yes all other systems are reviewed and are negative Physical Exam 2 Exam: Exam: General: AOx3, no acute distress Resp: CTA decreased breath sounds bilaterally, minimal wheezing noted CVS: S1, S2, RRR GI: +BS, NT, no distention Skin: Warm, dry Neuro: Cranial nerves II-XII grossly intact bilaterally. Motor grossly intact bilaterally Extremities: Surgical site CDI Psych: Appropriate affect Vital Signs: Vital Signs: Last Vital Signs Temp 98.0 F 07/25/25 03:16 Pulse 81 07/25/25 03:16 Resp 16 07/25/25 03:16 BP 145/65 H 07/25/25 03:16 Pulse Ox 93 07/25/25 03:16 O2 Del Method Nasal Cannula 07/25/25 03:16 O2 Flow Rate 3 07/25/25 03:16 BMI result Body Mass Index 25.3 Objective Data Active Medications Acetaminophen (Acetaminophen 325 Mg Tablet) 650 mg PO Q6H PRN PRN Reason: Pain, Mild 1-3,fever,headache Albuterol Sulfate (Albuterol Sulfate 90 Mcg 8 Gm Inhaler) 2 puff INHALE QID PRN PRN Reason: Wheezing Albuterol/Ipratropium (Albuterol/Iprat 2.5/0.5mg 3 Ml Ampul.Neb) 3 ml INHALE RQ6H WHILE AWAKE [facility] Last Admin: 07/24/25 20:12 Dose: 3 ml Documented By: TIM Atorvastatin Calcium (Atorvastatin Calcium 40 Mg Tablet) 40 mg PO DAILY [facility] Last Admin: 07/24/25 09:18 Dose: Not Given Documented By: LOKESH Non-Admin Reason: NPO Brimonidine Tartrate (Brimonidine Tartrate 0.2% Oph 5 Ml Bottle) 1 drop EYE- BOTH BID [facility] Last Admin: 07/24/25 22:20 Dose: 1 drop Documented By: SRINATH Calcium Carbonate (Calcium Carbonate 750 Mg Tab.Chew) 750 mg PO Q4H PRN PRN Reason: Heartburn Last Admin: 07/23/25 17:15 Dose: 750 mg Documented By: AROLDO Carvedilol (Carvedilol 25 Mg Tablet) 25 mg PO BID [facility]; Protocol Last Admin: 07/24/25 22:19 Dose: 25 mg Documented By: SRINATH Fluticasone/Umeclidinium/Vilanterol (Fluticasone/Umeclidinium/Vilanterol 200/62.5/25 Blst.W.Dev) 1 puff INHALE RDAILY [facility] Last Admin: 07/24/25 07:53 Dose: 1 puff Documented By: YONATAN Influenza Virus Vaccine (Flu Vacc [id number](6mo Up)/Pf 0.5 Ml Syringe) 0.5 ml IM .ONCE ONE Stop: 07/25/25 14:01 Latanoprost (Latanoprost 0.005 % Ophth Annel 2.5 Ml Drops) 1 drop EYE-BOTH BEDTIME [facility] Last Admin: 07/24/25 22:20 Dose: 1 drop Documented By: SRINATH Magnesium Hydroxide (Milk Of Magnesia 30 Ml Oral.Susp) 30 ml PO DAILY PRN PRN Reason: Constipation Melatonin (Melatonin 3 Mg Tablet) 6 mg PO BEDTIME PRN PRN Reason: Insomnia Methylprednisolone Sodium Succinate (Methylprednisolone Sod Succ 40 Mg/Ml Vial) 40 mg IVPUSH Q24H [facility] Last Admin: 07/24/25 18:57 Dose: 40 mg Documented By: LOKESH Morphine Sulfate (Morphine Sulfate 4 Mg/Ml Cartridge) 2 mg IVPUSH Q4H PRN; Protocol PRN Reason: Pain, Severe (Pain Scale 7-10) Last Admin: 07/25/25 04:50 Dose: 2 mg Documented By: SRINATH Omeprazole (Omeprazole 20 Mg Capsule.) 20 mg PO DAILY@0630 [facility] Last Admin: 07/25/25 04:49 Dose: 20 mg Documented By: SRINATH Ondansetron HCl (Ondansetron Hcl 4 Mg/2 Ml Vial) 4 mg IVPUSH Q8H PRN PRN Reason: Nausea and Vomiting Last Admin: 07/23/25 20:20 Dose: 4 mg Documented By: SRINATH Oxycodone HCl (Oxycodone Hcl Immed Release 5 Mg Tablet) 5 mg PO Q6H PRN PRN Reason: Pain, Moderate(Pain Scale 4-6) Last Admin: 07/23/25 15:41 Dose: 5 mg Documented By: LOKESH Sodium Chloride (0.9 % Sodium Chloride Flush 3 Ml Syringe) 3 ml IVFLUSH QSHIFT [facility] Last Admin: 07/24/25 22:15 Dose: 3 ml Documented By: SRINATH Labs 07/24/25 05:26 07/24/25 05:26 Assessment and Plan (1) Displaced fracture of right femoral neck: Status: Acute Plan 79-year-old male with history of lung cancer status post treatment who presents to the emergency department after a fall on 07/23/2025 likely deemed mechanical. Sustaining right femoral neck fracture and underwent or if on 07/24/2025, PTOT, awaiting placement Mechanical fall causing fracture of the right hip with varus deformity Pain control with Tylenol, oxycodone, Dilaudid, Robaxin, lidocaine patch We will expand diet to low-sodium diet given hemodynamic stability Tele PT OT, STR Orthopedic consulted by ED DVT prophylaxis with the aspirin per Orthopedics History of COPD not on home O2 Patient was having a difficult extubation, had to be initiated on IV steroids briefly and there was a concern that he might remained intubated for a prolonged period of time Patient has minimal wheezing and is not hypoxic on room air at the time of this examination hence we will initiate a 5 day course of steroid, nebulizers HTN Resume home meds CKD 3-at his baseline GERD-continue omeprazole HLD continue statin DVT with aspirin per Orthopedics PTOT and SDR we will likely happen on Sunday hence disposition likely to be done Sunday Quality Stroke Does the patient have a stroke diagnosis?: No VTE Prior VTE?: No VTE Risk Level:: Medical - moderate - high VTE Device Contraindication: N/A - Device Ordered VTE Drug Contraindication: Treatment Not Indicated
[2025-07-25] MEDS: Albuterol/Iprat 2.5/0.5MG 3 ML AMPUL.NEB INHALE ×3 (08:14→19:52)
[2025-07-25] MEDS: Fluticasone/Umeclidinium/Vilanterol 200/62.5/25 BLST.W.DEV 1 PUFF INHALE (08:14)
[2025-07-25] MEDS: 0.9 % Sodium Chloride Flush 3 ML SYRINGE IVFLUSH ×3 (09:21→20:55)
[2025-07-25] MEDS: Brimonidine Tartrate 0.2% Oph 5 ML BOTTLE 1 DROP EYE-BOTH ×2 (09:50→20:56)
--- NOTE | 2025-07-25 11:02 | P.PNOP_ITS ---
Subjective Subjective Date of Service: 07/25/25 Interval history: POD 1 s/p right hip hemiarthroplasty NE no overnight events resting in bed, pain is well managed denies cp , palpitations, sob Physical Exam Vital Signs: Vital Signs: Last Vital Signs Temp 97.9 F 07/25/25 08:00 Pulse 80 07/25/25 08:17 Resp 16 07/25/25 08:17 BP 150/68 H 07/25/25 08:00 Pulse Ox 92 07/25/25 09:43 O2 Del Method Nasal Cannula 07/25/25 09:43 O2 Flow Rate 1.5 07/25/25 09:43 BMI result Body Mass Index 25.3 Const: General: cooperative, healthy appearing and no acute distress Resp: Effort & Inspection: normal respiratory effort and able to speak in complete sentences Cardio: Rate: regular rate Peripheral pulses: Peripheral pulses 2+ throughout GI: Palpation (GI): Soft to palpation Skin: General skin exam: no rashes or lesions noted Extrem: Other: Right hip dressing clean, dry and intact. Calf supple non tender, He is able to plantar and dorsi flex, nvi. Procedures Date of Service Date of Service: 07/25/25 Progress Note: A&P Assessment and plan (1) Status post hemiarthroplasty of right hip: Status: Acute Assessment and Plan: * Continue pain mgmnt * Begin Aspirin for dvt ppx * post op xr * begin PT/Ot for rt hip mikaela post precautions * Dispo planning-Pending PT eval, pain mgmnt Time Spent With Patient Time: Total time managing care of this patient today ____ minutes. Quality Stroke Does the patient have a stroke diagnosis?: No VTE Prior VTE?: No VTE Risk Level:: Medical - moderate - high VTE Device Contraindication: N/A - Device Ordered VTE Drug Contraindication: Treatment Not Indicated
--- NOTE | 2025-07-25 11:22 | PM.EVENT ---
Event Note Date of Service: 07/25/25 Event Note: Patient complaining of right elbow pain We will check an x-ray two view portable We will maintain right arm sling for now, rest, PT, we will request Orthopedics to follow-up on this Time Spent With Patient Time: Total time managing care of this patient today ____ minutes.
--- NOTE | 2025-07-25 11:50 | HO.POSTANES ---
Post Anesthesia Evaluation Post Anesthesia Evaluation Date of Service: 07/25/25 Vital Signs: Vital Signs Temp Pulse Resp BP Pulse Ox O2 Del Method O2 Flow Rate 07/25/25 11:31 93 Nasal Cannula 2 07/25/25 11:25 88 L 0.5 07/25/25 09:43 92 Nasal Cannula 1.5 07/25/25 09:30 93 Nasal Cannula 2 07/25/25 08:17 80 16 07/25/25 08:00 97.9 F 81 18 150/68 H 96 Nasal Cannula 3.5 07/25/25 03:16 98.0 F 81 16 145/65 H 93 Nasal Cannula 3 Anesthesia: General Endotracheal-GETA Mental Status: Awake Pain Control: Satisfactory Nausea/Vomiting: None Hydration: Adequate Anesthesia-Related Issues: No Anes. Related Issues
--- NOTE | 2025-07-25 15:11 | PC.NURSE ---
Pt was seen by physical therapy this morning, pt was able to stand and take a couple of steps with assistance and walker. Tolerated being up in the chare for a few hours, pt given incentive spirometer, pt using with good effort. MD Menjivar notified pt complain of pain in right elbow, xray preformed possible question of radial head fracture with elbow joint effusion. HOLLIE Galo made aware, per PA applied sling. MD Menjivar ordered ct with contrast. Pt made aware and agreeable to plan.
[2025-07-25] MEDS: Latanoprost 0.005 % Ophth Sol 2.5 ML DROPS 1 DROP EYE-BOTH (20:56)
[2025-07-26] VITALS (7 sets, daily range): BP systolic 144–160; BP diastolic 68–71; PULSE 77–86; RESP 16–20; TEMP 36.4–37.1; O2SAT 90–96
[2025-07-26] MEDS: oxyCODONE HCl Immed Release 5 MG TABLET PO ×3 (04:28→20:00)
--- NOTE | 2025-07-26 07:27 | P.PNIM_ITS ---
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 Motor grossly intact bilaterally Extremities: Right sling, decreased range of motions-both passive and active, tenderness present Psych: Appropriate affect Vital Signs: Vital Signs: Last Vital Signs Temp 97.5 F 07/26/25 04:00 Pulse 86 07/26/25 04:00 Resp 20 07/26/25 04:00 BP 160/71 H 07/26/25 04:00 Pulse Ox 91 L 07/26/25 04:00 O2 Del Method Room Air 07/26/25 04:00 O2 Flow Rate 2 07/25/25 11:31 BMI result Body Mass Index 25.3 Objective Data Active Medications Acetaminophen (Acetaminophen 325 Mg Tablet) 650 mg PO Q6H PRN PRN Reason: Pain, Mild 1-3,fever,headache Albuterol Sulfate (Albuterol Sulfate 90 Mcg 8 Gm Inhaler) 2 puff INHALE QID PRN PRN Reason: Wheezing Albuterol/Ipratropium (Albuterol/Iprat 2.5/0.5mg 3 Ml Ampul.Neb) 3 ml INHALE RQ6H WHILE AWAKE [facility] Last Admin: 07/25/25 19:52 Dose: 3 ml Documented By: TIM Aspirin (Aspirin 325 Mg Tablet) 325 mg PO Q12H [facility] Last Admin: 07/26/25 04:27 Dose: 325 mg Documented By: SRINATH Atorvastatin Calcium (Atorvastatin Calcium 40 Mg Tablet) 40 mg PO DAILY [facility] Last Admin: 07/25/25 09:21 Dose: 40 mg Documented By: LUIS Brimonidine Tartrate (Brimonidine Tartrate 0.2% Oph 5 Ml Bottle) 1 drop EYE- BOTH BID [facility] Last Admin: 07/25/25 20:56 Dose: 1 drop Documented By: SRINATH Calcium Carbonate (Calcium Carbonate 750 Mg Tab.Chew) 750 mg PO Q4H PRN PRN Reason: Heartburn Last Admin: 07/23/25 17:15 Dose: 750 mg Documented By: AROLDO Carvedilol (Carvedilol 25 Mg Tablet) 25 mg PO BID [facility]; Protocol Last Admin: 07/25/25 20:56 Dose: 25 mg Documented By: SRINATH Fluticasone/Umeclidinium/Vilanterol (Fluticasone/Umeclidinium/Vilanterol 200/62.5/25 Blst.W.Dev) 1 puff INHALE RDAILY [facility] Last Admin: 07/25/25 08:14 Dose: 1 puff Documented By: SCOVILAlex Latanoprost (Latanoprost 0.005 % Ophth Annel 2.5 Ml Drops) 1 drop EYE-BOTH BEDTIME [facility] Last Admin: 07/25/25 20:56 Dose: 1 drop Documented By: SRINATH Magnesium Hydroxide (Milk Of Magnesia 30 Ml Oral.Susp) 30 ml PO DAILY PRN PRN Reason: Constipation Melatonin (Melatonin 3 Mg Tablet) 6 mg PO BEDTIME PRN PRN Reason: Insomnia Morphine Sulfate (Morphine Sulfate 4 Mg/Ml Cartridge) 2 mg IVPUSH Q4H PRN; Protocol PRN Reason: Pain, Severe (Pain Scale 7-10) Last Admin: 07/25/25 20:55 Dose: 2 mg Documented By: SRINATH Omeprazole (Omeprazole 20 Mg Capsule.Dr) 20 mg PO DAILY@0630 [facility] Last Admin: 07/26/25 04:33 Dose: 20 mg Documented By: SRINATH Ondansetron HCl (Ondansetron Hcl 4 Mg/2 Ml Vial) 4 mg IVPUSH Q8H PRN PRN Reason: Nausea and Vomiting Last Admin: 07/23/25 20:20 Dose: 4 mg Documented By: SRINATH Oxycodone HCl (Oxycodone Hcl Immed Release 5 Mg Tablet) 5 mg PO Q6H PRN PRN Reason: Pain, Moderate(Pain Scale 4-6) Last Admin: 07/26/25 04:28 Dose: 5 mg Documented By: SRINATH Prednisone (Prednisone 5 Mg Tablet) 5 mg PO DAILY [facility] Stop: 07/31/25 08:59 Sodium Chloride (0.9 % Sodium Chloride Flush 3 Ml Syringe) 3 ml IVFLUSH QSHIFT [facility] Last Admin: 07/25/25 20:55 Dose: 3 ml Documented By: SRINATH Matthews 07/24/25 05:26 07/24/25 05:26 Assessment and Plan (1) Displaced fracture of right femoral neck: Status: Acute Plan 79-year-old male with history of lung cancer status post treatment who presents to the emergency department after a fall on 07/23/2025 likely deemed mechanical. 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 History of COPD not on home O2 Patient was having a difficult extubation, had to be initiated on IV steroids briefly and there was a concern that he might remained intubated for a prolonged period of time Patient has minimal wheezing and is not hypoxic on room air at the time of this examination hence we will initiate a 5 day course of steroid, nebulizers HTN Resume home meds CKD 3-at his baseline GERD-continue omeprazole HLD continue statin DVT with aspirin per Orthopedics PTOT and STR we will likely happen on Sunday hence disposition likely to be done Sunday This note is constructed using voice recognition software. While every effort has been made to ensure accuracy, wire insulator errors may have been included. Quality Stroke Does the patient have a stroke diagnosis?: No VTE Prior VTE?: No VTE Risk Level:: Medical - moderate - high VTE Device Contraindication: N/A - Device Ordered VTE Drug Contraindication: Treatment Not Indicated
[2025-07-26] MEDS: Albuterol/Iprat 2.5/0.5MG 3 ML AMPUL.NEB INHALE ×3 (07:56→20:03)
[2025-07-26] MEDS: Fluticasone/Umeclidinium/Vilanterol 200/62.5/25 BLST.W.DEV 1 PUFF INHALE (07:56)
[2025-07-26] MEDS: Brimonidine Tartrate 0.2% Oph 5 ML BOTTLE 1 DROP EYE-BOTH ×2 (08:31→20:01)
[2025-07-26] MEDS: 0.9 % Sodium Chloride Flush 3 ML SYRINGE IVFLUSH ×3 (08:31→20:05)
--- NOTE | 2025-07-26 09:14 | P.PNOP_ITS ---
Subjective Subjective Date of Service: 07/26/25 Interval history: POD 2 s/p right hip hemiarthroplasty NE no overnight events resting in bed, pain is well managed denies cp , palpitations, sob Physical Exam Vital Signs: Vital Signs: Last Vital Signs Temp 97.6 F 07/26/25 07:55 Pulse 77 07/26/25 07:59 Resp 16 07/26/25 07:59 BP 144/68 H 07/26/25 07:55 Pulse Ox 93 07/26/25 07:55 O2 Del Method Room Air 07/26/25 07:55 O2 Flow Rate 2 07/25/25 11:31 BMI result Body Mass Index 25.3 Const: General: cooperative, healthy appearing and no acute distress Resp: Effort & Inspection: normal respiratory effort and able to speak in complete sentences Cardio: Rate: regular rate Peripheral pulses: Peripheral pulses 2+ throughout GI: Palpation (GI): Soft to palpation Skin: General skin exam: no rashes or lesions noted Extrem: Other: Right hip dressing clean, dry and intact. Calf supple non tender, He is able to plantar and dorsi flex, nvi. Right elbow no swelling or tenderness to palpation. He has full range of motion. He can supinate and pronate without pain. Neurovascularly intact. Procedures Date of Service Date of Service: 07/26/25 Progress Note: A&P Assessment and plan (1) Status post hemiarthroplasty of right hip: Status: Acute Assessment and Plan: * Continue pain mgmnt * Aspirin for dvt ppx * PT/Ot for rt hip mikaela post precautions * Dispo planning-Pending rehab placement * * * CT scan of the right elbow was negative for fracture. Patient can discontinue sling and use elbow as tolerated. Time Spent With Patient Time: Total time managing care of this patient today ____ minutes. Quality Stroke Does the patient have a stroke diagnosis?: No VTE Prior VTE?: No VTE Risk Level:: Medical - moderate - high VTE Device Contraindication: N/A - Device Ordered VTE Drug Contraindication: Treatment Not Indicated
--- NOTE | 2025-07-26 10:38 | PC.NURSE ---
Pt ambulated with 1-2 assist and walker. Ambulated to doorway with minimal pain and good effort, tolerated well. Pt currently sitting in chair all safety measures in place.
[2025-07-26] MEDS: Latanoprost 0.005 % Ophth Sol 2.5 ML DROPS 1 DROP EYE-BOTH (20:01)
[2025-07-27] MEDS: oxyCODONE HCl Immed Release 5 MG TABLET PO (02:04)
[2025-07-27 03:59] VITALS: BP 148/67; PULSE 83; RESP 18; TEMP 36.2; O2SAT 89
[2025-07-27] MEDS: 0.9 % Sodium Chloride Flush 3 ML SYRINGE IVFLUSH (05:31)
--- NOTE | 2025-07-27 07:13 | HO.PM.IMPN ---
Subjective Subjective Date of Service: 07/27/25 Physical Exam Vital Signs: Vital Signs: Last Vital Signs Temp 97.2 F 07/27/25 03:59 Pulse 83 07/27/25 03:59 Resp 18 07/27/25 03:59 BP 148/67 H 07/27/25 03:59 Pulse Ox 89 L 07/27/25 03:59 O2 Del Method Room Air 07/27/25 03:59 O2 Flow Rate 2 07/25/25 11:31 BMI result Body Mass Index 25.3 Objective Data Active Medications Acetaminophen (Acetaminophen 325 Mg Tablet) 650 mg PO Q6H PRN PRN Reason: Pain, Mild 1-3,fever,headache Albuterol Sulfate (Albuterol Sulfate 90 Mcg 8 Gm Inhaler) 2 puff INHALE QID PRN PRN Reason: Wheezing Albuterol/Ipratropium (Albuterol/Iprat 2.5/0.5mg 3 Ml Ampul.Neb) 3 ml INHALE RQ6H WHILE AWAKE [facility] Last Admin: 07/26/25 20:03 Dose: 3 ml Documented By: ADALBERTO Aspirin (Aspirin 325 Mg Tablet) 325 mg PO Q12H [facility] Last Admin: 07/27/25 05:07 Dose: 325 mg Documented By: KEVIN Atorvastatin Calcium (Atorvastatin Calcium 40 Mg Tablet) 40 mg PO DAILY [facility] Last Admin: 07/26/25 08:30 Dose: 40 mg Documented By: LUIS Brimonidine Tartrate (Brimonidine Tartrate 0.2% Oph 5 Ml Bottle) 1 drop EYE-BOTH BID [facility] Last Admin: 07/26/25 20:01 Dose: 1 drop Documented By: CHANO Calcium Carbonate (Calcium Carbonate 750 Mg Tab.Chew) 750 mg PO Q4H PRN PRN Reason: Heartburn Last Admin: 07/26/25 15:26 Dose: 750 mg Documented By: LUIS Carvedilol (Carvedilol 25 Mg Tablet) 25 mg PO BID [facility]; Protocol Last Admin: 07/26/25 20:00 Dose: 25 mg Documented By: CHANO Fluticasone/Umeclidinium/Vilanterol (Fluticasone/Umeclidinium/Vilanterol 200/62.5/25 Blst.W.Dev) 1 puff INHALE RDAILY [facility] Last Admin: 07/26/25 07:56 Dose: 1 puff Documented By: SYED Latanoprost (Latanoprost 0.005 % Ophth Annel 2.5 Ml Drops) 1 drop EYE-BOTH BEDTIME [facility] Last Admin: 07/26/25 20:01 Dose: 1 drop Documented By: CHANO Magnesium Hydroxide (Milk Of Magnesia 30 Ml Oral.Susp) 30 ml PO DAILY PRN PRN Reason: Constipation Melatonin (Melatonin 3 Mg Tablet) 6 mg PO BEDTIME PRN PRN Reason: Insomnia Morphine Sulfate (Morphine Sulfate 4 Mg/Ml Cartridge) 2 mg IVPUSH Q4H PRN; Protocol PRN Reason: Pain, Severe (Pain Scale 7-10) Last Admin: 07/27/25 05:30 Dose: 2 mg Documented By: KEVIN Omeprazole (Omeprazole 20 Mg Capsule.Dr) 20 mg PO DAILY@0630 [facility] Last Admin: 07/27/25 05:08 Dose: 20 mg Documented By: KEVIN Ondansetron HCl (Ondansetron Hcl 4 Mg/2 Ml Vial) 4 mg IVPUSH Q8H PRN PRN Reason: Nausea and Vomiting Last Admin: 07/23/25 20:20 Dose: 4 mg Documented By: SRINATH Oxycodone HCl (Oxycodone Hcl Immed Release 5 Mg Tablet) 5 mg PO Q6H PRN PRN Reason: Pain, Moderate(Pain Scale 4-6) Last Admin: 07/27/25 02:04 Dose: 5 mg Documented By: KEVIN Prednisone (Prednisone 5 Mg Tablet) 5 mg PO DAILY [facility] Stop: 07/31/25 08:59 Last Admin: 07/26/25 08:30 Dose: 5 mg Documented By: LUIS Sodium Chloride (0.9 % Sodium Chloride Flush 3 Ml Syringe) 3 ml IVFLUSH QSHIFT [facility] Last Admin: 07/27/25 05:31 Dose: 3 ml Documented By: KEVIN Labs 07/24/25 05:26 07/24/25 05:26 Quality Stroke Does the patient have a stroke diagnosis?: No VTE Prior VTE?: No VTE Risk Level:: Medical - moderate - high VTE Device Contraindication: N/A - Device Ordered VTE Drug Contraindication: Treatment Not Indicated
[2025-07-27 08:00] VITALS: BP 153/73; PULSE 88; RESP 18; TEMP 36.9; O2SAT 88
[2025-07-27] MEDS: Fluticasone/Umeclidinium/Vilanterol 200/62.5/25 BLST.W.DEV 1 PUFF INHALE (08:12)
[2025-07-27] MEDS: Albuterol/Iprat 2.5/0.5MG 3 ML AMPUL.NEB INHALE (08:12)
[2025-07-27 08:13] VITALS: PULSE 88; RESP 18; O2SAT 88
[2025-07-27] MEDS: Brimonidine Tartrate 0.2% Oph 5 ML BOTTLE 1 DROP EYE-BOTH (08:23)
--- NOTE | 2025-07-27 08:33 | P.OP_ITS ---
Operative Note Operative Note Date of Service: 07/24/25 Narrative: Date of Service: 07/24/25 Pre-op diagnosis: Rgght femoral neck fracture Post-op diagnosis: same Procedure: Right hemiarthroplasty Implants: Shania Accolade2 #[id number] with + 4 bipolar Surgeon: Elian Ferrell MD Anesthesia: GETA and local Was an Senior Windows Administrator used for this Procedure?: No Estimated blood loss (mL): 150 IV fluids (mL): 1,000 Pathology: other Condition: stable Disposition: PACU Procedure in detail: Patient was brought to the operative room placed in the lateral decubitus position. All bony prominences were well padded and the was prepped and draped in standard sterile fashion. IV antibiotics per weight were administered and a time-out was called to identify proper site proper procedure proper surgeon. Radiographs were available and confirmed. TXA was administered. I began by making a curvilinear incision over the posterolateral aspect of the greater trochanter. Dissection was taken down to the tensor fascia which was incised in line with the incision and a Charnley retractor was placed. The hip was internally rotated and the external rotators were identified. All vessels in the area were cauterized and a full-thickness capsular/external rotator layer was developed in a hockey-stick fashion starting just proximal to the piriformis. This layer was tagged and the displaced femoral neck fracture was identified. Clean-up cuts was performed while protection the posterolateral s oft tissues and the head was removed and measured (48 mm) on the back table. I then copiously irrigated the acetabulum and removed all bony fragments. Once this was done I used a cookie cutter to lateralize and a Charnley awl to identify the canal and then sequentially broached up to a 127 deg #6. The bone quality was good. I then trialed with a standard head and a bipolar component matching the femoral head size. I was satisfied with the range of motion and stability and length. Therefore I removed all instrumentation and copiously irrigated. I then placed my final femoral implant and then retrialed. I was satisfied with the +4/48 implants. My final bipolar components were then placed. I closed the capsular layer with FiberWire and then irrigated copiously. I performed a layered closure with catarina on skin. The patient was placed in sterile dressing extubated brought to recovery room in stable condition there were no known complications.
--- NOTE | 2025-07-27 09:16 | P.PNOP_ITS ---
Subjective Subjective Date of Service: 07/27/25 Interval history: POD 3 s/p right hip hemiarthroplasty NE no overnight events Complains of left elbow pain, no injury resting in bed, pain is well managed denies cp , palpitations, sob Physical Exam Vital Signs: Vital Signs: Last Vital Signs Temp 98.4 F 07/27/25 08:00 Pulse 88 07/27/25 08:13 Resp 18 07/27/25 08:13 BP 153/73 H 07/27/25 08:00 Pulse Ox 88 L 07/27/25 08:00 O2 Del Method Room Air 07/27/25 08:00 O2 Flow Rate 2 07/25/25 11:31 BMI result Body Mass Index 25.3 Const: General: cooperative, healthy appearing and no acute distress Resp: Effort & Inspection: normal respiratory effort and able to speak in complete sentences Cardio: Rate: regular rate Peripheral pulses: Peripheral pulses 2+ throughout GI: Palpation (GI): Soft to palpation Skin: General skin exam: no rashes or lesions noted Extrem: Other: Right hip dressing clean, dry and intact. Calf supple non tender, He is able to plantar and dorsi flex, nvi. Left elbow is tender to palpation along the olecranon with mild swelling Procedures Date of Service Date of Service: 07/27/25 Progress Note: A&P Assessment and plan (1) Status post hemiarthroplasty of right hip: Status: Acute Assessment and Plan: * Continue pain mgmnt * Aspirin for dvt ppx * PT/Ot for rt hip mikaela post precautions * X-rays left elbow * Dispo planning-Pending rehab placement Time Spent With Patient Time: Total time managing care of this patient today ____ minutes. Quality Stroke Does the patient have a stroke diagnosis?: No VTE Prior VTE?: No VTE Risk Level:: Medical - moderate - high VTE Device Contraindication: N/A - Device Ordered VTE Drug Contraindication: Treatment Not Indicated
--- NOTE | 2025-07-27 11:08 | MHC.CM.PN ---
Patient is medically cleared for dc and has accepted a bed at [facility]. Transport scheduled for 330pm. RN aware.
--- NOTE | 2025-07-27 11:13 | P.DS_ITS ---
DS: Providers Provider Date of Service: 07/27/25 Date of admission: 07/23/25 11:58 Date of discharge: 07/27/25 Primary care physician: Bean Joe MD Consults: 07/23/25 12:00 Consult to Orthopedics Routine Consulting Provider: [facility] Sur[facility] Reason for consultation: right femoral neck fracture Has provider been notified: No 07/24/25 09:23 Consult to Wound Care Routine Reason for consultation: skin tear R elbow DS: Diagnosis Discharge Diagnosis (1) Status post hemiarthroplasty of right hip: Status: Acute DS: Summary Hospital Course Hospital Course: Displaced fracture of right femoral neck status post ORIF on 07/24/2025 79-year-old male with history of lung cancer status post treatment who presents to the emergency department after a fall on 07/23/2025 likely deemed mechanical. Sustaining right femoral neck fracture and underwent or if on 07/24/2025 without incident. Pain was controlled with Tylenol, oxycodone, Dilaudid, Robaxin, lidoca ine patch DVT prophylaxis with the aspirin per Orthopedics for 43 more days Right arm pain-no acute fracture, moderate to severe DJD with moderate joint effusion, conservative management right arm sling Left arm pain- x-rays unremarkable for acute processes, likely secondary to osteoarthritis PTOT History of COPD not on home O2 Patient was having a difficult extubation, had to be initiated on IV steroids briefly and there was a concern that he might remained intubated for a prolonged period of time . Patient has minimal wheezing and is not hypoxic on room air at the time of this examination hence we will initiate a 5 day course of steroid, nebulizers. Patient has been not hypoxic on room air without any incident throughout this hospitalization HTN Resume home meds CKD 3-at his baseline GERD-continue omeprazole HLD continue statin DVT with aspirin per Orthopedics PTOT and STR was recommended This note is constructed using voice recognition software. While every effort has been made to ensure accuracy, corrosion control specialist errors may have been included. Time spent discussing smoking cessation with patient: more than 10 minutes Time Attestation Discharge Coordination Time (in mins): 35 Quality: Safe Use of Opioids Does Pt have an Active Cancer Diagnosis on the Problem List?: No Quality: Stroke Does the patient have a stroke diagnosis?: No Physical Exam Vital Signs: Vital Signs: Last Vital Signs Temp 98.4 F 07/27/25 08:00 Pulse 88 10/06/25 08:13 Resp 18 07/27/25 08:13 BP 153/73 H 07/27/25 08:00 Pulse Ox 88 L 07/27/25 08:00 O2 Del Method Room Air 07/27/25 08:00 O2 Flow Rate 2 07/25/25 11:31 BMI result Body Mass Index 25.3 DS: Data Data Completed and Pending Completed studies during hospitalization [Text1]: Procedures Isolation (07/20/24) Pending studies at discharge: Pending at discharge 07/24/25 16:48 Surgical [PTH] Routine Discharge Plan Discharge Anticipated Discharge Date/Time: 07/27/25 10:52 Patient Disposition: Xfer SNF Discharge Diagnosis: right femoral neck fracture and underwent orif on 07/24/2025 , b/l UE Severe OA Referrals: Bean Joe MD [Primary Care Provider, Medical] - 1 Week Alcon Mari PA-C [Physician Shipping Manager, Orthopedics] - 08/07/25 9:00 am Discharge Medications: New acetaminophen 325 mg Tablet 650 mg PO Q6H PRN (Reason: Pain, Mild 1-3,Fever,Headache) 30 Days Qty: 90 3RF aspirin 325 mg Tablet 325 mg PO Q12H 43 Days Qty: 86 0RF Rx Instructions: DVT prophylaxis for hip fracture oxycodone 5 mg Tablet 5 mg PO Q6H PRN (Reason: Pain, Moderate(Pain Scale 4-6)) 10 Days Qty: 10 0RF Rx Instructions: Partial Fill upon patient request. Continued albuterol sulfate 90 mcg/actuation HFA aerosol inhaler 2 puff inhalation QID PRN (Reason: Wheezing) Trelegy Ellipta 200-62.5-25 mcg blister with device 1 ea inhalation DAILY carvedilol 25 mg tablet 25 mg PO BID valsartan 320 mg tablet 320 mg PO DAILY brimonidine 0.2 % drops 1 drp ophthalmic (eye) BID omeprazole 20 mg capsule,delayed release(DR/EC) 20 mg PO DAILY@0630 amlodipine 10 mg tablet 10 mg PO DAILY atorvastatin 40 mg tablet 40 mg PO DAILY latanoprost 0.005 % drops 1 drp ophthalmic (eye) BEDTIME Discharge Orders: Discharge Order (Routine); Ordered 07/27/25 Ordered By: Ariela Menjivar Diet: Advance to usual diet Activity on Discharge: Use cane or walker Stand Alone Forms: Patient Portal Discharge page Print Language: Slovenian Activity Restrictions/Additional Instructions: -Bandage/Incision Site Care: -Ice 20mins at a time -Make sure you use a towel or cloth on your skin as a barrier -DO NOT remove the bandage -Keep Bandage clean, dry and intact -Do not get the bandage wet: -No tub bath, pools or hot tubs -If there are any concerns regarding the bandage please call orthopedics: [phone] -Hip Precautions: -Do not bend hip past 90 degrees -Do not cross at your knees or ankles -Do not turn your operative leg inward (avoid twisting the foot in) -Avoid low chairs and deep couches -Use supportive shoes with nonslip soles -Physical Therapy: -Patient is WBAT with the use of a walker -Gait training -Limit stair climbing -Hip range of motion -Strengthening: Quadriceps and hip muscles -Walking: Gait training and gradually increasing distance with walker -Ankle pumps and incentive spirometry to limit the risk of blood clot -Diet: -Resume regular diet as tolerated. -Drink plenty of fluids and eat a high-fiber foods to avoid constipation -This is a common side effect of pain medication) -Take stool softeners as prescribed -Blood Clot Prevention: -Take the prescribed blood thinner (aspirin) as directed for 6 weeks -Perform ankle pumps and walk frequently with the walker and assistance if needed -Report calf pain, swelling, or shortness of breath immediately Care Plan Goals: Taking care of bilateral upper arm osteo arthritis PTOT Getting his strength back Health Concerns: ADLs Plan of Treatment: DVT prophylaxis with aspirin per ortho recommendations PTOT Rehab placement Assessment: See above Patient Instructions: Osteoarthritis (DC), ORIF of a Leg Fracture (DC), Physical Therapy Instructions (GEN)
[2025-07-27 15:35] VITALS: BP 148/70; PULSE 83; RESP 18; TEMP 37; O2SAT 93
== END 2025-07-27 15:48 | disposition skilled nursing facility (03) | DRG 522 ==
LOC: HO.ED 11:50 → HO.EDOVER 11:58 → HO.S3 12:43
PROVIDERS: Emergency Medicine; Orthopaedic Surgery; Admitting Provider Physician Assistant Medical; Emergency Provider Emergency Medicine; PCP Internal Medicine; Visit Provider Student in an Organized Health Care Education/Training Program
PROC: 0SRR0JA Replacement of Right Hip Joint, Femoral Surface with Synthetic Substitute, Uncemented, Open Approach (ICD-10-PCS; CPT 27125; principal; 2025-07-24 14:40)
DX: S72.011A Unspecified intracapsular fracture of right femur, initial encounter for closed fracture (principal); W19.XXXA Unspecified fall, initial encounter; K21.9 Gastro-esophageal reflux disease without esophagitis; M19.021 Primary osteoarthritis, right elbow; E78.5 Hyperlipidemia, unspecified; I12.9 Hypertensive chronic kidney disease with stage 1 through stage 4 chronic kidney disease, or unspecified chronic kidney disease; N18.30 Chronic kidney disease, stage 3 unspecified; Z87.891 Personal history of nicotine dependence; Z79.899 Other long term (current) drug therapy
CPT/HCPCS: 36415; 71045; 72170; 73070; 73200; 73502; 80048; 80076; 82550; 83735; 85025; 85027; 85610; 86850; 86900; 86901; 88305; 88311; 93005; 97163; 97165; 99285; C1776; J0690; J1171; J2151; J2270; J2405; J2795; J2919; J3010; J7120

== ENCOUNTER → 2025-07-23 10:12 | Outpatient (BNV) | payer MEDICARE, SELFPAY | PROVIDERS: Admitting Provider Physician Assistant Medical; Emergency Provider Emergency Medicine; PCP Internal Medicine; Visit Provider Radiology Diagnostic Radiology | DX: J43.9 Emphysema, unspecified (principal) | CPT/HCPCS: 71045 ==

== ENCOUNTER → 2025-07-23 10:12 | Outpatient (BNV) | payer MEDICARE, SELFPAY | PROVIDERS: Admitting Provider Physician Assistant Medical; Emergency Provider Emergency Medicine; PCP Internal Medicine; Visit Provider Internal Medicine | DX: I25.2 Old myocardial infarction (principal) | CPT/HCPCS: 93010 ==

== ENCOUNTER 2025-07-23 11:58 | Outpatient (BNV) | payer MEDICARE, SELFPAY | END 2025-07-25 11:15 | PROVIDERS: Admitting Provider Physician Assistant Medical; Emergency Provider Emergency Medicine; PCP Internal Medicine; Visit Provider Specialist | DX: M25.551 Pain in right hip (principal); T84.51XD Infection and inflammatory reaction due to internal right hip prosthesis, subsequent encounter; M25.521 Pain in right elbow; W19.XXXA Unspecified fall, initial encounter | CPT/HCPCS: 72170; 73070 ==

== ENCOUNTER 2025-07-23 11:58 | Outpatient (BNV) | payer MEDICARE, SELFPAY | END 2025-07-27 09:29 | PROVIDERS: Admitting Provider Physician Assistant Medical; Emergency Provider Emergency Medicine; PCP Internal Medicine; Visit Provider Radiology Diagnostic Radiology | DX: M19.022 Primary osteoarthritis, left elbow (principal) | CPT/HCPCS: 73070 ==

== ENCOUNTER → 2025-07-23 11:58 | Outpatient (BNV) | payer MEDICARE, SELFPAY | PROVIDERS: Admitting Provider Physician Assistant Medical; Emergency Provider Emergency Medicine; PCP Internal Medicine | DX: S72.001A Fracture of unspecified part of neck of right femur, initial encounter for closed fracture (principal) | CPT/HCPCS: 99223 ==

== ENCOUNTER → 2025-07-23 11:58 | Outpatient (BNV) | payer MEDICARE, SELFPAY | PROVIDERS: Admitting Provider Physician Assistant Medical; Emergency Provider Emergency Medicine; PCP Internal Medicine; Visit Provider Student in an Organized Health Care Education/Training Program | DX: S72.001A Fracture of unspecified part of neck of right femur, initial encounter for closed fracture (principal) | CPT/HCPCS: 99223; 99232; 99239; 99499 ==

== ENCOUNTER 2025-08-07 08:30 | Outpatient (REF) | payer MEDICARE, SELFPAY ==
--- NOTE | ~2025-08-07 | XR_ITS ---
EXAMINATION: XR HIP, RIGHT CLINICAL INFORMATION: M25.551 - Pain in right hip COMPARISON: July 23, 2025 TECHNIQUE: AP and cross lateral view of the right hip. FINDINGS: There is a right hip prosthesis with an acetabular and femoral component well-seated in the osseous structures with normal alignment. Vascular calcifications. Skin catarina overlapping the lateral aspect of the right hip. Degenerative changes in the symphysis pubis. XR/XR hip RT min 2V IMPRESSION: Status post total right hip arthroplasty prosthesis, satisfactory. Atherosclerosis disease, peripheral. Electronically signed by: Abdiel Cervantes MD 08/07/2025 09:07 AM EDT
--- OUTSIDE RECORDS SUMMARY | 2025-08-07 08:51 | XMS_ITS | Encounter Summary ---
Author Organization [facility] Address [address] [place] [address] Phone Care Team Providers Care Spray Foam Installer Name Role Phone Bean Joe MD Primary Care Provider Luna Mckeon MD, PhD Unavailable [phone] Ever Spring MD Unavailable [phone] Bailey Vazquez RN Unavailable [phone] Hilary Gallardo RN Unavailable [email or web address] Tamar Armando RN Unavailable [email or web address] Encounter Details Date Type Department Care Team (Late st Contact Info) Description 10/28/2024 Procedure Pass [facility] [place] [address] [address] Social History Tobacco Use Types [...] Care Team (Late st Contact Info) Description 09/15/2025 9:15 AM EST Appointment [facility], PET/CT [address] [address] Donald Zavala MD [address] [place] [phone] [email or web address] 09/15/2025 1:00 PM EST Office Visit [facility], [facility] [address] [address] Donald Zavala MD [address] [place] [phone] [email or web address] documented as of this encounter Visit Diagnoses Not on filedocumented in this encounter Additional Health Concerns Assessment Noted Time PHQ-2 Depression Total Score: 0 11/04/19 7:36 AM EST documented as of this encounter Care Teams Spray Foam Installer Relationship Specialty Start Date End Date Bean Joe MD [address] [place] [address] PCP - General Internal Medicine 11/11/21 Luna Mckeon MD, PhD [address] [place] [address] [email or web address] Thoracic Surgery 11/15/21 Ever Spring MD [address] [place] [address] Division [place] [address] [email or web address] Thoracic Surgery 11/28/21 Bailey Vazquez RN 300 [place] [address] [email or web address] Primary Infusion Nurse 02/21/22 Hilary Gallardo RN [address] [place] [address] [email or web address] Associate Infusion Nurse 07/28/22 Tamar Armando RN 300 [place] [address] [email or web address] Associate Infusion Nurse 04/06/23 documented as of this encounter Additional Source Comments The information contained in this document represents components of the legal health record. It is not the complete legal health record.[facility]
--- OUTSIDE RECORDS SUMMARY | 2025-08-07 08:51 | XMS_ITS | Encounter Summary ---
Author Organization [facility] Address [address] [place] [address] Phone Care Team Providers Care Splicing Machine Operator Name Role Phone Bean Joe MD Primary Care Provider [phone] Luna Mckeon MD, PhD Unavailable [phone] Ever Spring MD Unavailable [phone] Bailey Vazquez RN Unavailable [phone] Hilary Gallardo RN Unavailable [email or web address] Tamar Armando RN Unavailable [email or web address] Encounter Details Date Type Department Care Team (Late st Contact Info) Description 10/28/2024 Procedure Pass Juliette[facility]Tammy [facility] [place] [address] [address] Social History Tobacco Use Types [...] Info) Description 09/15/2025 9:15 AM EST Appointment [facility], PET/CT [address] [address] Donald Zavala MD [address] [place] [address] [email or web address] 09/15/2025 1:00 PM EST Office Visit [facility], [facility] [address] [address] Donald Zavala MD [address] [place] [phone] [email or web address] documented as of this encounter Visit Diagnoses Not on filedocumented in this encounter Additional Health Concerns Assessment Noted Time PHQ-2 Depression Total Score: 0 11/04/19 7:36 AM EST documented as of this encounter Care Teams Splicing Machine Operator Relationship Specialty Start Date End Date Bean Joe MD [address] [place] [address] PCP - General Internal Medicine 11/11/21 Luna Mckeon MD, PhD [address] [place] [address] [email or web address] Thoracic Surgery 11/15/21 Ever Spring MD [address] [place] [address] Division [place] [address] [email or web address] Thoracic Surgery 11/28/21 Bailey Vazquez RN 300 [place] [address] [email or web address] Primary Infusion Nurse 02/21/22 Hilary Gallardo RN [address] [place] [address] [email or web address] Associate Infusion Nurse 07/28/22 Tamar Armando RN 300 [place] [address] [email or web address] Associate Infusion Nurse 04/06/23 documented as of this encounter Additional Source Comments The information contained in this document represents components of the legal health record. It is not the complete legal health record.[facility]
--- OUTSIDE RECORDS SUMMARY | 2025-08-07 08:51 | XMS_ITS | Encounter Summary ---
Author Organization [facility] Address [address] [place] [address] Care Team Providers Care Pro Shop Attendant Name Role Phone Cesar Boo MD Primary Care Provider [phone] Encounter Details Date Type Department Care Team (Late st Contact Info) Description 07/28/[address] [facility] - Main Lab 299 [facility] [place] [address] Cesar Boo MD [address] [place] [address] Essential (primary) hypertension; Chronic obstructive pulmonary disease, unspecified (CMS/HCC V24, CMS/HCC V28); Gastro-esophageal reflux disease without esophagitis Social History Tobacco Use Types Packs/Day Years Used Date Smoking Tobacco: Never Assessed Sex and Gender Information Value Date Recorded Sex Assigned at Not on file Legal Sex Male 8:59 AM EDT Gender Identity Not on file Sexual Orientation Not on file documented as of this encounter Plan of Treatment Not on file documented as of this encounter Procedures Procedure Name Priority Date/Time Associated Diagnosis Comments COMPLETE BLOOD COUNT Routine 07/28/2025 4:55 AM EDT Essential (primary) hypertension Chronic obstructive pulmonary disease, unspecified (CMS/HCC V24, CMS/HCC V28) Gastro-esophageal reflux disease without esophagitis COMPREHENSIVE METABOLIC PANEL Routine 07/28/2025 4:55 AM EDT Essential (primary) hypertension Chronic obstructive pulmonary disease, unspecified (CMS/HCC V24, CMS/HCC V28) Gastro-esophageal reflux disease without esophagitis documented in this encounter Results * (ABNORMAL) Comprehensive metabolic panel (07/28/2025 4:55 AM EDT) Sodium 133 133 - 145 mmol/L LAB CHEMISTRY METHOD 07/28/2025 10:50 AM [facility] Potassium 4.1 3.5 - 5.5 mmol/L LAB CHEMISTRY METHOD 07/28/2025 10:50 AM [facility] Chloride 102 96 - 110 mmol/L LAB CHEMISTRY METHOD 07/28/2025 10:50 AM [facility] CO2 21 21 - 32 mmol/L LAB CHEMISTRY METHOD 07/28/2025 10:50 AM [facility] Anion Gap 10 3 - 11 LAB CHEMISTRY METHOD 07/28/2025 10:50 AM [facility] Glucose 88 70 - 100 mg/dL LAB CHEMISTRY METHOD 07/28/2025 10:50 AM [facility] BUN 44(H) 5 - 25 mg/dL LAB CHEMISTRY METHOD 07/28/2025 10:50 AM [facility] Creatinine 1.51(H) 0.70 - 1.30 mg/dL LAB CHEMISTRY METHOD 07/28/2025 10:50 AM [facility] eGFR 46(L) >=60 mL/min/1. 73m2 LAB CHEMISTRY METHOD 07/28/2025 10:50 AM [facility] Comment:Calculation based on the Chronic Kidney Disease Epidemiology Collaboration (CKD-EPI) equation refit without adjustment for race. BUN/Creatinine Ratio 29.1 LAB CHEMISTRY METHOD 07/28/2025 10:50 AM [facility] Calcium 8.3(L) 8.5 - 10.5 mg/dL LAB CHEMISTRY METHOD 07/28/2025 10:50 AM [facility] AST (SGOT) 47(H) 10 - 42 unit/L LAB CHEMISTRY METHOD 07/28/2025 10:50 AM [facility] ALT (SGPT) 42 10 - 60 unit/L LAB CHEMISTRY METHOD 07/28/2025 10:50 AM [facility] Alkaline Phosphatase 112 42 - 121 unit/L LAB CHEMISTRY METHOD 07/28/2025 10:50 AM EDT [facility] Total Protein 5.3(L) 6.0 - 8.0 g/dL LAB CHEMISTRY METHOD 07/28/2025 10:50 AM T [facility] Albumin 2.2(L) 3.2 - 5.0 g/dL LAB CHEMISTRY METHOD 07/28/2025 10:50 AM EDT [facility] Total Bilirubin 0.6 0.0 - 1.4 mg/dL LAB CHEMISTRY METHOD 07/28/2025 10:50 AM [facility] Blood Venous blood specimen / Unknown Venipuncture / Unknown 07/28/2025 4:55 AM EDT 07/28/2025 9:05 AM EDT Cesar Boo MD LAB BLOOD ORDERABLES Final Resu lt [facility] [address] [place] [address], [place] [phone] * (ABNORMAL) Complete blood count (07/28/2025 4:55 AM EDT) WBC 10.0 4.8 - 10.8 K/mcL LAB HEMETOLOGY METHOD 07/28/2025 10:19 AM [facility] RBC 3.10(L) 4.50 - 5.50 M/mcL LAB HEMETOLOGY METHOD 07/28/2025 10:19 AM EDT [facility] Hemoglobin 9.1(L) 13.5 - 17.5 g/dL LAB HEMETOLOGY METHOD 07/28/2025 10:19 AM [facility] Hematocrit 27.5(L) 42.0 - 54.0 % LAB HEMETOLOGY METHOD 07/28/2025 10:19 AM EDT [facility] MCV 89.9 79.0 - 98.0 FL LAB HEMETOLOGY METHOD 07/28/2025 10:19 AM EDT [facility] MCH 29.7 27.0 - 32.0 pcg LAB HEMETOLOGY METHOD 07/28/2025 10:19 AM T [facility] MCHC 33.1 32.0 - 37.0 g/dL LAB HEMETOLOGY METHOD 07/28/2025 10:19 AM EDT [facility] RDW 14.2 11.0 - 15.0 % LAB HEMETOLOGY METHOD 07/28/2025 10:19 AM T [facility] Platelets 231 130 - 400 K/mcL LAB HEMETOLOGY METHOD 07/28/2025 10:19 AM T [facility] MPV 10.2 7.0 - 11.0 FL LAB HEMETOLOGY METHOD 07/28/2025 10:19 AM EDT [facility] NRBC 0.0 <1.0 % LAB HEMETOLOGY METHOD 07/28/2025 10:19 AM [facility] NRBC Absolute 0.00 <0.10 K/mcL LAB HEMETOLOGY METHOD 07/28/2025 10:19 AM [facility] Blood Venous blood specimen / Unknown Venipuncture / Unknown 07/28/2025 4:55 AM EDT 07/28/2025 9:05 AM EDT us Cesar Boo MD LAB BLOOD ORDERABLES Final Resu lt [facility] [address] [place] [address], documented in this encounter Visit Diagnoses Diagnosis Essential (primary) hypertension Unspecified essential hypertension Chronic obstructive pulmonary disease, unspecified (CMS/HCC V24, CMS/HCC V28) Gastro-esophageal reflux disease without esophagitis documented in this encounter Care Teams Pro Shop Attendant Relationship Specialty Start Date End Date Cesar Boo MD [address] [place] [address] PCP - General Internal Medicine 07/28/25 documented as of this encounter
--- OUTSIDE RECORDS SUMMARY | 2025-08-07 08:51 | XMS_ITS | Encounter Summary ---
Author Organization [facility] Address [address] [place] [address] Phone Care Team Providers Care Mineral Ore Processing Labourer Name Role Phone Bean Joe MD Primary Care Provider [phone] Luna Mckeon MD, PhD Unavailable [phone] Ever Spring MD Unavailable [phone] Bailey Vazquez RN Unavailable [phone] Hilary Gallardo RN Unavailable [email or web address] Demetrio Love PA-C Unavailable [phone] Tamar Armando RN Unavailable [email or web address] Encounter Details Date Type Department Care Team (Late st Contact Info) Description 02/09/2022 Procedure Pass [facility], [facility] [place], [place] [address] [facility], Floor [address] [place] [address] Social History Tobacco Use Types Packs/Day Years [...] Info) Description 09/15/2025 9:15 AM EST Appointment [facility], PET/CT [address] [address] Donald Zavala MD [address] [place] [address] [email or web address] 09/15/2025 1:00 PM EST Office Visit [facility] for [facility], [facility] [address] [address] Donald Zavala MD [address] [place] [address] [email or web address] documented as of this encounter Visit Diagnoses Not on filedocumented in this encounter Additional Health Concerns Assessment Noted Time PHQ-2 Depression Total Score: 0 11/29/19 9:25 AM EST documented as of this encounter Care Teams Mineral Ore Processing Labourer Relationship Specialty Start Date End Date Bean Joe MD [address] [place] [address] PCP - General Internal Medicine 11/11/21 Luna Mckeon MD, PhD [address] [place] [address] [address] [place] [address] [email or web address] Thoracic Surgery 11/15/21 Ever Spring MD [address] [place] [address] Division [place] [address] [email or web address] [email or web address] Surgery 11/28/21 Bailey Vazquez RN 300 [place] [address] [email or web address] Primary Infusion Nurse 02/21/22 Hilary Gallardo RN 300 [place] [address] [email or web address] Associate Infusion Nurse 07/28/22 Demetrio Love PA-C 300 [place] [address] [email or web address] Physician Php Website Developer 12/21/22 04/05/23 Tamar Armando RN 300 [place] [address] [email or web address] Associate Infusion Nurse 04/06/23 documented as of this encounter Additional Source Comments The information contained in this document represents components of the legal health record. It is not the complete legal health record.[facility]
--- OUTSIDE RECORDS SUMMARY | 2025-08-07 08:51 | XMS_ITS | Encounter Summary ---
Author Organization [facility] Address [address] [place] [address] Care Team Providers Care Absence Management Consultant Name Role Phone Cesar Boo MD Primary Care Provider [phone] Encounter Details Date Type Department Care Team (Late st Contact Info) Description 07/29/2025 Lab Requisition [facility] - Main Lab 299 [facility] [place] [address] Cesar Boo MD [address] [place] [phone] Essential (primary) hypertension; Chronic obstructive pulmonary [...] Associated Diagnosis Comments COMPLETE BLOOD COUNT Routine 07/30/2025 8:20 AM EDT Essential (primary) hypertension Chronic obstructive pulmonary disease, unspecified (CMS/HCC V24, CMS/HCC V28) Gastro-esophageal reflux disease without esophagitis BASIC METABOLIC PANEL Routine 07/30/2025 8:20 AM EDT Essential (primary) hypertension Chronic obstructive pulmonary disease, unspecified (CMS/HCC V24, CMS/HCC V28) Gastro-esophageal reflux disease without esophagitis documented in this encounter Results * (ABNORMAL) Basic metabolic panel (07/30/2025 8:20 AM EDT) Sodium 134 133 - 145 mmol/L LAB CHEMISTRY METHOD 07/30/2025 11:14 AM [facility] Potassium 4.4 3.5 - 5.5 mmol/L LAB CHEMISTRY METHOD 07/30/2025 11:14 AM [facility] Chloride 103 96 - 110 mmol/L LAB CHEMISTRY METHOD 07/30/2025 11:14 AM [facility] CO2 22 21 - 32 mmol/L LAB CHEMISTRY METHOD 07/30/2025 11:14 AM [facility] Anion Gap 9 3 - 11 LAB CHEMISTRY METHOD 07/30/2025 11:14 AM [facility] Glucose 99 70 - 100 mg/dL LAB CHEMISTRY METHOD 07/30/2025 11:14 AM [facility] BUN 42(H) 5 - 25 mg/dL LAB CHEMISTRY METHOD 07/30/2025 11:14 AM [facility] Creatinine 1.58(H) 0.70 - 1.30 mg/dL LAB CHEMISTRY METHOD 07/30/2025 11:14 AM [facility] eGFR 44(L) >=60 mL/min/1. 73m2 LAB CHEMISTRY METHOD 07/30/2025 11:14 AM [facility] Comment:Calculation based on the Chronic Kidney Disease Epidemiology Collaboration (CKD-EPI) equation refit without adjustment for race. BUN/Creatinine Ratio 26.6 LAB CHEMISTRY METHOD 07/30/2025 11:14 AM [facility] Calcium 8.2(L) 8.5 - 10.5 mg/dL LAB CHEMISTRY METHOD 07/30/2025 11:14 AM [facility] Blood Venous blood specimen / Unknown Venipuncture / Unknown 07/30/2025 8:20 AM EDT 07/30/2025 10:10 AM EDT us Cesar Boo MD LAB BLOOD ORDERABLES Final Resu lt [facility] [address] [place] [address], * (ABNORMAL) Complete blood count (07/30/2025 8:20 AM EDT) [facility] Signature WBC 11.8(H) 4.8 - 10.8 K/mcL LAB HEMETOLOGY METHOD 07/30/2025 10:[address] [facility] RBC 3.00(L) 4.50 - 5.50 M/mcL LAB HEMETOLOGY METHOD 07/30/2025 10:[address] [facility] Hemoglobin 9.2(L) 13.5 - 17.5 g/dL LAB HEMETOLOGY METHOD [facility]/30[facility]2025 10[facility] Hematocrit 27.8(L) 42.0 - 54.0 % LAB HEMETOLOGY METHOD 07/30/2025 10:[address] [facility] MCV 91.7 79.0 - 98.0 FL LAB HEMETOLOGY METHOD 07/30/2025 10:[address] [facility] MCH 30.4 27.0 - 32.0 pcg LAB HEMETOLOGY METHOD 07/30/2025 10:[facility] MCHC 33.1 32.0 - 37.0 g/dL LAB HEMETOLOGY METHOD 07/30/2025 10:[address] [facility] RDW 14.2 11.0 - 15.0 % LAB HEMETOLOGY METHOD 07/30/2025 10:[address] [facility] Platelets 293 130 - 400 K/mcL LAB HEMETOLOGY METHOD 07/30/2025 10:[address] [facility] MPV 10.0 7.0 - 11.0 FL LAB HEMETOLOGY METHOD 07/30/2025 10:36 AM EDT [facility] NRBC 0.0 <1.0 % LAB HEMETOLOGY METHOD 07/30/2025 10:36 AM EDT [facility] NRBC Absolute 0.00 <0.10 K/mcL LAB HEMETOLOGY METHOD 07/30/2025 10:[address] [facility] Blood Venous blood specimen / Unknown Venipuncture / Unknown 07/30/2025 8:20 AM EDT 07/30/2025 10:10 AM EDT Cesar Boo MD LAB BLOOD ORDERABLES Final Resu lt [facility] [address] [place] [address], documented in this encounter Visit Diagnoses Diagnosis Essential (primary) hypertension Unspecified essential hypertension Chronic obstructive pulmonary disease, unspecified (CMS/HCC V24, CMS/HCC V28) Gastro-esophageal reflux disease without esophagitis documented in this encounter Care Teams Absence Management Consultant Relationship Specialty Start Date End Date Cesar Boo MD [address] [place] [address] PCP - General Internal Medicine 07/28/25 documented as of this encounter
--- OUTSIDE RECORDS SUMMARY | 2025-08-07 08:51 | XMS_ITS | Encounter Summary ---
Author Organization [employer] Address [address] [place] [address] Care Team Providers Care Autocad Name Role Phone Cesar Boo MD Primary Care Provider [phone] Encounter Details Date Type Department Care Team (Late st Contact Info) Description 07/31/[address] [facility] - Main Lab [address] [facility] [place] [address] Cesar Boo MD [address] [place] [phone] Essential (primary) hypertension; Chronic obstructive pulmonary [...] Associated Diagnosis Comments COMPLETE BLOOD COUNT Routine 08/03/2025 4:55 AM EDT Essential (primary) hypertension Chronic obstructive pulmonary disease, unspecified (CMS/HCC V24, CMS/HCC V28) Gastro-esophageal reflux disease without esophagitis COMPREHENSIVE METABOLIC PANEL Routine 08/03/2025 4:55 AM EDT Essential (primary) hypertension Chronic obstructive pulmonary disease, unspecified (CMS/HCC V24, CMS/HCC V28) Gastro-esophageal reflux disease without esophagitis documented in this encounter Results * (ABNORMAL) Comprehensive metabolic panel (08/03/2025 4:55 AM EDT) Sodium 136 133 - 145 mmol/L LAB CHEMISTRY METHOD 08/03/2025 11:57 AM [facility] Potassium 4.5 3.5 - 5.5 mmol/L LAB CHEMISTRY METHOD 08/03/2025 11:57 AM [facility] Chloride 106 96 - 110 mmol/L LAB CHEMISTRY METHOD 08/03/2025 11:57 AM [facility] CO2 22 21 - 32 mmol/L LAB CHEMISTRY METHOD 08/03/2025 11:57 AM [facility] Anion Gap 8 3 - 11 LAB CHEMISTRY METHOD 08/03/2025 11:57 AM [facility] Glucose 84 70 - 100 mg/dL LAB CHEMISTRY METHOD 08/03/2025 11:57 AM [facility] BUN 23 5 - 25 mg/dL LAB CHEMISTRY METHOD 08/03/2025 11:57 AM [facility] Creatinine 1.33(H) 0.70 - 1.30 mg/dL LAB CHEMISTRY METHOD 08/03/2025 11:57 AM [facility] eGFR 54(L) >=60 mL/min/1. 73m2 LAB CHEMISTRY METHOD 08/03/2025 11:57 AM [facility] Comment:Calculation based on the Chronic Kidney Disease Epidemiology Collaboration (CKD-EPI) equation refit without adjustment for race. BUN/Creatinine Ratio 17.3 LAB CHEMISTRY METHOD 08/03/2025 11:57 AM [facility] Calcium 8.1(L) 8.5 - 10.5 mg/dL LAB CHEMISTRY METHOD 08/03/2025 11:57 AM [facility] AST (SGOT) 26 10 - 42 unit/L LAB CHEMISTRY METHOD 08/03/2025 11:57 AM [facility] ALT (SGPT) 38 10 - 60 unit/L LAB CHEMISTRY METHOD 08/03/2025 11:57 AM [facility] Alkaline Phosphatase 139(H) 42 - 121 unit/L LAB CHEMISTRY METHOD 08/03/2025 11:57 AM EDT [facility] Total Protein 5.1(L) 6.0 - 8.0 g/dL LAB CHEMISTRY METHOD 08/03/2025 11:57 AM [facility] Albumin 2.3(L) 3.2 - 5.0 g/dL LAB CHEMISTRY METHOD 08/03/2025 11:57 AM EDT [facility] Total Bilirubin 0.3 0.0 - 1.4 mg/dL LAB CHEMISTRY METHOD 08/03/2025 11:57 AM [facility] Blood Venous blood specimen / Unknown Venipuncture / Unknown 08/03/2025 4:55 AM EDT 08/03/2025 10:43 AM EDT Cesar Boo MD LAB BLOOD ORDERABLES Final Resu lt [facility] [address] [place] [address], [place] [phone] * (ABNORMAL) Complete blood count (08/03/2025 4:55 AM EDT) WBC 8.5 4.8 - 10.8 K/mcL LAB HEMETOLOGY METHOD 08/03/2025 11:18 AM [facility] RBC 3.10(L) 4.50 - 5.50 M/[facility] LAB HEMETOLOGY METHOD 08/03/2025 11:18 AM [facility] Hemoglobin 9.1(L) 13.5 - 17.5 g/dL LAB HEMETOLOGY METHOD 08/03/2025 11:18 AM [facility] Hematocrit 28.5(L) 42.0 - 54.0 % LAB HEMETOLOGY METHOD 08/03/2025 11:18 AM EDT [facility] MCV 93.4 79.0 - 98.0 FL LAB HEMETOLOGY METHOD 08/03/2025 11:18 AM EDT [facility] MCH 29.8 27.0 - 32.0 pcg LAB HEMETOLOGY METHOD 08/03/2025 11:18 AM EDT [facility] MCHC 31.9(L) 32.0 - 37.0 g/dL LAB HEMETOLOGY METHOD 08/03/2025 11:18 AM EDT [facility] RDW 14.4 11.0 - 15.0 % LAB HEMETOLOGY METHOD 08/03/2025 11:18 AM EDT [facility] Platelets 413(H) 130 - 400 K/mcL LAB HEMETOLOGY METHOD 08/03/2025 11:18 AM EDT [facility] MPV 9.8 7.0 - 11.0 FL LAB HEMETOLOGY METHOD 08/03/2025 11:18 AM EDT [facility] NRBC 0.0 <1.0 % LAB HEMETOLOGY METHOD 08/03/2025 11:18 AM [facility] NRBC Absolute 0.00 <0.10 K/mcL LAB HEMETOLOGY METHOD 08/03/2025 11:18 AM [facility] Blood Venous blood specimen / Unknown Venipuncture / Unknown 08/03/2025 4:55 AM EDT 08/03/2025 10:43 AM EDT us Cesar Boo MD LAB BLOOD ORDERABLES Final Resu lt [facility] [address] [place] [address], documented in this encounter Visit Diagnoses Diagnosis Essential (primary) hypertension Unspecified essential hypertension Chronic obstructive pulmonary disease, unspecified (CMS/HCC V24, CMS/HCC V28) Gastro-esophageal reflux disease without esophagitis documented in this encounter Care Teams Autocad Relationship Specialty Start Date End Date Cesar Boo MD [address] [place] [phone] PCP - General Internal Medicine 07/28/25 documented as of this encounter
--- OUTSIDE RECORDS SUMMARY | 2025-08-07 08:52 | XMS_ITS | Encounter Summary ---
Author Organization [facility] Address [address] [place] [address] Phone Care Team Providers Care Dental Ceramist Name Role Phone Bean Joe MD Primary Care Provider [phone] Luna Mckeon MD, PhD Unavailable [phone] Ever Spring MD Unavailable [phone] Bailey Vazquez RN Unavailable [phone] Hilary Gallardo RN Unavailable [email or web address] [email or web address] Demetrio Love PA-C Unavailable [phone] Tamar Armando RN Unavailable [email or web address] Encounter Details Date Type Department Care Team (Late st Contact Info) Description 10/24/2022 Procedure Pass [facility] [place] [address] [place] [address] Social History Tobacco Use Types Packs/Day Years [...] Info) Description 09/15/2025 9:15 AM EST Appointment [facility], PET/CT [address] [facility] [address] [place] [address] Donald Zavala MD [address] [place] [address] [email or web address] 09/15/2025 1:00 PM EST Office Visit [facility] for Thoracic On[facility], [facility] [address] [address] Donald Zavala MD [address] [place] [address] [email or web address] documented as of this encounter Visit Diagnoses Not on filedocumented in this encounter Additional Health Concerns Assessment Noted Time PHQ-2 Depression Total Score: 0 10/24/19 23 2:05 PM EST documented as of this encounter Care Teams Dental Ceramist Relationship Specialty Start Date End Date Bean Joe MD [address] [place] [address] PCP - General Internal Medicine 11/11/21 Luna Mckeon MD, PhD [address] [place] [address] 1 [place] [address] [email or web address] Thoracic Surgery 11/15/21 Ever Spring MD [address] [place] [address] Division [place] [address] [email or web address] Thoracic Surgery 11/28/21 Bailey Vazquez RN 300 [place] [address] [email or web address] Primary Infusion Nurse 02/21/22 Hilary Gallardo RN 300 [place] [address] [email or web address] Associate Infusion Nurse 07/28/22 Demetrio Love PA-C [address] [place] [address] [email or web address] Button Bradder 12/21/22 04/05/23 Tamar Armando RN [address] [place] [address] [email or web address] Associate Infusion Nurse 04/06/23 documented as of this encounter Additional Source Comments The information contained in this document represents components of the legal health record. It is not the complete legal health record.[facility]
--- OUTSIDE RECORDS SUMMARY | 2025-08-07 08:52 | XMS_ITS | Clinical Summary ---
Author Organization [address] Address [address] [place] [address] Phone Care Team Providers Care Flight Radio Officer Name Role Phone Cesar Boo MD Primary Care Provider [phone] Encounters Date Type Department Care Team Description 07/31/2025 Lab Requisition [facility] Lab 299 [place] [phone] Cesar Boo MD Essential (primary) hypertension; Chronic obstructive pulmonary disease, unspecified ([facility]/HCC V24, CMS/HCC V28); Gastro-esophageal reflux disease without esophagitis 07/29/2025 Lab Requisition [facility] Lab 299 [place] [phone] Cesar Boo MD Essential (primary) hypertension; Chronic obstructive pulmonary disease, unspecified (CMS/HCC V24, CMS/HCC V28); Gastro-esophageal reflux disease without esophagitis 07/28/2025 Lab Requisition [facility] Lab [address] [place] [phone] Cesar Boo MD Essential (primary) hypertension; Chronic obstructive pulmonary disease, unspecified ([facility]/HCC V24, CMS/HCC V28); Gastro-esophageal reflux disease without esophagitis from Last 3 Months Social History Tobacco Use Types Packs/Day Years Used Date Smoking Tobacco: Never Assessed Sex and Gender Information Value Date Recorded Sex Assigned at Not on file Legal Sex Male 8:59 AM EDT Gender Identity Not on file Sexual Orientation Not on file Plan of Treatment Health Maintenance Due Date Last Done Comments DTaP,Tdap,and Td Vaccines (1 - Tdap) 1962 Pneumococcal Vaccine: 50+ Years (1 of 2 - PCV) 1962 Zoster Vaccines (1 of 2) 1993 RSV Immunization Adult Patients (1 - 1-dose 75+ series) 2018 Depression Screening 10/22/2024 COVID-19 Vaccine ( - 2023-2 5 season) 2025 Influenza Vaccine (#1) 2025 Cholesterol Screening (Lipid Panel) 07/28/2025 Falls Risk Assessment 07/28/2025 Medicare Annual Wellness Visit 07/28/2025 Social Influencers of Health Screening 07/28/2025 Hypertension/CHF/CAD Annual BMP Blood Test 08/03/2026 08/03/2025, 07/30/2025, 07/28/2025 HIB Vaccines Aged Out No longer eligi ble based on patient's age to complete this topic HPV Vaccines Aged Out No longer eligi ble based on patient's age to complete this topic Hepatitis A Vaccines Aged Out No long er eligible based on patient's age to complete this topic Hepatitis B Vaccines Aged Out No long er eligible based on patient's age to complete this topic IPV Vaccines Aged Out No longer eligi ble based on patient's age to complete this topic MMR Vaccines Aged Out No longer eligi ble based on patient's age to complete this topic Meningococcal ACWY Vaccine Aged Out N o longer eligible based on patient's age to complete this topic Meningococcal B Vaccine Aged Out No l onger eligible based on patient's age to complete this topic RSV Immunization Patients Under 20 months Aged Out No longer eligible b ased on patient's age to complete this topic Varicella Vaccines Aged Out No longer eligible based on patient's age to complete this topic Procedures Procedure Name Priority Date/Time Associated Diagnosis Comments COMPREHENSIVE METABOLIC PANEL Routine 08/03/2025 4:55 AM EDT Essential (primary) hypertension Chronic obstructive pulmonary disease, unspecified (CMS/HCC V24, CMS/HCC V28) Gastro-esophageal reflux disease without esophagitis COMPLETE BLOOD COUNT Routine 08/03/2025 4:55 AM EDT Essential (primary) hypertension Chronic obstructive pulmonary disease, unspecified (CMS/HCC V24, CMS/HCC V28) Gastro-esophageal reflux disease without esophagitis BASIC METABOLIC PANEL Routine 07/30/2025 8:20 AM EDT Essential (primary) hypertension Chronic obstructive pulmonary disease, unspecified (CMS/HCC V24, CMS/[facility] V28) Gastro-esophageal reflux disease without esophagitis COMPLETE BLOOD COUNT Routine 07/30/2025 8:20 AM EDT Essential (primary) hypertension Chronic obstructive pulmonary disease, unspecified (CMS/HCC V24, CMS/HCC V28) Gastro-esophageal reflux disease without esophagitis COMPREHENSIVE METABOLIC PANEL Routine 07/28/2025 4:55 AM EDT Essential (primary) hypertension Chronic obstructive pulmonary disease, unspecified (CMS/HCC V24, CMS/HCC V28) Gastro-esophageal reflux disease without esophagitis COMPLETE BLOOD COUNT Routine 07/28/2025 4:55 AM EDT Essential (primary) hypertension Chronic obstructive pulmonary disease, unspecified (CMS/HCC V24, CMS/[facility] V28) Gastro-esophageal reflux disease without esophagitis from Last 3 Months Results * (ABNORMAL) Complete blood count (08/03/2025 4:55 AM EDT) Only the most recent of3 resultswithin the time period is included. WBC 8.5 4.8 - 10.8 K/mcL LAB HEMETOLOGY METHOD 08/03/2025 11:18 AM [facility] RBC 3.10(L) 4.50 - 5.50 M/mcL LAB HEMETOLOGY METHOD 08/03/2025 11:18 AM [facility] Hemoglobin 9.1(L) 13.5 - 17.5 g/dL LAB HEMETOLOGY METHOD 08/03/2025 11:18 AM [facility] Hematocrit 28.5(L) 42.0 - 54.0 % LAB HEMETOLOGY METHOD 08/03/2025 11:18 AM [facility] MCV 93.4 79.0 - 98.0 FL LAB HEMETOLOGY METHOD 08/03/2025 11:18 AM [facility] MCH 29.8 27.0 - 32.0 pcg LAB HEMETOLOGY METHOD 08/03/2025 11:18 AM EDT [facility] MCHC 31.9(L) 32.0 - 37.0 g/dL LAB HEMETOLOGY METHOD 08/03/2025 11:18 AM EDT [facility] RDW 14.4 11.0 - 15.0 % LAB HEMETOLOGY METHOD 08/03/2025 11:18 AM EDT [facility] Platelets 413(H) 130 - 400 K/mcL LAB HEMETOLOGY METHOD 08/03/2025 11:18 AM EDT [facility] MPV 9.8 7.0 - 11.0 FL LAB HEMETOLOGY METHOD 08/03/2025 11:18 AM EDT [facility] NRBC 0.0 <1.0 % LAB HEMETOLOGY METHOD 08/03/2025 11:18 AM EDT [facility] NRBC Absolute 0.00 <0.10 K/mcL LAB HEMETOLOGY METHOD 08/03/2025 11:18 AM EDT [facility] Blood Venous blood specimen / Unknown Venipuncture / Unknown 08/03/2025 4:55 AM EDT 08/03/2025 10:43 AM EDT us Cesar Boo MD LAB BLOOD ORDERABLES Final Resu lt [facility] [address] [place] [address], * (ABNORMAL) Comprehensive metabolic panel (08/03/2025 4:55 AM EDT) Only the most recent of2 resultswithin the time period is included. Sodium 136 133 - 145 mmol/L LAB CHEMISTRY METHOD 08/03/2025 11:57 AM EDT [facility] Potassium 4.5 3.5 - 5.5 mmol/L LAB CHEMISTRY METHOD 08/03/2025 11:57 AM [facility] Chloride 106 96 - 110 mmol/L LAB CHEMISTRY METHOD 08/03/2025 11:57 AM [facility] CO2 22 21 - 32 mmol/L LAB CHEMISTRY METHOD 08/03/2025 11:57 AM [facility] Anion Gap 8 3 - 11 LAB CHEMISTRY METHOD 08/03/2025 11:57 AM [facility] Glucose 84 70 - 100 mg/dL LAB CHEMISTRY METHOD 08/03/2025 11:57 AM [facility] BUN 23 5 - 25 mg/dL LAB CHEMISTRY METHOD 08/03/2025 11:57 AM [facility] Creatinine 1.33(H) 0.70 - 1.30 mg/dL LAB CHEMISTRY METHOD 08/03/2025 11:57 AM [facility] eGFR 54(L) >=60 mL/min/1. 73m2 LAB CHEMISTRY METHOD 08/03/2025 11:57 AM [facility] Comment:Calculation based on the Chronic Kidney Disease Epidemiology Collaboration (CKD-EPI) equation refit without adjustment for race. BUN/Creatinine Ratio 17.3 LAB CHEMISTRY METHOD 08/03/2025 11:57 AM [facility] Calcium 8.1(L) 8.5 - 10.5 mg/dL LAB CHEMISTRY METHOD 08/03/2025 11:57 AM [facility] AST (SGOT) 26 10 - 42 unit/L LAB CHEMISTRY METHOD 08/03/2025 11:57 AM [facility] ALT (SGPT) 38 10 - 60 unit/L LAB CHEMISTRY METHOD 08/03/2025 11:57 AM [facility] Alkaline Phosphatase 139(H) 42 - 121 unit/L LAB CHEMISTRY METHOD 08/03/2025 11:57 AM [facility] Total Protein 5.1(L) 6.0 - 8.0 g/dL LAB CHEMISTRY METHOD 08/03/2025 11:57 AM [facility] Albumin 2.3(L) 3.2 - 5.0 g/dL LAB CHEMISTRY METHOD 08/03/2025 11:57 AM [facility] Total Bilirubin 0.3 0.0 - 1.4 mg/dL LAB CHEMISTRY METHOD 08/03/2025 11:57 AM [facility] Blood Venous blood specimen / Unknown Venipuncture / Unknown 08/03/2025 4:55 AM EDT 08/03/2025 10:43 AM EDT us Cesar Boo MD LAB BLOOD ORDERABLES Final Resu lt [facility] [address] [place] [address], * (ABNORMAL) Basic metabolic panel (07/30/2025 8:20 AM EDT) Sodium 134 133 - 145 mmol/L LAB CHEMISTRY METHOD 07/30/2025 11:14 AM [facility] Potassium 4.4 3.5 - 5.5 mmol/L LAB CHEMISTRY METHOD 07/30/2025 11:14 AM [facility] Chloride 103 96 - 110 mmol/L LAB CHEMISTRY METHOD 07/30/2025 11:14 AM [facility] CO2 22 21 - 32 mmol/L LAB CHEMISTRY METHOD 07/30/2025 11:14 AM [facility] Anion Gap 9 3 - 11 LAB CHEMISTRY METHOD 07/30/2025 11:14 AM [facility] Glucose 99 70 - 100 mg/dL LAB CHEMISTRY METHOD 07/30/2025 11:14 AM [facility] BUN 42(H) 5 - 25 mg/dL LAB CHEMISTRY METHOD 07/30/2025 11:14 AM EDT [facility] Creatinine 1.58(H) 0.70 - 1.30 mg/dL LAB CHEMISTRY METHOD 07/30/2025 11:14 AM EDT [facility] eGFR 44(L) >=60 mL/min/1. 73m2 LAB CHEMISTRY METHOD 07/30/2025 11:14 AM EDT [facility] Comment:Calculation based on the Chronic Kidney Disease Epidemiology Collaboration (CKD-EPI) equation refit without adjustment for race. BUN/Creatinine Ratio 26.6 LAB CHEMISTRY METHOD 07/30/2025 11:14 AM T [facility] Calcium 8.2(L) 8.5 - 10.5 mg/dL LAB CHEMISTRY METHOD 07/30/2025 11:14 AM T [facility] Blood Venous blood specimen / Unknown Venipuncture / Unknown 07/30/2025 8:20 AM EDT 07/30/2025 10:10 AM EDT us Cesar Boo MD LAB BLOOD ORDERABLES Final Resu lt [facility] [address] [place] [address], from Last 3 Months Insurance MEDICARE [facility] Care Teams Flight Radio Officer Relationship Specialty Start Date End Date Cesar Boo MD [address] [place] [phone] PCP - General Internal Medicine 07/28/25
--- OUTSIDE RECORDS SUMMARY | 2025-08-07 08:52 | XMS_ITS | Encounter Summary ---
Author Organization [facility] Address [address] [place] [address] Phone Care Team Providers Care Chief Nurse Executive Name Role Phone Bean Joe MD Primary Care Provider [phone] Luna Mckeon MD, PhD Unavailable [phone] Ever Spring MD Unavailable [phone] Bailey Vazquez RN Unavailable [phone] Hilary Gallardo RN Unavailable RHONDA [email or web address] Tamar Armando RN Unavailable [email or web address] Encounter Details Date Type Department Care Team (Late st Contact Info) Description 08/05/2024 Ancillary Orders Outside Imaging Donald Zavala MD [address] [place] [phone] [email or web address] Social History Tobacco Use Types Packs/Day Years [...] Info) Description 09/15/2025 9:15 AM EST Appointment [facility], PET/CT [address] [address] Donald Zavala MD [address] [place] [phone] [email or web address] 09/15/2025 1:00 PM EST Office Visit [facility] for Thoracic Oncology, [facility] at [address] [address] Donald Zavlaa MD [address] [place] [phone] [email or web address] documented as of this encounter Results * XR Chest Outside (No Interpretation) (07/20/2024 12:00 AM EDT) Other Narrative HALEIGHGABYARBENALEXISAlex - 08/05/2024 9:09 AM EDT This study [...] documented as of this encounter Care Teams Chief Nurse Executive Relationship Specialty Start Date End Date Bean Joe MD [address] [place] [address] [address] [place] [address] PCP - General Internal Medicine 11/11/21 Luna Mckeon MD, PhD [address] [place] [address] [address] [place] [address] [email or web address] Thoracic Surgery 11/15/21 Ever Spring MD [address] [place] [address] Division [place] [address] [email or web address] Thoracic Surgery 11/28/21 Bailey Vazquez RN [address] [place] [address] [email or web address]. [facility] Primary Infusion Nurse 02/21/22 Hilary Gallardo RN 300 [place] [address] [email or web address]. [facility] Associate Infusion Nurse 07/28/22 Tamar Armando RN [address] [place] [address] [email or web address] Associate Infusion Nurse 04/06/23 documented as of this encounter Additional Source Comments The information contained in this document represents components of the legal health record. It is not the complete legal health record.[facility]
--- OUTSIDE RECORDS SUMMARY | 2025-08-07 08:53 | XMS_ITS | Encounter Summary ---
Author Organization [facility] Address [address] [place] [address] Phone Care Team Providers Care Professor Of English Name Role Phone Bean Joe MD Primary Care Provider [phone] Luna Mckeon MD, PhD Unavailable [phone] Ever Spring MD Unavailable [phone] Bailey Vazquez RN Unavailable [phone] Hilary Gallardo RN Unavailable [email or web address] [email or web address] Tamar Armando RN Unavailable [email or web address] Encounter Details Date Type Department Care Team (Late st Contact Info) Description 08/05/2024 Ancillary Orders Outside Imaging Donald Zavaal MD [address] [place] [phone] [email or web address] Social History Tobacco Use Types Packs/Day [...] Info) Description 09/15/2025 9:15 AM EST Appointment [facility] [place], PET/CT [address] [address] Donald Zavala MD [address] [place] [phone] [email or web address] 09/15/2025 1:00 PM EST Office Visit [facility] Center for Thoracic Oncology, [facility] at [address] [address] Donald Zavala MD [address] [place] [phone] [email or web address] documented as of this encounter Results * CT Chest Outside (No Interpretation) (07/21/2024 12:00 AM EDT) Other Narrative EMMANUELALEXISAlex - 08/05/2024 8:52 AM EDT This study [...] documented as of this encounter Care Teams Professor Of English Relationship Specialty Start Date End Date Bean Joe MD [address] [place] [address] [address] [place] [address] PCP - General Internal Medicine 11/11/21 Luna Mckeon MD, PhD [address] [place] [address] [address] [place] [address] [email or web address] Thoracic Surgery 11/15/21 Ever Spring MD [address] [place] [address] Division [place] [address] [email or web address] Thoracic Surgery 11/28/21 Bailey Vazquez RN [address] [place] [address] [email or web address]. [facility] Primary Infusion Nurse 02/21/22 Hilary Gallardo RN [address] [place] [address] [email or web address]. [facility] Associate Infusion Nurse 07/28/22 Tamar Armando RN [address] [place] [address] [email or web address] Associate Infusion Nurse 04/06/23 documented as of this encounter Additional Source Comments The information contained in this document represents components of the legal health record. It is not the complete legal health record.[facility]
--- OUTSIDE RECORDS SUMMARY | 2025-08-07 08:53 | XMS_ITS | Data Portability ---
Author Organization HOLLIE Castaneda janey [address] Address [address] [place] [address] Assessment No assessment recorded. Plan of Treatment Reminders Order Date Submit Date Provider Last Modified By Organization Details Last Modified Time Details Appointments None recorded. Lab None recorded. Referral None recorded. Procedures None recorded. Surgeries None recorded. Imaging None recorded. Medication Orders Allergy Relief (fluticaso ne) 50 mcg/actuat ion nasal spray,susp ension 2022 023 [facility]acy #[id number], [address] [place], [address], 3 13:02:38 Claritin 10 mg tablet 2022 023 [facility]/Pharmacy #[id number], [address] [place], [address], 3 13:02:38 Patient TargetsNo targets recorded. Patient Instructions Encounter Date Encounter Id Patient Instructions Last Modified By Organization Details Last Modified Time 02/08/2023 [id number] Sinusitis is an infection of the lining [...] care for yourself at home? Take an sapw-hcy-mhytram pain medicine. Avoid Ibuprofen, Aleve and Aspirin if . If the doctor prescribed antibiotics, take them as directed. Do not stop taking them just because you feel better. You need to take the full course of antibiotics. Be careful when taking zoxa-fnj-hqaimbi cold or influenza (flu) medicines and Tylenol [...] Address Organization Details Recorded Time Hypertensive disorder 63747125 Active 2022 HOLLIE Mcdonough [facility] 3 12:43:49 Hyperlipidemia 84330192 Active 2022 HOLLIE Mcdonough [facility] 3 12:43:55 Chronic obstructive pulmonary disease 54151878 Active 2022 HOLLIE Mcdonough [facility] 3 12:44:09 Malignant neoplasm of lung 547513365 Active 2022 HOLLIE Mcdonough [facility] 12:44:37 Problem Notes None recorded. Procedures Surgical History Date Name Laterality Status Provider Name and Address Organization Details Recorded Time procedure on lung completed BALJEET LAI HOLLIE - [facility] 02/08/2023 12:44:57 Imaging Results None recorded. Procedure [...] Updated DateTime 3 177.8 cm 26.3 kg/m2 52652.4 g 5 18 /min 97 % 97 % 66 /min 97.8 [degF] 123/80 mm[Hg] BALJEET LAI PA - [employer] [facility] 3 12:46:40 Social History Question Answer Notes LastModified by [employer] Details LastModified Time Tobacco Smoking Status Former Smoker BALJEET han, PA - [facility] 02/08/2023 12:45:50 When Did You Quit Smoking? 11-15yearssi [email or web address] ette [email or web address] Information not available 02/08/2023 Have You Recently Traveled Abroad? No [email or web address] Information not available 02/08/2023 Sex: Unknown Functional Status Question Answer Note LastModified by [employer] Details LastModified Time Do you use any illicit or recreational drugs? No [email or web address] Information not available 02/08/2023 Do you or have you ever used any other forms of tobacco or nicotine? No [email or web address] Information not available 02/08/2023 What is your level of alcohol consumption? Occasional Information not available 02/08/2023 Mental Status None recorded. Family History Relationship Description Onset Age of this Age Resolved Age Notes LastModified by Organization Details LastModified Time Father No current problems or disability [email or web address] Not available 02/08 12:45:30 Mother No current problems or disability [email or web address] Not available 02/08 12:45:30 Medical History No medical history recorded. Past Encounters Encounter ID Performer Location Encounter Start Date Encounter Closed Date Diagnosis/Indication Diagnosis SNOMED-CT Code Diagnosis ICD10 Code Diagnosis IMO Codes Diagnosis Note [id number] [facility] [address] [place] [address] 08/10/2019 10:58:35 08/10/2019 11:38:55 [id number] [facility] [address] [facility] [address] [place] [address] 12/28/2019 11:18:26 12/28/2019 12:03:42 [id number] Carlos Waters, MAKEUP ARTISTRY INSTRUCTOR [address] [place] [address] 02/08/2023 12:27:45 02/08/2023 13:04:37 Acute sinusitis 15766466 J01.90 Health Concerns Section Related Observation LastModified by Organization Detai ls LastModified Time None Recorded Concern Status LastModified by Organization Details LastModified Time None Recorded Advance Directives Directive None Recorded Payers Insurance Date Sequence Insurance Name Policy Number Policy Navarro Covered Member ID Navarro Member ID Guarantor Name 02/08/2023 1 [place] [employer] Ashish Hamilton [id number] Ashish Hamilton 02/08/2023 2 [place] [id number] Ashish Hamilton [id number] Ashish Hamilton Notes Date Note Type Note Provider Name and Address Organization Details Recorded Time 3 text/html Sinus Complaints UCReported by PatientHPIFor location, patient reportssinus pain,facial pain, andsinus pressure. For associated symptoms, patient reportsdifficulty breathing,post nasal drip,nasal passage blockage __, andcoughbut reportsno fever,no nausea or vomiting,no sore throat,no ear fullness,no nasal itching,no eye itching, andno dizziness. For quality, patient reportsworseningbut reportsminimal discomfortandclear. For context, patient reportsworse with environmental exposurebut reportsno recent upper respiratory infection,no recent sick contacts, andnot worse with seasonal allergen exposure. For onset/timing, patient reportsworse in amandworse in pm. For duration, patient reportsfrequent. For severity, patient reportsmoderate. For risk factors, patient reportsno current smoking or tobacco useandno history of nasal trauma. For alleviating factors, patient reportsoral steroids. For aggravating factors, patient reportsworse during an upper respiratory infection (a cold)andworse with excess fatigue. For prior treatment, patient reportsoral decongestant. Shortness of BreathReported by Patient Carlos Waters NP [address] [place], [address], PA - [facility] 02/08/2023 13:03:07
--- OUTSIDE RECORDS SUMMARY | 2025-08-07 08:53 | XMS_ITS | Encounter Summary ---
Author Organization [facility] Address [address] [place] [address] Phone Care Team Providers Care Lithographic Camera Operator Name Role Phone Bean Joe MD Primary Care Provider Luna Mckeon MD, PhD Unavailable [phone] Ever Spring MD Unavailable [phone] Bailey Vazquez RN Unavailable [phone] Hilary Gallardo RN Unavailable RHONDA [email or web address] Demetrio Love PA-C Unavailable +[phone] Tamar Armando RN Unavailable [email or web address] Encounter Details Date Type Department Care Team (Late st Contact Info) Description 01/02/2022 Procedure Pass [facility] Periop [address] [place] [address] Social History Tobacco Use Types Packs/Day Years [...] 1:00 PM EDT Bibi Santos RN * [place] Suicide Severity Rating Scale (Screener/Recent Self-Report) Question [...] Info) Description 09/15/2025 9:15 AM EST Appointment [facility] [place], PET/CT [address] [address] Donald Zavala MD [address] [place] [address] [email or web address] 09/15/2025 1:00 PM EST Office Visit [facility], [facility] [address] [address] Donald Zavala MD [address] [place] [address] [email or web address] documented as of this encounter Visit Diagnoses Not on filedocumented in this encounter Additional Health Concerns Assessment Noted Time PHQ-2 Depression Total Score: 0 11/29/19 9:25 AM EST documented as of this encounter Care Teams Lithographic Camera Operator Relationship Specialty Start Date End Date Bean Joe MD [address] [place] [address] PCP - General Internal Medicine 11/11/21 Luna Mckeon MD, PhD [address] [place] [address] [email or web address] Thoracic Surgery 11/15/21 Ever Spring MD [address] [place] [address] Division [place] [address] [email or web address] Thoracic Surgery 11/28/21 Bailey Vazquez RN [address] [place] [address] [email or web address] Primary Infusion Nurse 02/21/22 Hilayr Gallardo RN [address] [place] [address] [email or web address] Associate Infusion Nurse 07/28/22 Demetrio Love PA-C [address] [place] [address] [email or web address] Physician Hot Plate Plywood Press Feeder 12/21/22 04/05/23 Tamar Armando RN [address] [place] [address] [email or web address] Associate Infusion Nurse 04/06/23 documented as of this encounter Additional Source Comments The information contained in this document represents components of the legal health record. It is not the complete legal health record.[facility]
--- OUTSIDE RECORDS SUMMARY | 2025-08-07 08:53 | XMS_ITS | Encounter Summary ---
Author Organization [facility] Address [address] [place] [address] Phone Care Team Providers Care Operations Manager Assistant Name Role Phone Bean Joe MD Primary Care Provider [phone] Luna Mckeon MD, PhD Unavailable [phone] Ever Spring MD Unavailable [phone] Bailey Vazquez RN Unavailable [phone] Hilary Gallardo RN Unavailable RHONDA [email or web address]@[email or web address].[place].[facility] Tamar Armando RN Unavailable [email or web address]@ [email or web address].[facility] Encounter Details Date Type Department Care Team (Late st Contact Info) Description 01/22/2024 Procedure Pass [facility] [place] [facility] [place] [address] [address] Social History Tobacco Use Types [...] Info) Description 09/15/2025 9:15 AM EST Appointment [facility] [place], PET/CT [address] [address] Donald Zavala MD [address] [place] [address] [email or web address] 09/15/2025 1:00 PM EST Office Visit [facility], [facility] [address] [address] Donald Zavala MD [address] [place] [address] [email or web address] documented as of this encounter Visit Diagnoses Not on filedocumented in this encounter Additional Health Concerns Assessment Noted Time PHQ-2 Depression Total Score: 0 01/29/20 24 7:26 AM EDT documented as of this encounter Care Teams Operations Manager Assistant Relationship Specialty Start Date End Date Bean Joe MD [address] [place] [address] PCP - General Internal Medicine 11/11/21 Luna Mckeon MD, PhD [address] [place] [address] [email or web address] Thoracic Surgery 11/15/21 Ever Spring MD [address] [place] [address] Division [place] [address] [email or web address] Thoracic Surgery 11/28/21 Bailey Vazquez RN [address] [place] [address] [email or web address] Primary Infusion Nurse 02/21/22 Hilary Gallardo RN [address] [place] [address] [email or web address] Associate Infusion Nurse 07/28/22 Tamar Armando RN 300 [place] [address] [email or web address] Associate Infusion Nurse 04/06/23 documented as of this encounter Additional Source Comments The information contained in this document represents components of the legal health record. It is not the complete legal health record.[facility]
--- OUTSIDE RECORDS SUMMARY | 2025-08-07 08:53 | XMS_ITS | Encounter Summary ---
Author Organization [facility] Address [address] [place] [address] Phone Care Team Providers Care Rock Mason Name Role Phone Bean Joe MD Primary Care Provider [phone] Luna Mckeon MD, PhD Unavailable [phone] Ever Spring MD Unavailable [phone] Bailey Vazquez RN Unavailable [phone] Hilary Gallardo RN Unavailable RHONDA [email or web address].[email or web address].[facility] Demetrio Love PA-C Unavailable [phone] Tamar Armando RN Unavailable [email or web address]@ [email or web address].[place].[facility] Encounter Details Date Type Department Care Team (Late st Contact Info) Description 07/04/2022 Procedure Pass [facility] [place] [facility] [place] 300 [place] [address] Social History Tobacco Use Types Packs/Day Years [...] Info) Description 09/15/2025 9:15 AM EST Appointment [facility], PET/CT 300 [facility] [address] [place] [address] Donald Zavala MD [address] [place] [address] [email or web address] 09/15/2025 1:00 PM EST Office Visit [facility], [facility] [address] [address] Donald Zavala MD [address] [place] [address] [email or web address] documented as of this encounter Visit Diagnoses Not on filedocumented in this encounter Additional Health Concerns Assessment Noted Time PHQ-2 Depression Total Score: 0 10/24/19 23 2:05 PM EST documented as of this encounter Care Teams Rock Mason Relationship Specialty Start Date End Date Bean Joe MD [address] [place] [address] PCP - General Internal Medicine 11/11/21 Luna Mckeon MD, PhD [address] [place] [address] 1 [place] [address] [email or web address] Thoracic Surgery 11/15/21 Ever Spring MD [address] [place] [address] Division [place] [address] [email or web address] Thoracic Surgery 11/28/21 Bailey Vazquez RN 300 [place] [address] [email or web address] Primary Infusion Nurse 02/21/22 Hilary Gallardo RN 300 [place] [address] [email or web address] Associate Infusion Nurse 07/28/22 Demetrio Love PA-C 300 [place] [address] [email or web address] Physician Lead Generation Specialist 12/21/22 04/05/23 Tamar Armando RN 300 [place] [address] [email or web address] Associate Infusion Nurse 04/06/23 documented as of this encounter Additional Source Comments The information contained in this document represents components of the legal health record. It is not the complete legal health record.[facility]
--- OUTSIDE RECORDS SUMMARY | 2025-08-07 08:53 | XMS_ITS | Encounter Summary ---
Author Organization [facility] Address [address] [place] [address] Phone Care Team Providers Care Perpetual Inventory Clerk Name Role Phone Bean Joe MD Primary Care Provider [phone] Luna Mckeon MD, PhD Unavailable [phone] Ever Spring MD Unavailable [phone] Bailey Vazquez RN Unavailable [phone] Hilary Gallardo RN Unavailable RHONDA [email or web address].[place].[facility] Tamar Armando RN Unavailable [email or web address]@ [facility] Encounter Details Date Type Department Care Team (Late st Contact Info) Description 07/03/2023 Procedure Pass [facility] [place] [facility] [place] [address] [address] Social History Tobacco Use Types [...] Info) Description 09/15/2025 9:15 AM EST Appointment [facility] [place], PET/CT [address] [address] Donald Zavala MD [address] [place] [address] [email or web address] 09/15/2025 1:00 PM EST Office Visit [facility], [facility] [place] [address] [address] Donald Zavala MD [address] [place] [address] [email or web address] documented as of this encounter Visit Diagnoses Not on filedocumented in this encounter Additional Health Concerns Assessment Noted Time PHQ-2 Depression Total Score: 0 07/10/20 23 12:21 PM EDT documented as of this encounter Care Teams Perpetual Inventory Clerk Relationship Specialty Start Date End Date Bean Joe MD [address] [place] [address] PCP - General Internal Medicine 11/11/21 Luna Mckeon MD, PhD [address] [place] [address] [email or web address] Thoracic Surgery 11/15/21 Ever Spring MD [address] [place] [address] Division [place] [address] [email or web address] Thoracic Surgery 11/28/21 Bailey Vazquez RN 300 [place] [address] [email or web address] Primary Infusion Nurse 02/21/22 Hilary Gallardo RN [address] [place] [address] SARA@[email or web address] Associate Infusion Nurse 07/28/22 Tamar Armando RN 300 [place] [address] [email or web address] Associate Infusion Nurse 04/06/23 documented as of this encounter Additional Source Comments The information contained in this document represents components of the legal health record. It is not the complete legal health record.[facility]
--- OUTSIDE RECORDS SUMMARY | 2025-08-07 08:53 | XMS_ITS | Encounter Summary ---
Author Organization [facility] Address [address] [place] [address] Phone Care Team Providers Care Shoe Treer Name Role Phone Bean Joe MD Primary Care Provider [phone] Luna Mckeon MD, PhD Unavailable [phone] Ever Spring MD Unavailable [phone] Bailey Vazquez RN Unavailable [phone] Hilary Gallardo RN Unavailable RHONDA BOTELLO@[email or web address].[email or web address] Demetrio Love PA-C Unavailable [phone] Tamar Armando RN Unavailable [email or web address]@ [facility].[place].[facility] Encounter Details Date Type Department Care Team (Late st Contact Info) Description 12/08/2021 Prep for Surgery [facility] Thoracic Surgery [address] [place] [address] Marina [email or web address] Social History Tobacco Use Types Packs/Day [...] Info) Description 09/15/2025 9:15 AM EST Appointment [facility], PET/CT [address] [address] Donald Zavala MD [address] [place] [address] [email or web address] 09/15/2025 1:00 PM EST Office Visit [facility], [facility] [address] [address] Donald Zavala MD [address] [place] [address] [email or web address] documented as of this encounter Visit Diagnoses Not on filedocumented in this encounter Additional Health Concerns Assessment Noted Time PHQ-2 Depression Total Score: 0 11/29/19 9:25 AM EST documented as of this encounter Care Teams Shoe Treer Relationship Specialty Start Date End Date Bean Joe MD [address] [place] [address] PCP - General Internal Medicine 11/11/21 Luna Mckeon MD, PhD [address] [place] [address] 1 [place] [address] [email or web address] Thoracic Surgery 11/15/21 Ever Spring MD [address] [place] [address] Division [place] [address] [email or web address] Thoracic Surgery 11/28/21 Bailey Vazquez RN 300 [place] [address] [email or web address] Primary Infusion Nurse 02/21/22 Hilary Gallardo RN 300 [place] [address] [email or web address] Associate Infusion Nurse 07/28/22 Demetrio Love PA-C 300 [place] [address] [email or web address] Physician Construction Specialist 12/21/22 04/05/23 Tamar Armando RN 300 [place] [address] [email or web address] Associate Infusion Nurse 04/06/23 documented as of this encounter Additional Source Comments The information contained in this document represents components of the legal health record. It is not the complete legal health record.[facility]
--- OUTSIDE RECORDS SUMMARY | 2025-08-07 08:53 | XMS_ITS | Encounter Summary ---
Author Organization [facility] Address [address] [place] [address] Phone Care Team Providers Care Freight Separator Name Role Phone Bean Joe MD Primary Care Provider [phone] Luna Mckeon MD, PhD Unavailable [phone] Ever Spring MD Unavailable [phone] Bailey Vazquez RN Unavailable [phone] Hilary Gallardo RN Unavailable RHONDA [email or web address].[facility] Demetrio Love PA-C Unavailable [phone] Tamar Armando RN Unavailable [email or web address] Encounter Details Date Type Department Care Team (Late st Contact Info) Description 11/30/2021 Procedure Pass [facility] [address] [place] [address] Social History Tobacco Use Types Packs/Day Years [...] Info) Description 09/15/2025 9:15 AM EST Appointment [facility] [place], PET/CT [address] [address] Donald Zavala MD [address] [place] [address] [email or web address] 09/15/2025 1:00 PM EST Office Visit [facility], [facility] [address] [address] Donald Zavala MD [address] [place] [address] [email or web address] documented as of this encounter Visit Diagnoses Not on filedocumented in this encounter Additional Health Concerns Assessment Noted Time PHQ-2 Depression Total Score: 0 11/29/19 9:25 AM EST documented as of this encounter Care Teams Freight Separator Relationship Specialty Start Date End Date Bean Joe MD [address] [place] [address] PCP - General Internal Medicine 11/11/21 Luna Mckeon MD, PhD [address] [place] [address] [email or web address] Thoracic Surgery 11/15/21 Ever Spring MD [address] [place] [address] Division [place] [address] [email or web address] Thoracic Surgery 11/28/21 Bailey Vazquez RN 300 [place] [address] [email or web address] Primary Infusion Nurse 02/21/22 Hilary Gallardo RN 300 [place] [address] [email or web address] Associate Infusion Nurse 07/28/22 Demetrio Love PA-C [address] [place] [address] [email or web address] Physician Trial Management Associate 12/21/22 04/05/23 Tamar Armando RN 300 [place] [address] [email or web address] Associate Infusion Nurse 04/06/23 documented as of this encounter Additional Source Comments The information contained in this document represents components of the legal health record. It is not the complete legal health record.[facility]
--- OUTSIDE RECORDS SUMMARY | 2025-08-07 08:53 | XMS_ITS | Encounter Summary ---
Author Organization [facility] Address [address] [place] [address] Phone Care Team Providers Care Concrete Hopper Operator Name Role Phone Bean Joe MD Primary Care Provider [phone] Luna Mckeon MD, PhD Unavailable [phone] Ever Spring MD Unavailable [phone] Bailey Vazquez RN Unavailable [phone] Hilary Gallardo RN Unavailable RHONDA [email or web address] Tamar Armando RN Unavailable [email or web address] Encounter Details Date Type Department Care Team (Late st Contact Info) Description 10/09/2023 Procedure Pass [facility] [place] [facility] [place] [address] [address] Social History Tobacco Use Types [...] Info) Description 09/15/2025 9:15 AM EST Appointment [facility] [place], PET/CT [address] [address] Donald Zavala MD [address] [place] [address] [email or web address] 09/15/2025 1:00 PM EST Office Visit [facility] Center for Thoracic Oncology, [facility] [address] [address] Donald Zavala MD [address] [place] [address] [email or web address] documented as of this encounter Visit Diagnoses Not on filedocumented in this encounter Additional Health Concerns Assessment Noted Time PHQ-2 Depression Total Score: 0 07/10/20 23 12:21 PM EDT documented as of this encounter Care Teams Concrete Hopper Operator Relationship Specialty Start Date End Date Bean Joe MD [address] [place] [address] PCP - General Internal Medicine 11/11/21 Luna Mckeon MD, PhD [address] [place] [address] [email or web address] Thoracic Surgery 11/15/21 Ever Spring MD [address] [place] [address] Division [place] [address] [email or web address] Thoracic Surgery 11/28/21 Bailey Vazquez RN 300 [place] [address] [email or web address] Primary Infusion Nurse 02/21/22 Hilary Gallardo RN [address] [place] [address] [email or web address] Associate Infusion Nurse 07/28/22 Tamar Armando RN 300 [place] [address] [email or web address] Associate Infusion Nurse 04/06/23 documented as of this encounter Additional Source Comments The information contained in this document represents components of the legal health record. It is not the complete legal health record.[facility]
--- OUTSIDE RECORDS SUMMARY | 2025-08-07 08:53 | XMS_ITS | Clinical Summary ---
Author Organization [facility] Address [address] [place] [address] Phone Care Team Providers Care Friction Welding Machine Operator Name Role Phone Bean Joe MD Primary Care Provider [phone] Luna Mckeon MD, PhD Unavailable [phone] Ever Spring MD Unavailable [phone] Bailey Vazquez RN Unavailable [phone] Hilary Gallardo RN Unavailable RHONDA [email or web address] Tamar Armando RN Unavailable [email or web address] Allergies No known active allergies Medications amLODIPine (NORVASC) 10 MG tablet Take 10 mg by mouth daily. 2 Active atorvastatin (LIPITOR) 40 MG tablet Take 40 mg by mouth daily. 1 Active LATANOPROST OPHT nightly at bedtime. Active albuterol 90 mcg/actuation inhaler Inhale 2 puffs into the lungs every 6 (six) hours as needed for wheezing. 8 g 1 2 Active TRELEGY ELLIPTA 200-62.5-25 mcg inhaler INHALE 1 PUFF DAILY AT THE SAME TIME EVERY DAY Active valsartan (DIOVAN) 320 MG tablet Take 320 mg by mouth daily. Active brimonidine (ALPHAGAN) 0.2 % ophthalmic solution 1 drop 2 (two) times a day. 4 Active albuterol sulfate (VENTOLIN HFA INHL) See Instructions, 2 PUFFS INHALATION 4 TIMES A DAYAS NEEDED FOR WHEEZING, # 18 each, 11 Refills, Maintenance, 07/09/24 11:24:00 EDT, [facility]/pharmacy #[id number], 30, 2 PUFFS INHALATION 4 TIMES A DAYAS NEEDED FOR WHEEZING, 177.06, cm, 07/09/24 10:57:00 EDT, Height 4 Active netarsudiL (RHOPRESSA) 0.02 % ophthalmic solution Place 1 drop into each eye every evening. Active carvedilol (COREG) 25 MG tablet Take 1 tablet by mouth 2 (two) times a day. 4 Active omeprazole (PRILOSEC) 20 MG capsule Take 1 capsule by mouth every morning. 5 Active Active Problems Problem Noted Date Diagnosed Date Non-small cell lung cancer, left 01/02/2022 Adenocarcinoma of left lung, stage 2 12/01/2021 PVD (peripheral vascular disease) Osteoarthritis of right knee Obesity Hypertension Overview (11/18/2021): med managed Hyperlipidemia Overview (11/18/2021): on statin Glaucoma Former smoker Overview (11/18/2021): quit x 12 yrs ago Encounters Date Type Department Care Team Description 06/30/2025 1:30 PM EDT Office Visit [facility] for [facility]acic Oncology, [facility] [address] [address] Donald Zavala MD Non-small cell lung cancer, left (Primary Dx) 06/30/2025 9:31 AM EDT - 06/30/2025 11:59 PM EDT Hospital Encounter [facility], [place] [address] [address] Donald Zavala MD Discharge Disposition: Home or Self Care 02/10/2025 Procedure Pass [facility] [place] [address] [address] 02/10/2025 Procedure Pass [facility] [address] [address] from Last 3 Months Immunizations No known [...] Info) Description 09/15/2025 9:15 AM EST Appointment [facility], PET/CT 300 [facility] [address] [place] [address] Donald Zavala MD [address] [place] [address] [email or web address] 09/15/2025 1:00 PM EST Office Visit [facility] Oncology, [facility] 300 [facility] [address] [place] [address] Donald Zavala MD [address] [place] [address] [email or web address] Health Maintenance Due Date Last Done Comments [...] this topic Medical Devices Implanted Type Area Software Development Manager Device Identifier Shelf Expiration Date Model / [...] may be reactive to the above. ATTESTATION: Edwar Rubio, as teaching physician have reviewed the images, if any, for this patient's exam, and if necessary, have edited the report originally created by [employer]. Narrative 06/30/2025 2:[address] CHEST WITH CONTRAST Referring clinician's provided indication for this examination in [facility]: [MALIGNANCY] LUNG, NON-SMALL CELL (KNOWN ACT MALIG [...] clinician's provided indication for this examination in [facility]:[MALIGNANCY] LUNG, NON-SMALL CELL (KNOWN ACT MALIG UNDER [...] whichmay be reactive to the above. ATTESTATION: IEdwar, as teaching physician have reviewed theimages, if any, for this patient's exam, and if necessary, have edited thereport originally created by [employer]. us Donald Zavala MD IMG CT [...] provided indication for this examination in Epic: *Non- small cell lung cancer, metastatic, assess [...] EDT) SODIUM 134(L) 136 - 145 mmol/L [facility]# [id number] POTASSIUM 4.5 3.4 - 5.1 mmol/L [facility]# [id number] CHLORIDE 102 98 - 107 mmol/L [facility]# [id number] CO2 21(L) 22 - 31 mmol/L [facility]# [id number] BUN 25(H) 6 - 23 mg/dL [facility]# [id number] CREATININE 1.66(H) 0.50 - 1.20 mg/dL [facility]# [id number] GLUCOSE 124(H) 70 - 100 mg/dL [facility]# [id number] ALBUMIN 3.7 3.5 - 5.2 g/dL [facility]# [id number] TOTAL PROTEIN 6.3(L) 6.4 - 8.3 g/dL [facility]# [id number] CALCIUM 8.6(L) 8.8 - 10.7 mg/dL [facility]# [id number] ALKALINE PHOSPHATASE 126 40 - 129 U/L [facility]# [id number] TOTAL BILIRUBIN 0.3 0.2 - 1.2 mg/dL [facility]# [id number] AST 15 <41 U/L [facility]# [id number] ALT 11 <42 U/L [facility]# [id number] GLOBULIN 2.6 2.3 - 4.2 g/dL [facility]# [id number] EGFR 41(L) >59 mL/min/1.7 3m2 [facility]# [id number] Comment:Estimated glomerular filtration rate calculated using the CKD-EPI refit equation. ANION GAP 11 7 - 17 mmol/L [facility]# [id number] Blood 06/30/2025 9:30 AM EDT 06/30/2025 9:37 AM EDT us Donald Zavala MD LAB BLOOD ORDERABLES Final Re sult [facility]# [id number] [address] [place] [address] * (ABNORMAL) CBC and differential (06/30/2025 9:30 AM EDT) WBC 9.00 4.00 - 10.00 K/uL [facility]# [id number] RBC 3.88(L) 4.50 - 6.40 M/uL [facility]# [id number] HGB 11.7(L) 13.5 - 18.0 g/dL [facility]# [id number] HCT 35.1(L) 40.0 - 54.0 % [facility]# [id number] PLT 277 150 - 450 K/uL [facility]# [id number] MCV 90.5 80.0 - 100.0 fL [facility]# [id number] MCH 30.2 27.0 - 32.0 pg [facility]# [id number] MCHC 33.3 32.0 - 36.0 g/dL [facility]# [id number] RDW 14.4 11.5 - 14.5 % [facility]# [id number] MPV 9.7 8.4 - 12.0 fL [facility]# [id number] NRBC 0.00 0.00 /100 WBCs [facility]# [id number] ABSOLUTE NRBC 0.00 0 K/uL [facility]# [id number] DIFF METHOD Auto [facility]IC# [id number] NEUTS 64.1 48.0 - 76.0 % [facility]# [id number] LYMPHS 17.3(L) 18.0 - 41.0 % [facility]# [id number] MONOS 12.4(H) 4.0 - 11.0 % [facility]# [id number] EOS 4.2 0.0 - 5.0 % [facility]# [id number] BASOS 0.7 0.00 - 1.50 % [facility]# [id number] % IMMATURE GRANS 1.3(H) 0.00 - 1.00 % [facility]# [id number] ABSOLUTE NEUTS 5.76 1.92 - 7.60 K/uL [facility]# [id number] ABSOLUTE LYMPHS 1.56 0.72 - 4.10 K/uL [facility]# [id number] ABSOLUTE MONOS 1.12(H) 0.16 - 1.10 K/uL [facility]# [id number] ABSOLUTE EOS 0.38 0.00 - 0.50 K/uL [facility]# [id number] ABSOLUTE BASOS 0.06 0.00 - 0.15 K/uL [facility]# [id number] ABS IMMATURE GRANS 0.12(H) 0.00 - 0.10 K/uL [facility]# [id number] Blood 06/30/2025 9:30 AM EDT 06/30/2025 9:37 AM EDT Donald Zavala MD LAB BLOOD ORDERABLES Final Re sult [facility]# [id number] [address] [place] [address], [facility] from Last 3 Months Insurance [employer] MEDEX SUPPLEMENT MEDICARE PART A & B [employer] MEDEX SUPPLEMENT MEDICARE PART A & B [employer] MEDEX SUPPLEMENT MEDICARE PART A & B [employer] MEDEX SUPPLEMENT MEDICARE PART A & B [employer] MEDEX SUPPLEMENT MEDICARE PART A & B [employer] MEDEX SUPPLEMENT MEDICARE PART A & B [employer] MEDEX SUPPLEMENT MEDICARE PART A & B [employer] MEDEX SUPPLEMENT MEDICARE PART A & B [employer] MEDEX SUPPLEMENT MEDICARE PART A & B Advance Directives For more information, please contact: [phone] (9AM - 5PM [facility], Sunday-Sunday) Documents on File Type Date Recorded Patient Monument Mason Expl anation Healthcare Proxy 01/05/2022 4:00 PM * Full Code (Latest Code Status on File) Date Activated Date Inactivated Comments 01/02/2022 1:07 PM Question Answer Comments Code Status Confirmed With: Patient Healthcare Agents on File Name Relationship Healthcare Agent Relationship Communication Burton Saenz Other (no pr oxy form on file) [email or web address] Care Teams Friction Welding Machine Operator Relationship Specialty Start Date End Date Bean Joe MD [address] [place] [address] PCP - General Internal Medicine 11/11/21 Luna Mckeon MD, PhD [address] [place] [address] [email or web address] Thoracic Surgery 11/15/21 Ever Spring MD [address] [place] [address] Division [place] [address] [email or web address] Thoracic Surgery 11/28/21 Bailey Vazquez RN [address] [place] [address] [email or web address]. [email or web address] Primary Infusion Nurse 02/21/22 Hilary Gallardo RN [address] [place] [address] [email or web address] Associate Infusion Nurse 07/28/22 Tamar Armando RN [address] [place] [address] [email or web address] Associate Infusion Nurse 04/06/23 Additional Source Comments The information contained in this document represents components of the legal health record. It is not the complete legal health record.[facility]
--- OUTSIDE RECORDS SUMMARY | 2025-08-07 08:53 | XMS_ITS | Encounter Summary ---
Author Organization [facility] Address [address] [place] [address] Phone Care Team Providers Care Gas Processing Plant Operator Name Role Phone Bean Joe MD Primary Care Provider [phone] Luna Mckeon MD, PhD Unavailable [phone] Ever Spring MD Unavailable [phone] Bailey Vazquez RN Unavailable [phone] Hilary Gallardo RN Unavailable RHONDA [email or web address] Tamar Armando RN Unavailable [email or web address] Encounter Details Date Type Department Care Team (Late st Contact Info) Description 03/18/2024 Procedure Pass [facility] [place] [facility] [place] [place] [address] [address] Social History Tobacco Use [...] Info) Description 09/15/2025 9:15 AM EST Appointment [facility] [place], PET/CT [address] [address] Donald Zavala MD [address] [place] [address] [email or web address] 09/15/2025 1:00 PM EST Office Visit [facility] Center for [facility]acic Oncology, [facility] [place] [address] [address] Donald Zavala MD [address] [place] [address] [email or web address] documented as of this encounter Visit Diagnoses Not on filedocumented in this encounter Additional Health Concerns Assessment Noted Time PHQ-2 Depression Total Score: 0 01/29/20 24 7:26 AM EDT documented as of this encounter Care Teams Gas Processing Plant Operator Relationship Specialty Start Date End Date Bean Joe MD [address] [place] [address] PCP - General Internal Medicine 11/11/21 Luna Mckeon MD, PhD [address] [place] [address] [email or web address] Thoracic Surgery 11/15/21 Ever Spring MD [address] [place] [address] Division [place] [address] [email or web address] Thoracic Surgery 11/28/21 Bailey Vazquez RN 300 [place] [address] [email or web address] Primary Infusion Nurse 02/21/22 Hilary Gallardo RN [address] [place] [address] [email or web address] Associate Infusion Nurse 07/28/22 Tamar Armando RN 300 [place] [address] [email or web address] Associate Infusion Nurse 04/06/23 documented as of this encounter Additional Source Comments The information contained in this document represents components of the legal health record. It is not the complete legal health record.[facility]
--- OUTSIDE RECORDS SUMMARY | 2025-08-07 08:54 | XMS_ITS | Encounter Summary ---
Author Organization [facility] Address [address] [place] [address] Phone Care Team Providers Care Electric Motor Rebuilder Name Role Phone Bean Joe MD Primary Care Provider [phone] Luna Mckeon MD, PhD Unavailable [phone] Ever Spring MD Unavailable [phone] Bailey Vazquez RN Unavailable [phone] Hilary Gallardo RN Unavailable RHONDA [email or web address] Demetrio Love-C Unavailable [phone] Tamar Armando RN Unavailable [email or web address] Reason for Referral * - Closed Specialty Diagnoses / Procedures Referred By Contac t Referred To Contact Radiology Diagnoses Preoperative cardiovascular examination Solitary pulmonary nodule Procedures NM Lung Perfusion Differential Quantification NM Lung Perfusion and Ventilation Differential Quantification Ever Spring MD Phone: tel: fax: mailto:[email or web address] Referral ID Status Reason Start Date Expiration Date Visits Re quested Visits Authorized [id number] Closed 11/30/2021 11/30/2022 1 1 Encounter Details Date Type Department Care Team (Latest Contact Info) Description 12/06/2021 Ancillary Orders [facility] Thoracic Surgery [address] [place] [address] Ever Spring MD [address] [facility] Division [place] [address] [email or web address] Preoperative cardiovascular examination; Solitary pulmonary nodule Social [...] Info) Description 09/15/2025 9:15 AM EST Appointment [facility] [place] PET/[facility] [address] [address] Donald Zavala MD [address] [place] [address] [email or web address] 09/15/2025 1:00 PM EST Office Visit [facility] Center for Thoracic Oncology, [facility] [place] [address] [address] Donald Zavala MD [address] [place] [address] [email or web address] documented as of this encounter Results * [...] documented as of this encounter Care Teams Electric Motor Rebuilder Relationship Specialty Start Date End Date Bean Joe MD [address] [place] [address] PCP - General Internal Medicine 11/11/21 Luna Mckeon MD, PhD [address] [place] [address] [email or web address] Thoracic Surgery 11/15/21 Ever Spring MD [address] [place] [address] Division [place] [address] [email or web address] Thoracic Surgery 11/28/21 Bailey Vazquez RN [address] [place] [address] [email or web address] Primary Infusion Nurse 02/21/22 Hilary Gallardo RN [address] [place] [address] [email or web address] Associate Infusion Nurse 07/28/22 Demetrio Love PA-C 300 [place] [address] [email or web address] Physician State Trooper 12/21/22 04/05/23 Tamar Armando RN 300 [place] [address] [email or web address] Associate Infusion Nurse 04/06/23 documented as of this encounter Additional Source Comments The information contained in this document represents components of the legal health record. It is not the complete legal health record.[facility]
--- OUTSIDE RECORDS SUMMARY | 2025-08-07 08:54 | XMS_ITS | Encounter Summary ---
Author Organization [facility] Address [address] [place] [address] Phone Care Team Providers Care Seed Production Field Supervisor Name Role Phone Bean Joe MD Primary Care Provider Luna Mckeon MD, PhD Unavailable [phone] Ever Spring MD Unavailable [phone] Bailey Vazquez RN Unavailable [phone] Hilary Gallardo RN Unavailable RHONDA [email or web address] Tamar Armando RN Unavailable [email or web address] Encounter Details Date Type Department Care Team (Late st Contact Info) Description 02/10/2025 Procedure Pass [facility] [place] [facility] [place] [place] [address] [address] Social History Tobacco Use Types [...] Info) Description 09/15/2025 9:15 AM EST Appointment [facility] [place]/CT [address] [address] Donald Zavala MD [address] [place] [address] [email or web address] 09/15/2025 1:00 PM EST Office Visit [facility] Center for Thoracic Oncology, [facility] [place] [address] [address] Donald Zavala MD [address] [place] [address] [email or web address] documented as of this encounter Visit Diagnoses Not on filedocumented in this encounter Additional Health Concerns Assessment Noted Time PHQ-2 Depression Total Score: 0 11/04/19 7:36 AM EST documented as of this encounter Care Teams Seed Production Field Supervisor Relationship Specialty Start Date End Date Bean Joe MD [address] [place] [address] PCP - General Internal Medicine 11/11/21 Luna Mckeon MD, PhD [address] [place] [address] [email or web address] Thoracic Surgery 11/15/21 Ever Spring MD [address] [place] [address] Division of [place] [address] [email or web address] Thoracic Surgery 11/28/21 Bailey Vazquez RN 300 [place] [address] [email or web address] Primary Infusion Nurse 02/21/22 Hilary Gallardo RN [address] [place] [address] [email or web address] Associate Infusion Nurse 07/28/22 Tamar Armando RN 300 [place] [address] [email or web address] Associate Infusion Nurse 04/06/23 documented as of this encounter Additional Source Comments The information contained in this document represents components of the legal health record. It is not the complete legal health record.[facility]
--- OUTSIDE RECORDS SUMMARY | 2025-08-07 08:54 | XMS_ITS | Encounter Summary ---
Author Organization [facility] Address [address] [place] [address] Phone Care Team Providers Care Armhole Baster Jumpbasting Name Role Phone Bean Joe MD Primary Care Provider [phone] Luna Mckeon MD, PhD Unavailable [phone] Ever Spring MD Unavailable [phone] Bailey Vazquez RN Unavailable [phone] Hilary Gallardo RN Unavailable RHONDA [email or web address].[facility] Demetrio Love PA-C Unavailable [phone] Tamar Armando RN Unavailable [email or web address]@ [email or web address] Reason for Referral * - Closed Specialty Diagnoses / Procedures Referred By Cindi t Referred To Contact Radiology Diagnoses Pre-op exam Procedures NM SPECT/CT Single Area Single Day Ever Spring MD Phone: tel: fax: mailto:[email or web address] Referral ID Status Reason Start Date Expiration Date Visits Re quested Visits Authorized [id number] Closed 12/06/2021 12/06/2022 1 1 Encounter Details Date Type Department Care Team (Late st Contact Info) Description 12/06/2021 Ancillary Orders [facility], [facility] Cancer [address] [place] [address] Ever Spring MD [address] [place] [address] Division [place] [address] [email or web address] Pre-op exam Social History Tobacco Use Types [...] Info) Description 09/15/2025 9:15 AM EST Appointment [facility], PET/CT [address] [address] Donald Zavala MD [address] [place] [address] [email or web address]@[email or web address] 09/15/2025 1:00 PM EST Office Visit [facility], [facility] [place] [facility] [place] [address] [address] Donald Zavala MD [address] [place] [address] [email or web address]@[email or web address] documented as of [...] PERFUSION PERFUSION Q(L) Q(R) LUNG ZONE UPPER 10/24: 6.5% 6.4% MIDDLE 1/3: 28.2% 34.8% LOWER [...] documented as of this encounter Care Teams Armhole Baster Jumpbasting Relationship Specialty Start Date End Date Bean Joe MD [address] [place] [address] PCP - General Internal Medicine 11/11/21 Luna Mckeon MD, PhD [address] [place] [address] [email or web address] Thoracic Surgery 11/15/21 Ever Spring MD [address] [place] [address] Division [place] [address] [email or web address] Thoracic Surgery 11/28/21 Bailey Vazquez RN [address] [place] [address] [email or web address]@[email or web address] Primary Infusion Nurse 02/21/22 Hilary Gallardo RN [address] [place] [address] SARA@[facility] Associate Infusion Nurse 07/28/22 Demetrio Love PA-C 300 [place] [address] [email or web address] Physician Butadiene Converter Utility Operator 12/21/22 04/05/23 Tamar Armando RN 300 [place] [address] [email or web address] Associate Infusion Nurse 04/06/23 documented as of this encounter Additional Source Comments The information contained in this document represents components of the legal health record. It is not the complete legal health record.[facility]
--- OUTSIDE RECORDS SUMMARY | 2025-08-07 08:54 | XMS_ITS | Encounter Summary ---
Author Organization [facility] Address [address] [place] [address] Phone Care Team Providers Care Roll Tube Setter Name Role Phone Bean Joe MD Primary Care Provider [phone] Luna Mckeon MD, PhD Unavailable [phone] Ever Spring MD Unavailable [phone] Bailey Vazquez RN Unavailable [phone] Hilary Gallardo RN Unavailable RHONDA BOTELLO@[email or web address].[email or web address].[facility] Demetrio Love PA-C Unavailable [phone] Tamar Armando RN Unavailable [email or web address]@ [facility] Encounter Details Date Type Department Care Team (Late st Contact Info) Description 02/09/2022 Procedure Pass [facility], [facility] [place] 450 [facility], Floor L1 [place] [address] Social History Tobacco Use Types Packs/Day Years [...] Info) Description 09/15/2025 9:15 AM EST Appointment [facility], PET/CT [address] [address] Donald Zavala MD [address] [place] [address] [email or web address] 09/15/2025 1:00 PM EST Office Visit [facility], [facility] [address] [address] Donald Zavala MD [address] [place] [address] [email or web address]@[email or web address] documented as of this encounter Visit Diagnoses Not on filedocumented in this encounter Additional Health Concerns Assessment Noted Time PHQ-2 Depression Total Score: 0 11/29/19 9:25 AM EST documented as of this encounter Care Teams Roll Tube Setter Relationship Specialty Start Date End Date Bean Joe MD [address] [place] [address] PCP - General Internal Medicine 11/11/21 Luna Mckeon MD, PhD [address] [place] [address] 1 [place] [address] [email or web address] Thoracic Surgery 11/15/21 Ever Spring MD [address] [place] [address] Division [place] [address] [email or web address] Thoracic Surgery 11/28/21 Bailey Vazquez RN 300 [place] [address] MAT@[email or web address] Primary Infusion Nurse 02/21/22 Hilary Gallardo RN 300 [place] [address] SARA@[facility] Associate Infusion Nurse 07/28/22 Demetrio Love PA-C 300 [place] [address] [email or web address] Physician Watchguard 12/21/22 04/05/23 Tamar Armando RN 300 [place] [address] [email or web address] Associate Infusion Nurse 04/06/23 documented as of this encounter Additional Source Comments The information contained in this document represents components of the legal health record. It is not the complete legal health record.[facility]
--- OUTSIDE RECORDS SUMMARY | 2025-08-07 08:54 | XMS_ITS | Encounter Summary ---
Author Organization [facility] Address [address] [place] [address] Phone Care Team Providers Care Associate Loan Officer Name Role Phone Bean Joe MD Primary Care Provider [phone] Luna Mckeon MD, PhD Unavailable [phone] Ever Spring MD Unavailable [phone] Bailey Vazquez RN Unavailable [phone] Hilary Gallardo RN Unavailable RHONDA BOTELLO@[email or web address].[facility] Demetrio Love PA-C Unavailable [phone] Tamar Armando RN Unavailable [email or web address]@ [email or web address].[facility] Encounter Details Date Type Department Care Team (Late st Contact Info) Description 01/16/2023 Procedure Pass [facility] [place] [facility] [place] 300 [place] [address] Social History Tobacco Use Types Packs/Day Years [...] Info) Description 09/15/2025 9:15 AM EST Appointment [facility], PET/CT 300 [facility] [address] [place] [address] Donald Zavala MD [address] [place] [address] [email or web address]@[email or web address] 09/15/2025 1:00 PM EST Office Visit [facility], [facility] [address] [address] Donald Zavala MD [address] [place] [address] [email or web address]@[email or web address] documented as of this encounter Visit Diagnoses Not on filedocumented in this encounter Additional Health Concerns Assessment Noted Time PHQ-2 Depression Total Score: 0 10/24/19 23 2:05 PM EST documented as of this encounter Care Teams Associate Loan Officer Relationship Specialty Start Date End Date Bean Joe MD [address] [place] [address] PCP - General Internal Medicine 11/11/21 Luna Mckeon MD, PhD [address] [place] [address] 1 [place] [address] [email or web address] Thoracic Surgery 11/15/21 Ever Spring MD [address] [place] [address] Division [place] [address] [email or web address] Thoracic Surgery 11/28/21 Bailey Vazquez RN 300 [place] [address] [email or web address] Primary Infusion Nurse 02/21/22 Hilary Gallardo RN 300 [place] [address] [email or web address] Associate Infusion Nurse 07/28/22 Demetrio Love PA-C 300 [place] [address] [email or web address] Physician Surgeon'S Assistant 12/21/22 04/05/23 Tamar Armando RN 300 [place] [address] [email or web address] Associate Infusion Nurse 04/06/23 documented as of this encounter Additional Source Comments The information contained in this document represents components of the legal health record. It is not the complete legal health record.[facility]
--- OUTSIDE RECORDS SUMMARY | 2025-08-07 08:54 | XMS_ITS | Encounter Summary ---
Author Organization [facility] Address [address] [place] [address] Phone Care Team Providers Care Senior Solutions Workflow Consultant Name Role Phone Bean Joe MD Primary Care Provider [phone] Luna Mckeon MD, PhD Unavailable [phone] Ever Spring MD Unavailable [phone] Bailey Vazquez RN Unavailable [phone] Hilary Gallardo RN Unavailable RHONDA BOTELLO@[email or web address].[place].[facility] Demetrio Love PA-C Unavailable [phone] Tamar Armando RN Unavailable [email or web address]@ [facility].[place].[facility] Encounter Details Date Type Department Care Team (Late st Contact Info) Description 01/16/2023 Procedure Pass [facility] [place] [facility] [place] [place] 300 [place] [address] Social History Tobacco Use Types Packs/Day Years [...] Info) Description 09/15/2025 9:15 AM EST Appointment [facility] [place], PET/CT 300 [facility] 3rd [place] [address] Donald Zavala MD [address] [place] [address] [email or web address]@[email or web address] 09/15/2025 1:00 PM EST Office Visit [facility], [facility] [place] [address] [address] Donald Zavala MD [address] [place] [address] Garry@[facility] documented as of this encounter Visit Diagnoses Not on filedocumented in this encounter Additional Health Concerns Assessment Noted Time PHQ-2 Depression Total Score: 0 10/24/19 23 2:05 PM EST documented as of this encounter Care Teams Senior Solutions Workflow Consultant Relationship Specialty Start Date End Date Bean Joe MD [address] [place] [address] PCP - General Internal Medicine 11/11/21 Luna Mckeon MD, PhD [address] [place] [address] 1 [place] [address] [email or web address] Thoracic Surgery 11/15/21 Ever Spring MD [address] [place] [address] Division of [place]acic [place] [address] [email or web address] Thoracic Surgery 11/28/21 Bailey Vazquez RN 300 [place] [address] [email or web address] Primary Infusion Nurse 02/21/22 Hilary Gallardo RN 300 [place] [address] SARA@[facility] Associate Infusion Nurse 07/28/22 Demetrio Love PA-C 300 [place] [address] [email or web address] Physician Network Systems Administrator 12/21/22 04/05/23 Tamar Armando RN 300 [place] [address] [email or web address] Associate Infusion Nurse 04/06/23 documented as of this encounter Additional Source Comments The information contained in this document represents components of the legal health record. It is not the complete legal health record.[facility]
--- OUTSIDE RECORDS SUMMARY | 2025-08-07 08:54 | XMS_ITS | Encounter Summary ---
Author Organization [facility] Address [address] [place] [address] Phone Care Team Providers Care Road Cutter Name Role Phone Bean Joe MD Primary Care Provider [phone] Luna Mckeon MD, PhD Unavailable [phone] Ever Spring MD Unavailable [phone] Bailey Vazquez RN Unavailable [phone] Hilary Gallardo RN Unavailable RHONDA BOTELLO@[email or web address].[facility] Demetrio Love PA-C Unavailable [phone] Tamar Armando RN Unavailable [email or web address]@ [facility].[place].[facility] Encounter Details Date Type Department Care Team (Late st Contact Info) Description 11/25/2021 Procedure Pass [facility] Periop 75 [place] [address] Social History Tobacco Use Types Packs/Day Years [...] Info) Description 09/15/2025 9:15 AM EST Appointment [facility], PET/CT 300 [facility] 3rd [place] [address] Donald Zavala MD [address] [place] [address] Garry@[email or web address] 09/15/2025 1:00 PM EST Office Visit [facility], [facility] 300 [facility] [address] [place] [address] Donald Zavala MD [address] [place] [address] Garry@[email or web address] documented as of this encounter Visit Diagnoses Not on filedocumented in this encounter Additional Health Concerns Assessment Noted Time PHQ-2 Depression Total Score: 0 11/16/19 9:15 AM EST documented as of this encounter Care Teams Road Cutter Relationship Specialty Start Date End Date Bean Joe MD [address] [place] [address] PCP - General Internal Medicine 11/11/21 Luna Mckeon MD, PhD [address] [place] [address] [email or web address] Thoracic Surgery 11/15/21 Ever Spring MD [address] [place] [address] Division [place] [address] [email or web address] Thoracic Surgery 11/28/21 Bailey Vazquez RN 300 [place] [address] [email or web address] Primary Infusion Nurse 02/21/22 Hilary Gallardo RN 300 [place] [address] SARA@[facility] Associate Infusion Nurse 07/28/22 Demetrio Love PA-C [address] [place] [address] [email or web address] Physician Senior Accounting Specialist 12/21/22 04/05/23 Tamar Armando RN 300 [place] [address] [email or web address] Associate Infusion Nurse 04/06/23 documented as of this encounter Additional Source Comments The information contained in this document represents components of the legal health record. It is not the complete legal health record.[facility]
--- OUTSIDE RECORDS SUMMARY | 2025-08-07 08:54 | XMS_ITS | Encounter Summary ---
Author Organization [facility] Address [address] [place] [address] Phone Care Team Providers Care Marina Porter Name Role Phone Bean Joe MD Primary Care Provider [phone] Luna Mckeon MD, PhD Unavailable [phone] Ever Spring MD Unavailable [phone] Bailey Vazquez RN Unavailable [phone] Hilary Gallardo RN Unavailable RHONDA BOTELLO@[facility].[place].[facility] Tamar Armando RN Unavailable [email or web address]@ [facility].[place].[facility] Encounter Details Date Type Department Care Team (Late st Contact Info) Description 04/10/2023 Procedure Pass [facility] [place] [facility] [place] [address] [address] Social History Tobacco Use Types [...] Info) Description 09/15/2025 9:15 AM EST Appointment [facility], PET/CT [address] [address] Donald Zaavla MD [address] [place] [address] Garry@[facility] 09/15/2025 1:00 PM EST Office Visit [facility] Center for Thoracic Oncology, [facility] [address] [address] Donald Zavala MD [address] [place] [address] Garry@[facility] documented as of this encounter Visit Diagnoses Not on filedocumented in this encounter Additional Health Concerns Assessment Noted Time PHQ-2 Depression Total Score: 0 04/17/20 7:08 AM EDT documented as of this encounter Care Teams Marina Porter Relationship Specialty Start Date End Date Bean Joe MD [address] [place] [address] PCP - General Internal Medicine 11/11/21 Luna Mckeon MD, PhD [address] [place] [address] [email or web address] Thoracic Surgery 11/15/21 Ever Spring MD [address] [place] [address] Division [place] [address] [email or web address] Thoracic Surgery 11/28/21 Bailey Vazquez RN 300 [place] [address] [email or web address] Primary Infusion Nurse 02/21/22 Hilary Gallardo RN [address] [place] [address] SARA@[facility] Associate Infusion Nurse 07/28/22 Tamar Armando RN 300 [place] [address] [email or web address] Associate Infusion Nurse 04/06/23 documented as of this encounter Additional Source Comments The information contained in this document represents components of the legal health record. It is not the complete legal health record.[facility]
--- OUTSIDE RECORDS SUMMARY | 2025-08-07 08:54 | XMS_ITS | Encounter Summary ---
Author Organization [facility] Address [address] [place] [address] Phone Care Team Providers Care Dairy Processing Supervisor Name Role Phone Bean Joe MD Primary Care Provider [phone] Luna Mckeon MD, PhD Unavailable [phone] Ever Spring MD Unavailable [phone] Bailey Vazquez RN Unavailable [phone] Hilary Gallardo RN Unavailable RHONDA BOTELLO@[email or web address].[place].[facility] Demetrio Love PA-C Unavailable [phone] Tamar Armando RN Unavailable [email or web address]@ [email or web address].[place].[facility] Encounter Details Date Type Department Care Team (Late st Contact Info) Description 11/25/2021 Procedure Pass [facility] 75 [place] [address] Social History Tobacco Use Types Packs/Day Years [...] Description 09/15/2025 9:15 AM EST Appointment [facility], PET/CT 300 [facility] 3rd [place] [address] Donald Zavala MD [address] [place] [address] Garry@[facility] 09/15/2025 1:00 PM EST Office Visit [facility], [facility] [address] [address] Donald Zavala MD [address] [place] [address] Garry@[email or web address] documented as of this encounter Visit Diagnoses Not on filedocumented in this encounter Additional Health Concerns Assessment Noted Time PHQ-2 Depression Total Score: 0 11/16/19 9:15 AM EST documented as of this encounter Care Teams Dairy Processing Supervisor Relationship Specialty Start Date End Date Bean Joe MD [address] [place] [address] PCP - General Internal Medicine 11/11/21 Luna Mckeon MD, PhD [address] [place] [address] [email or web address] Thoracic Surgery 11/15/21 Ever Spring MD [address] [place] [address] Division of Thoracic [place] [address] [email or web address] Thoracic Surgery 11/28/21 Bailey Vazquez RN 300 [place] [address] [email or web address] Primary Infusion Nurse 02/21/22 Hilary Gallardo RN 300 [place] [address] [email or web address]@[facility] Associate Infusion Nurse 07/28/22 Demetrio Love PA-C [address] [place] [address] [email or web address] Physician Overseamer 12/21/22 04/05/23 Tamar Armando RN 300 [place] [address] [email or web address] Associate Infusion Nurse 04/06/23 documented as of this encounter Additional Source Comments The information contained in this document represents components of the legal health record. It is not the complete legal health record.[facility]
--- OUTSIDE RECORDS SUMMARY | 2025-08-07 08:54 | XMS_ITS | Encounter Summary ---
Author Organization [facility] Address [address] [place] [address] Phone Care Team Providers Care Shag Truck Driver Name Role Phone Bean Joe MD Primary Care Provider [phone] Luna Mckeon MD, PhD Unavailable [phone] Ever Spring MD Unavailable [phone] Bailey Vazquez RN Unavailable Hilary Gallardo RN Unavailable RHONDA BOTELLO@[email or web address].[facility] Demetrio Love PA-C Unavailable [phone] Tamar Armando RN Unavailable [email or web address]@ [facility].[place].[facility] Encounter Details Date Type Department Care Team (Late st Contact Info) Description 12/06/2021 Ancillary Orders VIRTUAL DEPARTMENT [address] [place] [address] Dilcia Soto MD [address] [place] [address] [email or web address] Social History Tobacco Use Types Packs/Day [...] Info) Description 09/15/2025 9:15 AM EST Appointment [facility], PET/CT [address] [address] Donald Zavala MD [address] [place] [address] [email or web address]@[facility] 09/15/2025 1:00 PM EST Office Visit [facility], [facility] [address] [address] Donald Zavala MD [address] [place] [address] Garry@[facility] documented as of this encounter Visit Diagnoses Not on filedocumented in this encounter Additional Health Concerns Assessment Noted Time PHQ-2 Depression Total Score: 0 11/29/19 9:25 AM EST documented as of this encounter Care Teams Shag Truck Driver Relationship Specialty Start Date End Date Bean Joe MD [address] [place] [address] PCP - General Internal Medicine 11/11/21 Luna Mckeon MD, PhD [address] [place] [address] [email or web address] Thoracic Surgery 11/15/21 Ever Spring MD [address] [place] [address] Division [place] [address] [email or web address] Thoracic Surgery 11/28/21 Bailey Vazquez RN [address] [place] [address] MAT@[email or web address] Primary Infusion Nurse 02/21/22 Hilary Gallardo RN 300 [place] [address] SARA@[facility] Associate Infusion Nurse 07/28/22 Demetrio Love PA-C [address] [place] [address] [email or web address] Physician Conveyancer 12/21/22 04/05/23 Tamar Armando RN 300 [place] [address] [email or web address] Associate Infusion Nurse 04/06/23 documented as of this encounter Additional Source Comments The information contained in this document represents components of the legal health record. It is not the complete legal health record.[facility]
--- OUTSIDE RECORDS SUMMARY | 2025-08-07 08:54 | XMS_ITS | Encounter Summary ---
Author Organization [facility] Address [address] [place] [address] Phone Care Team Providers Care Pulp Mill Operator Name Role Phone Bean Joe MD Primary Care Provider [phone] Luna Mckeon MD, PhD Unavailable [phone] Ever Spring MD Unavailable [phone] Bailey Vazquez RN Unavailable [phone] Hilary Gallardo RN Unavailable [email or web address] [email or web address] Demetrio Love PA-C Unavailable [phone] Tamar Armando RN Unavailable [email or web address] Encounter Details Date Type Department Care Team (Late st Contact Info) Description 05/17/2022 Procedure Pass [facility] [place] 300 [place] [address] Social History Tobacco Use Types Packs/Day Years [...] Info) Description 09/15/2025 9:15 AM EST Appointment [facility] [place], PET/CT 300 [facility] 3[address] [place] [address] Donald Zavala MD [address] [place] [phone] [email or web address] 09/15/2025 1:00 PM EST Office Visit [facility], [facility] [address] [address] Donald Zavala MD [address] [place] [address] [email or web address] documented as of this encounter Visit Diagnoses Not on filedocumented in this encounter Additional Health Concerns Assessment Noted Time PHQ-2 Depression Total Score: 0 11/29/19 9:25 AM EST documented as of this encounter Care Teams Pulp Mill Operator Relationship Specialty Start Date End Date Bean Joe MD [address] [place] [address] PCP - General Internal Medicine 11/11/21 Luna Mckeon MD, PhD [address] [place] [address] [email or web address] Thoracic Surgery 11/15/21 Ever Spring MD [address] [place] [address] Division [place] [address] [email or web address] Thoracic Surgery 11/28/21 Bailey Vazquez RN 300 [place] [address] [email or web address] Primary Infusion Nurse 02/21/22 Hilary Gallardo RN 300 [place] [address] [email or web address] Associate Infusion Nurse 07/28/22 Demetrio Love PA-C 300 [place] [address] [email or web address] Physician Sensitizer 12/21/22 04/05/23 Tamar Armando RN 300 [place] [address] [email or web address] Associate Infusion Nurse 04/06/23 documented as of this encounter Additional Source Comments The information contained in this document represents components of the legal health record. It is not the complete legal health record.[facility]
--- OUTSIDE RECORDS SUMMARY | 2025-08-07 08:54 | XMS_ITS ---
Author Organization [facility] Address [address] [place] [address] Phone Care Team Providers Care Strategic Analyst Name Role Phone Bean Joe MD Primary Care Provider [phone] Luna Mckeon MD, PhD Unavailable [phone] Ever Spring MD Unavailable [phone] Bailey Vazquez RN Unavailable [phone] Hilary Gallardo RN Unavailable [email or web address] [email or web address] Tamar Armando RN Unavailable [email or web address] Active Problems Problem Noted Date Diagnosed Date [...]
--- OUTSIDE RECORDS SUMMARY | 2025-08-07 08:54 | XMS_ITS | Encounter Summary ---
Author Organization [facility] Address [address] [place] [address] Phone Care Team Providers Care Review Manager Name Role Phone Bean Joe MD Primary Care Provider [phone] Luna Mckeon MD, PhD Unavailable [phone] Ever Spring MD Unavailable [phone] Bailey Vazquez RN Unavailable [phone] Hilary Gallardo RN Unavailable [email or web address] [email or web address] Tamar Armando RN Unavailable [email or web address] Encounter Details Date Type Department Care Team (Late st Contact Info) Description 02/10/2025 Procedure Pass [facility] [place] [address] [address] Social History Tobacco Use Types [...] Description 09/15/2025 9:15 AM EST Appointment [facility], PET/CT [address] [address] Donald Zavala MD [address] [place] [phone] [email or web address] 09/15/2025 1:00 PM EST Office Visit [facility], [facility] [address] [address] Donald Zavala MD [address] [place] [address] [email or web address] documented as of this encounter Visit Diagnoses Not on filedocumented in this encounter Additional Health Concerns Assessment Noted Time PHQ-2 Depression Total Score: 0 11/04/19 7:36 AM EST documented as of this encounter Care Teams Review Manager Relationship Specialty Start Date End Date Bean Joe MD [address] [place] [address] PCP - General Internal Medicine 11/11/21 Luna Mckeon MD, PhD [address] [place] [address] [email or web address] Thoracic Surgery 11/15/21 Ever Spring MD [address] [place] [address] Division [place] [address] [email or web address] Thoracic Surgery 11/28/21 Bailey Vazquez RN 300 [place] [address] [email or web address] Primary Infusion Nurse 02/21/22 Hilary Gallardo RN [address] [place] [address] [email or web address] Associate Infusion Nurse 07/28/22 Tamar Armando RN 300 [place] [address] [email or web address] Associate Infusion Nurse 04/06/23 documented as of this encounter Additional Source Comments The information contained in this document represents components of the legal health record. It is not the complete legal health record.[facility]
== END 2025-08-07 08:31 | disposition home or self-care (01) ==
LOC: HO.HOSX 08:30
PROVIDERS: Visit Provider Physician Assistant
DX: Z47.1 Aftercare following joint replacement surgery (principal); M17.11 Unilateral primary osteoarthritis, right knee; Z96.641 Presence of right artificial hip joint
CPT/HCPCS: 20610; 73502; 99212; J0665; J1100; J2003

== ENCOUNTER 2025-08-07 08:32 | Outpatient (AMB) | payer MEDICARE, SELFPAY ==
--- NOTE | 2025-08-07 08:43 | MHC.OFFVIS ---
Intake Visit Reasons: PO-Right hip hemiarthroplasty-DOS 07/24/25 NE Intake Note: Ashish is an 79 year old male who presents today post operatively after undergoing a right hip hemiarthroplasty, performed by Dr. Ferrell on 07/24/25. Patient reports he is doing well, states his pain has been tolerable. He has no concerns today. Patient is currently residing at [facility]. Allergies No Known Allergies Allergy (Verified 07/23/25 09:55) Medication List - Last Reconciled 08/07/25 by Alcon Mari PA-C acetaminophen 650 mg (2 x 325 mg) PO Q6H PRN 30 days albuterol sulfate 90 mcg/actuation 2 puffs inhalation QID PRN amlodipine 10 mg PO DAILY aspirin 325 mg PO Q12H 43 days atorvastatin 40 mg PO DAILY brimonidine 0.2% 1 drp ophthalmic (eye) BID carvedilol 25 mg PO BID qwppbrkbtfe-gshnavdwi-oheziqpi 200-62.5-25 mcg (Trelegy Ellipta) 1 ea inhalation DAILY latanoprost 0.005% 1 drp ophthalmic (eye) BEDTIME lidocaine 4% (Aspercreme (lidocaine)) 2 patches topical DAILY PRN omeprazole 20 mg PO DAILY@0630 oxycodone 5 mg PO Q6H PRN 10 days valsartan 320 mg PO DAILY HPI HPI PO-Right hip hemiarthroplasty-DOS 07/24/25 NE: Details: 79-year-old gentleman returns to the office today 2 weeks status post right hip hemiarthroplasty on 07/24/2025. The patient is currently in rehab facility and is anticipating discharge this upcoming Sunday. He continues to work with physical therapy and occupational therapy services. He is ambulating with a walker. He has no concerns today. He does have right knee arthritis which she does receive steroid injection for, last injection was in April of 2025 which was quite helpful. He is complaining of increased discomfort at this time. [facility] Medical History (Updated 08/04/25 @ 00:02 by Radha Mock) Lung cancer Hip osteoarthritis Primary osteoarthritis of right hip Primary osteoarthritis of right knee Hypertension Surgical History Hx of total knee arthroplasty History of lobectomy of lung History of arthroscopy of left knee (~1965) Family History Father No problems noted. Mother No problems noted. Social History Household Members: None Housing: Apartment Are you a primary transitional care nurse to a significant other at home: No Do you presently have visiting nurse or other home services: No Alcohol intake: current Alcohol intake frequency: holidays/special occasions only Patient Tobacco Use Status: Former Tobacco user Tobacco use type: Cigarette e-Cigarette/Vaping Use: Former Use Second Hand Smoke Exposure: No Advance Directives Date on File: 03/28/23 service: Yes Current occupational status: retired Current occupation: right handed Review of Systems Const All systems reviewed & are unremarkable except as noted in HPI and below Physical Exam Extrem Other: Right hip incision is clean dry and intact. No surrounding erythema or drainage. No pain with hip flexion or range of motion. Calf supple and nontender neurovascularly intact. Right knee is normal to inspection he has no joint effusion. Full range of motion with crepitus. Mild medial compartment joint tenderness. Calf is supple and nontender neurovascularly intact. Office Procedures AMB Joint Injection/Aspiration Joint Injection/Aspiration Primary Site: right knee Prep: site was prepped using aseptic technique, ethochloride spray was applied and injection warnings given Injected: 40 mg of, with 3 mL of, 1% plain lidocaine, 0.25% bupivacaine and decadron Approach Used: anterolateral Procedure: The patient tolerated the procedure well and there was some relief with the local anesthesia Coding 08953 - Glenohumeral/Tronchanteric Bursa/Intraarticular Procedure code (CPT) selection complete Results Reviewed Results Reviewed: X-rays of the right hip obtained in the office today and reviewed by me show intact joint prosthesis without signs of loosening. Assessment & Plan Assessment & Plan (1) Primary osteoarthritis of right knee: Code(s): M17.11 - Unilateral primary osteoarthritis, right knee Category: Medical (2) Status post hemiarthroplasty of right hip: Code(s): Z96.641 - Presence of right artificial hip joint Category: Surgical Plan Indra removed today Steri-Strips applied. The patient will continue working with physical therapy and occupational therapy for gait training and strengthening exercises. The right knee was also injected today with steroid which she tolerated well. He will see me back in 4-6 weeks with the right hip with x-rays, sooner if needed. Orders: Orders XR hip RT min 2V Today M25.551 - Pain in right hip Coding Level of Care Code Global (20661) Diagnoses Primary osteoarthritis of right knee M17.11 Status post hemiarthroplasty of right hip Z96.641 CPT Codes Coding - Joint 7: 06933 - Glenohumeral/Tronchanteric Bursa/Intraarticular ([id number])
== END 2025-08-07 09:30 | disposition home or self-care (01) ==
LOC: HO.HOS 08:32
PROVIDERS: PCP Internal Medicine; Visit Provider Physician Assistant
DX: M17.11 Unilateral primary osteoarthritis, right knee (principal); Z96.641 Presence of right artificial hip joint
CPT/HCPCS: 20610; 99024

== ENCOUNTER → 2025-08-07 08:40 | Outpatient (BNV) | payer MEDICARE, SELFPAY | PROVIDERS: Visit Provider Radiology Diagnostic Radiology | DX: M25.551 Pain in right hip (principal); I70.209 Unspecified atherosclerosis of native arteries of extremities, unspecified extremity; Z96.641 Presence of right artificial hip joint | CPT/HCPCS: 73502 ==

== ENCOUNTER 2025-09-10 09:20 | Outpatient (REF) | payer MEDICARE, SELFPAY ==
--- NOTE | ~2025-09-10 | XR_ITS ---
EXAMINATION: XR HIP 2 OR MORE VIEWS RIGHT HISTORY: M25.551 - Pain in right hip COMPARISON: Paracent is made with the prior examination dated 08/07/2025. FINDINGS: A single AP view of the pelvis and 2 views of the right hip are submitted. The patient is again noted to be status post right total hip arthroplasty. The orthopedic elements are in anatomic alignment. There is no radiographic evidence of loosening. There is no fracture or dislocation. There are vascular calcifications. XR/XR hip RT min 2V IMPRESSION: Status post right total hip arthroplasty. Electronically signed by: Ryan Serna MD 09/10/2025 11:08 AM MIRIAN
--- OUTSIDE RECORDS SUMMARY | 2025-09-10 23:59 | XMS_ITS | Continuity of Care Document ---
Author Organization [facility] Address [address] [place] [address]- Care Team Providers Care Skilled Nursing Facility Counselor Name Role Phone Bean Florence MD Primary Care Physician Encounter [facility] Date(s): 08/11/25 - 09/10/25 [facility] Adult [address] [place] [address]- Encounter Type: Triage Allergies, Adverse Reactions, Alerts No Known Allergies Immunizations Given and Recorded Vaccine Date Status Refusal Reason SARS-CoV-2(COVID-19)mRNA-LNP vac(yhi140) 08/09/25 Recorded SARS-CoV-2(COVID-19)mRNA-LNP vac(fka127) 07/17/24 Recorded SARS-CoV-2(COVID-19)mRNA-LNP vac(qpu752) 08/07/23 Recorded influenza virus vaccine, inactivated 07/29/25 Dave rded influenza virus vaccine, inactivated 07/17/24 Dave rded influenza virus vaccine, inactivated 08/07/23 Dave rded [...] influenza virus vaccine, inactivated 10/22/04 Give n pneumococcal 20-valent conjugate vaccine 07/21/25 Recorded RSV vaccine preF3, recombinant 10/18/23 Recorded SARS-CoV-2 mRNA (xvkhumt-nclx-oncfo) vax 5 08/09/22 Recorded SARS-CoV-2 mRNA (usfxxgt-wsco-oernm) vax 01/25/22 Given SARS-CoV-2 (COVID-19) mRNA BNT-162b2 [...] 10/22/04 Given 1Result Comment: [07/06/2017] [facility] 3Result Comment: [07/12/2016] HIGH DOSE 4Result Comment: [07/21/2015] Given at [facility] ion [address] in [facility] 5Result Comment: [facility] Pharmacy 6Admin Note: given in clinic 7Result Comment: [05/28/2017] ADMINISTERED SECONDARY TO ABRASIONS PER DR FLORENCE 8Admin Note: [facility] 9Admal Note: [employer] [facility] Medications Albuterol (Eqv-Ventolin HFA) 90 mcg/inh inhalation aerosol See Instructions, 2 PUFFS INHALATION 4 TIMES A DAYAS NEEDED FOR WHEEZING, # 18 each, 11 Refills, Maintenance, 09/09/25 1:27:00 PM EST, [facility]/pharmacy #[id number], 30, 2 PUFFS INHALATION 4 TIMES A DAYAS NEEDED FOR WHEEZING, 177.06, cm, 09/09/25 12:57:00 EST, Height Start Date: 09/09/25 Status: Ordered Medication Dispense Status: Completed Quantity: 18.0 Unit: each Total Allowed Fills: 12 Fills Dispensed: 0 amLODIPine 10 mg oral tablet 1 tablet, By Mouth, Daily, # 90 tablet, 3 Refills, Maintenance, 09/09/25 1:27:00 PM EST, [id number], 177.06, cm, 09/09/25 12:57:00 EST, Height Start Date: 09/09/25 Status: Ordered Medication Dispense Status: Completed Quantity: 90.0 Unit: tablet Total Allowed Fills: 4 Fills Dispensed: 0 aspirin 81 mg oral tablet 81 mg, 1, tablet, By Mouth, Daily, # 30 tablet, 11 Refills Start Date: 07/06/06 Stop Date: 07/01/07 Status: Ordered Medication Dispense Status: Completed Quantity: 30.0 Unit: tablet Total Allowed Fills: 12 Fills Dispensed: 0 atorvastatin 40 mg oral tablet 1 tablet, By Mouth, Daily, # 90 tablet, 3 Refills, Maintenance, 09/09/25 1:27:00 PM EST, [id number], 177.06, cm, 09/09/25 12:57:00 EST, Height Start Date: 09/09/25 Status: Ordered Medication Dispense Status: Completed Quantity: 90.0 Unit: tablet Total Allowed Fills: 4 Fills Dispensed: 0 BP MONITOR WITH CUFF BP MONITOR WITH CUFF, See Instructions, # 1 each, Refills 0, Tot. Refills 0, Maintenance, USE DIRECTED DX HTN I10 RONAK LIFETIME, 09/24/19 12:21:11 PM EST, Compound Start Date: 09/24/19 Status: Ordered Medication Dispense Status: Completed Quantity: 1.0 Unit: each Total Allowed Fills: 1 Fills Dispensed: 0 brimonidine 0.2% ophthalmic solution 0 Refills, Maintenance, 12/25/23 4:23:00 PM EST, Partial fill upon patient request if the prescription is for a schedule II opioid drug. Start Date: 12/25/23 Status: Ordered Medication Dispense Status: Completed Total Allowed Fills: 1 Fills Dispensed: 0 carvedilol 25 mg oral tablet 1, tablet, By Mouth, 2 times a day, # 180 tablet, Refills 1, Tot. Refills 1, Maintenance, 09/09/25 1:27:00 PM EST, Route to Pharmacy Electronically, [facility]/pharmacy #[id number], 177.06, cm, 09/09/25 12:57:00 EST, Height Start Date: 09/09/25 Status: Ordered Medication Dispense Status: Completed Quantity: 180.0 Unit: tablet Total Allowed Fills: 2 Fills Dispensed: 0 latanoprost 0.005% ophthalmic solution 1 drops, Eyes, Both, Daily at bedtime, # 3 mL, 0 Refills, Maintenance, 11/16/14 9:37:52 AM EST, Ophth Solution Start Date: 11/16/14 Status: Ordered Medication Dispense Status: Completed Quantity: 3.0 Unit: mL Total Allowed Fills: 1 Fills Dispensed: 0 omeprazole 20 mg oral enteric coated capsule 1 capsule = 20 mg, By Mouth, Daily, # 90 capsule, 3 Refills, Maintenance, 09/09/25 1:27:00 PM EST, EC Capsule, [facility]/pharmacy #[id number], Partial fill upon patient request if the prescription is for a schedule II opioid drug., 177.06, cm, 09/09/25 12:57:00 EST, Height Start Date: 09/09/25 Status: Ordered Medication Dispense Status: Completed Quantity: 90.0 Unit: capsule Total Allowed Fills: 4 Fills Dispensed: 0 Trelegy Ellipta 200 mcg-62.5 mcg-25 mcg/inh inhalation powder 1 puffs, Inhalation, Daily, # 60 each, 5 Refills, Maintenance, 09/09/25 1:28:00 PM EST, [facility]/pharmacy #[id number], 30, 1 puffs Inhalation Daily, 177.06, cm, 09/09/25 12:57:00 EST, Height Start Date: 09/09/25 Status: Ordered Medication Dispense Status: Completed Quantity: 60.0 Unit: each Total Allowed Fills: 6 Fills Dispensed: 0 valsartan 320 mg oral tablet 1 tablet, By Mouth, Daily, # 90 tablet, 3 Refills, Maintenance, 09/09/25 1:27:00 PM EST, [facility]/pharmacy #[id number], 177.06, cm, 09/09/25 12:57:00 EST, Height Start Date: 09/09/25 Status: Ordered Medication Dispense Status: Completed Quantity: 90.0 Unit: tablet Total Allowed Fills: 4 Fills Dispensed: 0 Problem List Condition Confirmation Course Effective Dates Status Health Status Informant Acute otitis media, right Confirmed Active Former heavy cigarette smoker (1 ppd x 40 yrs; quit 2009) Confirmed Active History of fracture of right hip Confirmed Active Hilar lymphadenopathy Confirmed Active History of lung cancer Confirmed Active History of colon polyps 1, 2 Confirmed Active Hypercholesterolemia Confirmed Active Hypertension Confirmed Active Hyponatremia Confirmed Active Cerumen impaction Confirmed Active Impaired glucose tolerance Confirmed Active Stage 2 moderate COPD by GOLD classification Confirmed Active 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 3 Confirmed 10/19/21 Active Osteoarthritis of right knee Confirmed Active Emphysema of lung 4 Confirmed Active PVD (peripheral vascular disease) Confirmed Active Increased intraocular pressure Confirmed Active S/P TKR (total knee replacement) Confirmed Active 1colo 2013 polyps repeat 2017 2colo 2003 polyp, rpt 2008 needed 3ct chest 03 abnl repeat 05 no change 4CT 2023 Social History Social History Type Response Smoking Status Former smoker, quit more than 30 days ago; Type: Cigarettes; Other: quit 2009; 1 ppd x 40 yrs; Number of years: 40; Total pack years: 40; entered on: 11/04/21 Sex Sex Representation Male (finding) Patient Care team information Care Team Personnel Name: Bean Florence MD Position: [facility] Physician - Primary Care Member Role: PCP Address: [address] [place] [address]- Telecom: Name: Mignon Lai Position: [facility] [place] Wild Life Manager Member Role: Supervisor Roving Department Care Team Related Persons Name: MARQUISE WALLS Name: ROSCOE LEÓN Insurance Providers Guarantor name: ADALID MAU [facility] Plan Information #: 1 Payer: MEDICARE B Payer Identifier: NA Member Number: [id number] Group Number: TITUS Subscriber Identifier: TITUS Relationship to Subscriber: self Coverage Type: NA Coverage Verification Date: TITUS Telecom: Address: [facility] Plan Information #: 2 Payer: MEDEX SECONDARY ONLY Payer Identifier: TITUS Member Number: [id number] Group Number: TITUS Subscriber Identifier: TITUS Relationship to Subscriber: self Coverage Type: Medicare Other Coverage Verification Date: TITUS Telecom: Address:
--- OUTSIDE RECORDS SUMMARY | 2025-09-11 09:44 | XMS_ITS | Encounter Summary ---
Author Organization [facility] Address [address] [place] [address] Phone Care Team Providers Care Flavoring Maker Name Role Phone Bean Joe MD Primary Care Provider [phone] Luna Mckeon MD, PhD Unavailable [phone] Ever Spring MD Unavailable [phone] Bailey Vazquez RN Unavailable [phone] Hilary Gallardo RN Unavailable [email or web address] [email or web address] Tamar Armando RN Unavailable [email or web address] Encounter Details Date Type Department Care Team (Late st Contact Info) Description 10/28/2024 Procedure Pass [facility] [place] [facility] [place] [place] [address] [address] Social History Tobacco Use Types [...] Info) Description 09/15/2025 9:15 AM EST Appointment [facility], PET/CT [address] [address] Donald Zavala MD [address] [place] [address] [email or web address] 09/15/2025 1:00 PM EST Office [facility] for [facility] On[facility], [facility] [address] [address] Donald Zavala MD [address] [place] [phone] [email or web address] documented as of this encounter Visit Diagnoses Not on filedocumented in this encounter Additional Health Concerns Assessment Noted Time PHQ-2 Depression Total Score: 0 11/04/19 7:36 AM EST documented as of this encounter Care Teams Flavoring Maker Relationship Specialty Start Date End Date Bean Joe MD [address] [place] [address] PCP - General Internal Medicine 11/11/21 Luna Mckeon MD, PhD [address] [place] [address] [email or web address] Thoracic Surgery 11/15/21 Ever Spring MD [address] [place] [address] Division [place] [address] [email or web address] Thoracic Surgery 11/28/21 Bailey Vazquez RN [address] [place] [address] [email or web address] Primary Infusion Nurse 02/21/22 Hilary Gallardo RN [address] [place] [address] [email or web address] Associate Infusion Nurse 07/28/22 Tamar Armando RN [address] [place] [address] [email or web address] Associate Infusion Nurse 04/06/23 documented as of this encounter Additional Source Comments The information contained in this document represents components of the legal health record. It is not the complete legal health record.[facility]
--- OUTSIDE RECORDS SUMMARY | 2025-09-11 09:44 | XMS_ITS | Encounter Summary ---
Author Organization [facility] Address [address] [place] [address] Care Team Providers Care Form Setter Metal Road Forms Name Role Phone Cesar Boo MD Primary Care Provider [phone] Encounter Details Date Type Department Care Team (Late st Contact Info) Description 07/28/2025 Lab Requisition [facility] - Main Lab [address] [facility] [place] [address] Cesar Boo MD [address] [place] [phone] Essential (primary) hypertension; Chronic obstructive pulmonary [...] mmol/L LAB CHEMISTRY METHOD 07/28/2025 10:50 AM [facility] Potassium 4.1 3.5 - 5.5 mmol/L LAB CHEMISTRY METHOD 07/28/2025 10:50 AM [facility] Chloride 102 96 - 110 mmol/L LAB CHEMISTRY METHOD 07/28/2025 10:50 AM [facility] CO2 21 21 - 32 mmol/L LAB CHEMISTRY METHOD 07/28/2025 10:50 AM [facility] Anion Gap 10 3 - 11 LAB CHEMISTRY METHOD 07/28/2025 10:50 AM [facility] Glucose 88 70 - 100 mg/dL LAB CHEMISTRY METHOD 07/28/2025 10:50 AM [facility] BUN 44(H) 5 - 25 mg/dL LAB CHEMISTRY METHOD 07/28/2025 10:50 AM [facility] Creatinine 1.51(H) 0.70 - 1.30 mg/dL LAB CHEMISTRY METHOD 07/28/2025 10:50 AM [facility] eGFR 46(L) >=60 mL/min/1. 73m2 LAB CHEMISTRY METHOD 07/28/2025 10:50 AM [facility] Comment:Calculation based on the Chronic Kidney Disease Epidemiology Collaboration (CKD-EPI) equation refit without adjustment for race. BUN/Creatinine Ratio 29.1 LAB CHEMISTRY METHOD 07/28/2025 10:50 AM [facility] Calcium 8.3(L) 8.5 - 10.5 mg/dL LAB CHEMISTRY METHOD 07/28/2025 10:50 AM [facility] AST (SGOT) 47(H) 10 - 42 unit/L LAB CHEMISTRY METHOD 07/28/2025 10:50 AM [facility] ALT (SGPT) 42 10 - 60 unit/L LAB CHEMISTRY METHOD 07/28/2025 10:50 AM [facility] Alkaline Phosphatase 112 42 - 121 unit/L LAB CHEMISTRY METHOD 07/28/2025 10:50 AM EDT [facility] Total Protein 5.3(L) 6.0 - 8.0 g/dL LAB CHEMISTRY METHOD 07/28/2025 10:50 AM T [facility] Albumin 2.2(L) 3.2 - 5.0 g/dL LAB CHEMISTRY METHOD 07/28/2025 10:50 AM EDT [facility] Total Bilirubin 0.6 0.0 - 1.4 mg/dL LAB CHEMISTRY METHOD 07/28/2025 10:50 AM [facility] Blood Venous blood specimen / Unknown Venipuncture / Unknown 07/28/2025 4:55 AM EDT 07/28/2025 9:05 AM EDT Cesar Boo MD LAB BLOOD ORDERABLES Final Resu lt [facility] [address] [place] [address], [place] [phone] * (ABNORMAL) Complete blood count (07/28/2025 4:55 AM EDT) WBC 10.0 4.8 - 10.8 K/mcL LAB HEMETOLOGY METHOD 07/28/2025 10:19 AM [facility] RBC 3.10(L) 4.50 - 5.50 M/mcL LAB HEMETOLOGY METHOD 07/28/2025 10:19 AM EDT [facility] Hemoglobin 9.1(L) 13.5 - 17.5 g/dL LAB HEMETOLOGY METHOD 07/28/2025 10:19 AM [facility] Hematocrit 27.5(L) 42.0 - 54.0 % LAB HEMETOLOGY METHOD 07/28/2025 10:19 AM EDT [facility] MCV 89.9 79.0 - 98.0 FL LAB HEMETOLOGY METHOD 07/28/2025 10:19 AM EDT [facility] MCH 29.7 27.0 - 32.0 pcg LAB HEMETOLOGY METHOD 07/28/2025 10:19 AM T [facility] MCHC 33.1 32.0 - 37.0 g/dL LAB HEMETOLOGY METHOD 07/28/2025 10:19 AM EDT [facility] RDW 14.2 11.0 - 15.0 % LAB HEMETOLOGY METHOD 07/28/2025 10:19 AM T [facility] Platelets 231 130 - 400 K/mcL LAB HEMETOLOGY METHOD 07/28/2025 10:19 AM T [facility] MPV 10.2 7.0 - 11.0 FL LAB HEMETOLOGY METHOD 07/28/2025 10:19 AM EDT [facility] NRBC 0.0 <1.0 % LAB HEMETOLOGY METHOD 07/28/2025 10:19 AM [facility] NRBC Absolute 0.00 <0.10 K/mcL LAB HEMETOLOGY METHOD 07/28/2025 10:19 AM [facility] Blood Venous blood specimen / Unknown Venipuncture / Unknown 07/28/2025 4:55 AM EDT 07/28/2025 9:05 AM EDT us Cesar Boo MD LAB BLOOD ORDERABLES Final Resu lt [facility] [address] [place] [address], documented in this encounter Visit Diagnoses Diagnosis Essential (primary) hypertension Unspecified essential hypertension Chronic obstructive pulmonary disease, unspecified (CMS/HCC V24, CMS/HCC V28) Gastro-esophageal reflux disease without esophagitis documented in this encounter Care Teams Form Setter Metal [employer] Forms Relationship Specialty Start Date End Date Cesar Boo MD [address] [place] [address] PCP - General Internal Medicine 07/28/25 documented as of this encounter
--- OUTSIDE RECORDS SUMMARY | 2025-09-11 09:44 | XMS_ITS | Clinical Summary ---
Author Organization [address] Address [address] [place] [phone] Phone Care Team Providers Care Lead Net Software Developer Name Role Phone Cesar Boo MD Primary Care Provider Encounters Date Type Department Care Team Description 08/14/2025 Lab Requisition [facility] Lab [address] [place] [phone] Cesar Boo MD Essential (primary) hypertension; Chronic obstructive pulmonary disease, unspecified (CMS/HCC V24, CMS/HCC V28); Gastro-esophageal reflux disease without esophagitis 08/08/2025 Lab Requisition [facility] Lab [address] [place] [phone] Cesar Boo MD Essential (primary) hypertension; Chronic obstructive pulmonary disease, unspecified (CMS/HCC V24, CMS/HCC V28); Gastro-esophageal reflux disease without esophagitis 07/31/2025 Lab Requisition [facility] Lab [address] [place] [phone] Cesar Boo MD Essential (primary) hypertension; Chronic obstructive pulmonary disease, unspecified (CMS/HCC V24, CMS/HCC V28); Gastro-esophageal reflux disease without esophagitis 07/29/2025 Lab Requisition [facility] Lab [address] [place] [phone] Cesar Boo MD Essential (primary) hypertension; Chronic obstructive pulmonary disease, unspecified (CMS/HCC V24, CMS/HCC V28); Gastro-esophageal reflux disease without esophagitis 07/28/2025 Lab Requisition [facility] Lab [address] [place] [phone] eCsar Boo MD Essential (primary) hypertension; Chronic obstructive pulmonary disease, unspecified ([facility] V24, [facility] V28); Gastro-esophageal reflux disease without esophagitis from [...] series) 2018 Depression Screening 10/22/2024 COVID-19 Vaccine (1 - 2024- season) 2025 Influenza Vaccine (#1) 2025 Cholesterol Screening (Lipid Panel) 07/28/2025 Falls Risk Assessment 07/28/2025 Medicare Annual Wellness Visit 07/28/2025 Social Influencers of Health Screening 07/28/2025 Hypertension/CHF/CAD Annual BMP Blood Test 08/10/2026 08/10/2025, 08/03/2025, 07/30/2025, Additional history exists HIB Vaccines Aged Out No longer eligi [...] 20 months Aged Out No longer eligible based on patient's age to complete this topic Varicella Vaccines Aged Out No longer eligible based on patient's age to complete this topic Procedures Procedure Name Priority Date/Time Associated Diagnosis Comments COMPREHENSIVE METABOLIC PANEL Routine 08/10/2025 4:55 AM EDT Essential (primary) hypertension Chronic obstructive pulmonary disease, unspecified (CMS/HCC V24, CMS/HCC V28) Gastro-esophageal reflux disease without esophagitis COMPLETE BLOOD COUNT Routine 08/10/2025 4:55 AM EDT Essential (primary) hypertension Chronic [...] CMS/HCC V28) Gastro-esophageal reflux disease without esophagitis from Last 3 Months Results * (ABNORMAL) Complete blood count (08/10/2025 4:55 AM EDT) Only the most recent of4 resultswithin the time period is included. WBC 10.7 4.8 - 10.8 K/mcL LAB HEMETOLOGY METHOD 08/10/2025 10:46 AM [facility] RBC 3.00(L) 4.50 - 5.50 M/mcL LAB HEMETOLOGY METHOD 08/10/2025 10:46 AM [facility] Hemoglobin 9.1(L) 13.5 - 17.5 g/dL LAB HEMETOLOGY METHOD 08/10/2025 10:46 AM [facility] Hematocrit 28.6(L) 42.0 - 54.0 % LAB HEMETOLOGY METHOD 08/10/2025 10:46 AM [facility] MCV 94.4 79.0 - 98.0 FL LAB HEMETOLOGY METHOD 08/10/2025 10:46 AM [facility] MCH 30.0 27.0 - 32.0 pcg LAB HEMETOLOGY METHOD 08/10/2025 10:46 AM [facility] MCHC 31.8(L) 32.0 - 37.0 g/dL LAB HEMETOLOGY METHOD 08/10/2025 10:46 AM [facility] RDW 14.7 11.0 - 15.0 % LAB HEMETOLOGY METHOD 08/10/2025 10:46 AM [facility] Platelets 430(H) 130 - 400 K/mcL LAB HEMETOLOGY METHOD 08/10/2025 10:46 AM [facility] MPV 9.4 7.0 - 11.0 FL LAB HEMETOLOGY METHOD 08/10/2025 10:46 AM [facility] NRBC 0.0 <1.0 % LAB HEMETOLOGY METHOD 08/10/2025 10:46 AM EDT [facility] NRBC Absolute 0.00 <0.10 K/mcL LAB HEMETOLOGY METHOD 08/10/2025 10:46 AM EDT [facility] Blood Venous blood specimen / Unknown Venipuncture / Unknown 08/10/2025 4:55 AM EDT 08/10/2025 10:17 AM EDT us Cesar Boo MD LAB BLOOD ORDERABLES Final Resu lt [facility] [address] [place] [address], [place] [phone] * (ABNORMAL) Comprehensive metabolic panel (08/10/2025 4:55 AM EDT) Only the most recent of3 resultswithin the time period is included. Sodium 135 133 - 145 mmol/L LAB CHEMISTRY METHOD 08/10/2025 11:07 AM [facility] Potassium 4.2 3.5 - 5.5 mmol/L LAB CHEMISTRY METHOD 08/10/2025 11:07 AM [facility] Chloride 104 96 - 110 mmol/L LAB CHEMISTRY METHOD 08/10/2025 11:07 AM [facility] CO2 23 21 - 32 mmol/L LAB CHEMISTRY METHOD 08/10/2025 11:07 AM [facility] Anion Gap 8 3 - 11 LAB CHEMISTRY METHOD 08/10/2025 11:07 AM [facility] Glucose 75 70 - 100 mg/dL LAB CHEMISTRY METHOD 08/10/2025 11:07 AM [facility] BUN 24 5 - 25 mg/dL LAB CHEMISTRY METHOD 08/10/2025 11:07 AM [facility] Creatinine 1.54(H) 0.70 - 1.30 mg/dL LAB CHEMISTRY METHOD 08/10/2025 11:07 AM [facility] eGFR 45(L) >=60 mL/min/1. 73m2 LAB CHEMISTRY METHOD 08/10/2025 11:07 AM [facility] Comment:Calculation based on the Chronic Kidney Disease Epidemiology Collaboration (CKD-EPI) equation refit without adjustment for race. BUN/Creatinine Ratio 15.6 LAB CHEMISTRY METHOD 08/10/2025 11:07 AM [facility] Calcium 8.0(L) 8.5 - 10.5 mg/dL LAB CHEMISTRY METHOD 08/10/2025 11:07 AM [facility] AST (SGOT) 17 10 - 42 unit/L LAB CHEMISTRY METHOD 08/10/2025 11:07 AM [facility] ALT (SGPT) 30 10 - 60 unit/L LAB CHEMISTRY METHOD 08/10/2025 11:07 AM [facility] Alkaline Phosphatase 129(H) 42 - 121 unit/L LAB CHEMISTRY METHOD 08/10/2025 11:07 AM [facility] Total Protein 5.1(L) 6.0 - 8.0 g/dL LAB CHEMISTRY METHOD 08/10/2025 11:07 AM [facility] Albumin 2.6(L) 3.2 - 5.0 g/dL LAB CHEMISTRY METHOD 08/10/2025 11:07 AM [facility] Total Bilirubin 0.3 0.0 - 1.4 mg/dL LAB CHEMISTRY METHOD 08/10/2025 11:07 AM [facility] Blood Venous blood specimen / Unknown Venipuncture / Unknown 08/10/2025 4:55 AM EDT 08/10/2025 10:17 AM EDT us Cesar Boo MD LAB BLOOD ORDERABLES Final Resu lt [facility] [address] [place] [address], [place] [phone] * (ABNORMAL) Basic metabolic panel (07/30/2025 8:20 AM EDT) Sodium 134 133 - 145 mmol/L LAB CHEMISTRY METHOD 07/30/2025 11:14 AM [facility] Potassium 4.4 3.5 - 5.5 mmol/L LAB CHEMISTRY METHOD 07/30/2025 11:14 AM [facility] Chloride 103 96 - 110 mmol/L LAB CHEMISTRY METHOD 07/30/2025 11:14 AM [facility] CO2 22 21 - 32 mmol/L LAB CHEMISTRY METHOD 07/30/2025 11:14 AM [facility] Anion Gap 9 3 - 11 LAB CHEMISTRY METHOD 07/30/2025 11:14 AM [facility] Glucose 99 70 - 100 mg/dL LAB CHEMISTRY METHOD 07/30/2025 11:14 AM [facility] BUN 42(H) 5 - 25 mg/dL LAB CHEMISTRY METHOD 07/30/2025 11:14 AM [facility] Creatinine 1.58(H) 0.70 - 1.30 mg/dL LAB CHEMISTRY METHOD 07/30/2025 11:14 AM [facility] eGFR 44(L) >=60 mL/min/1. 73m2 LAB CHEMISTRY METHOD 07/30/2025 11:14 AM [facility] Comment:Calculation based on the Chronic Kidney Disease Epidemiology Collaboration (CKD-EPI) equation refit without adjustment for race. BUN/Creatinine Ratio 26.6 LAB CHEMISTRY METHOD 07/30/2025 11:14 AM [facility] Calcium 8.2(L) 8.5 - 10.5 mg/dL LAB CHEMISTRY METHOD 07/30/2025 11:14 AM [facility] Blood Venous blood specimen / Unknown Venipuncture / Unknown 07/30/2025 8:20 AM EDT 07/30/2025 10:10 AM EDT Cesar Boo MD LAB BLOOD ORDERABLES Final Resu lt [facility] [address] [place] [address], [place] [phone] from Last 3 Months Insurance MEDICARE [facility] Care Teams Lead Net Software Developer Relationship Specialty Start Date End Date Cesar Boo MD [address] [place] [address] PCP - General Internal Medicine 07/28/25
--- OUTSIDE RECORDS SUMMARY | 2025-09-11 09:44 | XMS_ITS | Encounter Summary ---
Author Organization [facility] Address [address] [place] [address] Care Team Providers Care Medical Researcher Name Role Phone Cesar Boo MD Primary Care Provider Encounter Details Date Type Department Care Team (Late st Contact Info) Description 07/31/2025 Lab Requisition [facility] - Main Lab [address] [facility] [place] [address] Cesar Boo MD [address] [place] [phone] Essential (primary) hypertension; Chronic obstructive pulmonary [...] mmol/L LAB CHEMISTRY METHOD 08/03/2025 11:57 AM [facility] Potassium 4.5 3.5 - 5.5 mmol/L LAB CHEMISTRY METHOD 08/03/2025 11:57 AM [facility] Chloride 106 96 - 110 mmol/L LAB CHEMISTRY METHOD 08/03/2025 11:57 AM [facility] CO2 22 21 - 32 mmol/L LAB CHEMISTRY METHOD 08/03/2025 11:57 AM [facility] Anion Gap 8 3 - 11 LAB CHEMISTRY METHOD 08/03/2025 11:57 AM [facility] Glucose 84 70 - 100 mg/dL LAB CHEMISTRY METHOD 08/03/2025 11:57 AM [facility] BUN 23 5 - 25 mg/dL LAB CHEMISTRY METHOD 08/03/2025 11:57 AM [facility] Creatinine 1.33(H) 0.70 - 1.30 mg/dL LAB CHEMISTRY METHOD 08/03/2025 11:57 AM [facility] eGFR 54(L) >=60 mL/min/1. 73m2 LAB CHEMISTRY METHOD 08/03/2025 11:57 AM [facility] Comment:Calculation based on the Chronic Kidney Disease Epidemiology Collaboration (CKD-EPI) equation refit without adjustment for race. BUN/Creatinine Ratio 17.3 LAB CHEMISTRY METHOD 08/03/2025 11:57 AM [facility] Calcium 8.1(L) 8.5 - 10.5 mg/dL LAB CHEMISTRY METHOD 08/03/2025 11:57 AM [facility] AST (SGOT) 26 10 - 42 unit/L LAB CHEMISTRY METHOD 08/03/2025 11:57 AM [facility] ALT (SGPT) 38 10 - 60 unit/L LAB CHEMISTRY METHOD 08/03/2025 11:57 AM [facility] Alkaline Phosphatase 139(H) 42 - 121 unit/L LAB CHEMISTRY METHOD 08/03/2025 11:[address] [facility] Total Protein 5.1(L) 6.0 - 8.0 g/dL LAB CHEMISTRY METHOD 08/03/2025 11:57 AM [facility] Albumin 2.3(L) 3.2 - 5.0 g/dL LAB CHEMISTRY METHOD 08/03/2025 11:[address] [facility] Total Bilirubin 0.3 0.0 - 1.4 mg/dL LAB CHEMISTRY METHOD 08/03/2025 11:57 AM [facility] Blood Venous blood specimen / Unknown Venipuncture / Unknown 08/03/2025 4:55 AM EDT 08/03/2025 10:43 AM EDT Cesar Boo MD LAB BLOOD ORDERABLES Final Resu lt [facility] [address] [place] [address], [place] [phone] * (ABNORMAL) Complete blood count (08/03/2025 4:55 AM EDT) WBC 8.5 4.8 - 10.8 K/mcL LAB HEMETOLOGY METHOD 08/03/2025 11:18 AM [facility] RBC 3.10(L) 4.50 - 5.50 M/[facility] LAB HEMETOLOGY METHOD 08/03/2025 11:18 AM [facility] Hemoglobin 9.1(L) 13.5 - 17.5 g/dL LAB HEMETOLOGY METHOD 08/03/2025 11:18 AM [facility] Hematocrit 28.5(L) 42.0 - 54.0 % LAB HEMETOLOGY METHOD 08/03/2025 11:[address] [facility] MCV 93.4 79.0 - 98.0 FL LAB HEMETOLOGY METHOD 08/03/2025 11:[address] [facility] MCH 29.8 27.0 - 32.0 pcg LAB HEMETOLOGY METHOD 08/03/2025 11:[address] [facility] MCHC 31.9(L) 32.0 - 37.0 g/dL LAB HEMETOLOGY METHOD 08/03/2025 11:[address] [facility] RDW 14.4 11.0 - 15.0 % LAB HEMETOLOGY METHOD 08/03/2025 11:[address] [facility] Platelets 413(H) 130 - 400 K/mcL LAB HEMETOLOGY METHOD 08/03/2025 11:[address] [facility] MPV 9.8 7.0 - 11.0 FL LAB HEMETOLOGY METHOD 08/03/2025 11:[address] [facility] NRBC 0.0 <1.0 % LAB HEMETOLOGY METHOD 08/03/2025 11:18 AM [facility] NRBC Absolute 0.00 <0.10 K/mcL LAB HEMETOLOGY METHOD 08/03/2025 11:18 AM [facility] Blood Venous blood specimen / Unknown Venipuncture / Unknown 08/03/2025 4:55 AM EDT 08/03/2025 10:43 AM EDT us Cesar Boo MD LAB BLOOD ORDERABLES Final Resu lt [facility] [address] [place] [address], documented in this encounter Visit Diagnoses Diagnosis Essential (primary) hypertension Unspecified essential hypertension Chronic obstructive pulmonary disease, unspecified (CMS/HCC V24, CMS/HCC V28) Gastro-esophageal reflux disease without esophagitis documented in this encounter Care Teams Medical Researcher Relationship Specialty Start Date End Date Cesar Boo MD [address] [place] [phone] PCP - General Internal Medicine 07/28/25 documented as of this encounter
--- OUTSIDE RECORDS SUMMARY | 2025-09-11 09:44 | XMS_ITS | Encounter Summary ---
Author Organization [facility] Address [address] [place] [address] Phone Care Team Providers Care Cloth Weigher Name Role Phone Bean Jeo MD Primary Care Provider [phone] Luna Mckeon MD, PhD Unavailable [phone] Ever Spring MD Unavailable [phone] Bailey Vazquez RN Unavailable [phone] Hilary Gallardo RN Unavailable [email or web address] Demetrio Love PA-C Unavailable [phone] Tamar Armando RN Unavailable [email or web address] Encounter Details Date Type Department Care Team (Late st Contact Info) Description 02/09/2022 Procedure Pass [facility], [facility] [place] [place] [address] [facility], Floor [address] [place] [address] Social History Tobacco Use Types Packs/Day Years [...] Info) Description 09/15/2025 9:15 AM EST Appointment [facility] [place], PET/CT [address] [address] Donald Zavala MD [address] [place] [phone] [email or web address] 09/15/2025 1:00 PM EST Office Visit [facility] for Thoracic Oncology, [facility] [address] [address] Donald Zavala MD [address] [place] [phone] [email or web address] documented as of this encounter Visit Diagnoses Not on filedocumented in this encounter Additional Health Concerns Assessment Noted Time PHQ-2 Depression Total Score: 0 11/29/19 9:25 AM EST documented as of this encounter Care Teams Cloth Weigher Relationship Specialty Start Date End Date Bean Joe MD [address] [place] [phone] PCP - General Internal Medicine 11/11/21 Luna Mkceon MD, PhD [address] [place] [phone] [email or web address] Thoracic Surgery 11/15/21 Ever Spring MD [address] [place] [address] Division [place] [address] [email or web address] Thoracic Surgery 11/28/21 Bailey Vazquez RN [address] [place] [address] [email or web address] Primary Infusion Nurse 02/21/22 Hilary Gallardo RN [address] [place] [address] [email or web address] Associate Infusion Nurse 07/28/22 Demetrio Love PA-C [address] [place] [address] [email or web address] Physician Casting And Curing Operator 12/21/22 04/05/23 Tamar Armando RN [address] [place] [address] [email or web address] Associate Infusion Nurse 04/06/23 documented as of this encounter Additional Source Comments The information contained in this document represents components of the legal health record. It is not the complete legal health record.[facility]
--- OUTSIDE RECORDS SUMMARY | 2025-09-11 09:44 | XMS_ITS | Encounter Summary ---
Author Organization [facility] Address [address] [place] [address] Phone Care Team Providers Care Tray Service Worker Name Role Phone Bean Joe MD Primary Care Provider [phone] Luna Mckeon MD, PhD Unavailable [phone] Ever Spring MD Unavailable [phone] Bailey Vazquez RN Unavailable [phone] Hilary Gallardo RN Unavailable [email or web address] Tamar Armando RN Unavailable [email or web address] Encounter Details Date Type Department Care Team (Late st Contact Info) Description 10/28/2024 Procedure Pass [facility] [place] [facility] [place] [place] [address] [address] Social History Tobacco Use Types [...] Info) Description 09/15/2025 9:15 AM EST Appointment [facility] [place], PET/CT [address] [address] Donald Zavala MD [address] [place] [phone] [email or web address] 09/15/2025 1:00 PM EST Office Visit [facility], [facility] [place] [address] [address] Donald Zavala MD [address] [place] [phone] [email or web address] documented as of this encounter Visit Diagnoses Not on filedocumented in this encounter Additional Health Concerns Assessment Noted Time PHQ-2 Depression Total Score: 0 11/04/19 7:36 AM EST documented as of this encounter Care Teams Tray Service Worker Relationship Specialty Start Date End Date Bena Joe MD [address] [place] [phone] PCP - General Internal Medicine 11/11/21 Luna Mckeon MD, PhD [address] [place] [phone] [email or web address] 11/15/21 Ever Spring MD [address] [place] [address] Division [place] [address] [email or web address] 11/28/21 Bailey Vazquez RN [address] [place] [address] [email or web address] Primary Infusion Nurse 02/21/22 Hilary Gallardo RN [address] [place] [phone] [email or web address] Associate Infusion Nurse 07/28/22 Tamar Armando RN [address] [place] [address] [email or web address] Associate Infusion Nurse 04/06/23 documented as of this encounter Additional Source Comments The information contained in this document represents components of the legal health record. It is not the complete legal health record.[facility]
--- OUTSIDE RECORDS SUMMARY | 2025-09-11 09:44 | XMS_ITS | Encounter Summary ---
Author Organization [employer] Address [address] [place] [address] Care Team Providers Care Bonus Clerk Name Role Phone Cesar Boo MD Primary Care Provider [phone] Encounter Details Date Type Department Care Team (Late st Contact Info) Description 07/29/2025 Lab Requisition [facility] - Main Lab 299 [facility] [place] [address] Cesar Boo MD [address] [place] [phone] Essential (primary) hypertension; Chronic obstructive pulmonary [...] mmol/L LAB CHEMISTRY METHOD 07/30/2025 11:14 AM [facility] Potassium 4.4 3.5 - 5.5 mmol/L LAB CHEMISTRY METHOD 07/30/2025 11:14 AM [facility] Chloride 103 96 - 110 mmol/L LAB CHEMISTRY METHOD 07/30/2025 11:14 AM [facility] CO2 22 21 - 32 mmol/L LAB CHEMISTRY METHOD 07/30/2025 11:14 AM [facility] Anion Gap 9 3 - 11 LAB CHEMISTRY METHOD 07/30/2025 11:14 AM [facility] Glucose 99 70 - 100 mg/dL LAB CHEMISTRY METHOD 07/30/2025 11:14 AM [facility] BUN 42(H) 5 - 25 mg/dL LAB CHEMISTRY METHOD 07/30/2025 11:14 AM [facility] Creatinine 1.58(H) 0.70 - 1.30 mg/dL LAB CHEMISTRY METHOD 07/30/2025 11:14 AM [facility] eGFR 44(L) >=60 mL/min/1. 73m2 LAB CHEMISTRY METHOD 07/30/2025 11:14 AM [facility] Comment:Calculation based on the Chronic Kidney Disease Epidemiology Collaboration (CKD-EPI) equation refit without adjustment for race. BUN/Creatinine Ratio 26.6 LAB CHEMISTRY METHOD 07/30/2025 11:14 AM [facility] Calcium 8.2(L) 8.5 - 10.5 mg/dL LAB CHEMISTRY METHOD 07/30/2025 11:14 AM [facility] Blood Venous blood specimen / Unknown Venipuncture / Unknown 07/30/2025 8:20 AM EDT 07/30/2025 10:10 AM EDT us Cesar Boo MD LAB BLOOD ORDERABLES Final Resu lt [facility] [address] [place] [address], * (ABNORMAL) Complete blood count (07/30/2025 8:20 AM EDT) [facility] Signature WBC 11.8(H) 4.8 - 10.8 K/mcL LAB HEMETOLOGY METHOD 07/30/2025 10:36 AM EDT [facility] RBC 3.00(L) 4.50 - 5.50 M/mcL LAB HEMETOLOGY METHOD 07/30/2025 10:36 AM EDT [facility] Hemoglobin 9.2(L) 13.5 - 17.5 g/dL LAB HEMETOLOGY [facility] Hematocrit 27.8(L) 42.0 - 54.0 % LAB HEMETOLOGY METHOD 07/30/2025 10:36 AM EDT [facility] MCV 91.7 79.0 - 98.0 FL LAB HEMETOLOGY METHOD 07/30/2025 10:36 AM EDT [facility] MCH 30.4 27.0 - 32.0 pcg LAB HEMETOLOGY METHOD [facility] MCHC 33.1 32.0 - 37.0 g/dL LAB HEMETOLOGY METHOD 07/30/2025 10:36 AM EDT [facility] RDW 14.2 11.0 - 15.0 % LAB HEMETOLOGY METHOD 07/30/2025 10:36 AM EDT [facility] Platelets 293 130 - 400 K/mcL LAB HEMETOLOGY METHOD 07/30/2025 10:36 AM EDT [facility] MPV 10.0 7.0 - 11.0 FL LAB HEMETOLOGY METHOD 07/30/2025 10:36 AM EDT [facility] NRBC 0.0 <1.0 % LAB HEMETOLOGY METHOD 07/30/2025 10:36 AM EDT [facility] NRBC Absolute 0.00 <0.10 K/mcL LAB HEMETOLOGY METHOD 07/30/2025 10:36 AM EDT [facility] Blood Venous blood specimen / Unknown Venipuncture / Unknown 07/30/2025 8:20 AM EDT 07/30/2025 10:10 AM EDT Cesar Boo MD LAB BLOOD ORDERABLES Final Resu lt [facility] [address] [place] [address], documented in this encounter Visit Diagnoses Diagnosis Essential (primary) hypertension Unspecified essential hypertension Chronic obstructive pulmonary disease, unspecified (CMS/HCC V24, CMS/HCC V28) Gastro-esophageal reflux disease without esophagitis documented in this encounter Care Teams Bonus Clerk Relationship Specialty Start Date End Date Cesar Boo MD [address] [place] [address] PCP - General Internal Medicine 07/28/25 documented as of this encounter
--- OUTSIDE RECORDS SUMMARY | 2025-09-11 09:45 | XMS_ITS | Encounter Summary ---
Author Organization [facility] Address [address] [place] [address] Phone Care Team Providers Care Customer Support Analyst Name Role Phone Bean Joe MD Primary Care Provider [phone] Luna Mckeon MD, PhD Unavailable [phone] Ever Spring MD Unavailable [phone] Bailey Vazquez RN Unavailable Hilary Gallardo RN Unavailable RHONDA [email or web address] Tamar Armando RN Unavailable [email or web address] Encounter Details Date Type Department Care Team (Late st Contact Info) Description 01/22/2024 Procedure Pass [facility] [place] [address] [address] Social History Tobacco Use Types [...] EST Appointment [facility] [place], PET/CT [address] [address] Donald Zavala MD [address] [place] [address] [email or web address] 09/15/2025 1:00 PM EST Office Visit [facility] Center for Thoracic Oncology, [facility] [address] [address] Donald Zavala MD [address] [place] [address] [email or web address] documented as of this encounter Visit Diagnoses Not on filedocumented in this encounter Additional Health Concerns Assessment Noted Time PHQ-2 Depression Total Score: 0 01/29/20 24 7:26 AM EDT documented as of this encounter Care Teams Customer Support Analyst Relationship Specialty Start Date End Date Bean Joe MD [address] [place] [address] PCP - General Internal Medicine 11/11/21 Luna Mckeon MD, PhD [address] [place] [address] [email or web address] Thoracic Surgery 11/15/21 Ever Spring MD [address] [place] [address] Division [place] [address] [email or web address] Thoracic Surgery 11/28/21 Bailey Vazquez RN [address] [place] [address] [email or web address] BEDS AT [facility] Primary Infusion Nurse 02/21/22 Hilary Gallardo RN [address] [place] [address] [email or web address] BEDS AT THE [facility] Associate Infusion Nurse 07/28/22 Tamar Armando RN [address] [place] [address] [email or web address] Associate Infusion Nurse 04/06/23 documented as of this encounter Additional Source Comments The information contained in this document represents components of the legal health record. It is not the complete legal health record.[facility]
--- OUTSIDE RECORDS SUMMARY | 2025-09-11 09:45 | XMS_ITS | Encounter Summary ---
Author Organization [employer] Address [address] [place] [address] Care Team Providers Care Locomotive Inspector Name Role Phone Cesar Boo MD Primary Care Provider [phone] Encounter Details Date Type Department Care Team (Late st Contact Info) Description 08/08/2025 Lab Requisition [facility] - Main Lab 299 [facility] [place] [address] Cesar Boo MD [address] [place] [phone] Essential (primary) hypertension; Chronic obstructive pulmonary [...] Associated Diagnosis Comments COMPLETE BLOOD COUNT Routine 08/10/2025 4:55 AM EDT Essential (primary) hypertension Chronic obstructive pulmonary disease, unspecified (CMS/HCC V24, CMS/HCC V28) Gastro-esophageal reflux disease without esophagitis COMPREHENSIVE METABOLIC PANEL Routine 08/10/2025 4:55 AM EDT Essential (primary) hypertension Chronic obstructive pulmonary disease, unspecified (CMS/HCC V24, CMS/HCC V28) Gastro-esophageal reflux disease without esophagitis documented in this encounter Results * (ABNORMAL) Comprehensive metabolic panel (08/10/2025 4:55 AM EDT) Sodium 135 133 - 145 mmol/L LAB CHEMISTRY METHOD 08/10/2025 11:07 AM [facility] Potassium 4.2 3.5 - 5.5 mmol/L LAB CHEMISTRY METHOD 08/10/2025 11:07 AM [facility] Chloride 104 96 - 110 mmol/L LAB CHEMISTRY METHOD 08/10/2025 11:07 AM [facility] CO2 23 21 - 32 mmol/L LAB CHEMISTRY METHOD 08/10/2025 11:07 AM [facility] Anion Gap 8 3 - 11 LAB CHEMISTRY METHOD 08/10/2025 11:07 AM [facility] Glucose 75 70 - 100 mg/dL LAB CHEMISTRY METHOD 08/10/2025 11:07 AM [facility] BUN 24 5 - 25 mg/dL LAB CHEMISTRY METHOD 08/10/2025 11:07 AM [facility] Creatinine 1.54(H) 0.70 - 1.30 mg/dL LAB CHEMISTRY METHOD 08/10/2025 11:07 AM [facility] eGFR 45(L) >=60 mL/min/1. 73m2 LAB CHEMISTRY METHOD 08/10/2025 11:07 AM [facility] Comment:Calculation based on the Chronic Kidney Disease Epidemiology Collaboration (CKD-EPI) equation refit without adjustment for race. BUN/Creatinine Ratio 15.6 LAB CHEMISTRY METHOD 08/10/2025 11:07 AM [facility] Calcium 8.0(L) 8.5 - 10.5 mg/dL LAB CHEMISTRY METHOD 08/10/2025 11:07 AM [facility] AST (SGOT) 17 10 - 42 unit/L LAB CHEMISTRY METHOD 08/10/2025 11:07 AM [facility] ALT (SGPT) 30 10 - 60 unit/L LAB CHEMISTRY METHOD 08/10/2025 11:07 AM [facility] Alkaline Phosphatase 129(H) 42 - 121 unit/L LAB CHEMISTRY METHOD 08/10/2025 11:07 AM EDT [facility] Total Protein 5.1(L) 6.0 - 8.0 g/dL LAB CHEMISTRY METHOD 08/10/2025 11:07 AM [facility] Albumin 2.6(L) 3.2 - 5.0 g/dL LAB CHEMISTRY METHOD 08/10/2025 11:07 AM EDT [facility] Total Bilirubin 0.3 0.0 - 1.4 mg/dL LAB CHEMISTRY METHOD 08/10/2025 11:07 AM T [facility] Blood Venous blood specimen / Unknown Venipuncture / Unknown 08/10/2025 4:55 AM EDT 08/10/2025 10:17 AM EDT Cesar Boo MD LAB BLOOD ORDERABLES Final Resu lt [facility] [address] [place] [address], [place] [phone] * (ABNORMAL) Complete blood count (08/10/2025 4:55 AM EDT) WBC 10.7 4.8 - 10.8 K/mcL LAB HEMETOLOGY METHOD 08/10/2025 10:46 AM [facility] RBC 3.00(L) 4.50 - 5.50 M/[facility] LAB HEMETOLOGY METHOD 08/10/2025 10:46 AM EDT [facility] Hemoglobin 9.1(L) 13.5 - 17.5 g/dL LAB HEMETOLOGY METHOD 08/10/2025 10:46 AM T [facility] Hematocrit 28.6(L) 42.0 - 54.0 % LAB HEMETOLOGY METHOD 08/10/2025 10:46 AM EDT [facility] MCV 94.4 79.0 - 98.0 FL LAB HEMETOLOGY METHOD 08/10/2025 10:46 AM EDT [facility] MCH 30.0 27.0 - 32.0 pcg LAB HEMETOLOGY METHOD 08/10/2025 10:46 AM EDT [facility] MCHC 31.8(L) 32.0 - 37.0 g/dL LAB HEMETOLOGY METHOD 08/10/2025 10:46 AM EDT [facility] RDW 14.7 11.0 - 15.0 % LAB HEMETOLOGY METHOD 08/10/2025 10:46 AM EDT [facility] Platelets 430(H) 130 - 400 K/mcL LAB HEMETOLOGY METHOD 08/10/2025 10:46 AM EDT [facility] MPV 9.4 7.0 - 11.0 FL LAB HEMETOLOGY METHOD 08/10/2025 10:46 AM EDT [facility] NRBC 0.0 <1.0 % LAB HEMETOLOGY METHOD 08/10/2025 10:46 AM T [facility] NRBC Absolute 0.00 <0.10 K/mcL LAB HEMETOLOGY METHOD 08/10/2025 10:46 AM [facility] Blood Venous blood specimen / Unknown Venipuncture / Unknown 08/10/2025 4:55 AM EDT 08/10/2025 10:17 AM EDT us Cesar Boo MD LAB BLOOD ORDERABLES Final Resu lt [facility] [address] [place] [address], documented in this encounter Visit Diagnoses Diagnosis Essential (primary) hypertension Unspecified essential hypertension Chronic obstructive pulmonary disease, unspecified (CMS/HCC V24, CMS/HCC V28) Gastro-esophageal reflux disease without esophagitis documented in this encounter Care Teams Locomotive Inspector Relationship Specialty Start Date End Date Cesar Boo MD [address] [place] [phone] PCP - General Internal Medicine 07/28/25 documented as of this encounter
--- OUTSIDE RECORDS SUMMARY | 2025-09-11 09:45 | XMS_ITS | Encounter Summary ---
Author Organization [facility] Address [address] [place] [address] Phone Care Team Providers Care Sulfide Head Operator Name Role Phone Bean Joe MD Primary Care Provider [phone] Luna Mckeon MD, PhD Unavailable [phone] Ever Spring MD Unavailable [phone] Bailey Vazquez RN Unavailable [phone] Hilary Gallardo RN Unavailable RHONDA [email or web address] Tamar Armando RN Unavailable [email or web address].[email or web address] Encounter Details Date Type Department Care Team (Late st Contact Info) Description 10/09/2023 Procedure Pass Juliette-Tammy Cancer [place] [address] [address] Social History Tobacco Use Types [...] Info) Description 09/15/2025 9:15 AM EST Appointment [facility] [place], PET/CT [address] [address] Donald Zavala MD [address] [place] [address] [email or web address] 09/15/2025 1:00 PM EST Office Visit [facility] Center for Thoracic Oncology, [facility] [place] [address] [address] Donald Zavala MD [address] [place] [address] [email or web address] documented as of this encounter Visit Diagnoses Not on filedocumented in this encounter Additional Health Concerns Assessment Noted Time PHQ-2 Depression Total Score: 0 07/10/20 23 12:21 PM EDT documented as of this encounter Care Teams Sulfide Head Operator Relationship Specialty Start Date End Date Bean Joe MD [address] [place] [address] PCP - General Internal Medicine 11/11/21 Luna Mckeon MD, PhD [address] [place] [address] [email or web address] Thoracic Surgery 11/15/21 Ever Spring MD [address] [place] [address] Division [place] [address] [email or web address] Thoracic Surgery 11/28/21 Bailey Vazquez RN 300 [place] [address] [email or web address] Primary Infusion Nurse 02/21/22 Hilary Gallardo RN [address] [place] [address] [email or web address] Associate Infusion Nurse 07/28/22 Tamar Armando RN [address] [place] [address] [email or web address] Associate Infusion Nurse 04/06/23 documented as of this encounter Additional Source Comments The information contained in this document represents components of the legal health record. It is not the complete legal health record.[facility]
--- OUTSIDE RECORDS SUMMARY | 2025-09-11 09:45 | XMS_ITS | Encounter Summary ---
Author Organization [facility] Address [address] [place] [address] Phone Care Team Providers Care Real Estate Photographer Name Role Phone Bean Joe MD Primary Care Provider [phone] Luna Mckeon MD, PhD Unavailable [phone] Ever Spring MD Unavailable [phone] Bailey Vazquez RN Unavailable [phone] Hilary Gallardo RN Unavailable RHONDA [email or web address] Tamar Armando RN Unavailable [email or web address].[facility] Encounter Details Date Type Department Care Team (Late st Contact Info) Description 08/05/2024 Ancillary Orders Outside Imaging Donald Zavala MD [address] [place] [address] [email or web address] Social History Tobacco Use Types Packs/Day [...] Info) Description 09/15/2025 9:15 AM EST Appointment [facility] [place], PET/CT [address] [address] Donald Zavala MD [address] [place] [address] Garry@[email or web address] 09/15/2025 1:00 PM EST Office Visit [facility] Center for Thoracic Oncology, [facility] at [address] [address] Donald aZvala MD [address] [place] [address] [email or web address] documented as of this encounter Results [...] documented as of this encounter Care Teams Real Estate Photographer Relationship Specialty Start Date End Date Bean Joe MD [address] [place] [address] [address] [place] [address] PCP - General Internal Medicine 11/11/21 Luna Mckeon MD, PhD [address] [place] [address] [address] [place] [address] [email or web address] Thoracic Surgery 11/15/21 Ever Spring MD [address] [place] [address] Division [place] [address] [email or web address] Thoracic Surgery 11/28/21 Bailey Vazquez RN [address] [place] [address] [email or web address]. [facility] Primary Infusion Nurse 02/21/22 Hilary Gallardo RN [address] [place] [address] [email or web address]. [facility] Associate Infusion Nurse 07/28/22 Tamar Armando RN [address] [place] [address] [email or web address] Associate Infusion Nurse 04/06/23 documented as of this encounter Additional Source Comments The information contained in this document represents components of the legal health record. It is not the complete legal health record.[facility]
--- OUTSIDE RECORDS SUMMARY | 2025-09-11 09:45 | XMS_ITS | Encounter Summary ---
Author Organization [facility] Address [address] [place] [address] Phone Care Team Providers Care Aircraft Engine Specialist Name Role Phone Bean Joe MD Primary Care Provider [phone] Luna Mckeon MD, PhD Unavailable [phone] Ever Spring MD Unavailable [phone] Bailey Vazquez RN Unavailable [phone] Hilary Gallardo RN Unavailable RHONDA [email or web address] Demetrio Love PA-C Unavailable [phone] Tamar Armando RN Unavailable [email or web address] Encounter Details Date Type Department Care Team (Late st Contact Info) Description 10/24/2022 Procedure Pass [facility] [place] [facility] [place], [place] 300 [place] [address] Social History Tobacco Use Types Packs/Day Years [...] AM EST Appointment [facility] [place], PET/CT 300 [facility] [address] [place] [address] Donald Zavala MD [address] [place] [address] [email or web address] 09/15/2025 1:00 PM EST Office Visit [facility], [facility] [place] [address] [address] Donald Zavala MD [address] [place] [address] [email or web address] documented as of this encounter Visit Diagnoses Not on filedocumented in this encounter Additional Health Concerns Assessment Noted Time PHQ-2 Depression Total Score: 0 10/24/19 23 2:05 PM EST documented as of this encounter Care Teams Aircraft Engine Specialist Relationship Specialty Start Date End Date Bean Joe MD [address] [place] [phone] PCP - General Internal Medicine 11/11/21 Luna Mckeon MD, PhD [address] [place] [address] [email or web address] Thoracic Surgery 11/15/21 Ever Spring MD [address] [place] [address] Division [place] [address] [email or web address] Thoracic Surgery 11/28/21 Bailey Vazquez RN 300 [place] [address] [email or web address] Primary Infusion Nurse 02/21/22 Hilary Gallardo RN 300 [place] [address] [email or web address] Associate Infusion Nurse 07/28/22 Demetrio Love PA-C 300 [place] [address] [email or web address] Physician Metal Precision Machine Assembler 12/21/22 04/05/23 Tamar Armando RN 300 [place] [address] [email or web address] Associate Infusion Nurse 04/06/23 documented as of this encounter Additional Source Comments The information contained in this document represents components of the legal health record. It is not the complete legal health record.[facility]
--- OUTSIDE RECORDS SUMMARY | 2025-09-11 09:45 | XMS_ITS | Encounter Summary ---
Author Organization [facility] Address [address] [place] [address] Phone Care Team Providers Care Museum Host/Hostess Name Role Phone Bean Joe MD Primary Care Provider [phone] Luna Mckeon MD, PhD Unavailable [phone] Ever Spring MD Unavailable [phone] Bailey Vazquez RN Unavailable [phone] Hilary Gallardo RN Unavailable RHONDA [email or web address] Tamar Armando RN Unavailable [email or web address] Encounter Details Date Type Department Care Team (Late st Contact Info) Description 08/05/2024 Ancillary Orders Outside Imaging Donald Zavala MD [address] [place] [address] [email or web address] Social History Tobacco Use Types Packs/Day [...] Info) Description 09/15/2025 9:15 AM EST Appointment [facility] [place], PET/CT [address] [address] Donald Zavala MD [address] [place] [address] [email or web address] 09/15/2025 1:00 PM EST Office Visit [facility] Center for Thoracic Oncology, [facility] at [address] [address] Donald Zavala MD [address] [place] [address] [email or web address] documented as of this encounter Results [...] documented as of this encounter Care Teams Museum Host/Hostess Relationship Specialty Start Date End Date Bean Joe MD [address] [place] [address] [address] [place] [address] PCP - General Internal Medicine 11/11/21 Luna Mckeon MD, PhD [address] [place] [address] [address] [place] [address] [email or web address] Thoracic Surgery 11/15/21 Ever Spring MD [address] [place] [address] Division [place] [address] [email or web address] Thoracic Surgery 11/28/21 Bailey Vazquez RN 300 [place] [address] [email or web address]. [facility] Primary Infusion Nurse 02/21/22 Hilary Gallardo RN [address] [place] [address] [email or web address]. [facility] Associate Infusion Nurse 07/28/22 Tamar Armando RN [address] [place] [address] [email or web address] Associate Infusion Nurse 04/06/23 documented as of this encounter Additional Source Comments The information contained in this document represents components of the legal health record. It is not the complete legal health record.[facility]
--- OUTSIDE RECORDS SUMMARY | 2025-09-11 09:45 | XMS_ITS | Encounter Summary ---
Author Organization [facility] Address [address] [place] [address] Phone Care Team Providers Care Tenant Selector Name Role Phone Bean Joe MD Primary Care Provider [phone] Luna Mckeon MD, PhD Unavailable [phone] [place] MD Unavailable [phone] Bailey Vazquez RN Unavailable [phone] Hilary Gallardo RN Unavailable RHONDA [email or web address].[facility] Tamar Armando RN Unavailable [email or web address]@ [facility].[place].[facility] Encounter Details Date Type Department Care Team (Late st Contact Info) Description 03/18/2024 Procedure Pass [facility] [place] [address] [address] Social History Tobacco Use Types [...] Info) Description 09/15/2025 9:15 AM EST Appointment [facility], PET/CT [address] [address] Donald Zavala MD [address] [place] [address] [email or web address] 09/15/2025 1:00 PM EST Office Visit [facility] for [facility] On[facility], [facility] [address] [address] Donald Zavala MD [address] [place] [address] Garry@[facility] documented as of this encounter Visit Diagnoses Not on filedocumented in this encounter Additional Health Concerns Assessment Noted Time PHQ-2 Depression Total Score: 0 01/29/20 24 7:26 AM EDT documented as of this encounter Care Teams Tenant Selector Relationship Specialty Start Date End Date Bean Joe MD [address] [place] [address] PCP - General Internal Medicine 11/11/21 Luna Mckeon MD, PhD [address] [place] [address] [email or web address] Thoracic Surgery 11/15/21 [place] MD [address] [place] [address] Division [place] [address] [email or web address] Thoracic Surgery 11/28/21 Bailey Vazquez RN 300 [place] [address] [email or web address] Primary Infusion Nurse 02/21/22 Hilary Gallardo RN [address] [place] [address] [email or web address]@[email or web address] Associate Infusion Nurse 07/28/22 Tamar Armando RN 300 [place] [address] [email or web address] Associate Infusion Nurse 04/06/23 documented as of this encounter Additional Source Comments The information contained in this document represents components of the legal health record. It is not the complete legal health record.[facility]
--- OUTSIDE RECORDS SUMMARY | 2025-09-11 09:45 | XMS_ITS | Encounter Summary ---
Author Organization [facility] Address [address] [place] [address] Care Team Providers Care Textiles Printer Name Role Phone Cesar Boo MD Primary Care Provider [phone] Encounter Details Date Type Department Care Team (Late st Contact Info) Description 08/14/2025 Lab Requisition [facility] [address] [facility] [place] [address] Cesar Boo MD [address] [place] [address] Essential (primary) hypertension; Chronic obstructive pulmonary [...] on file documented as of this encounter Visit Diagnoses Diagnosis Essential (primary) hypertension Unspecified essential hypertension Chronic obstructive pulmonary disease, unspecified (CMS/HCC V24, CMS/HCC V28) Gastro-esophageal reflux disease without esophagitis documented in this encounter Care Teams Textiles Printer Relationship Specialty Start Date End Date Cesar Boo MD [address] [place] [address] PCP - General Internal Medicine 07/28/25 documented as of this encounter
--- OUTSIDE RECORDS SUMMARY | 2025-09-11 09:46 | XMS_ITS | Encounter Summary ---
Author Organization [facility] Address [address] [place] [address] Phone Care Team Providers Care Stretcher And Drier Name Role Phone Bean Joe MD Primary Care Provider [phone] Luna Mckeon MD, PhD Unavailable [phone] [place] MD Unavailable [phone] Bailey Vazquez RN Unavailable [phone] Hilary Gallardo RN Unavailable RHONDA BOTELLO@[email or web address].[email or web address].[email or web address] Tamar Armando RN Unavailable [email or web address]@ [email or web address].[place].[facility] Encounter Details Date Type Department Care Team (Late st Contact Info) Description 02/10/2025 Procedure Pass [facility] [place] [address] [address] Social History Tobacco Use Types [...] Info) Description 09/15/2025 9:15 AM EST Appointment [facility], PET/CT [address] [address] Donald Zavala MD [address] [place] [address] [email or web address]@[facility] 09/15/2025 1:00 PM EST Office [facility], [facility] [address] [address] Donald Zavala MD [address] [place] [address] Garry@[facility] documented as of this encounter Visit Diagnoses Not on filedocumented in this encounter Additional Health Concerns Assessment Noted Time PHQ-2 Depression Total Score: 0 11/04/19 7:36 AM EST documented as of this encounter Care Teams Stretcher And Drier Relationship Specialty Start Date End Date Bean Joe MD [address] [place] [address] PCP - General Internal Medicine 11/11/21 Luna Mckeon MD, PhD [address] [place] [address] [email or web address] Thoracic Surgery 11/15/21 [place] MD [address] [place] [address] Division of Thoracic [place] [address] [email or web address] Thoracic Surgery 11/28/21 Bailey Vazquez RN 300 [place] [address] [email or web address] Primary Infusion Nurse 02/21/22 Hilary Gallardo RN [address] [place] [address] SARA@[facility] Associate Infusion Nurse 07/28/22 Tamar Armando RN 300 [place] [address] [email or web address] Associate Infusion Nurse 04/06/23 documented as of this encounter Additional Source Comments The information contained in this document represents components of the legal health record. It is not the complete legal health record.[facility]
--- OUTSIDE RECORDS SUMMARY | 2025-09-11 09:46 | XMS_ITS | Encounter Summary ---
Author Organization [facility] Address [address] [place] [address] Phone Care Team Providers Care Messenger Office Name Role Phone Bean Joe MD Primary Care Provider [phone] Luna Mckeon MD, PhD Unavailable [phone] [place] MD Unavailable [phone] Bailey Vazquez RN Unavailable [phone] Hilary Gallardo RN Unavailable RHONDA [email or web address].[email or web address].[email or web address] Demetrio Love PA-C Unavailable [phone] Tamar Armando RN Unavailable [email or web address]@ [email or web address].[email or web address] Encounter Details Date Type Department Care Team (Late st Contact Info) Description 05/17/2022 Procedure Pass [facility] [place] 300 [place] [address] Social History Tobacco Use Types Packs/Day Years [...] Description 09/15/2025 9:15 AM EST Appointment [facility], PET/CT 300 [facility] [address] [place] [address] Donald Zavala MD [address] [place] [address] Garry@[email or web address] 09/15/2025 1:00 PM EST Office Visit [facility], [facility] [address] [address] Donald Zavala MD [address] [place] [address] Garry@[facility] documented as of this encounter Visit Diagnoses Not on filedocumented in this encounter Additional Health Concerns Assessment Noted Time PHQ-2 Depression Total Score: 0 11/29/19 9:25 AM EST documented as of this encounter Care Teams Messenger Office Relationship Specialty Start Date End Date Bean Joe MD [address] [place] [address] PCP - General Internal Medicine 11/11/21 Luna Mckeon MD, PhD [address] [place] [address] [email or web address] Thoracic Surgery 11/15/21 [place] MD [address] [place] [address] Division [place] [address] [email or web address] Thoracic Surgery 11/28/21 Bailey Vazquez RN 300 [place] [address] [email or web address] Primary Infusion Nurse 02/21/22 Hilary Gallardo RN 300 [place] [address] SARA@[email or web address] Associate Infusion Nurse 07/28/22 Demetrio Love PA-C 300 [place] [address] [email or web address] Physician Cartography/Mapping Technician 12/21/22 04/05/23 Tamar Armando RN 300 [place] [address] [email or web address] Associate Infusion Nurse 04/06/23 documented as of this encounter Additional Source Comments The information contained in this document represents components of the legal health record. It is not the complete legal health record.[facility]
--- OUTSIDE RECORDS SUMMARY | 2025-09-11 09:46 | XMS_ITS | Encounter Summary ---
Author Organization [facility] Address [address] [place] [address] Phone Care Team Providers Care Tobacco Hanger Name Role Phone Bean Joe MD Primary Care Provider [phone] Luna Mckeon MD, PhD Unavailable [phone] [place] MD Unavailable [phone] Bailey Vazquez RN Unavailable [phone] Hilary Gallardo RN Unavailable RHONDA BOTELLO@[email or web address].[place].[facility] Tamar Armando RN Unavailable [email or web address]@ [facility].[place].[facility] Encounter Details Date Type Department Care Team (Late st Contact Info) Description 07/03/2023 Procedure Pass [facility] [place] [address] [address] Social History Tobacco Use Types [...] Info) Description 09/15/2025 9:15 AM EST Appointment [facility], PET/CT [address] [address] Donald Zavala MD [address] [place] [address] [email or web address]@[facility] 09/15/2025 1:00 PM EST Office Visit [facility] for [facility], [facility] [address] [address] Donald Zavala MD [address] [place] [address] [email or web address]@[facility] documented as of this encounter Visit Diagnoses Not on filedocumented in this encounter Additional Health Concerns Assessment Noted Time PHQ-2 Depression Total Score: 0 07/10/20 23 12:21 PM EDT documented as of this encounter Care Teams Tobacco Hanger Relationship Specialty Start Date End Date Bean Joe MD [address] [place] [address] PCP - General Internal Medicine 11/11/21 Luna Mckeon MD, PhD [address] [place] [address] [email or web address] Thoracic Surgery 11/15/21 [place] MD [address] [place] [address] Division [place] [address] [email or web address] Thoracic Surgery 11/28/21 Bailey Vazquez RN 300 [place] [address] [email or web address] Primary Infusion Nurse 02/21/22 Hilary Gallardo RN [address] [place] [address] SARA@[email or web address] Associate Infusion Nurse 07/28/22 Tamar Armando RN 300 [place] [address] [email or web address] Associate Infusion Nurse 04/06/23 documented as of this encounter Additional Source Comments The information contained in this document represents components of the legal health record. It is not the complete legal health record.[facility]
--- OUTSIDE RECORDS SUMMARY | 2025-09-11 09:46 | XMS_ITS | Encounter Summary ---
Author Organization [facility] Address [address] [place] [address] Phone Care Team Providers Care Shore Man Name Role Phone Bean Joe MD Primary Care Provider [phone] Luna Mckeon MD, PhD Unavailable [phone] [place] MD Unavailable [phone] Bailey Vazquez RN Unavailable [phone] Hilary Gallardo RN Unavailable RHONDA BOTELLO@[email or web address].[email or web address] Demetrio Love PA-C Unavailable [phone] Tamar Armando RN Unavailable [email or web address]@ [facility].[place].[facility] Encounter Details Date Type Department Care Team (Late st Contact Info) Description 12/08/2021 Prep for Surgery [facility] Thoracic Surgery [address] [place] [address] Marina [email or web address] Social History Tobacco Use Types Packs/Day [...] Info) Description 09/15/2025 9:15 AM EST Appointment [facility], PET/CT [address] [address] Donald Zavala MD [address] [place] [address] [email or web address] 09/15/2025 1:00 PM EST Office Visit [facility], [facility] [address] [address] Donald Zavala MD [address] [place] [address] Garry@[email or web address] documented as of this encounter Visit Diagnoses Not on filedocumented in this encounter Additional Health Concerns Assessment Noted Time PHQ-2 Depression Total Score: 0 11/29/19 9:25 AM EST documented as of this encounter Care Teams Shore Man Relationship Specialty Start Date End Date Bean Joe MD [address] [place] [address] PCP - General Internal Medicine 11/11/21 Luna Mckeon MD, PhD [address] [place] [address] 1 [place] [address] [email or web address] Thoracic Surgery 11/15/21 [place] MD [address] [place] [address] Division [place] [address] [email or web address] Thoracic Surgery 11/28/21 Bailey Vazquez RN 300 [place] [address] [email or web address] Primary Infusion Nurse 02/21/22 Hilary Gallardo RN 300 [place] [address] SARA@[facility] Associate Infusion Nurse 07/28/22 Demetrio Love PA-C 300 [place] [address] [email or web address] Physician Library Page 12/21/22 04/05/23 Tamar Armando RN 300 [place] [address] [email or web address] Associate Infusion Nurse 04/06/23 documented as of this encounter Additional Source Comments The information contained in this document represents components of the legal health record. It is not the complete legal health record.[facility]
--- OUTSIDE RECORDS SUMMARY | 2025-09-11 09:46 | XMS_ITS | Encounter Summary ---
Author Organization [facility] Address [address] [place] [address] Phone Care Team Providers Care Tattoo Designer Name Role Phone Bean Joe MD Primary Care Provider [phone] Luna Mckeon MD, PhD Unavailable [phone] [place] MD Unavailable [phone] Bailey Vazquez RN Unavailable [phone] Hilary Gallardo RN Unavailable RHONDA [email or web address].[facility] Demetrio Love PA-C Unavailable [phone] Tamar Armando RN Unavailable [email or web address] [email or web address].[facility] Encounter Details Date Type Department Care Team (Late st Contact Info) Description 07/04/2022 Procedure Pass [facility] [place] 300 [place] [address] Social History Tobacco Use Types Packs/Day Years [...] Info) Description 09/15/2025 9:15 AM EST Appointment [facility], PET/CT 300 [facility] 3rd [place] [address] Donald Zavala MD [address] [place] [address] [email or web address] 09/15/2025 1:00 PM EST Office Visit [facility] for [facility], [facility] [address] [address] Donald Zavala MD [address] [place] [address] [email or web address] documented as of this encounter Visit Diagnoses Not on filedocumented in this encounter Additional Health Concerns Assessment Noted Time PHQ-2 Depression Total Score: 0 10/24/19 23 2:05 PM EST documented as of this encounter Care Teams Tattoo Designer Relationship Specialty Start Date End Date Bean Joe MD [address] [place] [address] PCP - General Internal Medicine 11/11/21 Luna Mckeon MD, PhD [address] [place] [address] [email or web address] Thoracic Surgery 11/15/21 [place] MD [address] [place] [address] Division [place] [address] [email or web address] Thoracic Surgery 11/28/21 Bailey Vazquez RN 300 [place] [address] [email or web address] Primary Infusion Nurse 02/21/22 Hilary Gallardo RN 300 [place] [address] SARA@[email or web address] Associate Infusion Nurse 07/28/22 Demetrio Love PA-C 300 [place] [address] [email or web address] Physician Tapeman 12/21/22 04/05/23 Tamar Armando RN 300 [place] [address] [email or web address] Associate Infusion Nurse 04/06/23 documented as of this encounter Additional Source Comments The information contained in this document represents components of the legal health record. It is not the complete legal health record.[facility]
--- OUTSIDE RECORDS SUMMARY | 2025-09-11 09:46 | XMS_ITS | Encounter Summary ---
Author Organization [facility] Address [address] [place] [address] Phone Care Team Providers Care Paste Mixing Supervisor Name Role Phone Bean Joe MD Primary Care Provider [phone] Luna Mckeon MD, PhD Unavailable [phone] [place] MD Unavailable [phone] Bailey Vazquez RN Unavailable [phone] Hilary Gallardo RN Unavailable RHONDA BOTELLO@[email or web address].[place] Demetrio Love PA-C Unavailable [phone] Tamar Armando RN Unavailable [email or web address]@ [facility].[place].[facility] Encounter Details Date Type Department Care Team (Late st Contact Info) Description 11/30/2021 Procedure Pass [facility] [place] [facility] [address] [place] [address] Social History Tobacco Use Types Packs/Day Years [...] Info) Description 09/15/2025 9:15 AM EST Appointment [facility], PET/CT [address] [address] Donald Zavala MD [address] [place] [address] [email or web address] 09/15/2025 1:00 PM EST Office Visit [facility], [facility] [address] [address] Donald Zavala MD [address] [place] [address] [email or web address] documented as of this encounter Visit Diagnoses Not on filedocumented in this encounter Additional Health Concerns Assessment Noted Time PHQ-2 Depression Total Score: 0 11/29/19 9:25 AM EST documented as of this encounter Care Teams Paste Mixing Supervisor Relationship Specialty Start Date End Date Bean Joe MD [address] [place] [address] PCP - General Internal Medicine 11/11/21 Luna Mckeon MD, PhD [address] [place] [address] [email or web address] Thoracic Surgery 11/15/21 [place] MD [address] [place] [address] Division [place] [address] [email or web address] Thoracic Surgery 11/28/21 Bailey Vazquez RN 300 [place] [address] [email or web address] Primary Infusion Nurse 02/21/22 Hilary Gallardo RN 300 [place] [address] SARA@[facility] Associate Infusion Nurse 07/28/22 Demetrio Love PA-C [address] [place] [address] [email or web address] Physician Cable Rigger 12/21/22 04/05/23 Tamar Armando RN 300 [place] [address] [email or web address] Associate Infusion Nurse 04/06/23 documented as of this encounter Additional Source Comments The information contained in this document represents components of the legal health record. It is not the complete legal health record.[facility]
--- OUTSIDE RECORDS SUMMARY | 2025-09-11 09:46 | XMS_ITS | Encounter Summary ---
Author Organization [facility] Address [address] [place] [address] Phone Care Team Providers Care Diesel Mechanic Construction Name Role Phone Bean Joe MD Primary Care Provider [phone] Luna Mckeon MD, PhD Unavailable [phone] [place] MD Unavailable [phone] Bailey Vazquez RN Unavailable [phone] Hilary Gallardo RN Unavailable RHONDA BOTELLO@[facility].[email or web address].[facility] Tamar Armando RN Unavailable [email or web address]@ [email or web address].[facility] Encounter Details Date Type Department Care Team (Late st Contact Info) Description 02/10/2025 Procedure Pass [facility] [place] [address] [address] Social History Tobacco Use Types [...] Info) Description 09/15/2025 9:15 AM EST Appointment [facility], PET[facility] [address] [address] Donald Zavala MD [address] [place] [address] Garry@[email or web address] 09/15/2025 1:00 PM EST Office Visit [facility], [facility] [address] [address] Donald Zavala MD [address] [place] [address] Garry@[email or web address] documented as of this encounter Visit Diagnoses Not on filedocumented in this encounter Additional Health Concerns Assessment Noted Time PHQ-2 Depression Total Score: 0 11/04/19 7:36 AM EST documented as of this encounter Care Teams Diesel Mechanic Construction Relationship Specialty Start Date End Date Bean Joe MD [address] [place] [address] PCP - General Internal Medicine 11/11/21 Luna Mckeon MD, PhD [address] [place] [address] [email or web address] Thoracic Surgery 11/15/21 [place] MD [address] [place] [address] Division [place] [address] [email or web address] Thoracic Surgery 11/28/21 Bailey Vazquez RN 300 [place] [address] [email or web address] Primary Infusion Nurse 02/21/22 Hilary Gallardo RN [address] [place] [address] SARA@[facility] Associate Infusion Nurse 07/28/22 Tamar Armando RN 300 [place] [address] [email or web address] Associate Infusion Nurse 04/06/23 documented as of this encounter Additional Source Comments The information contained in this document represents components of the legal health record. It is not the complete legal health record.[facility]
--- OUTSIDE RECORDS SUMMARY | 2025-09-11 09:46 | XMS_ITS | Encounter Summary ---
Author Organization [facility] Address [address] [place] [address] Phone Care Team Providers Care Budget Assistant Name Role Phone Bean Joe MD Primary Care Provider [phone] Luna Mckeon MD, PhD Unavailable [phone] Ever Spring MD Unavailable [phone] Bailey Vazquez RN Unavailable [phone] Hilary Gallardo RN Unavailable RHONDA [email or web address] Tamar Armando RN Unavailable [email or web address] Encounter Details Date Type Department Care Team (Late st Contact Info) Description 04/10/2023 Procedure Pass [facility] [place] [facility] [place] [address] [address] Social History Tobacco Use Types [...] Info) Description 09/15/2025 9:15 AM EST Appointment [facility], PET/CT [address] [address] Donald Zavala MD [address] [place] [address] [email or web address] 09/15/2025 1:00 PM EST Office Visit [facility], [facility] [address] [address] Donald Zavala MD [address] [place] [address] [email or web address] documented as of this encounter Visit Diagnoses Not on filedocumented in this encounter Additional Health Concerns Assessment Noted Time PHQ-2 Depression Total Score: 0 04/17/20 7:08 AM EDT documented as of this encounter Care Teams Budget Assistant Relationship Specialty Start Date End Date Bean Joe MD [address] [place] [address] PCP - General Internal Medicine 11/11/21 Luna Mckeon MD, PhD [address] [place] [address] [email or web address] Thoracic Surgery 11/15/21 Ever Spring MD [address] [place] [address] Division [place] [address] [email or web address] Thoracic Surgery 11/28/21 Bailey Vazquez RN 300 [place] [address] [email or web address] Primary Infusion Nurse 02/21/22 Hilary Gallardo RN [address] [place] [address] [email or web address] Associate Infusion Nurse 07/28/22 Tamar Armando RN 300 [place] [address] [email or web address] Associate Infusion Nurse 04/06/23 documented as of this encounter Additional Source Comments The information contained in this document represents components of the legal health record. It is not the complete legal health record.[facility]
--- OUTSIDE RECORDS SUMMARY | 2025-09-11 09:46 | XMS_ITS | Clinical Summary ---
Author Organization [facility] Address [address] [place] [address] Phone Care Team Providers Care Domestic Laundry Worker Name Role Phone Bean Joe MD Primary Care Provider [phone] Luna Mckeon MD, PhD Unavailable Ever Spring MD Unavailable [phone] Bailey Vazquez RN Unavailable [phone] Hilary Gallardo RN Unavailable RHONDA [email or web address].[facility] Tamar Armando RN Unavailable [email or web address] Allergies No known active allergies Medications amLODIPine [...] each, 11 Refills, Maintenance, 07/09/24 11:24:00 EDT, [facility]/pharmacy #[id number], 30, 2 PUFFS INHALATION 4 [...] Description 06/30/2025 1:30 PM EDT Office Visit [facility] for Thoracic On[facility], [facility] [address] [address] Donald Zavala MD Non-small cell lung cancer, left (Primary Dx) 06/30/2025 9:31 AM EDT - 06/30/2025 11:59 PM EDT Hospital Encounter [facility] [address] [address] Donald Zavala MD Discharge Disposition: Home or Self Care 02/10/2025 Procedure Pass [facility] [address] [address] 02/10/2025 Procedure Pass [facility] [address] [address] from Last 3 Months Immunizations No known [...] Info) Description 09/15/2025 9:15 AM EST Appointment [facility], PET/CT 300 [facility] [address] [place] [address] Donald Zavala MD [address] [place] [address] [email or web address] 09/15/2025 1:00 PM EST Office Visit [facility] for [facility]acic Oncology, [facility] 300 [facility] [address] [place] [address] Donald Zavala MD [address] [place] [address] [email or web address] Health Maintenance Due Date Last Done Comments [...] this topic Medical Devices Implanted Type Area Waterproof Bag Cutting Machine Operator Device Identifier Shelf Expiration Date Model / Serial / Lot Left Total Knee Replacement Procedures Procedure Name Priority Date/Time Associated Diagnosis Comments CT ABDOMEN/PELVIS WITH CONTRAST Routine 06/30/2025 10:28 AM EDT Non-small cell lung cancer, left CT CHEST WITH CONTRAST Routine 10:28 AM EDT Non-small cell lung cancer, left COMPREHENSIVE METABOLIC PANEL (CMP) Routine 06/30/2025 9:30 AM EDT Non-small cell [...] clinician's provided indication for this examination in [facility]: [MALIGNANCY] LUNG, NON-SMALL CELL (KNOWN [...] clinician's provided indication for this examination in [facility]:[MALIGNANCY] LUNG, NON-SMALL CELL (KNOWN ACT [...] EDT) SODIUM 134(L) 136 - 145 mmol/L [facility]# [id number] POTASSIUM 4.5 3.4 - 5.1 mmol/L [facility]# [id number] CHLORIDE 102 98 - 107 mmol/L [facility]# [id number] CO2 21(L) 22 - 31 mmol/L [facility]# [id number] BUN 25(H) 6 - 23 mg/dL [facility]# [id number] CREATININE 1.66(H) 0.50 - 1.20 mg/dL [facility]# [id number] GLUCOSE 124(H) 70 - 100 mg/dL [facility]# [id number] ALBUMIN 3.7 3.5 - 5.2 g/dL [facility]# [id number] TOTAL PROTEIN 6.3(L) 6.4 - 8.3 g/dL [facility]# [id number] CALCIUM 8.6(L) 8.8 - 10.7 mg/dL [facility]# [id number] ALKALINE PHOSPHATASE 126 40 - 129 U/L [facility]# [id number] TOTAL BILIRUBIN 0.3 0.2 - 1.2 mg/dL [facility]# [id number] AST 15 <41 U/L [facility]# [id number] ALT 11 <42 U/L [facility]# [id number] GLOBULIN 2.6 2.3 - 4.2 g/dL [facility]# [id number] EGFR 41(L) >59 mL/min/1.7 3m2 [facility]# [id number] Comment:Estimated glomerular filtration rate calculated using the CKD-EPI refit equation. ANION GAP 11 7 - 17 mmol/L [facility]# [id number] Blood 06/30/2025 9:30 AM EDT 06/30/2025 9:37 AM EDT us Donald Zavala MD LAB BLOOD BKR ORDERABLES Leonie l Result [facility]# [id number] [address] [place] [address], [facility] * (ABNORMAL) CBC and differential (06/30/2025 9:30 AM EDT) WBC 9.00 4.00 - 10.00 K/uL [facility] L[facility]# [id number] RBC 3.88(L) 4.50 - 6.40 M/uL [facility]# [id number] HGB 11.7(L) 13.5 - 18.0 g/dL [facility]# [id number] HCT 35.1(L) 40.0 - 54.0 % [facility]# [id number] PLT 277 150 - 450 K/uL [facility]# [id number] MCV 90.5 80.0 - 100.0 fL [facility]# [id number] MCH 30.2 27.0 - 32.0 pg [facility]# [id number] MCHC 33.3 32.0 - 36.0 g/dL [facility]# [id number] RDW 14.4 11.5 - 14.5 % [facility]# [id number] MPV 9.7 8.4 - 12.0 fL [facility]# [id number] NRBC 0.00 0.00 /100 WBCs [facility]# [id number] ABSOLUTE NRBC 0.00 0 K/uL [facility] LIC# [id number] DIFF METHOD Auto [facility] LIC# [id number] NEUTS 64.1 48.0 - 76.0 % [facility]# [id number] LYMPHS 17.3(L) 18.0 - 41.0 % [facility]# [id number] MONOS 12.4(H) 4.0 - 11.0 % [facility]# [id number] EOS 4.2 0.0 - 5.0 % [facility]# [id number] BASOS 0.7 0.00 - 1.50 % [facility]# [id number] % IMMATURE GRANS 1.3(H) 0.00 - 1.00 % [facility]# [id number] ABSOLUTE NEUTS 5.76 1.92 - 7.60 K/uL [facility]# [id number] ABSOLUTE LYMPHS 1.56 0.72 - 4.10 K/uL [facility]# [id number] ABSOLUTE MONOS 1.12(H) 0.16 - 1.10 K/uL [facility]# [id number] ABSOLUTE EOS 0.38 0.00 - 0.50 K/uL [facility] L[facility]# [id number] ABSOLUTE BASOS 0.06 0.00 - 0.15 K/uL [facility] L[facility]# [id number] ABS IMMATURE GRANS 0.12(H) 0.00 - 0.10 K/uL [facility] LIC# [id number] Blood 06/30/2025 9:30 AM EDT 06/30/2025 9:37 AM EDT us Donald Zavala MD LAB BLOOD BKR ORDERABLES Leonie l Result [facility]# [id number] [address] [place] [address] from Last 3 Months Insurance [facility] MEDEX SUPPLEMENT MEDICARE PART A & B Member Subscriber Plan / Payer (Ef fective 2012-Present) Name:Ashish Hamilton Member ID:[id number] Relation to Subscriber:Self Name:Ashish Hamilton Subscriber ID:[id number] Payer ID:[id number] Group ID:Not on file Type:Medicare Address: [employer] [employer] CROSS MEDEX SUPPLEMENT MEDICARE PART A & B [employer] MEDEX SUPPLEMENT MEDICARE PART A & B [employer] MEDEX SUPPLEMENT MEDICARE PART A & B [employer] MEDEX SUPPLEMENT MEDICARE PART A & B [employer] MEDEX SUPPLEMENT MEDICARE PART A & B [employer] MEDEX SUPPLEMENT MEDICARE PART A & B [employer] MEDEX SUPPLEMENT MEDICARE PART A & B BLUE [employer]OSS MEDEX SUPPLEMENT MEDICARE PART A & B Advance Directives For more information, please contact: [phone] (9AM - 5PM [facility], Sunday-Sunday) Documents on File Type Date Recorded Patient Systems Designer Expl anation Healthcare Proxy 01/05/2022 4:00 PM * Full Code (Latest Code Status on File) Date Activated Date Inactivated Comments 01/02/2022 1:07 PM Question Answer Comments Code Status Confirmed With: Patient Healthcare Agents on File Name Relationship Healthcare Agent Relationship Communication Burton Saenz Other (no pr oxy form on file) [email or web address] Care Teams Domestic Laundry Worker Relationship Specialty Start Date End Date Bean Joe MD [address] [place] [address] PCP - General Internal Medicine 11/11/21 Luna Mckeon MD, PhD [address] [place] [address] [email or web address] Thoracic Surgery 11/15/21 Ever Spring MD [address] [place] [address] Division [place] [address] [email or web address] Thoracic Surgery 11/28/21 Bailey Vazquez RN 300 [place] [address] [email or web address]. [facility] Primary Infusion Nurse 02/21/22 Hilary Gallardo RN [address] [place] [address] [email or web address] Associate Infusion Nurse 07/28/22 Tamar Armando RN 300 [place] [address] [email or web address] Associate Infusion Nurse 04/06/23 Additional Source Comments The information contained in this document represents components of the legal health record. It is not the complete legal health record.[facility]
--- OUTSIDE RECORDS SUMMARY | 2025-09-11 09:46 | XMS_ITS | Encounter Summary ---
Author Organization [facility] Address [address] [place] [address] Phone Care Team Providers Care Precipitator Supervisor Name Role Phone Bean Joe MD Primary Care Provider [phone] Luna Mckeon MD, PhD Unavailable [phone] Ever Spring MD Unavailable [phone] Bailey Vazquez RN Unavailable [phone] Hilary Gallardo RN Unavailable RHONDA [email or web address] Demetrio Love PA-C Unavailable [phone] Tamar Armando RN Unavailable [email or web address] Reason for Referral * - Closed Specialty Diagnoses / Procedures Referred By Contac t Referred To Contact Radiology Diagnoses Preoperative cardiovascular examination Solitary pulmonary nodule Procedures NM Lung Perfusion Differential Quantification NM Lung Perfusion and Ventilation Differential Quantification Ever Spring MD Phone: tel: fax: mailto:[email or web address] Referral ID Status Reason Start Date Expiration Date Visits Re quested Visits Authorized [id number] Closed 11/30/2021 11/30/2022 1 1 Encounter Details Date Type Department Care Team (Latest Contact Info) Description 12/06/2021 Ancillary Orders [facility] Thoracic Surgery [address] [place] [address] Ever Spring MD [address] [facility] Division [place] [address] [email or web address] Preoperative cardiovascular examination; Solitary pulmonary [...] Info) Description 09/15/2025 9:15 AM EST Appointment [facility], PET/CT [address] [address] Donald Zavala MD [address] [place] [address] [email or web address] 09/15/2025 1:00 PM EST Office Visit [facility] Center for Thoracic Oncology, [facility] [address] [address] Donald Zavala MD [address] [place] [address] [email or web address] documented as of this encounter Results * [...] documented as of this encounter Care Teams Precipitator Supervisor Relationship Specialty Start Date End Date Bean Joe MD [address] [place] [address] PCP - General Internal Medicine 11/11/21 Luna Mckeon MD, PhD [address] [place] [address] [email or web address] Thoracic Surgery 11/15/21 Ever Spring MD [address] [place] [address] Division [place] [address] [email or web address] Thoracic Surgery 11/28/21 Bailey Vazquez RN [address] [place] [address] [email or web address] Primary Infusion Nurse 02/21/22 Hilary Gallardo RN [address] [place] [address] [email or web address] Associate Infusion Nurse 07/28/22 Demetrio Love PA-C 300 [place] [address] [email or web address] Physician [place] 12/21/22 04/05/23 Tamar Armando RN 300 [place] [address] [email or web address] Associate Infusion Nurse 04/06/23 documented as of this encounter Additional Source Comments The information contained in this document represents components of the legal health record. It is not the complete legal health record.[facility]
--- OUTSIDE RECORDS SUMMARY | 2025-09-11 09:46 | XMS_ITS | Encounter Summary ---
Author Organization [facility] Address [address] [place] [address] Phone Care Team Providers Care Cad Drafter Name Role Phone Bean Joe MD Primary Care Provider [phone] Luna Mckeon MD, PhD Unavailable Ever Spring MD Unavailable [phone] Bailey Vazquez RN Unavailable [phone] Hilary Gallardo RN Unavailable RHONDA [email or web address] Demetrio Love PA-C Unavailable Tamar Armando RN Unavailable [email or web address]@ [email or web address] Encounter Details Date Type Department Care Team (Late st Contact Info) Description 12/06/2021 Ancillary Orders [facility] DEPARTMENT [address] [place] [address] Dilcia Soto MD [address] [place] [address] [email or web address] Social History Tobacco Use Types Packs/Day [...] Info) Description 09/15/2025 9:15 AM EST Appointment [facility], PET/CT [address] [place] [address] [address] Donald Zavala MD [address] [place] [address] [email or web address] 09/15/2025 1:00 PM EST Office Visit [facility], [facility] [address] [address] Donald Zavala MD [address] [place] [address] [email or web address] documented as of this encounter Visit Diagnoses Not on filedocumented in this encounter Additional Health Concerns Assessment Noted Time PHQ-2 Depression Total Score: 0 11/29/19 9:25 AM EST documented as of this encounter Care Teams Cad Drafter Relationship Specialty Start Date End Date Bean Joe MD [address] [place] [address] PCP - General Internal Medicine 11/11/21 Luna Mckeon MD, PhD [address] [place] [address] [email or web address] Thoracic Surgery 11/15/21 Ever Spring MD [address] [place] [address] Division [place] [address] [email or web address] Thoracic Surgery 11/28/21 Bailey Vazquez RN [address] [place] [address] [email or web address] Primary Infusion Nurse 02/21/22 Hilary Gallardo RN 300 [place] [address] [email or web address] Associate Infusion Nurse 07/28/22 Demetrio Love PA-C [address] [place] [address] [email or web address] Physician Community Outreach Worker 12/21/22 04/05/23 Tamar Armando RN 300 [place] [address] [email or web address] Associate Infusion Nurse 04/06/23 documented as of this encounter Additional Source Comments The information contained in this document represents components of the legal health record. It is not the complete legal health record.[facility]
--- OUTSIDE RECORDS SUMMARY | 2025-09-11 09:46 | XMS_ITS | Data Portability ---
Author Organization [facility] [address] Address [address] [place] [address] Assessment No assessment recorded. Plan of Treatment Reminders Order Date Submit Date Provider Last Modified By Organization Details Last Modified Time Details Appointments None recorded. Lab None recorded. Referral None recorded. Procedures None recorded. Surgeries None recorded. Imaging None recorded. Medication Orders Allergy Relief (fluticaso ne) 50 mcg/actuat ion nasal spray,susp ension 2022 023 [facility]/Pharmacy #[id number], [address] [place], [address], 3 13:02:38 Claritin 10 mg tablet 2022 023 [facility]/Pharmacy #[id number], [address] [place], [address], 3 13:02:38 Patient TargetsNo targets recorded. Patient Instructions Encounter Date Encounter Id Patient Instructions Last Modified By Organization Details Last Modified Time 02/08/2023 [id number] Sinusitis is an infection of the lining [...] care for yourself at home? Take an bfzz-sku-jyqokqt pain medicine. Avoid Ibuprofen, Aleve and Aspirin if . If the doctor prescribed antibiotics, take them as directed. Do not stop taking them just because you feel better. You need to take the full course of antibiotics. Be careful when taking mfqt-aqa-wffjjiq cold or influenza (flu) medicines and Tylenol [...] Address Organization Details Recorded Time Hypertensive disorder 50209141 Active 2022 HOLLIE Mcdonough [facility] 3 12:43:49 Hyperlipidemia 35519503 Active 2022 HOLLIE Mcdonough [facility] 3 12:43:55 Chronic obstructive pulmonary disease 29899532 Active 2022 HOLLIE Mcdonough [facility] 3 12:44:09 Malignant neoplasm of lung 303880439 Active 2022 HOLLIE Mcdonough [facility] 12:44:37 Problem Notes None recorded. Procedures Surgical History Date Name Laterality Status Provider Name and Address Organization Details Recorded Time procedure on lung completed BALJEET LAI HOLLIE - [facility] 02/08/2023 12:44:57 Imaging Results None recorded. Procedure [...] [Score] - Reported Respiratory rate Oxygen saturation Heart rate Body temperature Systolic And Diastolic Provider Name and Address Organization Details Last Updated DateTime 3 177.8 cm 26.3 kg/m2 76553.4 g 5 18 /min 97 % 66 /min 97.8 [degF] 123/80 mm[Hg] BALJEET MING PA - [facility] 3 12:46:40 Social History Question Answer Notes LastModified by [employer] Details LastModified Time Tobacco Smoking Status Former Smoker BALJEET han PA - [facility] 02/08/2023 12:45:50 When Did You Quit Smoking? 11-15yearssi rohan queen [email or web address] Information not available 02/08/2023 Have You Recently Traveled Abroad? No [email or web address] Information not available 02/08/2023 Sex: Unknown Functional Status Question Answer Note LastModified by [employer] Details LastModified Time Do you use any illicit or recreational drugs? No [email or web address] Information not available 02/08/2023 Do you or have you ever used any other forms of tobacco or nicotine? No [email or web address] Information not available 02/08/2023 What is your level of alcohol consumption? Occasional [email or web address] Information not available 02/08/2023 Mental Status None recorded. Family History Relationship Description Onset Age of this Age Resolved Age Notes LastModified by Organization Details LastModified Time Father No current problems or disability Not available 02/08 12:45:30 Mother No current problems or disability [email or web address] Not available 02/08 12:45:30 Medical History No medical history recorded. Past Encounters Encounter ID Performer Location Encounter Start Date Encounter Closed Date Diagnosis/Indication Diagnosis SNOMED-CT Code Diagnosis ICD10 Code Diagnosis IMO Codes Diagnosis Note [id number] [facility] [address] [address] 08/10/2019 10:58:35 08/10/2019 11:38:55 [id number] [address] [facility] [address] [place] [address] 12/28/2019 11:18:26 12/28/2019 12:03:42 [id number] Carlos Waters [place] [address] [address] [place] [address] 02/08/2023 12:27:45 02/08/2023 13:04:37 Acute sinusitis [id number] J01.90 Health Concerns Section Related Observation LastModified by Organization Detai ls LastModified Time None Recorded Concern Status LastModified by Organization Details LastModified Time None Recorded Advance Directives Directive None Recorded Payers Insurance Date Sequence Insurance Name Policy Number Policy Navarro Covered Member ID Navarro Member ID Guarantor Name 02/08/2023 1 [place] [employer] Ashish Hamilton [id number] Ashish Hamilton 02/08/2023 2 [place] [id number] Ashish Hamilton [id number] Ashish Hamilton Notes Date Note Type [...] Waters NP [address] [place], [address], [place] - [facility] 02/08/2023 13:03:07
--- OUTSIDE RECORDS SUMMARY | 2025-09-11 09:46 | XMS_ITS | Encounter Summary ---
Author Organization [facility] Address [address] [place] [address] Phone Care Team Providers Care Clipper Machine Operator Name Role Phone Bean Joe MD Primary Care Provider [phone] Luna Mckeon MD, PhD Unavailable [phone] Ever Spring MD Unavailable [phone] Bailey Vazquez RN Unavailable [phone] Hilary Gallardo RN Unavailable RHONDA [email or web address] Demetrio Love PA-C Unavailable +-[phone] Tamar Armando RN Unavailable [email or web address]@ [facility].[place].[facility] Encounter Details Date Type Department Care Team (Late st Contact Info) Description 01/16/2023 Procedure Pass [facility] [place] [facility] [place] 300 [place] [address] Social History Tobacco Use Types Packs/Day Years [...] [facility] [place], PET/CT 300 [facility] [address] [place] [address] Donald Zavala MD [address] [place] [address] [email or web address]@[email or web address] 09/15/2025 1:00 PM EST Office Visit [facility], [facility] [place] [address] [address] Donald Zavala MD [address] [place] [address] [email or web address]@[facility] documented as of this encounter Visit Diagnoses Not on filedocumented in this encounter Additional Health Concerns Assessment Noted Time PHQ-2 Depression Total Score: 0 10/24/19 23 2:05 PM EST documented as of this encounter Care Teams Clipper Machine Operator Relationship Specialty Start Date End Date Bean Joe MD [address] [place] [address] PCP - General Internal Medicine 11/11/21 Luna Mckeon MD, PhD [address] [place] [address] [email or web address] Thoracic Surgery 11/15/21 Ever Spring MD [address] [place] [address] Division of [place] [address] [email or web address] Thoracic Surgery 11/28/21 Bailey Vazquez RN 300 [place] [address] [email or web address] Primary Infusion Nurse 02/21/22 Hilary Gallardo RN 300 [place] [address] [email or web address] Associate Infusion Nurse 07/28/22 Demetrio Love PA-C 300 [place] [address] [email or web address] Physician Cable Tool Operator 12/21/22 04/05/23 Tamar Armando RN 300 [place] [address] [email or web address] Associate Infusion Nurse 04/06/23 documented as of this encounter Additional Source Comments The information contained in this document represents components of the legal health record. It is not the complete legal health record.[facility]
--- OUTSIDE RECORDS SUMMARY | 2025-09-11 09:46 | XMS_ITS | Encounter Summary ---
Author Organization [facility] Address [address] [place] [address] Phone Care Team Providers Care Cosmetology Instructor Name Role Phone Bean Joe MD Primary Care Provider [phone] Luna Mckeon MD, PhD Unavailable [phone] Ever Spring MD Unavailable [phone] Bailey Vazquez RN Unavailable [phone] Hilary Gallardo RN Unavailable RHONDA [email or web address].[facility] Demetrio Love PA-C Unavailable [phone] Tamar Armando RN Unavailable [email or web address]@ [email or web address].[facility] Encounter Details Date Type Department Care Team (Late st Contact Info) Description 01/02/2022 Procedure Pass [facility] Periop 75 [place] [address] Social History Tobacco Use Types Packs/Day Years [...] 1:00 PM EDT Bibi Santos RN * [place] Suicide Severity Rating Scale (Screener/Recent Self-Report) Question [...] Description 09/15/2025 9:15 AM EST Appointment [facility], PET/CT [address] [address] Donald Zavala MD [address] [place] [address] [email or web address] 09/15/2025 1:00 PM EST Office Visit [facility], [facility] [address] [address] Donald Zavala MD [address] [place] [address] [email or web address] documented as of this encounter Visit Diagnoses Not on filedocumented in this encounter Additional Health Concerns Assessment Noted Time PHQ-2 Depression Total Score: 0 11/29/19 9:25 AM EST documented as of this encounter Care Teams Cosmetology Instructor Relationship Specialty Start Date End Date Bean Joe MD [address] [place] [address] PCP - General Internal Medicine 11/11/21 Luna Mckeon MD, PhD [address] [place] [address] [email or web address] Thoracic Surgery 11/15/21 Ever Spring MD [address] [place] [address] Division [place] [address] [email or web address] Thoracic Surgery 11/28/21 Bailey Vazquez RN [address] [place] [address] [email or web address] Primary Infusion Nurse 02/21/22 Hilary Gallardo RN [address] [place] [address] [email or web address]@[facility] Associate Infusion Nurse 07/28/22 Demetrio Love PA-C [address] [place] [address] [email or web address] Physician Sales Coordinator 12/21/22 04/05/23 Tamar Armando RN [address] [place] [address] [email or web address] Associate Infusion Nurse 04/06/23 documented as of this encounter Additional Source Comments The information contained in this document represents components of the legal health record. It is not the complete legal health record.[facility]
--- OUTSIDE RECORDS SUMMARY | 2025-09-11 09:46 | XMS_ITS ---
Author Organization [facility] Address [address] [place] [address] Phone Care Team Providers Care Space Operations Name Role Phone Bean Joe MD Primary Care Provider [phone] Luna Mckeon MD, PhD Unavailable [phone] Ever Spring MD Unavailable [phone] Bailey Vazquez RN Unavailable [phone] Hilary Gallardo RN Unavailable RHONDA BOTELLO@[email or web address] Tamar Armando RN Unavailable [email or web address]@ [facility] Active Problems Problem Noted Date Diagnosed Date [...]
--- OUTSIDE RECORDS SUMMARY | 2025-09-11 09:46 | XMS_ITS | Encounter Summary ---
Author Organization [facility] Address [address] [place] [address] Phone Care Team Providers Care Jewelry Model Maker Name Role Phone Bean Joe MD Primary Care Provider [phone] Luna Mckeon MD, PhD Unavailable [phone] Ever Spring MD Unavailable [phone] Bailey Vazquez RN Unavailable [phone] Hilary Gallardo RN Unavailable RHONDA [email or web address].[facility] Demetrio Love PA-C Unavailable [phone] Tamar Armando RN Unavailable [email or web address]@ [facility] Reason for Referral * - Closed Specialty Diagnoses / Procedures Referred By Cindi t Referred To Contact Radiology Diagnoses Pre-op exam Procedures NM SPECT/CT Single Area Single Day Ever Spring MD Phone: tel: fax: mailto:[email or web address] Referral ID Status Reason Start Date Expiration Date Visits Re quested Visits Authorized [id number] Closed 12/06/2021 12/06/2022 1 1 Encounter Details Date Type Department Care Team (Late st Contact Info) Description 12/06/2021 Ancillary Orders [facility] for [facility], [facility] Cancer [address] [place] [address] Ever Spring MD [address] [place] [address] Division [place] [address] [email or web address] Pre-op exam Social History Tobacco Use Types [...] Info) Description 09/15/2025 9:15 AM EST Appointment [facility] [place], PET/CT [address] [address] Donald Zavala MD [address] [place] [address] Garry@[email or web address] 09/15/2025 1:00 PM EST Office Visit [facility], [facility] [place] [facility] [place] [address] [address] Donald Zavala MD [address] [place] [address] Garry@[facility] documented as of this encounter Results [...] documented as of this encounter Care Teams Jewelry Model Maker Relationship Specialty Start Date End Date Bean Joe MD [address] [place] [address] PCP - General Internal Medicine 11/11/21 Luna Mckeon MD, PhD [address] [place] [address] [email or web address] Thoracic Surgery 11/15/21 Ever Spring MD [address] [place] [address] Division [place] [address] [email or web address] Thoracic Surgery 11/28/21 Bailey Vazquez RN [address] [place] [address] [email or web address] Primary Infusion Nurse 02/21/22 Hilary Gallardo RN [address] [place] [address] SARA@[facility] Associate Infusion Nurse 07/28/22 Demetrio Love PA-C 300 [place] [address] [email or web address] Physician Die Maker 12/21/22 04/05/23 Tamar Armando RN 300 [place] [address] [email or web address] Associate Infusion Nurse 04/06/23 documented as of this encounter Additional Source Comments The information contained in this document represents components of the legal health record. It is not the complete legal health record.[facility]
--- OUTSIDE RECORDS SUMMARY | 2025-09-11 09:47 | XMS_ITS | Encounter Summary ---
Author Organization [facility] Address [address] [place] [address] Phone Care Team Providers Care Rubber Stamp Die Inspector Name Role Phone Bean Joe MD Primary Care Provider [phone] Luna Mckeon MD, PhD Unavailable [phone] Ever Spring MD Unavailable [phone] Bailey Vazquez RN Unavailable [phone] Hilary Gallardo RN Unavailable RHONDA BOTELLO@[email or web address].[email or web address].[facility] Demetrio Love PA-C Unavailable [phone] Tamar Armando RN Unavailable [email or web address]@ [facility].[place].[facility] Encounter Details Date Type Department Care Team (Late st Contact Info) Description 11/25/2021 Procedure Pass [facility] Periop 75 [place] [address] Social History Tobacco Use Types Packs/Day Years [...] Description 09/15/2025 9:15 AM EST Appointment [facility] [place], PET/CT [address] [facility] [address] [place] [address] Donald Zavala MD [address] [place] [address] Garry@[facility] 09/15/2025 1:00 PM EST Office Visit [facility], [facility] [place] [address] [facility] [address] [place] [address] Donald Zavala MD [address] [place] [address] Garry@[facility] documented as of this encounter Visit Diagnoses Not on filedocumented in this encounter Additional Health Concerns Assessment Noted Time PHQ-2 Depression Total Score: 0 11/16/19 9:15 AM EST documented as of this encounter Care Teams Rubber Stamp Die Inspector Relationship Specialty Start Date End Date Bean Joe MD [address] [place] [address] PCP - General Internal Medicine 11/11/21 Luna Mckeon MD, PhD [address] [place] [address] [email or web address] Thoracic Surgery 11/15/21 Ever Spring MD [address] [place] [address] Division [place] [address] [email or web address] Thoracic Surgery 11/28/21 Baliey Vazquez RN 300 [place] [address] [email or web address] Primary Infusion Nurse 02/21/22 Hilary Gallardo RN 300 [place] [address] SARA@[facility] Associate Infusion Nurse 07/28/22 Demetrio Love PA-C [address] [place] [address] [email or web address] Physician Horticulture Professor 12/21/22 04/05/23 Tamar Armando RN 300 [place] [address] [email or web address] Associate Infusion Nurse 04/06/23 documented as of this encounter Additional Source Comments The information contained in this document represents components of the legal health record. It is not the complete legal health record.[facility]
--- OUTSIDE RECORDS SUMMARY | 2025-09-11 09:47 | XMS_ITS | Encounter Summary ---
Author Organization [facility] Address [address] [place] [address] Phone Care Team Providers Care Yeast Cake Cutter Name Role Phone Bean Joe MD Primary Care Provider [phone] Luna Mckeon MD, PhD Unavailable [phone] Ever Spring MD Unavailable [phone] Bailey Vazquez RN Unavailable [phone] Hilary Gallardo RN Unavailable RHONDA BOTELLO@[facility].[place].[facility] Demetrio Love PA-C Unavailable [phone] Tamar Armando RN Unavailable [email or web address]@ [facility].[place].[facility] Encounter Details Date Type Department Care Team (Late st Contact Info) Description 01/16/2023 Procedure Pass [facility] [place] [facility] [place], [place] 300 [place] [address] Social History Tobacco Use Types Packs/Day Years [...] 09/15/2025 9:15 AM EST Appointment [facility] [place], PET/CT 300 [facility] [address] [place] [address] Donald Zavala MD [address] [place] [address] Garry@[facility] 09/15/2025 1:00 PM EST Office Visit [facility], [facility] [address] [address] Donald Zavala MD [address] [place] [address] Garry@[facility] documented as of this encounter Visit Diagnoses Not on filedocumented in this encounter Additional Health Concerns Assessment Noted Time PHQ-2 Depression Total Score: 0 10/24/19 23 2:05 PM EST documented as of this encounter Care Teams Yeast Cake Cutter Relationship Specialty Start Date End Date Bean Joe MD [address] [place] [address] PCP - General Internal Medicine 11/11/21 Luna Mckeon MD, PhD [address] [place] [address] [email or web address] Thoracic Surgery 11/15/21 Ever Spring MD [address] [place] [address] Division [place] [address] [email or web address] Thoracic Surgery 11/28/21 Bailey Vazquez RN 300 [place] [address] [email or web address] Primary Infusion Nurse 02/21/22 Hilary Gallardo RN 300 [place] [address] SARA@[facility] Associate Infusion Nurse 07/28/22 Demetrio Love PA-C 300 [place] [address] [email or web address] Physician Medical Tech 12/21/22 04/05/23 Tamar Armando RN 300 [place] [address] [email or web address] Associate Infusion Nurse 04/06/23 documented as of this encounter Additional Source Comments The information contained in this document represents components of the legal health record. It is not the complete legal health record.[facility]
--- OUTSIDE RECORDS SUMMARY | 2025-09-11 09:47 | XMS_ITS | Encounter Summary ---
Author Organization [facility] Address [address] [place] [address] Phone Care Team Providers Care Mottle Lay Up Operator Name Role Phone Bean Joe MD Primary Care Provider [phone] Luna Mckeon MD, PhD Unavailable [phone] Ever Spring MD Unavailable [phone] Bailey Vazquez RN Unavailable [phone] Hilary Gallardo RN Unavailable RHONDA [email or web address]@[email or web address].[place] Demetrio Love PA-C Unavailable [phone] Tamar Armando RN Unavailable [email or web address]@ [email or web address].[facility] Encounter Details Date Type Department Care Team (Late st Contact Info) Description 11/25/2021 Procedure Pass [facility] 75 [place] [address] Social History Tobacco Use Types Packs/Day Years [...] Info) Description 09/15/2025 9:15 AM EST Appointment [facility], PET/CT 300 [facility] [address] [place] [address] Donald Zavala MD [address] [place] [phone] Garry@[facility] 09/15/2025 1:00 PM EST Office Visit [facility], [facility] [place] [address] [address] Donald Zavala MD [address] [place] [address] Garry@[facility] documented as of this encounter Visit Diagnoses Not on filedocumented in this encounter Additional Health Concerns Assessment Noted Time PHQ-2 Depression Total Score: 0 11/16/19 9:15 AM EST documented as of this encounter Care Teams Mottle Lay Up Operator Relationship Specialty Start Date End Date Bean Joe MD [address] [place] [address] PCP - General Internal Medicine 11/11/21 Luna Mckeon MD, PhD [address] [place] [address] [email or web address] Thoracic Surgery 11/15/21 Ever Spring MD [address] [place] [address] Division [place] [address] [email or web address] Thoracic Surgery 11/28/21 Bailey Vazquez RN 300 [place] [address] [email or web address] Primary Infusion Nurse 02/21/22 Hilary Gallardo RN 300 [place] [address] SARA@[email or web address] Associate Infusion Nurse 07/28/22 Demetrio Love PA-C [address] [place] [address] [email or web address] Physician Reptile Keeper 12/21/22 04/05/23 Tamar Armando RN 300 [place] [address] [email or web address] Associate Infusion Nurse 04/06/23 documented as of this encounter Additional Source Comments The information contained in this document represents components of the legal health record. It is not the complete legal health record.[facility]
--- OUTSIDE RECORDS SUMMARY | 2025-09-11 09:47 | XMS_ITS | Encounter Summary ---
Author Organization [facility] Address [address] [place] [address] Phone Care Team Providers Care Escalator Constructor Name Role Phone Bean Joe MD Primary Care Provider [phone] Luna Mckeon MD, PhD Unavailable [phone] Ever Spring MD Unavailable [phone] Bailey Vazquez RN Unavailable [phone] Hilary Gallardo RN Unavailable RHONDA BOTELLO@[facility].[place].[facility] Demetrio Love PA-C Unavailable [phone] Tamar Armando RN Unavailable [email or web address]@ [facility] Encounter Details Date Type Department Care Team (Late st Contact Info) Description 02/09/2022 Procedure Pass [facility], [facility] [place], [place] 450 [facility] Floor [address] [place] [address] Social History Tobacco Use Types Packs/Day Years [...] 9:15 AM EST Appointment [facility] [place], PET/CT [address] [address] Donald Zavala MD [address] [place] [address] Garry@[facility] 09/15/2025 1:00 PM EST Office Visit [facility], [facility] [address] [address] Donald Zavala MD [address] [place] [address] Garry@[facility] documented as of this encounter Visit Diagnoses Not on filedocumented in this encounter Additional Health Concerns Assessment Noted Time PHQ-2 Depression Total Score: 0 11/29/19 9:25 AM EST documented as of this encounter Care Teams Escalator Constructor Relationship Specialty Start Date End Date Bean Joe MD [address] [place] [address] PCP - General Internal Medicine 11/11/21 Luna Mckeon MD, PhD [address] [place] [address] [email or web address] Thoracic Surgery 11/15/21 Ever Spring MD [address] [place] [address] Division [place] [address] [email or web address] Thoracic Surgery 11/28/21 Bailey Vazquez RN 300 [place] [address] MAT@[email or web address] Primary Infusion Nurse 02/21/22 Hilary Gallardo RN 300 [place] [address] SARA@[facility] Associate Infusion Nurse 07/28/22 Demetrio Love PA-C 300 [place] [address] [email or web address] Physician Software Engineering Project Manager 12/21/22 04/05/23 Tamar Armando RN 300 [place] [address] [email or web address] Associate Infusion Nurse 04/06/23 documented as of this encounter Additional Source Comments The information contained in this document represents components of the legal health record. It is not the complete legal health record.[facility]
== END 2025-09-10 09:21 | disposition home or self-care (01) ==
LOC: HO.HOSX 09:20
PROVIDERS: Visit Provider Physician Assistant
DX: Z47.1 Aftercare following joint replacement surgery (principal); Z96.641 Presence of right artificial hip joint
CPT/HCPCS: 73502; 99212

== ENCOUNTER 2025-09-10 09:42 | Outpatient (AMB) | payer MEDICARE, SELFPAY ==
--- NOTE | 2025-09-10 10:18 | A.OFFVIS_ITS ---
Intake Visit Reasons: PO- Rt hip mikaela 07/24/25 NE w xrays Intake Note: Ashish is a 79 year old male who presents today for a post operative visit status post right hip mikaela, performed by Dr. Ferrell 07/24/25 NE w xrays. At last visit patient was instructed to continue working with physical therapy and occupational therapy for gait training and strengthening exercises. The right knee was also injected with steroid. At today's visit he states doing well, not much pain however with walking his pain is tolerable. States injection helped a little with his right knee pain. Allergies No Known Allergies Allergy (Verified 09/10/25 10:26) Medication List - Last Reconciled 09/10/25 by Alcon Mari PA-C acetaminophen 650 mg (2 x 325 mg) PO Q6H PRN 30 days albuterol sulfate 90 mcg/actuation 2 puffs inhalation QID PRN amlodipine 10 mg PO DAILY atorvastatin 40 mg PO DAILY brimonidine 0.2% 1 drp ophthalmic (eye) BID carvedilol 25 mg PO BID mvpfpptsdtk-coxwthvhy-mbwdlnrq 200-62.5-25 mcg (Trelegy Ellipta) 1 ea inhalation DAILY latanoprost 0.005% 1 drp ophthalmic (eye) BEDTIME lidocaine 4% (Aspercreme (lidocaine)) 2 patches topical DAILY PRN omeprazole 20 mg PO DAILY@0630 valsartan 320 mg PO DAILY HPI HPI PO- Rt hip mikaela 07/24/25 NE w xrays: Details: 79-year-old gentleman returns to the office today 6 weeks status post right hip hemiarthroplasty on 07/24/[address] Ferrell. The patient continues to work with home physical therapy and is ambulating with a cane. Has no concerns with his hip. He also has relief with his right knee from his injection at the last appointment. COUNTS INCLUDE 234 BEDS AT THE [facility] Medical History (Updated 08/04/25 @ 00:02 by Radha Mock) Lung cancer Hip osteoarthritis Primary osteoarthritis of right hip Primary osteoarthritis of right knee Hypertension Surgical History Hx of total knee arthroplasty History of lobectomy of lung History of arthroscopy of left knee (~1965) Family History Father No problems noted. Mother No problems noted. Social History Household Members: None Housing: Apartment Are you a primary resident caregiver to a significant other at home: No Do you presently have visiting nurse or other home services: No Alcohol intake: current Alcohol intake frequency: holidays/special occasions only Patient Tobacco Use Status: Former Tobacco user Tobacco use type: Cigarette e-Cigarette/Vaping Use: Former Use Second Hand Smoke Exposure: No Advance Directives Date on File: 03/28/23 service: Yes Current occupational status: retired Current occupation: right handed Review of Systems Const All systems reviewed & are unremarkable except as noted in HPI and below Physical Exam Extrem Other: Right hip incision well healed. No surrounding erythema or drainage. No pain with hip flexion or range of motion. Calf supple and nontender neurovascularly intact. Results Reviewed Results Reviewed: X-rays of the right hip obtained in the office today and reviewed by me show intact joint prosthesis without signs of loosening. Assessment & Plan Assessment & Plan (1) Status post hemiarthroplasty of right hip: Code(s): Z96.641 - Presence of right artificial hip joint Category: Surgical Plan: The patient will continue working with physical therapy to improve his gait and strength. I encouraged increasing activity as tolerated. Hip precautions still in place. He has an appointment with me in October for his right knee and we can do an x-ray of the right hip at that time as well. If there is any concerns he can see me sooner. Orders: Orders XR hip RT min 2V Today M25.551 - Pain in right hip Coding Level of Care Code Global (16482) Diagnoses Status post hemiarthroplasty of right hip Z96.641
== END 2025-09-10 10:44 | disposition home or self-care (01) ==
LOC: HO.HOS 09:43
PROVIDERS: PCP Internal Medicine; Visit Provider Physician Assistant
DX: Z96.641 Presence of right artificial hip joint (principal)
CPT/HCPCS: 99024

== ENCOUNTER → 2025-09-10 10:08 | Outpatient (BNV) | payer MEDICARE, SELFPAY | PROVIDERS: Visit Provider Radiology Diagnostic Radiology | DX: M25.551 Pain in right hip (principal); Z96.641 Presence of right artificial hip joint | CPT/HCPCS: 73502 ==